=== PATIENT | male | born 1950 | race Caucasian/White ===

== ENCOUNTER 2018-09-15 12:31 | Emergency (ER) | payer MEDICARE, OTHER ==
--- OUTSIDE RECORDS SUMMARY | 2018-09-15 12:33 | XMS REPORT | Clinical Summary ---
:1950 Author Organization [facility] Address [address] [place] [address] Care Team Providers Name Role Phone Cynthia Andino Primary Care Provider Allergies Active Allergy Reactions Severity Noted Date Comments Codeine Nausea And Vomiting 01/31/2016 Penicillins Hives 01/31/2016 Hydrocodone-Acetaminophen Nausea And Vomiting 07/12/2016 Medications Medication Sig Dispensed Refills Start Date End Date Status ALPRAZolam (XANAX) 1 Take 0.5 mg by 0 Active MG tablet mouth 4 (four) times daily as needed for Anxiety Takes a total 2mg a day. amLODIPine (NORVASC) Take 5 mg by mouth 0 Active 5 MG tablet 2 (two) times daily . aspirin 81 MG Take 81 mg by mouth 0 Active chewable tablet daily. glimepiride (AMARYL) Take 4 mg by mouth 0 Active 4 MG tablet 2 (two) times daily before meals . ibuprofen-diphenhydra Take 2 tablets by 0 Active mine HCl (ADVIL PM mouth as needed . LIQUI-GELS) 200-25 mg Cap losartan-hydrochlorot Take 1 tablet by 0 Active hiazide (HYZAAR) mouth daily. 100-25 mg per tablet metFORMIN Take 500 mg by 0 Active (GLUCOPHAGE) 500 MG mouth 2 (two) times tablet daily with breakfast and dinner Takes 500 mg in am and 1000 mg at night. CYANOCOBALAMIN, Take 1 tablet by 0 Active VITAMIN B-12, mouth daily Super (VITAMIN B-12 ORAL) Vitamin B 12 . UNKNOWN 1 tablet daily 0 Active Takes another diabetic pill, new prescription, can't remember name . Active Problems Problem Noted Date Hiatal hernia s/p lap repair and magnetic spincter augmentation 07/15/162016 Dysphagia GERD (gastroesophageal reflux disease) Family History Medical History Relation Name Comments Diabetes Father Heart disease Father Hypertension Mother Relation Name Status Comments Father Mother Social History Tobacco Use Types Packs/Day Years Used Date Former Smoker Quit: 06/02/1996 Smokeless Tobacco: Never Used Alcohol Use Drinks/Week oz/Week Comments Yes 4 Standard drinks or equivalent 2.0 Sex Assigned at Date Recorded Not on file Job Start Date Occupation Industry Not on file Not on file Not on file Travel History Travel Start Travel End No recent travel history available. 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 For more information, please contact:[address] [phone] Code Status Date Activated Date Inactivated Comments Full Code 07/15/2016 6:35 PM 07/17/2016 1:25 PM This code status was determined by: Patient Full Code 07/15/2016 8:19 AM 07/15/2016 6:35 PM This code status was determined by: Patient
--- OUTSIDE RECORDS SUMMARY | 2018-09-15 12:33 | XMS REPORT ---
:1950 Author Organization [facility] Address [address] [place] [address] [address] [place] [address] Care Team Providers Name Role Phone CAROLINA BROOKS Unavailable Unavailable Problems This patient has no known problems. Allergies, Adverse Reactions, Alerts This patient has no known allergies or adverse reactions. Medications This patient has no known medications. Results Test Description Test Time Test Comments Text Results Atomic Results Result Comments POCT-GLUCOSE METER 2016-07-19 09:15:00 Test Item Value Reference Range Comments POC-GLUCOSE METER (BEAKER) (test 229 mg/dL 70-110 TESTED AT [address] jufk=7706) [facility] [id number] POCT-GLUCOSE [id number] 08:10:00 Test Item Value Reference Range Comments POC-GLUCOSE METER (BEAKER) 238 mg/dL 70-110 TESTED AT [address] (test bpjo=1393) [facility] [address] [id number] 04:55:00 Test Item Value Reference Range Comments MAGNESIUM (BEAKER) (test ksnr=512) 2.0 mg/dL 1.6-2.6 BASIC METABOLIC [id number] 04:55:00 Test Item Value Reference Range Comments SODIUM (BEAKER) (test 139 meq/L 136-145 izlh=796) POTASSIUM (BEAKER) (test 3.7 meq/L 3.5-5.1 vqoi=913) CHLORIDE (BEAKER) (test 103 meq/L 98-107 tiau=597) CO2 (BEAKER) (test 27 meq/L 22-29 sjvf=991) BLOOD UREA NITROGEN 7 mg/dL 7-21 (BEAKER) (test mplz=406) CREATININE (BEAKER) (test 0.67 mg/dL 0.57-1.25 auvg=645) GLUCOSE RANDOM (BEAKER) 217 mg/dL 70-105 (test tszx=669) CALCIUM (BEAKER) (test 8.4 mg/dL 8.4-10.2 hajs=294) EGFR (BEAKER) (test 119 mL/min/1.73 sq m ESTIMATED GFR IS NOT ulhy=6138) ACCURATE CREATININE CLEARANCE IN PREDICTING GLOMERULAR FILTRATION RATE. ESTIMATED GFR IS NOT APPLICABLE FOR DIALYSIS PATIENTS. [id number] 04:47:00 Test Item Value Reference Range Comments PARTIAL THROMBOPLASTIN TIME (BEAKER) (test 26.9 seconds 22.5-36.0 ybhr=579) PROTHROMBIN [id number] 04:46:00 Test Item Value Reference Range Comments PROTIME (BEAKER) (test zgsb=296) 12.9 seconds 11.7-14.7 INR (BEAKER) (test kelj=918) 1.0 <=5.9 RECOMMENDED COUMADIN/WARFARIN INR THERAPY RANGESSTANDARD DOSE: 2.0 - 3.0 Includes: PROPHYLAXIS forvenous thrombosis, systemic embolization; TREATMENT for venous thrombosis and/or pulmonary embolus.HIGH RISK: Target INR is 2.5-3.5 for patients with mechanical heart valves.CBC W/PLT COUNT & AUTO [id number] 04:36:00 Test Item Value Reference Range Comments WHITE BLOOD CELL COUNT (BEAKER) (test rnyz=080) 10.0 K/ L 4.0-10.0 RED BLOOD CELL COUNT (BEAKER) (test fewg=663) 4.53 M/ L 4.20-5.80 HEMOGLOBIN (BEAKER) (test ivjy=490) 14.2 GM/DL 13.0-16.8 HEMATOCRIT (BEAKER) (test nmvj=357) 43.6 % 40.0-50.0 MEAN CORPUSCULAR VOLUME (BEAKER) (test gpwp=193) 96.3 fL 82.0-98.0 MEAN CORPUSCULAR HEMOGLOBIN (BEAKER) (test 31.4 pg 27.0-33.0 byar=578) MEAN CORPUSCULAR HEMOGLOBIN CONC (BEAKER) (test 32.6 GM/DL 32.0-36.0 rtai=337) RED CELL DISTRIBUTION WIDTH (BEAKER) (test 11.6 % 10.3-14.2 jcse=003) PLATELET COUNT (BEAKER) (test ulrf=036) 168 K/CU MM 150-430 MEAN PLATELET VOLUME (BEAKER) (test tvhp=508) 7.9 fL 6.5-10.5 NUCLEATED RED BLOOD CELLS (BEAKER) (test 0 /100 WBC 0-0 smht=050) NEUTROPHILS RELATIVE PERCENT (BEAKER) (test 61 % qqpn=519) LYMPHOCYTES RELATIVE PERCENT (BEAKER) (test 28 % lybh=944) MONOCYTES RELATIVE PERCENT (BEAKER) (test 10 % exya=552) EOSINOPHILS RELATIVE PERCENT (BEAKER) (test 1 % qcou=851) BASOPHILS RELATIVE PERCENT (BEAKER) (test 1 % ggkc=304) NEUTROPHILS ABSOLUTE COUNT (BEAKER) (test 6.07 K/ L 1.80-8.00 tpzo=340) LYMPHOCYTES ABSOLUTE COUNT (BEAKER) (test 2.76 K/ L 1.48-4.50 akhb=673) MONOCYTES ABSOLUTE COUNT (BEAKER) (test 0.97 K/ L 0.00-1.30 hjcf=090) EOSINOPHILS ABSOLUTE COUNT (BEAKER) (test 0.14 K/ L 0.00-0.50 zpjb=753) BASOPHILS ABSOLUTE COUNT (BEAKER) (test 0.06 K/ L 0.00-0.20 mhuk=706) 0.00POCT-GLUCOSE [id number] 22:06:00 Test Item Value Reference Range Comments POC-GLUCOSE METER (BEAKER) 243 mg/dL 70-110 TESTED AT [address] (test fbjw=4997) [place] [address] POCT-GLUCOSE [id number] 17:17:00 Test Item Value Reference Range Comments POC-GLUCOSE METER (BEAKER) 218 mg/dL 70-110 TESTED AT [address] (test ygpb=1490) [place] [address]
[2018-09-15 13:57] LABS: Absolute Lymphocytes (CBC) 1.3 K/uL (0.7-4.9); Absolute Monocytes 0.7 K/uL (0.1-1.3); Absolute Neutrophil 9.9 K/uL (1.8-8.0); Basophils % 0.7 % (0-1.3); Eosinophils % 0.6 % (0-4.4); Hematocrit 53.4 % (39.6-49.0); Lymphocytes % 10.3 % (15.3-44.8); MPV 9.4 fL (7.6-11.3); Monocytes % 6.2 % (3.3-12.3); RBC Red Blood Cell Count 5.82 M/uL (4.33-5.43)
[2018-09-15] MEDS ORDERED: NA CHLORIDE 0.9% 1,000 ML ONE ×3 (13:57→15:03)
[2018-09-15] MEDS ORDERED: MORPHINE 4 MG/ML SYR ONE ×2 (13:57→14:55)
[2018-09-15] MEDS ORDERED: ONDANSETRON 4 MG/2 ML VIAL ONE ×3 (13:57→16:52)
[2018-09-15] MEDS ORDERED: PANTOPRAZOLE 40 MG INJ ONE (13:57)
[2018-09-15 13:59] LABS: Protime INR 0.96
[2018-09-15 14:13] LABS: ALT/SGPT 106 U/L (12-78); AST/SGOT 61 U/L (15-37); Albumin 4.3 g/dL (3.4-5.0); Alkaline Phosphatase 50 U/L (45-117); BUN Blood Urea Nitrogen 13 mg/dL (7-18); Bicarbonate 30 mmol/L (21-32); Bilirubin Direct 0.3 mg/dL (0-0.2); Bilirubin Total 0.9 mg/dL (0.2-1.0); Glucose Level 131 mg/dL (74-106); Lipase 19271 U/L (73-393); Potassium 4.3 mmol/L (3.5-5.1); Protein, Total 8.3 g/dL (6.4-8.2); Sodium Level 143 mmol/L (136-145)
[2018-09-15 14:49] LABS: Magnesium 2.5 mg/dL (1.8-2.4); NT PRO-BNP 46 pg/mL (<125); Troponin (Emerg Dept Use Only) < 0.02 ng/mL (0.0-0.045)
--- NOTE | 2018-09-15 15:03 | ER ---
Nurse's Notes [facility] Name: Donal Valentine Age: 68 yrs Sex: Male : 1950 Arrival Date: 09/15/2018 Time: 12:38 Bed 25 Private MD: Diagnosis: Abdominal tenderness;Acute pancreatitis;Type 2 diabetes mellitus;Volume depletion;Elevated white blood cell count Presentation: 09/15 12:55 Presenting complaint: Patient states: i woke up this AM being nauseated and threw up 3 hj x; reports abd pain; pain is 8/10; denies fever and chills; denies diarrhea or constipation;. Transition of care: patient was not received from another setting of care. Onset of symptoms was September 15, 2018. Risk Assessment: Do you want to hurt yourself or someone else? Patient reports no desire to harm self or others. Initial Sepsis Screen: Does the patient meet any 2 criteria? No. Patient's initial sepsis screen is negative. Does the patient have a suspected source of infection? No. Patient's initial sepsis screen is negative. Care prior to arrival: None. 12:55 Method Of Arrival: Ambulatory 12:55 Acuity: MINOR 3 hj Triage Assessment: 13:21 General: Appears in no apparent distress. uncomfortable, Behavior is calm, cooperative, hj appropriate for age. Pain: Complains of pain in abdomen. GI: Reports nausea, vomiting. Historical: - Allergies: 12:57 Codeine; hj 12:57 PENICILLINS; - Home Meds: 13:42 metformin 1,000 mg Oral tab 1 tab nightly for Type 2 Diabetes Mellitus [Active]; hj gabapentin 300 mg oral cap 1 cap nightly [Active]; omeprazole 40 mg Oral cpDR 1 cap once daily [Active]; losartan-hydrochlorothiazide 100-25 mg Oral tab 1 tab once daily for Hypertension [Active]; glimepiride 4 mg Oral tab 1 tab once daily [Active]; alprazolam 1 mg oral tab 1 tab twice a day [Active]; Jardiance 25 mg oral tab 1 tab once daily [Active]; aspirin 81 mg Oral chew 1 tab once daily [Active]; sucralfate 1 gram Oral tab 1 tab 2 times per day [Active]; - PMHx: 12:57 Diabetes - NIDDM; Hypertension; hj - PSHx: 12:57 linex surgery; hj - Immunization history:: Adult Immunizations up to date. - Social history:: Smoking status: Patient/guardian denies using tobacco, Patient/guardian denies using alcohol. - Ebola Screening: : Patient negative for fever greater than or equal to 101.5 degrees Fahrenheit, and additional compatible Ebola Virus Disease symptoms Patient denies exposure to infectious person Patient denies travel to an Ebola-affected area in the 21 days before illness onset. - Family history:: not pertinent. Screenin:21 Abuse screen: Denies threats or abuse. Denies injuries from another. Nutritional hj screening: No deficits noted. Tuberculosis screening: No symptoms or risk factors identified. Fall Risk None identified. Assessment: 12:59 GI: Bowel sounds present X 4 quads. hj 13:22 GI: Abd is soft. hj 13:22 General: Appears in no apparent distress. uncomfortable, Behavior is calm, cooperative, hj appropriate for age. Pain: Complains of pain in abdomen. Neuro: Level of Consciousness is awake, alert, obeys commands, Oriented to person, place, time, situation, Appropriate for age. Cardiovascular: Capillary refill < 3 seconds Patient's skin is warm and dry. Respiratory: Airway is patent Respiratory effort is even, unlabored, Respiratory pattern is regular, symmetrical. : No signs and/or symptoms were reported regarding the genitourinary system. EENT: No signs and/or symptoms were reported regarding the EENT system. Derm: No signs and/or symptoms reported regarding the dermatologic system. Musculoskeletal: No signs and/or symptoms reported regarding the musculoskeletal system. 14:00 Reassessment: Patient and/or family updated on plan of care and expected duration. Pain hj level reassessed. Patient is alert, oriented x 3, equal unlabored respirations, skin warm/dry/pink. pt finished drinking oral contrast;. 16:03 Reassessment: report called to TAMIKA Hilton of [facility]. mg2 16:27 Reassessment: Patient and/or family updated on plan of care and expected duration. Pain hj level reassessed. Patient is alert, oriented x 3, equal unlabored respirations, skin warm/dry/pink. wheeled to US;. 17:23 Reassessment: Patient and/or family updated on plan of care and expected duration. Pain hj level reassessed. Patient is alert, oriented x 3, equal unlabored respirations, skin warm/dry/pink. awaiting for ambulance transport- ;. Vital Signs: 12:57 BP 132 / 84; Pulse 71; Resp 18; Temp 99.1(O); Pulse Ox 98% on R/A; Weight 92.99 kg; hj Height 6 ft. 1 in. (185.42 cm); Pain 8/10; 13:30 BP 146 / 84; Pulse 72; Resp 18; Pulse Ox 100% on R/A; hj 14:24 BP 144 / 86; Pulse 71; Resp 18; Pulse Ox 99% on R/A; hj 15:49 BP 122 / 65; Pulse 73; Resp 18; Temp 98.7(O); Pulse Ox 98% on R/A; hj 16:27 BP 121 / 66; Pulse 72; Resp 18; Pulse Ox 100% on R/A; hj 17:23 BP 156 / 82; Pulse 84; Resp 18; Pulse Ox 98% on R/A; hj 12:57 Body Mass Index 27.05 (92.99 kg, 185.42 cm) hj ED Course: 12:38 Patient arrived in ED. as 12:56 Triage completed. hj 12:59 Arm band placed on left wrist. hj 13:13 Lenny Payne RN is Primary Nurse. hj 13:16 Tanvir Pacheco MD is Attending Physician. morales 13:22 Patient has correct armband on for positive identification. Placed in gown. Bed in low hj position. Call light in reach. Side rails up X 1. 13:30 Missed attempt(s): 20 gauge in left antecubital area. tm3 13:35 Inserted saline lock: 22 gauge in right antecubital area, using aseptic technique. tm3 14:01 Oral contrast reported to be complete. sj 14:17 XRAY Chest (1 view) In Process Unspecified. EDMS 14:18 X-ray completed. Portable x-ray completed in exam room. Patient tolerated procedure jb2 well. 14:19 EKG done, by maintenance technician 3rd shift. reviewed by Tanvir Pacheco MD. sm3 15:35 CT completed. Patient tolerated procedure well. Patient moved back from CT. vm2 15:36 CT Abd/Pelvis - W/Contrast In Process Unspecified. EDMS 16:23 US Abdomen Limited In Process Unspecified. EDMS 16:31 Ultrasound completed. hr 17:30 No provider procedures requiring assistance completed. Patient transferred, IV remains hj in place. intact. Administered Medications: 13:41 Drug: NS 0.9% 1000 ml Route: IV; Rate: 1 bolus; Site: right antecubital; hj 15:00 Follow up: IV Status: Completed infusion; IV Intake: 1000ml hj 13:41 Drug: ProTONIX 40 mg Route: IVP; Site: right antecubital; hj 13:59 Follow up: Response: No adverse reaction hj 13:41 Drug: morphine 4 mg Route: IVP; Site: right antecubital; hj 13:59 Follow up: Response: No adverse reaction hj 13:41 Drug: Zofran 4 mg Route: IVP; Site: right antecubital; hj 14:00 Follow up: Response: No adverse reaction hj 14:42 Drug: NS 0.9% 1000 ml Route: IV; Rate: 1 bolus; Site: right antecubital; hj 16:38 Follow up: IV Status: Completed infusion hj 14:42 Drug: morphine 4 mg Route: IVP; Site: right antecubital; hj 14:49 Follow up: Response: No adverse reaction; Pain is decreased hj 14:42 Drug: Zofran 4 mg Route: IVP; Site: right antecubital; hj 14:50 Follow up: Response: No adverse reaction hj 14:54 Drug: NS 0.9% 1000 ml Route: IV; Rate: 125 ml/hr; Site: right antecubital; hj 16:38 Follow up: IV Status: Infusion continued upon transfer hj 15:39 Drug: levofloxacin 500 mg Volume: 100 ml; Route: IVPB; Infused Over: 60 mins; Site: hj right antecubital; 15:44 Follow up: IV Status: Completed infusion hj 17:05 Follow up: IV Status: Completed infusion hj 16:38 Drug: Demerol 50 mg Route: IVP; Site: right antecubital; hj 16:45 Follow up: Response: No adverse reaction hj 16:38 Drug: Zofran 4 mg Route: IVP; Site: right antecubital; hj 16:45 Follow up: Response: No adverse reaction hj 17:25 Drug: Phenergan 12.5 mg Route: IVP; Site: right antecubital; hj 17:29 Follow up: Response: No adverse reaction; Pain is decreased hj 17:35 Follow up: Response: No adverse reaction; Nausea is decreased hj 17:31 Not Given (previous bag still running): NS 0.9% 1000 ml IV at 125 ml/hr continuous hj Intake: 15:00 IV: 1000ml; Total: 1000ml. hj Outcome: 15:02 ER care complete, transfer ordered by . morales 17:30 [facility]red by ground EMS [place] [facility] [facility] [place]. hj X-rays sent w/ patient. 17:30 Condition: stable 17:30 Instructed on the need for transfer, Demonstrated understanding of instructions. 17:35 Patient left the ED. Signatures: Dispatcher [employer] EDMS Donavan Berger tm3 Tanvir Pacheco MD MD cha Buechter, Remi jb2 Sera Hadley, Anamaria Arzola Henry, RN RN Yumi Nettles 2 Kg Trujillo RN RN [facility] Lynne Magallon sm3 Corrections: (The following items were deleted from the chart) 12:59 12:57 Pulse 71bpm; Resp 18bpm; Pulse Ox 98% RA; Temp 99.1F Oral; 92.99 kg; Height 6 ft. hj 1 in.; BMI: 27.0; Pain 8/10; hj
--- NOTE | 2018-09-15 15:03 | EDPHYS ---
Physician Documentation [facility] Name: Donal Valentine Age: 68 yrs Sex: Male : 1950 Arrival Date: 09/15/2018 Time: 12:38 Bed 25 Private MD: ED Physician Tanvir Pacheco HPI: 09/15 13:42 This 68 yrs old Male presents to ER via Ambulatory with complaints of morales Abdominal Pain. 13:42 The patient presents with abdominal pain. Onset: The symptoms/episode began/occurred morales this morning, today. The symptoms do not radiate. Associated signs and symptoms: none. The symptoms are described as crampy. Modifying factors: The symptoms are alleviated by nothing, the symptoms are aggravated by nothing. Severity of pain: At its worst the pain was moderate in the emergency department the pain is unchanged. The patient has not experienced similar symptoms in the past. Historical: - Allergies: 12:57 Codeine; hj 12:57 PENICILLINS; - Home Meds: 13:42 metformin 1,000 mg Oral tab 1 tab nightly for Type 2 Diabetes Mellitus [Active]; gabapentin 300 mg oral cap 1 cap nightly [Active]; omeprazole 40 mg Oral cpDR 1 cap once daily [Active]; losartan-hydrochlorothiazide 100-25 mg Oral tab 1 tab once daily for Hypertension [Active]; glimepiride 4 mg Oral tab 1 tab once daily [Active]; alprazolam 1 mg oral tab 1 tab twice a day [Active]; Jardiance 25 mg oral tab 1 tab once daily [Active]; aspirin 81 mg Oral chew 1 tab once daily [Active]; sucralfate 1 gram Oral tab 1 tab 2 times per day [Active]; - PMHx: 12:57 Diabetes - NIDDM; Hypertension; hj - PSHx: 12:57 linex surgery; hj - Immunization history:: Adult Immunizations up to date. - Social history:: Smoking status: Patient/guardian denies using tobacco, Patient/guardian denies using alcohol. - Ebola Screening: : Patient negative for fever greater than or equal to 101.5 degrees Fahrenheit, and additional compatible Ebola Virus Disease symptoms Patient denies exposure to infectious person Patient denies travel to an Ebola-affected area in the 21 days before illness onset. - Family history:: not pertinent. ROS: 13:42 Constitutional: Negative for fever, chills, and weight loss, Eyes: Negative for injury, morales pain, redness, and discharge, ENT: Negative for injury, pain, and discharge, Neck: Negative for injury, pain, and swelling, Cardiovascular: Negative for chest pain, palpitations, and edema, Respiratory: Negative for shortness of breath, cough, wheezing, and pleuritic chest pain, Back: Negative for injury and pain, : Negative for injury, bleeding, discharge, and swelling, MS/Extremity: Negative for injury and deformity, Skin: Negative for injury, rash, and discoloration, Neuro: Negative for headache, weakness, numbness, tingling, and seizure, Psych: Negative for depression, anxiety, suicide ideation, homicidal ideation, and hallucinations, Allergy/Immunology: Negative for hives, rash, and allergies, Endocrine: Negative for neck swelling, polydipsia, polyuria, polyphagia, and marked weight changes, Hematologic/Lymphatic: Negative for swollen nodes, abnormal bleeding, and unusual bruising. 13:42 Abdomen/GI: Positive for abdominal pain, nausea and vomiting, of the epigastric area, right upper quadrant and left upper quadrant. Exam: 13:42 Constitutional: This is a well developed, well nourished patient who is awake, alert, morales and in no acute distress. Head/Face: Normocephalic, atraumatic. Eyes: Pupils equal round and reactive to light, extra-ocular motions intact. Lids and lashes normal. Conjunctiva and sclera are non-icteric and not injected. Cornea within normal limits. Periorbital areas with no swelling, redness, or edema. ENT: Nares patent. No nasal discharge, no septal abnormalities noted. Tympanic membranes are normal and external auditory canals are clear. Oropharynx with no redness, swelling, or masses, exudates, or evidence of obstruction, uvula midline. Mucous membranes moist. Neck: Trachea midline, no thyromegaly or masses palpated, and no cervical lymphadenopathy. Supple, full range of motion without nuchal rigidity, or vertebral point tenderness. No Meningismus. Chest/axilla: Normal chest wall appearance and motion. Nontender with no deformity. No lesions are appreciated. Cardiovascular: Regular rate and rhythm with a normal S1 and S2. No gallops, murmurs, or rubs. Normal PMI, no JVD. No pulse deficits. Respiratory: Lungs have equal breath sounds bilaterally, clear to auscultation and percussion. No rales, rhonchi or wheezes noted. No increased work of breathing, no retractions or nasal flaring. Back: No spinal tenderness. No costovertebral tenderness. Full range of motion. Male : Normal genitalia with no discharge or lesions. Skin: Warm, dry with normal turgor. Normal color with no rashes, no lesions, and no evidence of cellulitis. MS/ Extremity: Pulses equal, no cyanosis. Neurovascular intact. Full, normal range of motion. Neuro: Awake and alert, GCS 15, oriented to person, place, time, and situation. Cranial nerves II-XII grossly intact. Motor strength 5/5 in all extremities. Sensory grossly intact. Cerebellar exam normal. Normal gait. Psych: Awake, alert, with orientation to person, place and time. Behavior, mood, and affect are within normal limits. 13:42 Abdomen/GI: Inspection: abdomen appears normal, Bowel sounds: active, Palpation: moderate abdominal tenderness, in the right upper quadrant and left upper quadrant, Liver: no appreciated palpable abnormalities, Hernia: not appreciated. Vital Signs: 12:57 BP 132 / 84; Pulse 71; Resp 18; Temp 99.1(O); Pulse Ox 98% on R/A; Weight 92.99 kg; hj Height 6 ft. 1 in. (185.42 cm); Pain 8/10; 13:30 BP 146 / 84; Pulse 72; Resp 18; Pulse Ox 100% on R/A; hj 14:24 BP 144 / 86; Pulse 71; Resp 18; Pulse Ox 99% on R/A; hj 15:49 BP 122 / 65; Pulse 73; Resp 18; Temp 98.7(O); Pulse Ox 98% on R/A; 16:27 BP 121 / 66; Pulse 72; Resp 18; Pulse Ox 100% on R/A; hj 17:23 BP 156 / 82; Pulse 84; Resp 18; Pulse Ox 98% on R/A; 12:57 Body Mass Index 27.05 (92.99 kg, 185.42 cm) MDM: 13:16 Patient medically screened. [facility] 13:44 Data reviewed: vital signs, nurses notes, lab test result(s), EKG, radiologic studies, [facility] CT scan, plain films. 09/15 13:29 Order name: Basic Metabolic Panel; Complete Time: 14:41 09/15 13:29 Order name: CBC with Diff; Complete Time: 14:41 09/15 13:29 Order name: Creatinine for Radiology; Complete Time: 14:41 09/15 13:29 Order name: Hepatic Function; Complete Time: 14:41 09/15 13:29 Order name: Lipase; Complete Time: 14:41 09/15 13:41 Order name: Magnesium; Complete Time: 14:59 [facility] 09/15 13:41 Order name: NT PRO-BNP; Complete Time: 14:59 [facility] 09/15 13:41 Order name: PT-INR; Complete Time: 14:41 [facility] 09/15 13:41 Order name: Troponin (emerg Dept Use Only); Complete Time: 14:59 [facility] 09/15 13:41 Order name: XRAY Chest (1 view); Complete Time: 15:23 [facility] 09/15 13:41 Order name: CT Abd/Pelvis - W/Contrast; Complete Time: 15:57 [facility] 09/15 15:24 Order name: US Abdomen Limited [facility] 09/15 13:29 Order name: IV Saline Lock; Complete Time: 13:42 09/15 13:29 Order name: Labs collected and sent; Complete Time: 13:53 09/15 13:41 Order name: EKG; Complete Time: 13:41 [facility] 09/15 13:41 Order name: Cardiac monitoring; Complete Time: 13:52 [facility] 09/15 13:41 Order name: EKG - Nurse/Tech; Complete Time: 13:59 [facility] 09/15 13:41 Order name: O2 Per Protocol; Complete Time: 13:42 [facility] 09/15 13:41 Order name: O2 Sat Monitoring; Complete Time: 13:42 [facility] Administered Medications: 13:41 Drug: NS 0.9% 1000 ml Route: IV; Rate: 1 bolus; Site: right antecubital; hj 15:00 Follow up: IV Status: Completed infusion; IV Intake: 1000ml 13:41 Drug: ProTONIX 40 mg Route: IVP; Site: right antecubital; hj 13:59 Follow up: Response: No adverse reaction 13:41 Drug: morphine 4 mg Route: IVP; Site: right antecubital; hj 13:59 Follow up: Response: No adverse reaction hj 13:41 Drug: Zofran 4 mg Route: IVP; Site: right antecubital; hj 14:00 Follow up: Response: No adverse reaction hj 14:42 Drug: NS 0.9% 1000 ml Route: IV; Rate: 1 bolus; Site: right antecubital; hj 16:38 Follow up: IV Status: Completed infusion hj 14:42 Drug: morphine 4 mg Route: IVP; Site: right antecubital; hj 14:49 Follow up: Response: No adverse reaction; Pain is decreased hj 14:42 Drug: Zofran 4 mg Route: IVP; Site: right antecubital; hj 14:50 Follow up: Response: No adverse reaction hj 14:54 Drug: NS 0.9% 1000 ml Route: IV; Rate: 125 ml/hr; Site: right antecubital; hj 16:38 Follow up: IV Status: Infusion continued upon transfer hj 15:39 Drug: levofloxacin 500 mg Volume: 100 ml; Route: IVPB; Infused Over: 60 mins; Site: hj right antecubital; 15:44 Follow up: IV Status: Completed infusion hj 17:05 Follow up: IV Status: Completed infusion hj 16:38 Drug: Demerol 50 mg Route: IVP; Site: right antecubital; hj 16:45 Follow up: Response: No adverse reaction hj 16:38 Drug: Zofran 4 mg Route: IVP; Site: right antecubital; hj 16:45 Follow up: Response: No adverse reaction hj 17:25 Drug: Phenergan 12.5 mg Route: IVP; Site: right antecubital; hj 17:29 Follow up: Response: No adverse reaction; Pain is decreased hj 17:35 Follow up: Response: No adverse reaction; Nausea is decreased hj 17:31 Not Given (previous bag still running): NS 0.9% 1000 ml IV at 125 ml/hr continuous hj Disposition: 09/15/18 15:02 Transfer ordered to [facility]. Diagnosis are Abdominal tenderness, Acute pancreatitis, Type 2 diabetes mellitus, Volume depletion, Elevated white blood cell count. - Reason for transfer: Higher level of care. - Accepting physician is to [facility]/ gi. - Condition is Fair. - Problem is new. - Symptoms have improved. Signatures: Dispatcher [employer] Tanvir Venegas MD MD cha Joaquin, Henry RN RN hj Corrections: (The following items were deleted from the chart) 15:03 15:02 09/15/2018 15:02 Transfer ordered to [facility]. Diagnosis is morales Abdominal tenderness; Acute pancreatitis; Type 2 diabetes mellitus. Reason for transfer: Higher level of care. Accepting physician is to [facility]/ . Condition is Fair. Problem is new. Symptoms have improved. morales 17:35 15:03 09/15/2018 15:02 Transfer ordered to [facility]. Diagnosis is hj Abdominal tenderness; Acute pancreatitis; Type 2 diabetes mellitus; Volume depletion; Elevated white blood cell count. Reason for transfer: Higher level of care. Accepting physician is to [facility]/ . Condition is Fair. Problem is new. Symptoms have improved. morales
--- NOTE | 2018-09-15 15:06 | RAD REPORT ---
EXAM DESCRIPTION: Chavez Single View09/15/2018 2:32 pm CLINICAL HISTORY: Abdominal pain COMPARISON: 2014 FINDINGS: Right paratracheal region is prominent but unchanged from 2014. It likely either represent s lymphadenopathy or vessels. Lungs appear clear of acute infiltrate. The heart is normal size
--- NOTE | 2018-09-15 15:46 | RAD REPORT ---
EXAM DESCRIPTION: CTAbdomen Pelvis W Contrast - 09/15/2018 3:34 pm CLINICAL HISTORY: Abdominal pain. ABD PAIN COMPARISON: No comparisons TECHNIQUE: Biphasic CT imaging of the abdomen and pelvis was performed with 100 ml non-ionic IV cont rast. All CT scans are performed using dose optimization technique as appropriate and may include automated exposure control or mA/KV adjustment according to patient size. FINDINGS: The lung bases are clear.Postsurgical changes are present at the esophagogastric junction. The liver contains several low-density lesions which are below a centimeter in size and difficult to fully characterize. No intrahepatic biliary dilatation seen. The spleen, adrenal glands are normal. K idneys demonstrate multiple cysts bilaterally. Tiny calcification is seen in the wall of a cyst on th e left. The pancreas has a hypodense and somewhat edematous appearance. This could indicate pancreati tis. No bowel obstruction, free air, free fluid or abscess. The appendix is normal. No evidence of signi ficant lymphadenopathy. No suspicious bony findings. IMPRESSION: Abnormal appearance to the pancreatic parenchyma noted, which could indicate acute pancr eatitis. Advise correlation with amylase and lipase levels.
[2018-09-15] MEDS ORDERED: Levofloxacin500mg IV 500 MG/100 ML BAG IV ONE (15:53)
--- NOTE | 2018-09-15 16:42 | RAD REPORT ---
EXAM DESCRIPTION: US - Abdomen Exam Limited - 09/15/2018 4:31 pm CLINICAL HISTORY: ABD PAIN COMPARISON: No comparisons FINDINGS: The gallbladder demonstrates no gallstones. No pericholecystic fluid or gallbladder wall t hickening. The common bile duct is normal measuring 4 mm. The liver demonstrates no findings of intrahepatic biliary dilatation. IMPRESSION: Unremarkable examination.
[2018-09-15] MEDS ORDERED: MEPERIDINE HCL 50 MG/ML AMP ONE (16:52)
--- NOTE | 2018-09-15 17:10 | EKG ---
Test Date: 2018-09-15 Test Time: 14:07:06 Junior Php Developer: LEATHA-Arnold MEASUREMENT RESULTS: Intervals: Rate: 62 PA: 188 QRSD: 136 QT: 432 QTc: 438 Barrett: P: 37 PA: 188 QRS: -38 T: 16 INTERPRETIVE STATEMENTS: Normal sinus rhythm Left axis deviation Left ventricular hypertrophy with QRS widening Abnormal ECG Compared to ECG 08/07/2015 14:39:10 Left-axis deviation now present Left anterior fascicular block no longer present Electronically Signed On 09-15-18 17:09:39 CDT by Baldev Weldon
[2018-09-15] MEDS ORDERED: PROMETHAZINE 25 MG/ML VIAL ONE (17:38)
[2018-09-15 17:51] VITALS: TEMP 98.7
[2018-09-15 17:54] VITALS: BP 156/82; O2SAT 98
== END 2018-09-15 17:35 | disposition short-term general hospital (02) ==
LOC: ER 12:31
DX: K85.90 Acute pancreatitis without necrosis or infection, unspecified (principal); D72.829 Elevated white blood cell count, unspecified; E86.9 Volume depletion, unspecified; E11.9 Type 2 diabetes mellitus without complications; I10 Essential (primary) hypertension; Z79.84 Long term (current) use of oral hypoglycemic drugs; Z79.82 Long term (current) use of aspirin
CPT/HCPCS: 96361; 93005; 85025; 80048; 36415; 83735; 85610; 80076; 84484; 83690; 83880; 74177; 71045; 76705; 96375; 96374; 99285; Q9967; J2550; C9113; J2175; J7030 ×3; J2405 ×3

== ENCOUNTER 2018-11-02 18:46 | Emergency (ER) | payer OTHER ==
--- OUTSIDE RECORDS SUMMARY | 2018-11-02 18:49 | XMS REPORT | Clinical Summary ---
:1950 Author Organization [facility] Address [address] [place] [address] Care Team Providers Name Role Phone Cynthia Andino Primary Care Provider Allergies Active Allergy Reactions Severity Noted Date Comments Codeine Nausea And Vomiting 01/31/2016 Penicillins Hives 01/31/2016 Hydrocodone-Acetaminophen Nausea And Vomiting 07/12/2016 Medications Medication Sig Dispensed Refills Start Date End Date Status ALPRAZolam (XANAX) Take 0.5 mg by 0 Active 1 MG tablet mouth 4 (four) times daily as needed for Anxiety Takes a total 2mg a day. amLODIPine Take 5 mg by 0 Active (NORVASC) 5 MG mouth 2 (two) tablet times daily . aspirin 81 MG Take 81 mg by 0 Active chewable tablet mouth daily. glimepiride Take 4 mg by 0 Active (AMARYL) 4 MG mouth 2 (two) tablet times daily before meals . ibuprofen-diphenhy Take 2 tablets 0 Active dramine HCl (ADVIL by mouth as PM LIQUI-GELS) needed . 200-25 mg Cap losartan-hydrochlo Take 1 tablet 0 Active rothiazide by mouth daily. (HYZAAR) 100-25 mg per tablet metFORMIN Take 500 mg by 0 Active (GLUCOPHAGE) 500 mouth 2 (two) MG tablet times daily with breakfast and dinner Takes 500 mg in am and 1000 mg at night. CYANOCOBALAMIN, Take 1 tablet 0 Active VITAMIN B-12, by mouth daily (VITAMIN B-12 Super Vitamin B ORAL) 12 . sucralfate Take 1 g by 0 Active (CARAFATE) 1 gram mouth 3 (three) tablet times daily with meals. omeprazole Take 20 mg by 0 Active (PRILOSEC) 20 MG mouth daily. capsule UNKNOWN 1 tablet daily 0 09/18/2018 Discontinued Takes another diabetic pill, new prescription, can't remember name . Active Problems Problem Noted Date Bilateral renal cysts 09/17/2018 Acute pancreatitis 09/15/2018 Hiatal hernia s/p lap repair and magnetic spincter augmentation 07/15/162016 Dysphagia GERD (gastroesophageal reflux disease) Diabetes mellitus Hypertension Encounters Date Type Specialty Care Team Description 09/15/2018 - Hospital Encounter General Internal Kike Delgado Idiopathic acute pancreatitis, unspecified complication status (Primary Dx); 09/18/2018 Medicine MD Loni Acute pancreatitis, unspecified complication status, unspecified pancreatitis type; Shelly Valiente Type 2 diabetes mellitus with complication, without long-term current use of insulin ([facility]OLA) MD Marcelo Olson Nejmudin Reshad, MD 09/15/2018 Travel after 11/01/2017 Family History Medical History Relation Name Comments [...] travel history available. Last Filed Vital Signs Vital Sign Reading Time Taken Blood Pressure 160/83 09/18/2018 8:00 AM CDT Pulse 62 09/18/2018 8:00 AM CDT Temperature 36 C (96.8 F) 09/18/2018 8:00 AM CDT Respiratory Rate 16 09/18/2018 8:00 AM CDT Oxygen Saturation 95% 09/18/2018 8:00 AM CDT Inhaled Oxygen Concentration - - Weight 91.6 kg (202 lb) 09/15/2018 7:00 PM CDT Height 185.4 cm (6' 1") 09/15/2018 7:00 PM CDT Body Mass Index 26.65 09/15/2018 7:00 PM CDT Plan of Treatment Not on file Implants Implanted Type Area Tie Layer Device Shelf Model / Identifier Expiration Serial / Date Lot Sys Linx Reflux Mgmt 15 [id number] - [id number] Bariatric N/A: [employer] 09/12/2019 [id number] / Implanted: Qty: 1 on 07/15/2016 by Rocky العلي MD [employer] [id number] / [id number] Procedures Procedure Name Priority Date/Time Associated Comments Diagnosis REPORT OF PROCEDURE - 09/22/2018 10:10 ENDOSCOPY SCAN AM CDT POCT-GLUCOSE METER Routine 09/18/2018 8:33 Results for this AM CDT procedure are in the results section. CBC W/PLT COUNT & AUTO Routine 09/18/2018 5:19 Results for this DIFFERENTIAL AM CDT procedure are in the results section. HEMOGLOBIN A1C Routine 09/18/2018 5:19 Results for this AM CDT procedure are in the results section. COMPREHENSIVE Routine 09/18/2018 5:19 Results for this METABOLIC PANEL AM CDT procedure are in the results section. CBC W/PLT COUNT & AUTO Routine 09/18/2018 5:19 Results for this DIFFERENTIAL AM CDT procedure are in the results section. POCT-GLUCOSE METER Routine 09/17/2018 9:15 Results for this PM CDT procedure are in the results section. POCT-GLUCOSE METER Routine 09/17/2018 6:00 Results for this PM CDT procedure are in the results section. POCT-GLUCOSE METER Routine 09/17/2018 12:02 Results for this PM CDT procedure are in the results section. POCT-GLUCOSE METER Routine 09/17/2018 8:05 Results for this AM CDT procedure are in the results section. POCT-GLUCOSE METER Routine 09/16/2018 9:08 Results for this PM CDT procedure are in the results section. POCT-GLUCOSE METER Routine 09/16/2018 6:18 Results for this PM CDT procedure are in the results section. POCT-GLUCOSE METER Routine 09/16/2018 12:11 Results for this PM CDT procedure are in the results section. POCT-GLUCOSE METER Routine 09/16/2018 8:24 Results for this AM CDT procedure are in the results section. US ABDOMEN LIMITED Routine 09/16/2018 7:13 Results for this AM CDT procedure are in the results section. CBC W/PLT COUNT & AUTO Routine 09/16/2018 5:19 Results for this DIFFERENTIAL AM CDT procedure are in the results section. LIPASE Routine 09/16/2018 5:19 Results for this AM CDT procedure are in the results section. CBC W/PLT COUNT & AUTO Routine 09/16/2018 5:19 Results for this DIFFERENTIAL AM CDT procedure are in the results section. COMPREHENSIVE Routine 09/16/2018 5:19 Results for this METABOLIC PANEL AM CDT procedure are in the results section. TRIGLYCERIDES Routine 09/16/2018 5:19 Results for this AM CDT procedure are in the results section. POCT-GLUCOSE METER Routine 09/15/2018 9:08 Results for this PM CDT procedure are in the results section. POCT-GLUCOSE METER Routine 09/15/2018 8:01 Results for this PM CDT procedure are in the results section. after 11/01/2017 Results EKG-SCANNED (09/22/2018 10:10 AM CDT) Narrative Performed At POC-Glucose meter (09/18/2018 8:33 AM CDT)Only the most recent of11 resultswithin the time period is included. POC-Glucose Meter 114 (H)Comment: TESTED AT 70 - 110 mg/dL [facility] [address] [facility] [id number] Specimen Blood Performing Organization Address City/State/Zipcode Phone Number [address] [phone] CENTER CBC with platelet count + automated diff (09/18/2018 5:19 AM CDT)Only the most recent of2 resultswithin the time period is included. WBC 7.0 3.5 - 10.5 K/L [facility] RBC 4.52 (L) 4.63 - 6.08 M/L [facility] Hemoglobin 14.2 13.7 - 17.5 GM/DL [facility] Hematocrit 42.3 40.1 - 51.0 % [facility] MCV 93.6 (H) 79.0 - 92.2 fL [facility] MCH 31.4 25.7 - 32.2 pg [facility] MCHC 33.6 32.3 - 36.5 GM/DL [facility] RDW 12.9 11.6 - 14.4 % [facility] Platelets 146 (L) 150 - 450 K/CU MM [facility] MPV 10.8 9.4 - 12.4 fL [facility] nRBC 0 0 - 0 /100 WBC [facility] % Neutros 44 % [facility] % Lymphs 39 % [facility] % Monos 11 % [facility] % Eos 5 % [facility] % Baso 1 % [facility] # Neutros 3.07 1.78 - 5.38 K/L [facility] # Lymphs 2.74 1.32 - 3.57 K/L [facility] # Monos 0.79 0.30 - 0.82 K/L [facility] # Eos 0.35 0.04 - 0.54 K/L [facility] # Baso 0.04 0.01 - 0.08 K/L [facility] Immature Granulocytes-Relative 0 0 - 1 % [facility] Specimen Blood Performing Organization Address City/State/Zipcode Phone Number [address] [address] [place] Hemoglobin A1c (09/18/2018 5:19 AM CDT) Hemoglobin A1C 7.4 (H) 4.3 - 6.1 % [facility] Specimen Blood Performing Organization Address City/State/Zipcode Phone Number [address] [address] [place] Comprehensive metabolic panel (09/18/2018 5:19 AM CDT)Only the most recent of2 resultswithin the time period is included. Protein, Total 5.9 (L) 6.0 - 8.3 gm/dL [facility] Albumin 3.3 (L) 3.5 - 5.0 g/dL [facility] Alkaline Phosphatase 33 (L) 40 - 150 U/L [facility] Total Bilirubin 1.2 0.2 - 1.2 mg/dL [facility] Sodium 142 136 - 145 meq/L [facility] Potassium 3.9 3.5 - 5.1 meq/L [facility] Chloride 106 98 - 107 meq/L [facility] CO2 28 22 - 29 meq/L [facility] BUN 6 (L) 7 - 21 mg/dL [facility] Creatinine 0.69 0.57 - 1.25 mg/dL [facility] Glucose 100 70 - 105 mg/dL [facility] Calcium 9.0 8.4 - 10.2 mg/dL [facility] AST 33 5 - 34 U/L [facility] ALT 46 6 - 55 U/L [facility] EGFR 114Comment: ESTIMATED mL/min/1.[address] [facility] GFR IS NOT ACCURATE [facility] CREATININE CLEARANCE IN PREDICTING GLOMERULAR FILTRATION RATE. ESTIMATED GFR IS NOT APPLICABLE FOR DIALYSIS PATIENTS. Specimen Blood Performing Organization Address City/State/Zipcode Phone Number [facility] [address] [place] [address] [phone] CENTER US abdomen limited (09/16/2018 7:13 AM CDT) Specimen Narrative Performed At FINAL REPORT [employer] HISTORY : Gallstones COMPARISON: None. COMMENT : Limited ultrasound examination of the abdomen was performed with attention to the right upper quadrant. The visualized pancreas appears unremarkable. The liver is enlarged measuring 20.1 cm in length. The hepatic parenchyma appears homogeneous without evidence for focal abnormality. The main portal vein is patent with a diameter of 1.37 m, within normal limits. The gallbladder is unremarkable. There is no evidence for shadowing stones, gallbladder wall thickening, or pericholecystic fluid. There is no intrahepatic biliary ductal dilatation. The common bile duct is mildly prominent measuring 0.7 cm in maximal caliber. The right kidney is normal in size measuring 12.9 cm in length with normal cortical thickness and echogenicity. There are two simple cysts identified within the right kidney measuring 3.6 x 4.0 x 3.9 cm and 1.9 x 1.8 x 1.9 cm. There is no evidence for solid renal mass, hydronephrosis, or shadowing calculi within the right kidney. The visualized portions of the IVC and aorta are within normal limits. There is no ascites or pleural fluid visualized. IMPRESSION : No evidence for cholelithiasis. Hepatomegaly. Right renal cysts. Signed: Bon Rivera MD Report Verified Date/Time:09/16/2018 13:08:32 Reading Location: [address] Ultrasound Reading Room Procedure Note Interface, External Ris In - 09/16/2018 1:10 PM CDT FINAL REPORT HISTORY : Gallstones COMPARISON: None. COMMENT : Limited ultrasound examination of the abdomen was performed with attention to the right upper quadrant. The visualized pancreas appears unremarkable. The liver is enlarged measuring 20.1 cm in length. The hepatic parenchyma appears homogeneous without evidence for focal abnormality. The main portal vein is patent with a diameter of 1.37 m, within normal limits. The gallbladder is unremarkable. There is no evidence for shadowing stones, gallbladder wall thickening, or pericholecystic fluid. There is no intrahepatic biliary ductal dilatation. The common bile duct is mildly prominent measuring 0.7 cm in maximal caliber. The right kidney is normal in size measuring 12.9 cm in length with normal cortical thickness and echogenicity. There are two simple cysts identified within the right kidney measuring 3.6 x 4.0 x 3.9 cm and 1.9 x 1.8 x 1.9 cm. There is no evidence for solid renal mass, hydronephrosis, or shadowing calculi within the right kidney. The visualized portions of the IVC and aorta are within normal limits. There is no ascites or pleural fluid visualized. IMPRESSION : No evidence for cholelithiasis. Hepatomegaly. Right renal cysts. Signed: Bon Rivera MD Report Verified Date/Time: 09/16/2018 13:08:32 Reading Location: [facility] [id number] Ultrasound Reading Room Performing Organization Address City/[facility]/Zipcode Phone Number GE RIS Triglycerides (09/16/2018 5:19 AM CDT) Triglycerides 48 mg/dL [facility] Specimen Blood Narrative Performed At [facility] Low Risk<150 Borderline Risk 150-199 [id number] Very High Risk >=500 Performing Organization Address [facility] Phone Number [address] [address] CENTER Lipase (09/16/2018 5:19 AM CDT) Lipase 483 (H) 8 - 78 U/L [facility] Specimen Blood Performing Organization Address [facility] Phone Number [address] [address] CENTER after 11/01/2017 Insurance Payer Benefit Plan / Group Subscriber ID Type Phone Address [employer] - MEDICARE UNITED MED[employer] HMO xxxxxxxxx [facility] ([place]) [place] [address] Advance Directives Patient has advance care planning documents, and code status on file. For more information, please contact:[address] [phone] Code Status Date Activated Date Inactivated Comments Full Code 09/15/2018 7:32 PM 09/18/2018 1:33 PM This code status was determined by: Patient Full Code 07/15/2016 6:35 PM 07/17/2016 1:25 PM This code status was determined by: Patient Full Code 07/15/2016 8:19 AM 07/15/2016 6:35 PM This code status was determined by: Patient
--- OUTSIDE RECORDS SUMMARY | 2018-11-02 18:49 | XMS REPORT ---
:1950 [facility] [address] [place] [address] Dr. Gordon [address] [place] [id number] Care Team Providers Name Role Phone NEO FELDER Unavailable Unavailable CAROLINA BROOKS Unavailable Unavailable Problems This patient has no known problems. Allergies, Adverse Reactions, Alerts This patient has no known allergies or adverse reactions. Medications This patient has no known medications. Results Test Description Test Time Test Comments Text Results Atomic Results Result Comments HEMOGLOBIN A1C 2018-09-18 09:24:00 Test Item Value Reference Range Comments HEMOGLOBIN A1C (BEAKER) (test lipj=473) 7.4 % 4.3-6.1 POCT-GLUCOSE [id number] 08:38:00 Test Item Value Reference Range Comments POC-GLUCOSE METER (BEAKER) 114 mg/dL 70-[address] [facility] [address] [facility] (test zmlh=4718) [facility] [address] COMPREHENSIVE METABOLIC [id number] 06:24:00 Test Item Value Reference Range Comments TOTAL PROTEIN (BEAKER) 5.9 gm/dL 6.0-8.3 (test ugjp=077) ALBUMIN (BEAKER) (test 3.3 g/dL 3.5-5.0 pyaj=7837) ALKALINE PHOSPHATASE 33 U/L 40-150 (BEAKER) (test clfl=053) BILIRUBIN TOTAL (BEAKER) 1.2 mg/dL 0.2-1.2 (test smwx=829) SODIUM (BEAKER) (test 142 meq/L 136-145 kgfp=382) POTASSIUM (BEAKER) (test 3.9 meq/L 3.5-5.1 rqph=674) CHLORIDE (BEAKER) (test 106 meq/L 98-107 fbro=022) CO2 (BEAKER) (test 28 meq/L 22-29 pxja=875) BLOOD UREA NITROGEN 6 mg/dL 7-21 (BEAKER) (test uelj=398) CREATININE (BEAKER) (test 0.69 mg/dL 0.57-1.25 svcm=778) GLUCOSE RANDOM (BEAKER) 100 mg/dL 70-105 (test ztjr=141) CALCIUM (BEAKER) (test 9.0 mg/dL 8.4-10.2 cqcd=921) AST (SGOT) (BEAKER) (test 33 U/L 5-34 mxqe=204) ALT (SGPT) (BEAKER) (test 46 U/L 6-55 qlqg=200) EGFR (BEAKER) (test 114 mL/min/1.73 sq ESTIMATED GFR IS NOT jlbb=9771) m ACCURATE CREATININE CLEARANCE IN PREDICTING GLOMERULAR FILTRATION RATE. ESTIMATED GFR IS NOT APPLICABLE FOR DIALYSIS PATIENTS. CBC W/PLT COUNT & AUTO [id number] 06:04:00 Test Item Value Reference Range Comments WHITE BLOOD CELL COUNT (BEAKER) (test rpnb=227) 7.0 K/ L 3.5-10.5 RED BLOOD CELL COUNT (BEAKER) (test vrfk=396) 4.52 M/ L 4.63-6.08 HEMOGLOBIN (BEAKER) (test drir=425) 14.2 GM/DL 13.7-17.5 HEMATOCRIT (BEAKER) (test izuv=248) 42.3 % 40.1-51.0 MEAN CORPUSCULAR VOLUME (BEAKER) (test crmk=442) 93.6 fL 79.0-92.2 MEAN CORPUSCULAR HEMOGLOBIN (BEAKER) (test 31.4 pg 25.7-32.2 cpxi=944) MEAN CORPUSCULAR HEMOGLOBIN CONC (BEAKER) (test 33.6 GM/DL 32.3-36.5 mzgd=285) RED CELL DISTRIBUTION WIDTH (BEAKER) (test 12.9 % 11.6-14.4 itav=035) PLATELET COUNT (BEAKER) (test vpgp=955) 146 K/CU MM 150-450 MEAN PLATELET VOLUME (BEAKER) (test uudd=768) 10.8 fL 9.4-12.4 NUCLEATED RED BLOOD CELLS (BEAKER) (test 0 /100 WBC 0-0 sgnv=375) NEUTROPHILS RELATIVE PERCENT (BEAKER) (test 44 % zuvk=952) LYMPHOCYTES RELATIVE PERCENT (BEAKER) (test 39 % nvdi=170) MONOCYTES RELATIVE PERCENT (BEAKER) (test 11 % jvrp=290) EOSINOPHILS RELATIVE PERCENT (BEAKER) (test 5 % kfms=829) BASOPHILS RELATIVE PERCENT (BEAKER) (test 1 % opfp=195) NEUTROPHILS ABSOLUTE COUNT (BEAKER) (test 3.07 K/ L 1.78-5.38 nzuc=781) LYMPHOCYTES ABSOLUTE COUNT (BEAKER) (test 2.74 K/ L 1.32-3.57 amrf=783) MONOCYTES ABSOLUTE COUNT (BEAKER) (test 0.79 K/ L 0.30-0.82 lrxe=829) EOSINOPHILS ABSOLUTE COUNT (BEAKER) (test 0.35 K/ L 0.04-0.54 cmyk=381) BASOPHILS ABSOLUTE COUNT (BEAKER) (test 0.04 K/ L 0.01-0.08 sakl=050) IMMATURE GRANULOCYTES-RELATIVE PERCENT (BEAKER) 0 % 0-1 (test tifc=2465) POCT-GLUCOSE [id number] 21:22:00 Test Item Value Reference Range Comments POC-GLUCOSE METER (BEAKER) 167 mg/dL 70-110 TESTED AT [address] (test cysm=0399) [facility] [address] POCT-GLUCOSE [id number] 18:22:00 Test Item Value Reference Range Comments POC-GLUCOSE METER (BEAKER) 85 mg/dL 70-110 TESTED AT [address] (test knvk=9586) [facility] [address] POCT-GLUCOSE [id number] 12:19:00 Test Item Value Reference Range Comments POC-GLUCOSE METER (BEAKER) 149 mg/dL 70-110 TESTED AT [address] (test feyk=5339) [facility] [address] POCT-GLUCOSE [id number] 08:18:00 Test Item Value Reference Range Comments POC-GLUCOSE METER (BEAKER) 103 mg/dL 70-110 TESTED AT [address] (test qjqh=8672) [facility] [address] POCT-GLUCOSE [id number] 21:12:00 Test Item Value Reference Range Comments POC-GLUCOSE METER (BEAKER) 114 mg/dL 70-110 TESTED AT [address] (test uyms=0981) [place] [id number] POCT-GLUCOSE [id number] 18:20:00 Test Item Value Reference Range Comments POC-GLUCOSE METER (BEAKER) 70 mg/dL 70-110 TESTED AT [place] [id number] [facility] (test kzfs=6643) [place] [address] [id number] 14:02:00 Test Item Value Reference Range Comments LIPASE (BEAKER) (test zocj=906) 483 U/L 8-78 U/S, ABDOMINAL, [id number] 13:08:00Abdomen limited area? Add comment if clarification is needed.->Gall BladderReason for exam:->eval for gall stonesFINAL REPORT HISTORY : Gallstones COMPARISON: None. COMMENT :Limited ultrasound examination of the abdomen was performed [...] thickening, or pericholecystic fluid. There is no intrahepaticbiliary ductal dilatation. The common bile duct is [...] evidence for solid renal mass, hydronephrosis, or shadowingcalculi within the right kidney. The visualized portions of the IVC and aorta are within normal limits. There is no ascites or pleural fluid visualized. IMPRESSION : No evidence for cholelithiasis. Hepatomegaly. Right renal cysts. Signed: Bon Rivera MDReport Verified Date/ Time: 09/16/2018 13:08:32 Reading Location: [facility] [id number] Ultrasound Reading Room POCT-GLUCOSE [id number] 12:13:00 Test Item Value Reference Range Comments POC-GLUCOSE METER (BEAKER) 130 mg/dL 70-[address] [facility] [address] [facility] (test dtyg=4448) [place] [id number] POCT-GLUCOSE [id number] 09:11:00 Test Item Value Reference Range Comments POC-GLUCOSE METER (BEAKER) 90 mg/dL 70-[address] [facility] [address] [place] (test jrnr=7777) [facility] [address] [id number] 06:24:00 Test Item Value Reference Range Comments TRIGLYCERIDES (BEAKER) (test nhrs=397) 48 mg/dL TRIGLYCERIDE REFERENCE RANGELow Risk <150Borderline Risk 150-199High Risk 200-499Very High Risk>=500COMPREHENSIVE METABOLIC [id number] 06:24:00 Test Item Value Reference Range Comments TOTAL PROTEIN (BEAKER) 5.7 gm/dL 6.0-8.3 (test fmxr=117) ALBUMIN (BEAKER) (test 3.3 g/dL 3.5-5.0 otfn=8725) ALKALINE PHOSPHATASE 39 U/L 40-150 (BEAKER) (test cxfi=320) BILIRUBIN TOTAL (BEAKER) 0.9 mg/dL 0.2-1.2 (test ukvu=117) SODIUM (BEAKER) (test 142 meq/L 136-145 nptq=025) POTASSIUM (BEAKER) (test 3.3 meq/L 3.5-5.1 uurg=483) CHLORIDE (BEAKER) (test 109 meq/L 98-107 xpsa=572) CO2 (BEAKER) (test 27 meq/L 22-29 byjj=198) BLOOD UREA NITROGEN 9 mg/dL 7-21 (BEAKER) (test jzcj=431) CREATININE (BEAKER) (test 0.66 mg/dL 0.57-1.25 rewm=009) GLUCOSE RANDOM (BEAKER) 79 mg/dL 70-105 (test ymri=149) CALCIUM (BEAKER) (test 8.1 mg/dL 8.4-10.2 zatr=265) AST (SGOT) (BEAKER) (test 33 U/L 5-34 rghq=155) ALT (SGPT) (BEAKER) (test 56 U/L 6-55 qrnx=515) EGFR (BEAKER) (test 120 mL/min/1.73 sq ESTIMATED GFR IS NOT iswh=1790) m ACCURATE CREATININE CLEARANCE IN PREDICTING GLOMERULAR FILTRATION RATE. ESTIMATED GFR IS NOT APPLICABLE FOR DIALYSIS PATIENTS. CBC W/PLT COUNT & AUTO [id number] 06:08:00 Test Item Value Reference Range Comments WHITE BLOOD CELL COUNT (BEAKER) (test vqri=193) 9.8 K/ L 3.5-10.5 RED BLOOD CELL COUNT (BEAKER) (test onpe=746) 4.58 M/ L 4.63-6.08 HEMOGLOBIN (BEAKER) (test pjct=392) 14.0 GM/DL 13.7-17.5 HEMATOCRIT (BEAKER) (test ajqa=519) 42.6 % 40.1-51.0 MEAN CORPUSCULAR VOLUME (BEAKER) (test dfjq=959) 93.0 fL 79.0-92.2 MEAN CORPUSCULAR HEMOGLOBIN (BEAKER) (test 30.6 pg 25.7-32.2 uoet=982) MEAN CORPUSCULAR HEMOGLOBIN CONC (BEAKER) (test 32.9 GM/DL 32.3-36.5 bfwi=065) RED CELL DISTRIBUTION WIDTH (BEAKER) (test 13.2 % 11.6-14.4 jsti=031) PLATELET COUNT (BEAKER) (test tofj=475) 151 K/CU MM 150-450 MEAN PLATELET VOLUME (BEAKER) (test togb=154) 11.0 fL 9.4-12.4 NUCLEATED RED BLOOD CELLS (BEAKER) (test 0 /100 WBC 0-0 syuz=664) NEUTROPHILS RELATIVE PERCENT (BEAKER) (test 61 % qixf=186) LYMPHOCYTES RELATIVE PERCENT (BEAKER) (test 27 % qtrt=298) MONOCYTES RELATIVE PERCENT (BEAKER) (test 10 % sccz=446) EOSINOPHILS RELATIVE PERCENT (BEAKER) (test 2 % ovxg=982) BASOPHILS RELATIVE PERCENT (BEAKER) (test 0 % fddn=097) NEUTROPHILS ABSOLUTE COUNT (BEAKER) (test 5.96 K/ L 1.78-5.38 apik=838) LYMPHOCYTES ABSOLUTE COUNT (BEAKER) (test 2.64 K/ L 1.32-3.57 hfwi=843) MONOCYTES ABSOLUTE COUNT (BEAKER) (test 0.99 K/ L 0.30-0.82 ourc=241) EOSINOPHILS ABSOLUTE COUNT (BEAKER) (test 0.20 K/ L 0.04-0.54 tkiw=843) BASOPHILS ABSOLUTE COUNT (BEAKER) (test 0.02 K/ L 0.01-0.08 rmen=245) IMMATURE GRANULOCYTES-RELATIVE PERCENT (BEAKER) 0 % 0-1 (test fzyl=0905) POCT-GLUCOSE [id number] 21:18:00 Test Item Value Reference Range Comments POC-GLUCOSE METER (BEAKER) 87 mg/dL 70-110 TESTED AT [address] (test unxc=4717) [facility] [address] POCT-GLUCOSE [id number] 20:02:00 Test Item Value Reference Range Comments POC-GLUCOSE METER (BEAKER) 98 mg/dL 70-110 TESTED AT [address] (test pgpn=8865) [facility] [address] POCT-GLUCOSE [id number] 09:15:00 Test Item Value Reference Range Comments POC-GLUCOSE METER (BEAKER) 229 mg/dL 70-110 TESTED AT [address] (test ltvw=7623) [facility] [address] POCT-GLUCOSE [id number] 08:10:00 Test Item Value Reference Range Comments POC-GLUCOSE METER (BEAKER) 238 mg/dL 70-110 TESTED AT [address] (test bcjk=8116) [facility] [address] [id number] 04:55:00 Test Item Value Reference Range Comments MAGNESIUM (BEAKER) (test cfmc=859) 2.0 mg/dL 1.6-2.6 BASIC METABOLIC [id number] 04:55:00 Test Item Value Reference Range Comments SODIUM (BEAKER) (test 139 meq/L 136-145 inom=182) POTASSIUM (BEAKER) (test 3.7 meq/L 3.5-5.1 kufr=247) CHLORIDE (BEAKER) (test 103 meq/L 98-107 yydc=938) CO2 (BEAKER) (test 27 meq/L 22-29 iadb=920) BLOOD UREA NITROGEN 7 mg/dL 7-21 (BEAKER) (test zyne=905) CREATININE (BEAKER) (test 0.67 mg/dL 0.57-1.25 mfss=837) GLUCOSE RANDOM (BEAKER) 217 mg/dL 70-105 (test ufrr=424) CALCIUM (BEAKER) (test 8.4 mg/dL 8.4-10.2 ksnx=866) EGFR (BEAKER) (test 119 mL/min/1.73 sq m ESTIMATED GFR IS NOT tnwa=8805) ACCURATE CREATININE CLEARANCE IN PREDICTING GLOMERULAR FILTRATION RATE. ESTIMATED GFR IS NOT APPLICABLE FOR DIALYSIS PATIENTS. [id number] 04:47:00 Test Item Value Reference Range Comments PARTIAL THROMBOPLASTIN TIME (BEAKER) (test 26.9 seconds 22.5-36.0 jiqb=766) PROTHROMBIN [id number] 04:46:00 Test Item Value Reference Range Comments PROTIME (BEAKER) (test nsyx=194) 12.9 seconds 11.7-14.7 INR (BEAKER) (test cveq=509) 1.0 <=5.9 RECOMMENDED COUMADIN/WARFARIN INR THERAPY RANGESSTANDARD DOSE: 2.0 - 3.0 Includes: PROPHYLAXIS forvenous thrombosis, systemic embolization; TREATMENT for venous thrombosis and/or pulmonary embolus.HIGH RISK: Target INR is 2.5-3.5 for patients with mechanical heart valves.CBC W/PLT COUNT & AUTO [id number] 04:36:00 Test Item Value Reference Range Comments WHITE BLOOD CELL COUNT (BEAKER) (test bmtg=082) 10.0 K/ L 4.0-10.0 RED BLOOD CELL COUNT (BEAKER) (test cult=548) 4.53 M/ L 4.20-5.80 HEMOGLOBIN (BEAKER) (test kwdr=289) 14.2 GM/DL 13.0-16.8 HEMATOCRIT (BEAKER) (test edrw=951) 43.6 % 40.0-50.0 MEAN CORPUSCULAR VOLUME (BEAKER) (test ergy=067) 96.3 fL 82.0-98.0 MEAN CORPUSCULAR HEMOGLOBIN (BEAKER) (test 31.4 pg 27.0-33.0 jzba=246) MEAN CORPUSCULAR HEMOGLOBIN CONC (BEAKER) (test 32.6 GM/DL 32.0-36.0 zsht=385) RED CELL DISTRIBUTION WIDTH (BEAKER) (test 11.6 % 10.3-14.2 uvxd=263) PLATELET COUNT (BEAKER) (test xsxd=666) 168 K/CU MM 150-430 MEAN PLATELET VOLUME (BEAKER) (test msgo=638) 7.9 fL 6.5-10.5 NUCLEATED RED BLOOD CELLS (BEAKER) (test 0 /100 WBC 0-0 oqyw=580) NEUTROPHILS RELATIVE PERCENT (BEAKER) (test 61 % jkgr=754) LYMPHOCYTES RELATIVE PERCENT (BEAKER) (test 28 % ycxw=500) MONOCYTES RELATIVE PERCENT (BEAKER) (test 10 % ltrp=393) EOSINOPHILS RELATIVE PERCENT (BEAKER) (test 1 % fhqb=277) BASOPHILS RELATIVE PERCENT (BEAKER) (test 1 % zmpk=292) NEUTROPHILS ABSOLUTE COUNT (BEAKER) (test 6.07 K/ L 1.80-8.00 eomi=003) LYMPHOCYTES ABSOLUTE COUNT (BEAKER) (test 2.76 K/ L 1.48-4.50 prom=805) MONOCYTES ABSOLUTE COUNT (BEAKER) (test 0.97 K/ L 0.00-1.30 waex=944) EOSINOPHILS ABSOLUTE COUNT (BEAKER) (test 0.14 K/ L 0.00-0.50 wjtz=107) BASOPHILS ABSOLUTE COUNT (BEAKER) (test 0.06 K/ L 0.00-0.20 onbz=775) 0.00POCT-GLUCOSE [id number] 22:06:00 Test Item Value Reference Range Comments POC-GLUCOSE METER (BEAKER) 243 mg/dL 70-110 TESTED AT [address] (test ijxz=8369) [place] [address] POCT-GLUCOSE [id number] 17:17:00 Test Item Value Reference Range Comments POC-GLUCOSE METER (BEAKER) 218 mg/dL 70-110 TESTED AT [address] (test nxsa=2286) [place] [address]
[2018-11-02] MEDS ORDERED: ONDANSETRON 4 MG/2 ML VIAL ONE (19:37)
[2018-11-02] MEDS ORDERED: MORPHINE 4 MG/ML SYR ONE (19:37)
[2018-11-02] MEDS ORDERED: NA CHLORIDE 0.9% 2,000 ML ONE (19:37)
[2018-11-02] MEDS ORDERED: FAMOTIDINE 20 MG/2 ML VIAL IV ONE (19:37)
--- NOTE | 2018-11-02 20:12 | RAD REPORT ---
EXAM DESCRIPTION: Chavez Single View11/02/2018 7:52 pm CLINICAL HISTORY: Chest pain COMPARISON: August 2018 FINDINGS: The lungs appear clear of acute infiltrate. The heart is normal size IMPRESSION: No acute abnormalities displayed
[2018-11-02 20:16] LABS: Absolute Lymphocytes (CBC) 1.7 K/uL (0.7-4.9); Absolute Monocytes 1.3 K/uL (0.1-1.3); Absolute Neutrophil 9.9 K/uL (1.8-8.0); Basophils % 0.6 % (0-1.3); Eosinophils % 0.3 % (0-4.4); Hematocrit 53.9 % (39.6-49.0); Lymphocytes % 12.6 % (15.3-44.8); MPV 9.3 fL (7.6-11.3); Monocytes % 10.3 % (3.3-12.3); RBC Red Blood Cell Count 5.83 M/uL (4.33-5.43)
[2018-11-02 20:18] LABS: Protime INR 1.12
[2018-11-02 20:36] LABS: Barbiturates NEGATIVE (NEGATIVE); Benzodiazepines POSITIVE (NEGATIVE); Cocaine NEGATIVE (NEGATIVE); METHAMPHETAM NEGATIVE (NEGATIVE); Methadone NEGATIVE (NEGATIVE); Opiates NEGATIVE (NEGATIVE); Phencyclidine NEGATIVE (NEGATIVE); THC Cannibis POSITIVE (NEGATIVE)
[2018-11-02 21:02] LABS: ALT/SGPT 84 U/L (12-78); AST/SGOT 31 U/L (15-37); Albumin 3.9 g/dL (3.4-5.0); Alkaline Phosphatase 58 U/L (45-117); BUN Blood Urea Nitrogen 14 mg/dL (7-18); Bicarbonate 26 mmol/L (21-32); Bilirubin Direct 0.2 mg/dL (0-0.2); Bilirubin Total 0.8 mg/dL (0.2-1.0); Glucose Level 155 mg/dL (74-106); Lipase 75 U/L (73-393); Magnesium 2.2 mg/dL (1.8-2.4); NT PRO-BNP 66 pg/mL (<125); Potassium 3.7 mmol/L (3.5-5.1); Protein, Total 8.3 g/dL (6.4-8.2); Sodium Level 139 mmol/L (136-145); Troponin (Emerg Dept Use Only) < 0.02 ng/mL (0.0-0.045)
--- NOTE | 2018-11-02 22:07 | ER ---
Nurse's Notes [facility] Name: Donal Valentine Age: 68 yrs Sex: Male : 1950 Arrival Date: 11/02/2018 Time: 18:48 Bed 28 Private MD: Diagnosis: Abdominal tenderness;Acute pharyngitis;Type 2 diabetes mellitus;Abuse of non-psychoactive substances Presentation: 11/02 18:49 Presenting complaint: Patient states: spencer been in bed for 3 days, i have swollen glands hj in my throat, my head is pounding, i have a nervous sensation on my chest; my abd hurts too; reports nausea; denies fever;. Transition of care: patient was not received from another setting of care. Onset of symptoms was November 02, 2018. Risk Assessment: Do you want to hurt yourself or someone else? Patient reports no desire to harm self or others. Initial Sepsis Screen: Does the patient meet any 2 criteria? No. Patient's initial sepsis screen is negative. Does the patient have a suspected source of infection? No. Patient's initial sepsis screen is negative. Care prior to arrival: None. 18:49 Method Of Arrival: Ambulatory hj 18:49 Acuity: MINOR 3 hj Historical: - Allergies: 18:50 Codeine; hj 18:50 PENICILLINS; hj - PMHx: 18:50 Diabetes - NIDDM; Hypertension; hj - PSHx: 18:50 linex surgery; hj - Immunization history:: Adult Immunizations up to date. - Social history:: Smoking status: unknown. - Family history:: not pertinent. - Ebola Screening: : Patient negative for fever greater than or equal to 101.5 degrees Fahrenheit, and additional compatible Ebola Virus Disease symptoms Patient denies exposure to infectious person Patient denies travel to an Ebola-affected area in the 21 days before illness onset. Screenin:00 Abuse screen: Denies threats or abuse. Denies injuries from another. Nutritional rr5 screening: No deficits noted. Tuberculosis screening: No symptoms or risk factors identified. Fall Risk IV access (20 points). Total Giron Fall Scale indicates No Risk (0-24 pts). Assessment: 19:05 General: Appears in no apparent distress. comfortable, Behavior is calm, cooperative, rr5 appropriate for age. 19:05 Pain: Complains of pain in chest and abdomen Pain does not radiate. Pain currently is 6 rr5 out of 10 on a pain scale. Quality of pain is described as aching, Pain began gradually, Is intermittent. Neuro: Level of Consciousness is awake, alert, obeys commands, Oriented to person, place, time, situation, Appropriate for age. Cardiovascular: Reports chest pain, Capillary refill < 3 seconds Patient's skin is warm and dry. Respiratory: Airway is patent Respiratory effort is even, unlabored, Respiratory pattern is regular, symmetrical. GI: Abdomen is round Reports lower abdominal pain, upper abdominal pain, nausea, vomiting. : No signs and/or symptoms were reported regarding the genitourinary system. EENT: No signs and/or symptoms were reported regarding the EENT system. Derm: Skin is intact, Skin temperature is warm. Musculoskeletal: No signs and/or symptoms reported regarding the musculoskeletal system. 20:00 Reassessment: Patient appears in no apparent distress at this time. No changes from rr5 previously documented assessment. 21:00 Reassessment: Patient appears in no apparent distress at this time. Patient is alert, rr5 oriented x 3, equal unlabored respirations, skin warm/dry/pink. awaiting for result. Patient states feeling better. Patient states symptoms have improved. 21:15 Reassessment: Patient appears in no apparent distress at this time. Patient is alert, rr5 oriented x 3, equal unlabored respirations, skin warm/dry/pink. no complaints made. went to restroom voided freely. 22:30 Reassessment: Patient appears in no apparent distress at this time. Patient is alert, rr5 oriented x 3, equal unlabored respirations, skin warm/dry/pink. discharge instruction given and explained without complaints made. Patient states feeling better. Patient states symptoms have improved. Vital Signs: 18:50 BP 137 / 91; Pulse 110; Resp 18; Temp 99.8(O); Pulse Ox 97% on R/A; Weight 86.18 kg; Height 6 ft. 1 in. (185.42 cm); Pain 5/10; 19:15 BP 134 / 90; Pulse 95; Resp 17; Temp 99.3; Pulse Ox 99% ; Pain 6/10; rr5 20:00 BP 132 / 79; Pulse 95; Resp 17; Pulse Ox 99% ; Pain 6/10; rr5 21:00 BP 131 / 77; Pulse 91; Resp 15; Temp 99.5; Pulse Ox 98% ; Pain 1/10; rr5 22:10 BP 132 / 75; Pulse 88; Resp 17; Temp 99.4; Pulse Ox 99% ; Pain 1/10; rr5 18:50 Body Mass Index 25.07 (86.18 kg, 185.42 cm) ED Course: 18:48 Patient arrived in ED. hj 18:50 Triage completed. hj 18:52 Arm band placed on right wrist. hj 18:53 Tanvir Pacheco MD is Attending Physician. [facility] 19:16 Juan Benites, RN is Primary Nurse. rr5 19:30 Patient has correct armband on for positive identification. Bed in low position. Call rr5 light in reach. Side rails up X2. manager monitoring on. Pulse ox on. NIBP on. 19:32 Radiology exam delayed due to lab results not completed at this time. (BUN/Creatinine) vm2 IV insertion attempt and/or patient not having appropriate IV at this time. 19:33 Inserted saline lock: 20 gauge in left antecubital area, using aseptic technique. Blood ag4 collected. 19:34 EKG done, by ED staff, reviewed by Tanvir Pacheco MD Strep swab sent to lab. ag4 19:49 Patient maintains SpO2 saturation greater than 95% on room air. rr5 20:27 Radiology exam delayed due to lab results not completed at this time. (BUN/Creatinine). vm2 22:06 Homer Lucas MD is Referral Physician. kb 22:35 No provider procedures requiring assistance completed. IV discontinued, intact, rr5 bleeding controlled, No redness/swelling at site. Pressure dressing applied. Administered Medications: 19:35 Drug: Pepcid 20 mg Route: IVP; Site: left antecubital; rr5 20:35 Follow up: Response: No adverse reaction rr5 19:35 Drug: NS 0.9% 1000 ml Route: IV; Rate: 1 bolus; Site: left antecubital; rr5 20:30 Follow up: Response: No adverse reaction; IV Status: Completed infusion; IV Intake: rr5 1000ml 21:00 Follow up: Response: No adverse reaction; IV Status: Completed infusion; IV Intake: rr5 1000ml 19:37 Drug: Zofran 4 mg Route: IVP; Site: left antecubital; rr5 20:30 Follow up: Response: No adverse reaction rr5 19:39 Drug: morphine 4 mg Route: IVP; Site: left antecubital; rr5 20:40 Follow up: Response: No adverse reaction rr5 21:05 Drug: NS 0.9% 1000 ml Route: IV; Rate: 1 bolus; Site: left antecubital; rr5 22:10 Follow up: Response: No adverse reaction; IV Status: Completed infusion; IV Intake: rr5 1000ml Intake: 20:30 IV: 1000ml; Total: 1000ml. rr5 21:00 IV: 1000ml; Total: 2000ml. rr5 22:10 IV: 1000ml; Total: 3000ml. rr5 Outcome: 22:06 Discharge ordered by . kb 22:35 Discharged to home ambulatory, with family. rr5 22:35 Condition: stable 22:35 Discharge instructions given to patient, family, Instructed on discharge instructions, follow up and referral plans. medication usage, Demonstrated understanding of instructions, follow-up care, medications, Prescriptions given X 3. 22:36 Patient left the ED. rr5 Signatures: Hui Kline, DIRT BIKE RACER-C DIRT BIKE RACER-Ckb Tanvir Pacheco MD MD cha Joaquin, Henry, RN RN Yumi Puentes [facility] Juan Benites, RN RN rr5 Je Whiteside ag4 Corrections: (The following items were deleted from the chart) 18:52 18:50 Pulse 110bpm; Resp 18bpm; Pulse Ox 97% RA; Temp 99.8F Oral; 86.18 kg; Height 6 hj ft. 1 in.; BMI: 25.0; Pain 5/10; hj
--- NOTE | 2018-11-02 22:08 | EDPHYS ---
Physician Documentation [facility] Name: Donal Valentine Age: 68 yrs Sex: Male : 1950 Arrival Date: 11/02/2018 Time: 18:48 Bed 28 Private MD: ED Physician Tanvir Pacheco HPI: 11/02 19:00 This 68 yrs old Male presents to ER via Ambulatory with complaints of Chest morales Pain, Sore Throat, Abdominal Pain. 19:00 The patient or guardian reports chest pain that is located primarily in the epigastric morales area, anterior chest wall. Onset: 2 day(s) ago. The pain does not radiate. Associated signs and symptoms: The patient has no apparent associated signs or symptoms. The chest pain is described as burning. Modifying factors: The symptoms are alleviated by nothing. the symptoms are aggravated by nothing. Severity of pain: At its worst the pain was mild moderate in the emergency department the pain. The patient has not experienced similar symptoms in the past. Historical: - Allergies: 18:50 Codeine; hj 18:50 PENICILLINS; hj - PMHx: 18:50 Diabetes - NIDDM; Hypertension; hj - PSHx: 18:50 linex surgery; hj - Immunization history:: Adult Immunizations up to date. - Social history:: Smoking status: unknown. - Family history:: not pertinent. - Ebola Screening: : Patient negative for fever greater than or equal to 101.5 degrees Fahrenheit, and additional compatible Ebola Virus Disease symptoms Patient denies exposure to infectious person Patient denies travel to an Ebola-affected area in the 21 days before illness onset. ROS: 19:00 Constitutional: Negative for fever, chills, and weight loss, Eyes: Negative for injury, morales pain, redness, and discharge, ENT: Negative for injury, pain, and discharge, Neck: Negative for injury, pain, and swelling, Cardiovascular: Negative for chest pain, palpitations, and edema, Respiratory: Negative for shortness of breath, cough, wheezing, and pleuritic chest pain, Back: Negative for injury and pain, : Negative for injury, bleeding, discharge, and swelling, MS/Extremity: Negative for injury and deformity, Skin: Negative for injury, rash, and discoloration, Neuro: Negative for headache, weakness, numbness, tingling, and seizure, Psych: Negative for depression, anxiety, suicide ideation, homicidal ideation, and hallucinations, Allergy/Immunology: Negative for hives, rash, and allergies, Endocrine: Negative for neck swelling, polydipsia, polyuria, polyphagia, and marked weight changes, Hematologic/Lymphatic: Negative for swollen nodes, abnormal bleeding, and unusual bruising. 19:00 Abdomen/GI: Positive for abdominal pain, of the epigastric area, right upper quadrant and left upper quadrant. Exam: 19:00 Constitutional: This is a well developed, well nourished patient who is awake, alert, morales and in no acute distress. Head/Face: Normocephalic, atraumatic. Eyes: Pupils equal round and reactive to light, extra-ocular motions intact. Lids and lashes normal. Conjunctiva and sclera are non-icteric and not injected. Cornea within normal limits. Periorbital areas with no swelling, redness, or edema. ENT: Nares patent. No nasal discharge, no septal abnormalities noted. Tympanic membranes are normal and external auditory canals are clear. Oropharynx with no redness, swelling, or masses, exudates, or evidence of obstruction, uvula midline. Mucous membranes moist. Neck: Trachea midline, no thyromegaly or masses palpated, and no cervical lymphadenopathy. Supple, full range of motion without nuchal rigidity, or vertebral point tenderness. No Meningismus. Chest/axilla: Normal chest wall appearance and motion. Nontender with no deformity. No lesions are appreciated. Respiratory: Lungs have equal breath sounds bilaterally, clear to auscultation and percussion. No rales, rhonchi or wheezes noted. No increased work of breathing, no retractions or nasal flaring. Back: No spinal tenderness. No costovertebral tenderness. Full range of motion. Male : Normal genitalia with no discharge or lesions. Skin: Warm, dry with normal turgor. Normal color with no rashes, no lesions, and no evidence of cellulitis. MS/ Extremity: Pulses equal, no cyanosis. Neurovascular intact. Full, normal range of motion. Neuro: Awake and alert, GCS 15, oriented to person, place, time, and situation. Cranial nerves II-XII grossly intact. Motor strength 5/5 in all extremities. Sensory grossly intact. Cerebellar exam normal. Normal gait. Psych: Awake, alert, with orientation to person, place and time. Behavior, mood, and affect are within normal limits. 19:00 Cardiovascular: Rate: tachycardic, Rhythm: regular, Pulses: Pulses are 4+ in bilateral radial, brachial, femoral, popliteal, posterior tibial and and dorsalis pedis arteries.. Heart sounds: normal, Edema: is not appreciated, JVD: is not appreciated. Vital Signs: 18:50 BP 137 / 91; Pulse 110; Resp 18; Temp 99.8(O); Pulse Ox 97% on R/A; Weight 86.18 kg; hj Height 6 ft. 1 in. (185.42 cm); Pain 5/10; 19:15 BP 134 / 90; Pulse 95; Resp 17; Temp 99.3; Pulse Ox 99% ; Pain 6/10; rr5 20:00 BP 132 / 79; Pulse 95; Resp 17; Pulse Ox 99% ; Pain 6/10; rr5 21:00 BP 131 / 77; Pulse 91; Resp 15; Temp 99.5; Pulse Ox 98% ; Pain 1/10; rr5 22:10 BP 132 / 75; Pulse 88; Resp 17; Temp 99.4; Pulse Ox 99% ; Pain 1/10; rr5 18:50 Body Mass Index 25.07 (86.18 kg, 185.42 cm) hj MDM: 18:53 Patient medically screened. [facility] 19:03 Data reviewed: vital signs, nurses notes, lab test result(s), EKG, radiologic studies, morales CT scan, plain films. 22:06 Data interpreted: Pulse oximetry: on room air is 98 %. Interpretation: normal. kb Counseling: I had a detailed discussion with the patient and/or guardian regarding: the historical points, exam findings, and any diagnostic results supporting the discharge/admit diagnosis, lab results, radiology results, the need for outpatient follow up, a family practitioner, to return to the emergency department if symptoms worsen or persist or if there are any questions or concerns that arise at home. 11/02 18:59 Order name: Basic Metabolic Panel [facility] 11/02 18:59 Order name: CBC with Diff 11/02 18:59 Order name: LFT's [facility] 11/02 18:59 Order name: Magnesium [facility] 11/02 18:59 Order name: NT PRO-BNP [facility] 11/02 18:59 Order name: PT-INR [facility] 11/02 18:59 Order name: Troponin (emerg Dept Use Only) [facility] 11/02 18:59 Order name: Lipase [facility] 11/02 18:59 Order name: Urine Culture [facility] 11/02 18:59 Order name: Strep [facility] 11/02 18:59 Order name: UDS [facility] 11/02 18:59 Order name: ETOH Level [facility] 11/02 19:28 Order name: Urine Dipstick--Ancillary (enter results) tn 11/02 20:23 Order name: Protime (+INR); Complete Time: 20:54 EDNM 11/02 18:59 Order name: XRAY Chest (1 view) [facility] 11/02 20:15 Order name: RAD; Complete Time: 20:15 EDNM 11/02 20:24 Order name: CBC with Automated Diff; Complete Time: 20:54 EDNM 11/02 20:24 Order name: Group A Streptococcus Rapid Sc; Complete Time: 20:54 EDMS 11/02 20:38 Order name: Urine Drug Screen; Complete Time: 20:54 EDNM 11/02 20:47 Order name: Alcohol Serum/Plasma; Complete Time: 20:54 EDNM 11/02 21:03 Order name: Basic Metabolic Panel; Complete Time: 21:41 EDMS 11/02 21:03 Order name: Liver (Hepatic) Function; Complete Time: 21:41 EDNM 11/02 21:03 Order name: Troponin (Emerg Dept Use Only); Complete Time: 21:41 EDMS 11/02 21:04 Order name: NT PRO-BNP; Complete Time: 21:41 EDMS 11/02 21:04 Order name: Magnesium; Complete Time: 21:41 EDNM 11/02 21:04 Order name: Lipase; Complete Time: 21:41 EDNM 11/02 18:59 Order name: EKG; Complete Time: 05:03 [facility] 11/02 18:59 Order name: Cardiac monitoring; Complete Time: 19:33 [facility] 11/02 18:59 Order name: EKG - Nurse/Tech; Complete Time: 19:17 [facility] 11/02 18:59 Order name: IV Saline Lock; Complete Time: 19:33 [facility] 11/02 18:59 Order name: Labs collected and sent; Complete Time: 19:48 [facility] 11/02 18:59 Order name: O2 Per Protocol; Complete Time: 19:48 [facility] 11/02 18:59 Order name: O2 Sat Monitoring; Complete Time: 19:48 [facility] 11/02 18:59 Order name: Urine Dipstick-Ancillary (obtain specimen); Complete Time: 19:47 [facility] Administered Medications: 19:35 Drug: Pepcid 20 mg Route: IVP; Site: left antecubital; rr5 20:35 Follow up: Response: No adverse reaction rr5 19:35 Drug: NS 0.9% 1000 ml Route: IV; Rate: 1 bolus; Site: left antecubital; rr5 20:30 Follow up: Response: No adverse reaction; IV Status: Completed infusion; IV Intake: rr5 1000ml 21:00 Follow up: Response: No adverse reaction; IV Status: Completed infusion; IV Intake: rr5 1000ml 19:37 Drug: Zofran 4 mg Route: IVP; Site: left antecubital; rr5 20:30 Follow up: Response: No adverse reaction rr5 19:39 Drug: morphine 4 mg Route: IVP; Site: left antecubital; rr5 20:40 Follow up: Response: No adverse reaction rr5 21:05 Drug: NS 0.9% 1000 ml Route: IV; Rate: 1 bolus; Site: left antecubital; rr5 22:10 Follow up: Response: No adverse reaction; IV Status: Completed infusion; IV Intake: rr5 1000ml Disposition: 11/03 07:31 Co-signature as Attending Physician, Tanvir PARK I agree with the assessment and [facility] plan of care. Disposition: 11/02/18 22:06 Discharged to Home. Impression: Abdominal tenderness, Acute pharyngitis, Type 2 diabetes mellitus, Abuse of non-psychoactive substances. - Condition is Stable. - Discharge Instructions: Abdominal Pain, Adult, Nausea and Vomiting, Adult, Pharyngitis, Abdominal Pain, Adult, [id number], Pharyngitis, Pelr-oe-Layk, Sore Throat, [id number]. - Prescriptions for Bentyl 20 mg Oral Tablet - take 1 tablet by ORAL route every 6 hours As needed; 20 tablet. Pepcid 20 mg Oral Tablet - take 1 tablet by ORAL route every 12 hours for 10 days; 20 tablet. Zofran 4 mg Oral Tablet - take 1 tablet by ORAL route every 12 hours As needed; 20 tablet. - Medication Reconciliation Form, Thank You Letter, Antibiotic Education, Prescription Opioid Use form. - Follow up: Private Physician; When: 2 - 3 days; Reason: Recheck today's complaints, Continuance of care, Re-evaluation by your physician. Follow up: Homer Lucas; When: 2 - 3 days; Reason: Recheck today's complaints, Continuance of care, Re-evaluation by your physician. - Problem is new. - Symptoms have improved. Signatures: Dispatcher [employer] EDNM Hui Kline, SUPERVISOR ASSEMBLY ROOM-C SUPERVISOR ASSEMBLY ROOM-Tanvir Pedro MD MD cha Joaquin, Henry RN RN hj Juan Benites RN RN rr5 Corrections: (The following items were deleted from the chart) 11/02 22:36 22:06 11/02/2018 22:06 Discharged to Home. Impression: Abdominal tenderness; Acute rr5 pharyngitis; Type 2 diabetes mellitus; Abuse of non-psychoactive substances. Condition is Stable. Discharge Instructions: Abdominal Pain, Adult, Nausea and Vomiting, Adult, Pharyngitis, Abdominal Pain, Adult, Jxax-[id number]-[id number], Pharyngitis, [id number], Sore Throat, [id number]. Prescriptions for Bentyl 20 mg Oral Tablet - take 1 tablet by ORAL route every 6 hours As needed; 20 tablet, Pepcid 20 mg Oral Tablet - take 1 tablet by ORAL route every 12 hours for 10 days; 20 tablet, Zofran 4 mg Oral Tablet - take 1 tablet by ORAL route every 12 hours As needed; 20 tablet. and Forms are Medication Reconciliation Form, Thank You Letter, Antibiotic Education, Prescription Opioid Use. Follow up: Private Physician; When: 2 - 3 days; Reason: Recheck today's complaints, Continuance of care, Re-evaluation by your physician. Follow up: Homer Lucas; When: 2 - 3 days; Reason: Recheck today's complaints, Continuance of care, Re-evaluation by your physician. Problem is new. Symptoms have improved. kb
[2018-11-02 23:05] VITALS: BP 131/77; TEMP 99.5; O2SAT 98
[2018-11-03 05:35] LABS: Urine Blood NEGATIVE (NEG); Urine Glucose 2+ (NEG); Urine Protein NEGATIVE (NEG); Urine Specific Gravity 1.015 (1.005-1.030)
--- NOTE | 2018-11-03 11:38 | EKG ---
Test Date: 2018-11-02 Test Time: 19:06:01 Rv Repairer: RR MEASUREMENT RESULTS: Intervals: Rate: 98 CA: 166 QRSD: 112 QT: 358 QTc: 457 [place]: P: 47 CA: 166 QRS: -53 T: 45 INTERPRETIVE STATEMENTS: Normal sinus rhythm Possible Left atrial enlargement Incomplete right bundle branch block Left anterior fascicular block Left ventricular hypertrophy Abnormal ECG Compared to ECG 09/15/2018 14:07:06 Incomplete right bundle-branch block now present Left anterior fascicular block now present Left-axis deviation no longer present Electronically Signed On 11-03-18 11:35:59 CDT by Dariel Schafer
--- NOTE | 2018-11-04 10:20 | RAD REPORT ---
EXAM DESCRIPTION: CT - Abdomen Pelvis W Contrast - 11/02/2018 10:09 pm CLINICAL HISTORY: 68 years Male pancreatitis COMPARISON: None TECHNIQUE: Images were obtained in axial, sagittal, and coronal planes. Intravenous contrast was adm inistered. Arterial and venous phase imaging was performed. This exam was performed according to our departmental dose-optimization program which includes use of Automated Exposure Control, adjustment of the mA and/or kV according to patient size and/or use of i terative reconstruction technique. FINDINGS: Multiple low-attenuation foci involving the body and tail of the pancreas. No evidence for well-defined pseudocysts. Pancreatic margins are distinct. No abnormal calcifications noted. The lar gest is seen involving the distal body of pancreas measuring 1.2 cm. Surgical clips epigastric region . Decreased attenuation involving the liver consistent with fatty change. Lobular configuration splee n. Spleen is prominent in size measuring 12.9 cm in greatest dimension. No abnormality involving the gallbladder, or adrenal glands bilaterally. Bilateral renal cysts. No obstructing renal calcifications bilaterally. No hydronephrosis bilaterally . Distended bladder. Mildly enlarged prostate gland. Appendix within normal limits. No bowel obstruction, perforation, or inflammation. Calcification abdominal aorta with no dilatation seen. No adenopathy or abnormal collections seen. No abnormality lower lungs bilaterally. Superior endplate depression T8 and T11 vertebral bodies consistent with mild compression fractures o f indeterminate age. Grade 1 spondylolisthesis L4-5. IMPRESSION: Multiple low-attenuation foci body and tail of pancreas possibly cystic in nature. If no prior studies are made available for comparison, correlation with magnetic resonance study of the pa ncreas or utilizing intravenous contrast would be suggested for further characterization. No pseudocy st or abnormal calcifications seen. Neoplasm not excluded. Electronically signed by: Lucila Marie MD 11/02/2018 9:56 PM CDT Due to temporary technical issues with the PACS/Fluency reporting system, reports are being signed by the in house radiologist as a courtesy to ensure prompt reporting. The interpreting radiologist is f sydneely responsible for the content of the report.
== END 2018-11-02 22:36 | disposition home or self-care (01) ==
LOC: ER 18:46
DX: J02.9 Acute pharyngitis, unspecified (principal); F55.8 Abuse of other non-psychoactive substances; E11.9 Type 2 diabetes mellitus without complications; I10 Essential (primary) hypertension; Z88.0 Allergy status to penicillin; Z88.5 Allergy status to narcotic agent
CPT/HCPCS: 93005; 87070; 85025; 80048; 36415; 80320; 83735; 85610; 80076; 87081; 80307 ×8; 81003; 84484; 83690; 83880; 74177; 71045; Q9967; J7030; J2405; 96361; 96374; 96375; 99285

== ENCOUNTER 2019-06-05 01:33 | Emergency (ER) | payer OTHER, SELFPAY ==
--- OUTSIDE RECORDS SUMMARY | 2019-06-05 01:35 | XMS REPORT ---
:1950 [facility] Organization [facility] Address [address] [place] [id number] Care Team Providers Name Role Phone NEO [...] Reference Range Comments HEMOGLOBIN A1C (BEAKER) (test qbmc=524) 7.4 % 4.3-6.1 POCT-GLUCOSE [id number] 08:38:00 Test Item Value Reference Range Comments POC-GLUCOSE METER (BEAKER) 114 mg/dL 70-110 TESTED AT [address] (test twug=4354) [facility] [address] COMPREHENSIVE METABOLIC [id number] 06:24:00 Test Item Value Reference Range Comments TOTAL PROTEIN (BEAKER) 5.9 gm/dL 6.0-8.3 (test kbwk=078) ALBUMIN (BEAKER) (test 3.3 g/dL 3.5-5.0 hbuj=9289) ALKALINE PHOSPHATASE 33 U/L 40-150 (BEAKER) (test hupe=836) BILIRUBIN TOTAL (BEAKER) 1.2 mg/dL 0.2-1.2 (test cdqw=687) SODIUM (BEAKER) (test 142 meq/L 136-145 xirs=679) POTASSIUM (BEAKER) (test 3.9 meq/L 3.5-5.1 wlji=240) CHLORIDE (BEAKER) (test 106 meq/L 98-107 grsj=402) CO2 (BEAKER) (test 28 meq/L 22-29 ynfi=208) BLOOD UREA NITROGEN 6 mg/dL 7-21 (BEAKER) (test pdlz=707) CREATININE (BEAKER) (test 0.69 mg/dL 0.57-1.25 ddoa=062) GLUCOSE RANDOM (BEAKER) 100 mg/dL 70-105 (test bicd=894) CALCIUM (BEAKER) (test 9.0 mg/dL 8.4-10.2 ouiq=635) AST (SGOT) (BEAKER) (test 33 U/L 5-34 szup=199) ALT (SGPT) (BEAKER) (test 46 U/L 6-55 tmkm=802) EGFR (BEAKER) (test 114 mL/min/1.73 sq ESTIMATED GFR IS NOT epze=4242) m ACCURATE CREATININE CLEARANCE IN PREDICTING GLOMERULAR FILTRATION RATE. ESTIMATED GFR IS NOT APPLICABLE FOR DIALYSIS PATIENTS. CBC W/PLT COUNT & AUTO [id number] 06:04:00 Test Item Value Reference Range Comments WHITE BLOOD CELL COUNT (BEAKER) (test jgyl=456) 7.0 K/ L 3.5-10.5 RED BLOOD CELL COUNT (BEAKER) (test wacb=309) 4.52 M/ L 4.63-6.08 HEMOGLOBIN (BEAKER) (test ixpm=459) 14.2 GM/DL 13.7-17.5 HEMATOCRIT (BEAKER) (test wdgc=509) 42.3 % 40.1-51.0 MEAN CORPUSCULAR VOLUME (BEAKER) (test lybi=908) 93.6 fL 79.0-92.2 MEAN CORPUSCULAR HEMOGLOBIN (BEAKER) (test 31.4 pg 25.7-32.2 tojp=529) MEAN CORPUSCULAR HEMOGLOBIN CONC (BEAKER) (test 33.6 GM/DL 32.3-36.5 glsi=927) RED CELL DISTRIBUTION WIDTH (BEAKER) (test 12.9 % 11.6-14.4 pgte=363) PLATELET COUNT (BEAKER) (test agod=968) 146 K/CU MM 150-450 MEAN PLATELET VOLUME (BEAKER) (test kwno=607) 10.8 fL 9.4-12.4 NUCLEATED RED BLOOD CELLS (BEAKER) (test 0 /100 WBC 0-0 uhgk=774) NEUTROPHILS RELATIVE PERCENT (BEAKER) (test 44 % ljhx=381) LYMPHOCYTES RELATIVE PERCENT (BEAKER) (test 39 % mqzg=477) MONOCYTES RELATIVE PERCENT (BEAKER) (test 11 % whtf=854) EOSINOPHILS RELATIVE PERCENT (BEAKER) (test 5 % djxa=352) BASOPHILS RELATIVE PERCENT (BEAKER) (test 1 % pfdz=952) NEUTROPHILS ABSOLUTE COUNT (BEAKER) (test 3.07 K/ L 1.78-5.38 tlce=615) LYMPHOCYTES ABSOLUTE COUNT (BEAKER) (test 2.74 K/ L 1.32-3.57 mpob=082) MONOCYTES ABSOLUTE COUNT (BEAKER) (test 0.79 K/ L 0.30-0.82 ejiu=112) EOSINOPHILS ABSOLUTE COUNT (BEAKER) (test 0.35 K/ L 0.04-0.54 hwgv=837) BASOPHILS ABSOLUTE COUNT (BEAKER) (test 0.04 K/ L 0.01-0.08 qquo=278) IMMATURE GRANULOCYTES-RELATIVE PERCENT (BEAKER) 0 % 0-1 (test szid=1860) POCT-GLUCOSE [id number] 21:22:00 Test Item Value Reference Range Comments POC-GLUCOSE METER (BEAKER) 167 mg/dL 70-110 TESTED AT [address] (test xprb=8190) [facility] [address] POCT-GLUCOSE [id number] 18:22:00 Test Item Value Reference Range Comments POC-GLUCOSE METER (BEAKER) 85 mg/dL 70-110 TESTED AT [address] (test rswb=2052) [facility] [address] POCT-GLUCOSE [id number] 12:19:00 Test Item Value Reference Range Comments POC-GLUCOSE METER (BEAKER) 149 mg/dL 70-110 TESTED AT [address] (test refv=7231) [facility] [address] POCT-GLUCOSE [id number] 08:18:00 Test Item Value Reference Range Comments POC-GLUCOSE METER (BEAKER) 103 mg/dL 70-110 TESTED AT [address] (test qxbe=9278) [facility] [address] POCT-GLUCOSE [id number] 21:12:00 Test Item Value Reference Range Comments POC-GLUCOSE METER (BEAKER) 114 mg/dL 70-110 TESTED AT [address] (test echb=8394) [place] [id number] POCT-GLUCOSE [id number] 18:20:00 Test Item Value Reference Range Comments POC-GLUCOSE METER (BEAKER) 70 mg/dL 70-110 TESTED AT [address] (test sqly=9020) [facility] [address] [id number] 14:02:00 Test Item Value Reference Range Comments LIPASE (BEAKER) (test dewu=129) 483 U/L 8-78 U/S, ABDOMINAL, [id number] 13:08:00Abdomen limited area? Add comment if clarification [...] cholelithiasis. Hepatomegaly. Right renal cysts. Signed: [place] MDReport Verified Date/ Time: 09/16/2018 13:08:32 Reading Location: [facility] [id number] Ultrasound Reading Room POCT-GLUCOSE [id number] 12:13:00 Test Item Value Reference Range Comments POC-GLUCOSE METER (BEAKER) 130 mg/dL 70-110 TESTED AT [address] (test oxyy=2623) [facility] [address] POCT-GLUCOSE [id number] 09:11:00 Test Item Value Reference Range Comments POC-GLUCOSE METER (BEAKER) 90 mg/dL 70-110 TESTED AT [facility] [address] (test ytyx=2926) [facility] [address] [id number] 06:24:00 Test Item Value Reference Range Comments TRIGLYCERIDES (BEAKER) (test pejq=781) 48 mg/dL TRIGLYCERIDE REFERENCE RANGELow Risk <150Borderline Risk 150-199High Risk 200-499Very High Risk>=500COMPREHENSIVE METABOLIC [id number] 06:24:00 Test Item Value Reference Range Comments TOTAL PROTEIN (BEAKER) 5.7 gm/dL 6.0-8.3 (test dqev=278) ALBUMIN (BEAKER) (test 3.3 g/dL 3.5-5.0 wiav=9009) ALKALINE PHOSPHATASE 39 U/L 40-150 (BEAKER) (test slil=728) BILIRUBIN TOTAL (BEAKER) 0.9 mg/dL 0.2-1.2 (test prrr=528) SODIUM (BEAKER) (test 142 meq/L 136-145 vvwy=939) POTASSIUM (BEAKER) (test 3.3 meq/L 3.5-5.1 ojdp=527) CHLORIDE (BEAKER) (test 109 meq/L 98-107 vszp=869) CO2 (BEAKER) (test 27 meq/L 22-29 vkij=248) BLOOD UREA NITROGEN 9 mg/dL 7-21 (BEAKER) (test opio=074) CREATININE (BEAKER) (test 0.66 mg/dL 0.57-1.25 hmzi=999) GLUCOSE RANDOM (BEAKER) 79 mg/dL 70-105 (test afwv=579) CALCIUM (BEAKER) (test 8.1 mg/dL 8.4-10.2 ggww=694) AST (SGOT) (BEAKER) (test 33 U/L 5-34 oqsx=742) ALT (SGPT) (BEAKER) (test 56 U/L 6-55 dmtz=059) EGFR (BEAKER) (test 120 mL/min/1.73 sq ESTIMATED GFR IS NOT hnos=3244) m ACCURATE CREATININE CLEARANCE IN PREDICTING GLOMERULAR FILTRATION RATE. ESTIMATED GFR IS NOT APPLICABLE FOR DIALYSIS PATIENTS. CBC W/PLT COUNT & AUTO [id number] 06:08:00 Test Item Value Reference Range Comments WHITE BLOOD CELL COUNT (BEAKER) (test ebxy=756) 9.8 K/ L 3.5-10.5 RED BLOOD CELL COUNT (BEAKER) (test ovbv=263) 4.58 M/ L 4.63-6.08 HEMOGLOBIN (BEAKER) (test xpwr=641) 14.0 GM/DL 13.7-17.5 HEMATOCRIT (BEAKER) (test ftye=141) 42.6 % 40.1-51.0 MEAN CORPUSCULAR VOLUME (BEAKER) (test kccs=267) 93.0 fL 79.0-92.2 MEAN CORPUSCULAR HEMOGLOBIN (BEAKER) (test 30.6 pg 25.7-32.2 ptjd=381) MEAN CORPUSCULAR HEMOGLOBIN CONC (BEAKER) (test 32.9 GM/DL 32.3-36.5 wuwf=203) RED CELL DISTRIBUTION WIDTH (BEAKER) (test 13.2 % 11.6-14.4 kvhf=280) PLATELET COUNT (BEAKER) (test tfjx=180) 151 K/CU MM 150-450 MEAN PLATELET VOLUME (BEAKER) (test tvjh=402) 11.0 fL 9.4-12.4 NUCLEATED RED BLOOD CELLS (BEAKER) (test 0 /100 WBC 0-0 mqnl=985) NEUTROPHILS RELATIVE PERCENT (BEAKER) (test 61 % leei=554) LYMPHOCYTES RELATIVE PERCENT (BEAKER) (test 27 % qohu=462) MONOCYTES RELATIVE PERCENT (BEAKER) (test 10 % utde=976) EOSINOPHILS RELATIVE PERCENT (BEAKER) (test 2 % fcrb=827) BASOPHILS RELATIVE PERCENT (BEAKER) (test 0 % cdpo=152) NEUTROPHILS ABSOLUTE COUNT (BEAKER) (test 5.96 K/ L 1.78-5.38 ioxj=308) LYMPHOCYTES ABSOLUTE COUNT (BEAKER) (test 2.64 K/ L 1.32-3.57 dyuk=397) MONOCYTES ABSOLUTE COUNT (BEAKER) (test 0.99 K/ L 0.30-0.82 ewmz=556) EOSINOPHILS ABSOLUTE COUNT (BEAKER) (test 0.20 K/ L 0.04-0.54 vmnp=303) BASOPHILS ABSOLUTE COUNT (BEAKER) (test 0.02 K/ L 0.01-0.08 awuf=485) IMMATURE GRANULOCYTES-RELATIVE PERCENT (BEAKER) 0 % 0-1 (test astw=4370) POCT-GLUCOSE [id number] 21:18:00 Test Item Value Reference Range Comments POC-GLUCOSE METER (BEAKER) 87 mg/dL 70-110 TESTED AT [address] (test zahd=8725) [facility] [address] POCT-GLUCOSE [id number] 20:02:00 Test Item Value Reference Range Comments POC-GLUCOSE METER (BEAKER) 98 mg/dL 70-110 TESTED AT [address] (test vfdf=7523) [facility] [address] POCT-GLUCOSE [id number] 09:15:00 Test Item Value Reference Range Comments POC-GLUCOSE METER (BEAKER) 229 mg/dL 70-110 TESTED AT [address] (test vbgp=1929) [facility] [address] POCT-GLUCOSE [id number] 08:10:00 Test Item Value Reference Range Comments POC-GLUCOSE METER (BEAKER) 238 mg/dL 70-110 TESTED AT [address] (test cnnb=3605) [facility] [address] [id number] 04:55:00 Test Item Value Reference Range Comments MAGNESIUM (BEAKER) (test npew=438) 2.0 mg/dL 1.6-2.6 BASIC METABOLIC [id number] 04:55:00 Test Item Value Reference Range Comments SODIUM (BEAKER) (test 139 meq/L 136-145 wpqw=436) POTASSIUM (BEAKER) (test 3.7 meq/L 3.5-5.1 qmbs=095) CHLORIDE (BEAKER) (test 103 meq/L 98-107 fnut=871) CO2 (BEAKER) (test 27 meq/L 22-29 vjvk=025) BLOOD UREA NITROGEN 7 mg/dL 7-21 (BEAKER) (test lppz=857) CREATININE (BEAKER) (test 0.67 mg/dL 0.57-1.25 uzqs=508) GLUCOSE RANDOM (BEAKER) 217 mg/dL 70-105 (test xuvc=706) CALCIUM (BEAKER) (test 8.4 mg/dL 8.4-10.2 xily=847) EGFR (BEAKER) (test 119 mL/min/1.73 sq m ESTIMATED GFR IS NOT xrxp=8418) ACCURATE CREATININE CLEARANCE IN PREDICTING GLOMERULAR FILTRATION RATE. ESTIMATED GFR IS NOT APPLICABLE FOR DIALYSIS PATIENTS. [id number] 04:47:00 Test Item Value Reference Range Comments PARTIAL THROMBOPLASTIN TIME (BEAKER) (test 26.9 seconds 22.5-36.0 fjzq=294) PROTHROMBIN [id number] 04:46:00 Test Item Value Reference Range Comments PROTIME (BEAKER) (test gwfl=706) 12.9 seconds 11.7-14.7 INR (BEAKER) (test pouq=480) 1.0 <=5.9 RECOMMENDED COUMADIN/WARFARIN INR THERAPY RANGESSTANDARD DOSE: 2.0 - 3.0 Includes: PROPHYLAXIS forvenous thrombosis, systemic embolization; TREATMENT for venous thrombosis and/or pulmonary embolus.HIGH RISK: Target INR is 2.5-3.5 for patients with mechanical heart valves.CBC W/PLT COUNT & AUTO [id number] 04:36:00 Test Item Value Reference Range Comments WHITE BLOOD CELL COUNT (BEAKER) (test wlak=089) 10.0 K/ L 4.0-10.0 RED BLOOD CELL COUNT (BEAKER) (test thkj=069) 4.53 M/ L 4.20-5.80 HEMOGLOBIN (BEAKER) (test qvtc=864) 14.2 GM/DL 13.0-16.8 HEMATOCRIT (BEAKER) (test qigh=283) 43.6 % 40.0-50.0 MEAN CORPUSCULAR VOLUME (BEAKER) (test pchk=142) 96.3 fL 82.0-98.0 MEAN CORPUSCULAR HEMOGLOBIN (BEAKER) (test 31.4 pg 27.0-33.0 zmmd=254) MEAN CORPUSCULAR HEMOGLOBIN CONC (BEAKER) (test 32.6 GM/DL 32.0-36.0 wsun=258) RED CELL DISTRIBUTION WIDTH (BEAKER) (test 11.6 % 10.3-14.2 gewi=838) PLATELET COUNT (BEAKER) (test kcez=238) 168 K/CU MM 150-430 MEAN PLATELET VOLUME (BEAKER) (test rwsf=855) 7.9 fL 6.5-10.5 NUCLEATED RED BLOOD CELLS (BEAKER) (test 0 /100 WBC 0-0 wfqk=702) NEUTROPHILS RELATIVE PERCENT (BEAKER) (test 61 % lofz=510) LYMPHOCYTES RELATIVE PERCENT (BEAKER) (test 28 % bqvh=964) MONOCYTES RELATIVE PERCENT (BEAKER) (test 10 % lmva=713) EOSINOPHILS RELATIVE PERCENT (BEAKER) (test 1 % dkeu=421) BASOPHILS RELATIVE PERCENT (BEAKER) (test 1 % umgh=989) NEUTROPHILS ABSOLUTE COUNT (BEAKER) (test 6.07 K/ L 1.80-8.00 gwjd=616) LYMPHOCYTES ABSOLUTE COUNT (BEAKER) (test 2.76 K/ L 1.48-4.50 xvlj=420) MONOCYTES ABSOLUTE COUNT (BEAKER) (test 0.97 K/ L 0.00-1.30 wuie=693) EOSINOPHILS ABSOLUTE COUNT (BEAKER) (test 0.14 K/ L 0.00-0.50 vwci=889) BASOPHILS ABSOLUTE COUNT (BEAKER) (test 0.06 K/ L 0.00-0.20 qofb=980) 0.00POCT-GLUCOSE [id number] 22:06:00 Test Item Value Reference Range Comments POC-GLUCOSE METER (BEAKER) 243 mg/dL 70-110 TESTED AT [address] (test vzrc=3094) [place] [address] POCT-GLUCOSE [id number] 17:17:00 Test Item Value Reference Range Comments POC-GLUCOSE METER (BEAKER) 218 mg/dL 70-110 TESTED AT [address] (test pycp=5156) [place] [address]
[2019-06-05] MEDS ORDERED: MORPHINE 4 MG/ML SYR ONE (03:49)
[2019-06-05] MEDS ORDERED: ONDANSETRON 4 MG/2 ML VIAL ONE (03:49)
[2019-06-05 03:52] LABS: Absolute Lymphocytes (CBC) 2.7 K/uL (0.7-4.9); Basophils % 0.6 % (0-1.3); Hematocrit 46.9 % (39.6-49.0); Lymphocytes % 31.1 % (15.3-44.8); MPV 9.4 fL (7.6-11.3); RBC Red Blood Cell Count 5.41 M/uL (4.33-5.43)
[2019-06-05 04:01] LABS: Albumin 3.6 g/dL (3.4-5.0); Bilirubin Total 0.4 mg/dL (0.2-1.0); Potassium 3.7 mmol/L (3.5-5.1); Protein, Total 7.4 g/dL (6.4-8.2)
--- NOTE | 2019-06-05 05:03 | ER ---
Nurse's Notes [facility] Name: Donal Valentine Age: 68 yrs Sex: Male : 1950 Arrival Date: 06/05/2019 Time: 01:37 Bed 8 Private MD: Cynthia Andino H Diagnosis: Other abdominal pain Presentation: 06/05 01:44 Presenting complaint: Patient states: "I got acute pancreatitis and its hurting really aj1 bad" Patient reports that he has had pancreatitis before and this feels the same. Patient reports upper abdominal pain that goes all the way across his abdomen. Denies N/V/D. Denies fever. Transition of care: patient was not received from another setting of care. Onset of symptoms was June 05, 2019. Risk Assessment: Do you want to hurt yourself or someone else? Patient reports no desire to harm self or others. Initial Sepsis Screen: Does the patient meet any 2 criteria? No. Patient's initial sepsis screen is negative. Does the patient have a suspected source of infection? Yes: Acute abdominal pain. Care prior to arrival: None. 01:44 Method Of Arrival: Wheelchair aj1 01:44 Acuity: MINOR 3 aj1 Triage Assessment: 01:47 General: Appears in no apparent distress. uncomfortable, Behavior is calm, cooperative, aj1 appropriate for age. Pain: Complains of pain in right upper quadrant and left upper quadrant. Neuro: Level of Consciousness is awake, alert, obeys commands, Oriented to person, place, time, situation. Cardiovascular: Patient's skin is warm and dry. Respiratory: Airway is patent Respiratory effort is even, unlabored, Respiratory pattern is regular, symmetrical. GI: Reports upper abdominal pain, Patient currently denies diarrhea, nausea, vomiting. Historical: - Allergies: 01:47 Codeine; aj1 01:47 PENICILLINS; aj1 - Home Meds: 01:47 alprazolam 1 mg Oral tab 1 tab twice a day for Anxiety [Active]; aspirin 81 mg Oral aj1 chew 1 tab once daily [Active]; gabapentin 300 mg Oral cap 1 cap nightly [Active]; glimepiride 4 mg Oral tab 1 tab once daily [Active]; Jardiance 25 mg Oral tab 1 tab once daily [Active]; losartan-hydrochlorothiazide 100-25 mg Oral tab 1 tab once daily for Hypertension [Active]; metformin 1,000 mg Oral tab 1 tab nightly for Type 2 Diabetes Mellitus [Active]; omeprazole 40 mg Oral cpDR 1 cap once daily [Active]; sucralfate 1 gram Oral tab 1 tab 2 times per day [Active]; - PMHx: 01:47 Diabetes - NIDDM; Hypertension; aj1 - Immunization history:: Flu vaccine is up to date. - Social history:: Smoking status: unknown. - Ebola Screening: : Patient denies travel to an Ebola-affected area in the 21 days before illness onset. Screenin:15 Abuse screen: Denies threats or abuse. Nutritional screening: No deficits noted. vc Tuberculosis screening: No symptoms or risk factors identified. Fall Risk IV access (20 points). Mental Status- Oriented to own ability (0 pts). Total Giron Fall Scale indicates No Risk (0-24 pts). Assessment: 02:30 GI: Bowel sounds present X 4 quads. Abd is soft and non tender. vc 02:30 General: Appears in no apparent distress. comfortable, Behavior is anxious. Pain: vc Denies pain. Neuro: Level of Consciousness is awake, alert, obeys commands, Oriented to person, place, time. Cardiovascular: Capillary refill < 3 seconds Patient's skin is warm and dry. Respiratory: Airway is patent Respiratory effort is even, unlabored. : Urine is cloudy. EENT: No signs and/or symptoms were reported regarding the EENT system. Derm: Skin is intact, is healthy with good turgor. Musculoskeletal: Range of motion: intact in all extremities. 03:00 Reassessment: Patient asks for Demerol, he states that when he was given morphine last vc time it only lasted for about 20 minutes and the Demerol lasted until he was transferred to [place]. 03:00 Reassessment: Patient dumped his urine out of the urinal, will try to get another vc sample. 04:00 Reassessment: Patient states that the abdominal pain was so bad when he came in that he vc could barely walk, He states he is no longer feeling pain. 05:01 Reassessment: Patient stated the blood pressure cuff was getting too tight on his arm vc so he pulled it off. Vital Signs: 01:47 BP 196 / 96; Pulse 82; Resp 18; Temp 97.3; Pulse Ox 97% on R/A; Weight 91.17 kg (R); aj1 Height 6 ft. 1 in. (185.42 cm) (R); Pain 8/10; 03:00 BP 176 / 94; Pulse 80; Resp 20; Pulse Ox 98% on R/A; Pain 0/10; vc 04:00 BP 150 / 92; Pulse 80; Resp 18; Pulse Ox 97% on R/A; oe 01:47 Body Mass Index 26.52 (91.17 kg, 185.42 cm) aj1 ED Course: 01:37 Patient arrived in ED. es 01:37 Cynthia Andion DO is Private Physician. es 01:46 Triage completed. aj1 01:47 Arm band placed on Patient placed in waiting room, Patient notified of wait time. aj1 02:04 Danyel Johnson MD is Attending Physician. ps1 02:30 Patient has correct armband on for positive identification. Call light in reach. Side vc rails up X 1. 03:09 Leatha Florence RN is Primary Nurse. vc 03:35 Inserted saline lock: 18 gauge in right forearm, using aseptic technique. aj1 04:53 Homer Lucas MD is Referral Physician. ps1 04:53 Cynthia Andino DO is Referral Physician. ps1 05:20 No provider procedures requiring assistance completed. IV discontinued, intact, vc bleeding controlled, No redness/swelling at site. Pressure dressing applied. Administered Medications: 03:55 Drug: morphine 4 mg Route: IVP; Site: right wrist; vc 05:03 Follow up: Response: No adverse reaction; RASS: Agitated (+2) vc 03:55 Drug: Zofran 4 mg Route: PO; vc 05:02 Follow up: Response: No adverse reaction vc Outcome: 04:54 Discharge ordered by . ps1 05:20 Discharged to home ambulatory. vc 05:20 Condition: good 05:20 Discharge instructions given to patient, Instructed on discharge instructions, follow up and referral plans. the need for admit, Demonstrated understanding of instructions, follow-up care, medications, Prescriptions given X 3. 05:21 Patient left the ED. lp1 Signatures: Marcia Asif RN RN aj1 Beatriz Lee Laura, RN RN lp1 Shoaib Nicholas Phillip, MD MD ps1 Leatha Florence RN RN vc Corrections: (The following items were deleted from the chart) 04:56 03:30 Reassessment: Patient states that the abdominal pain was so bad when he came in that he could barely walk, He states he is no longer feeling pain. vc
--- NOTE | 2019-06-05 05:05 | EDPHYS ---
Physician Documentation [facility] Name: Donal Valentine Age: 68 yrs Sex: Male : 1950 Arrival Date: 06/05/2019 Time: 01:37 Bed 8 Private MD: Cynthia Andino H ED Physician Danyel Johnson HPI: 06/05 04:45 This 68 yrs old Male presents to ER via Wheelchair with complaints of ps1 Abdominal Pain. 04:45 Patient believes that he has acute pancreatitis. He has abdominal pain radiating from ps1 left to right not specifically in the upper or lower region. He states that he has some nausea. No vomiting. Had pancreatitis previously. Patient of Dr. Lucas. On Creon. . Historical: - Allergies: 01:47 Codeine; aj1 01:47 PENICILLINS; aj1 - Home Meds: 01:47 alprazolam 1 mg Oral tab 1 tab twice a day for Anxiety [Active]; aspirin 81 mg Oral aj1 chew 1 tab once daily [Active]; gabapentin 300 mg Oral cap 1 cap nightly [Active]; glimepiride 4 mg Oral tab 1 tab once daily [Active]; Jardiance 25 mg Oral tab 1 tab once daily [Active]; losartan-hydrochlorothiazide 100-25 mg Oral tab 1 tab once daily for Hypertension [Active]; metformin 1,000 mg Oral tab 1 tab nightly for Type 2 Diabetes Mellitus [Active]; omeprazole 40 mg Oral cpDR 1 cap once daily [Active]; sucralfate 1 gram Oral tab 1 tab 2 times per day [Active]; - PMHx: 01:47 Diabetes - NIDDM; Hypertension; aj1 - Immunization history:: Flu vaccine is up to date. - Social history:: Smoking status: unknown. - Ebola Screening: : Patient denies travel to an Ebola-affected area in the 21 days before illness onset. ROS: 04:45 Constitutional: Negative for fever, chills, and weight loss, Eyes: Negative for injury, ps1 pain, redness, and discharge, Cardiovascular: Negative for chest pain, palpitations, and edema, Respiratory: Negative for shortness of breath, cough, wheezing, and pleuritic chest pain, MS/Extremity: Negative for injury and deformity, Skin: Negative for injury, rash, and discoloration, Neuro: Negative for headache, weakness, numbness, tingling, and seizure. 04:45 Abdomen/GI: Positive for abdominal pain, nausea. Exam: 04:45 Constitutional: This is a well developed, well nourished patient who is awake, alert, ps1 and in no acute distress. Head/Face: Normocephalic, atraumatic. Eyes: Pupils equal round and reactive to light, extra-ocular motions intact. Lids and lashes normal. Conjunctiva and sclera are non-icteric and not injected. Chest/axilla: Normal chest wall appearance and motion. Nontender with no deformity. No lesions are appreciated. Cardiovascular: Regular rate and rhythm. No gallops, murmurs, or rubs. Normal PMI, no JVD. No pulse deficits. Respiratory: Lungs have equal breath sounds bilaterally, clear to auscultation and percussion. No rales, rhonchi or wheezes noted. No increased work of breathing, no retractions or nasal flaring. MS/ Extremity: Pulses equal, no cyanosis. Neurovascular intact. Full, normal range of motion. Neuro: Awake and alert, GCS 15, oriented to person, place, time, and situation. Cranial nerves II-XII grossly intact. Sensory grossly intact. Psych: Awake, alert, with orientation to person, place and time. Behavior, mood, and affect are within normal limits. 04:45 Abdomen/GI: Inspection: abdomen appears normal, Bowel sounds: normal, Palpation: mild abdominal tenderness, in the right upper quadrant and left upper quadrant. Vital Signs: 01:47 BP 196 / 96; Pulse 82; Resp 18; Temp 97.3; Pulse Ox 97% on R/A; Weight 91.17 kg (R); aj1 Height 6 ft. 1 in. (185.42 cm) (R); Pain 8/10; 03:00 BP 176 / 94; Pulse 80; Resp 20; Pulse Ox 98% on R/A; Pain 0/10; vc 04:00 BP 150 / 92; Pulse 80; Resp 18; Pulse Ox 97% on R/A; oe 01:47 Body Mass Index 26.52 (91.17 kg, 185.42 cm) aj1 MDM: 02:33 Patient medically screened. ps1 04:51 Data reviewed: vital signs, nurses notes, lab test result(s), and as a result, I will ps1 discharge patient. Counseling: I had a detailed discussion with the patient and/or guardian regarding: the historical points, exam findings, and any diagnostic results supporting the discharge/admit diagnosis, the need for outpatient follow up, to return to the emergency department if symptoms worsen or persist or if there are any questions or concerns that arise at home. ED course: No leukocytosis. lipase neg. no fever. Vitals WNL. Stable for discharge. Pt to follow up with Dr. Lucas for further evaluation. . 06/05 02:57 Order name: CBC with Diff; Complete Time: 04:23 ps1 06/05 02:57 Order name: CMP; Complete Time: 04:23 ps1 06/05 02:57 Order name: Lipase; Complete Time: :23 ps1 06/05 05:13 Order name: Urine Dipstick--Ancillary (enter results) cm6 Administered Medications: 03:55 Drug: morphine 4 mg Route: IVP; Site: right wrist; vc 05:03 Follow up: Response: No adverse reaction; RASS: Agitated (+2) vc 03:55 Drug: Zofran 4 mg Route: PO; vc 05:02 Follow up: Response: No adverse reaction vc Disposition: 06/05/19 04:54 Discharged to Home. Impression: Other abdominal pain. - Condition is Stable. - Discharge Instructions: Abdominal Pain, Adult. - Prescriptions for Bentyl 10 mg Oral Capsule - take 1 capsule by ORAL route every 6 hours As needed; 40 capsule. Carafate 1 gram Oral Tablet - take 1 tablet by ORAL route 4 times per day take on an empty stomach, beginning on waking and last dose at bedtime; 100 tablet. Zofran 4 mg Oral Tablet - take 1 tablet by ORAL route every 12 hours As needed; 20 tablet. - Medication Reconciliation Form, Thank You Letter, Antibiotic Education, Prescription Opioid Use form. - Follow up: Homer Lucas MD; When: 48 Hours; Reason: Further diagnostic work-up, Recheck today's complaints, Continuance of care, Re-evaluation by your physician. Follow up: Cynthia Andino DO; When: As needed; Reason: Further diagnostic work-up. Follow up: Emergency Department; When: As needed; Reason: Fever > 102 F, Worsening of condition. - Problem is new. - Symptoms are unchanged. Signatures: Dispatcher [employer] ED Marcia Asif RN RN aj1 Donya Mcintosh RN RN lp1 Danyel Johnson MD MD ps1 Leatha Florence RN RN vc Corrections: (The following items were deleted from the chart) 05:21 04:54 06/05/2019 04:54 Discharged to Home. Impression: Other abdominal pain. Condition lp1 is Stable. Forms are Medication Reconciliation Form, Thank You Letter, Antibiotic Education, Prescription Opioid Use. Follow up: Homer Lucas; When: 48 Hours; Reason: Further diagnostic work-up, Recheck today's complaints, Continuance of care, Re-evaluation by your physician. Follow up: Cynthia Andino; When: As needed; Reason: Further diagnostic work-up. Follow up: Emergency Department; When: As needed; Reason: Fever > 102 F, Worsening of condition. Problem is new. Symptoms are unchanged. ps1
[2019-06-05 05:35] VITALS: TEMP 97.3
[2019-06-05 05:37] VITALS: BP 150/92; O2SAT 97
[2019-06-05 06:07] LABS: Urine Blood NEGATIVE (NEG); Urine Glucose 2+ (NEG); Urine Protein NEGATIVE (NEG)
== END 2019-06-05 05:21 | disposition home or self-care (01) ==
LOC: ER 01:33
DX: R10.9 Unspecified abdominal pain (principal); I10 Essential (primary) hypertension; E11.9 Type 2 diabetes mellitus without complications; Z88.6 Allergy status to analgesic agent; Z88.0 Allergy status to penicillin
CPT/HCPCS: 85025; 36415; 81003; 83690; 80053; 96374; 99283; J2405

== ENCOUNTER 2020-05-24 11:41 | Emergency (ER) | payer MEDICARE, OTHER ==
--- OUTSIDE RECORDS SUMMARY | 2020-05-24 11:43 | XMS REPORT | Clinical Summary ---
:1950 Author Organization [facility] Address [address] [place] [address] Care Team Providers Name Role Phone Salazar Andino Primary Care Provider Allergies Active Allergy Reactions Severity Noted Date Comments Codeine Nausea And Vomiting 01/31/2016 Penicillins Hives 01/31/2016 Hydrocodone-Acetaminophen Nausea And Vomiting 07/12/19 17 Medications Medication Sig Dispensed Refills Start Date [...] tablet metFORMIN Take 500 mg by 0 Activ e (GLUCOPHAGE) 500 MG mouth 2 (two) times tablet daily with breakfast and dinner Takes 500 mg in am and 1000 mg at night. CYANOCOBALAMIN, Take 1 tablet by 0 Active VITAMIN B-12, mouth daily Super (VITAMIN B-12 ORAL) Vitamin B 12 . sucralfate (CARAFATE) Take 1 g by mouth 3 0 Active 1 gram tablet (three) times daily with meals. omeprazole (PRILOSEC) Take 20 mg by mouth 0 Active 20 MG capsule daily. Active Problems Problem Noted Date Bilateral renal cysts 09/17/2018 Acute pancreatitis 09/15/2018 Hiatal hernia s/p lap repair and magnetic spincter aug mentation 07/15/16 07/15/2016 Dysphagia GERD (gastroesophageal reflux disease) Diabetes mellitus Hypertension Family History Medical History Relation Name Comments Diabetes Father Heart disease Father Hypertension Mother Relation Name Status Comments Father Mother Social History Tobacco Use Types Packs/Day Years Used Date Former Smoker Quit: 06/02/18 97 Smokeless Tobacco: Never Used Alcohol Use Drinks/Week oz/Week Comments Yes 4 Standard drinks or equivalent 3.3 Sex Assigned at Date Recorded Not on file Last Filed Vital Signs Not on file Plan of Treatment Health Maintenance Due Date Last Done Comments COLON CANCER SCREENING COLONOSCOPY 1950 DIABETIC EYE EXAM 1960 DIABETIC FOOT EXAM 1960 URINE MICROALBUMIN 1960 PNEUMOCOCCAL 65+ YRS (1 of 1 - [id number]) 08/20/2015 MEDICARE ANNUAL WELLNESS (YEAR 2 or FIRST YEAR if no 06/03/2016 IPPE) HEMOGLOBIN A1C 03/20/2019 09/18/2018 INFLUENZA VACCINE (#1) 2020 Implants Implanted 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 Device Shelf Model / Identifier Expiration Serial / Date Lot Sys Linx Reflux Mgmt 15 [id number] - [id number] Bariatric N/A: J[employer] 09/12/2019 LX15 / Implanted: Qty: 1 on 07/15/2016 by Rocky العلي MD at [facility] [employer] [id number] Results Not on fileafter 05/24/2019 Insurance Payer Benefit Plan / Subscriber ID Effective Dates Phone Addre ss Type Group [facility] MEDICARE [id number] 2018-Present MEDICARE MGD CARE HMO Advance Directives For more information, please contact: [phone] Type Date 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
--- OUTSIDE RECORDS SUMMARY | 2020-05-24 11:44 | XMS REPORT | Continuity of Care Document ---
:1950 Author Organization [facility] t Address [address] [place] [address] Care Team Providers Name Role Phone Saalzar Andino Primary Care Physician Shayy PARK M Attending Clinician Radiology Attending Clinician Unavailable Pob, Lab Main Attending Clinician Unavailable Loni FELDER Attending Clinician Unavailable FAITH BROOKS Attending Clinician Unavailable Loni FELDER Admitting Clinician Unavailable FAITH BROOKS Admitting Clinician Unavailable Problems Condition Condition Condition Status Onset Resolution Last Treating Co mments Source Name Details Category Date Date Treatment Clinician Date Bilateral Bilateral Disease Active [facility] renal renal 4-18 [facility] - cysts cysts 00:00: [address] Acute Acute Disease Active [facility] pancreatit pancreatit 4-16 Mery kes - is is 00:00: [address] Hiatal Hiatal Disease Active 2016-[address] [facility] [address] hernia s/p hernia s/p 2-13 kes - lap repair lap repair 00:00: Ks dical and and [address] [place] [address] magnetic magnetic spincter spincter augmentati augmentati on 07/15/16 on 07/15/16 Dysphagia Dysphagia Disease Active [facility] GERD GERD Disease Active [facility] (gastroeso (gastroeso [facility] phageal phageal [facility] reflux reflux Center disease) disease) Diabetes Diabetes Disease Active [facility] Hypertensi Hypertensi Disease Active [facility] Allergies, Adverse Reactions, Alerts Allergy Allergy Status Severity Reaction(s) Onset Inactive Treating Comm ents Source Name Type Date Date Clinician Hydrocod Drug Active Nausea And [facility] one-Acet Allergy Vomiting 2-10 [facility] amin[facility] Medical n 00 Center Codeine Drug Active Nausea And [facility] Allergy Vomiting 01-30 [facility]: Medical 00 Center Penicill Drug Active Hives [facility] ins Allergy 01-30 [facility] - 00:00: Medical 00 [place] Family History Family Member Diagnosis Comments Start Date Stop Date Source Natural father Diabetes [facility] Natural father Heart disease [facility] Natural mother Hypertension [facility] Social History Social Habit Start Date Stop Date Quantity Comments Source Sex Assigned At [facility] Tobacco use and 2016-07-16 2016-07-16 Never used [facility] - exposure 00:00:00 00:00:00 [facility] Alcohol intake 2016-07-16 2016-07-16 Current drinker [facility] S t [facility] 00:00:00 00:00:00 of alcohol [facility] Center (finding) History of 1996-06-02 Current smoker [facility] - [facility] Sm[facility] Status Start Date Stop Date Source Former smoker 2016-07-16 00:00:00 2016-07-16 00:00:00 [facility] Medications Ordered Filled Start Stop Current Ordering Indication Dosage Frequency Signature Comments Components Source Medication Medication Date Date Medication? Clinician (SIG) Name Name ALPRAZolam Yes .5mg Take 0.[address] [facility] [address] (XANAX) 1 4-19 mg by [facility] - MG tablet 11:33: mouth 4 Medic al 24 (four) Center times daily as needed for Anxiety Takes a total 2mg a day. amLODIPine Yes 5mg Q.5D Take [address] (NORVASC) 5 4-19 by mouth 2 Mery kes - MG tablet 11:33: (two) Medical 24 times Center daily . aspirin 81 Yes 81mg QD Take [address] MG chewable 4-19 by mouth Luke s - tablet 11:33: daily. Medical 24 Center glimepiride Yes 4mg Take [address] (AMARYL) 4 4-19 by mouth 2 Monty es - MG tablet 11:33: (two) Medical 24 times Center daily before meals . ibuprofen-d 2018- Yes 2{tbl} Take [address] iphenhydram 4-19 tablets by Mery kes - ine HCl 11:33: mouth as Medica l (ADVIL PM 24 needed . Center LIQUI-GELS) 200-25 mg Cap losartan-hy 2019- Yes 1{tbl} QD Take [address] drochloroth 4-19 tablet by Monty es - iazide 11:33: mouth Medical (HYZAAR) 24 daily. Center 100-25 mg per tablet metFORMIN Yes 500mg Take [address] (GLUCOPHAGE 4-19 mg by [facility]ukes - ) 500 MG 11:33: mouth 2 Medica l tablet 24 (two) Center times daily with breakfast and dinner Takes 500 mg in am and 1000 mg at night. CYANOCOBALA 2018- Yes 1{tbl} QD Take [address] MIN, 4-19 tablet by Andrew - VITAMIN 11:33: mouth Medical B-12, 24 daily Center (VITAMIN Super B-12 ORAL) Vitamin B 12 . sucralfate 2018- Yes 1g Take [address] (CARAFATE) 4-19 by mouth 3 Monty es - 1 gram 11:33: (three) Medical tablet 24 times Center daily with meals. omeprazole Yes 20mg QD Take [address] (PRILOSEC) 4-19 by mouth [facility] - 20 MG 11:33: daily. Medical capsule 24 Center Procedures This patient has no known procedures. Plan of Care Planned Activity Planned Date Details Comments Source Future Scheduled 2020-02-01 INFLUENZA VACCINE (#1) [facility] - Test 00:00:00 [code = INFLUENZA Medical Ce nter VACCINE (#1)] Future Scheduled 2019-03-[address] Mery kes - Test 00:00:00 [facility] Medical Center (procedure) [code = 39089136] Future Scheduled 2016-06-[address] [facility] ukes - Test 00:00:00 WELLNESS (YEAR 2 or Medical Center FIRST YEAR if no IPPE) [code = MEDICARE ANNUAL WELLNESS (YEAR 2 or FIRST YEAR if no IPPE)] Future Scheduled 2015-08-20 PNEUMOCOCCAL 65+ YRS [facility] - Test 00:00:00 (1 of 1 - Medical Center [id number]) [code = PNEUMOCOCCAL 65+ YRS (1 of 1 - [id number] PCV13)] Future Scheduled 1960 DIABETIC EYE EXAM [facility] - Test 00:00:00 [code = DIABETIC EYE Medical Center EXAM] Future Scheduled [address] Monty es - Test 00:00:00 examination Medical Center (regime/therapy) [code = 419964302] Future Scheduled 1960 Urine screening for [facility] - Test 00:00:00 protein (procedure) Medical Center [code = 344847768] Future Scheduled [address] Monty es - Test 00:00:00 malignant neoplasm of Medica l Center colon (procedure) [code = 271889594] Encounters Start End Encounter Admission Attending Care Care Encounter Source Date/Time Date/Time Type Type Clinicians Facility Department ID 2020-03-15 2020-03-15 [facility] [id number] 10:38:27 23:59:00 Encounter M Le[place] [id number] [place] [id number] [place] [id number] 2020-03-15 2020-03-15 [facility] [id number] 10:07:12 10:37:00 Encounter Leander [id number] [place] [id number] [place] [id number] 2019-12-22 2019-12-22 [facility] [id number] 09:24:00 23:59:00 Encounter M Leander [id number] [place] [id number] [place] [id number] 2019-12-22 2019-12-22 [employer] Kadi Garza [facility] [id number] 10:00:14 10:15:14 Visit Lab Main [place] [id number] [place] [id number] [place] [phone] nal 353 Building Results Test Description Test Time Test Comments Results Result Comments Source HEMOGLOBIN A1C 2018-09-18 09:24:00 Test Item Value Reference Range Interpretation Comme nts HEMOGLOBIN A1C (BEAKER) (test code = 368) 7.4 % 4.3-6.1 H POCT-GLUCOSE [id number] 08:38:00 Test Item Value Reference Range Interpretation Comments POC-GLUCOSE METER 114 mg/dL 70-110 H TESTED AT [facility] 67[address] ([facility]) (test code = [address] [place] 1538) [address] COMPREHENSIVE METABOLIC [id number] 06:24:00 Test Item Value Reference Range Interpretation Comments TOTAL PROTEIN 5.9 gm/dL 6.0-8.3 L (BEAKER) (test code = 770) ALBUMIN (BEAKER) 3.3 g/dL 3.5-5.0 L (test code = 1145) ALKALINE PHOSPHATASE 33 U/L 40-150 L (BEAKER) (test code = 346) BILIRUBIN TOTAL 1.2 mg/dL 0.2-1.2 (BEAKER) (test code = 377) SODIUM (BEAKER) (test 142 meq/L 136-145 code = 381) POTASSIUM (BEAKER) 3.9 meq/L 3.5-5.1 (test code = 379) CHLORIDE (BEAKER) 106 meq/L 98-107 (test code = 382) CO2 (BEAKER) (test 28 meq/L 22-29 code = 355) BLOOD UREA NITROGEN 6 mg/dL 7-21 L (BEAKER) (test code = 354) CREATININE (BEAKER) 0.69 mg/dL 0.57-1.25 (test code = 358) GLUCOSE RANDOM 100 mg/dL 70-105 (BEAKER) (test code = 652) CALCIUM (BEAKER) 9.0 mg/dL 8.4-10.2 (test code = 697) AST (SGOT) (BEAKER) 33 U/L 5-34 (test code = 353) ALT (SGPT) (BEAKER) 46 U/L 6-55 (test code = 347) EGFR (BEAKER) (test 114 ESTIMATE D GFR IS code = 1092) mL/min/1.73 sq NOT ACCURA TE m CREATININE CLEARANCE IN PREDICTING GLOMERULAR FILTRATION RATE . ESTIMATED GFR I S NOT APPLICABLE FOR DIALYSIS PATIEN TS. CBC W/PLT COUNT & AUTO [id number] 06:04:00 Test Item Value Reference Range Interpretation Comments WHITE BLOOD CELL COUNT (BEAKER) 7.0 K/ L 3.5-10.5 (test code = 775) RED BLOOD CELL COUNT (BEAKER) 4.52 M/ L 4.63-6.08 L (test code = 761) HEMOGLOBIN (BEAKER) (test code = 14.2 GM/DL 13.7-17.5 410) HEMATOCRIT (BEAKER) (test code = 42.3 % 40.1-51.0 411) MEAN CORPUSCULAR VOLUME (BEAKER) 93.6 fL 79.0-92.2 H (test code = 753) MEAN CORPUSCULAR HEMOGLOBIN 31.4 pg 25.7-32.2 (BEAKER) (test code = 751) MEAN CORPUSCULAR HEMOGLOBIN CONC 33.6 GM/DL 32.3-36.5 (BEAKER) (test code = 752) RED CELL DISTRIBUTION WIDTH 12.9 % 11.6-14.4 (BEAKER) (test code = 412) PLATELET COUNT (BEAKER) (test 146 K/CU MM 150-450 L code = 756) MEAN PLATELET VOLUME (BEAKER) 10.8 fL 9.4-12.4 (test code = 754) NUCLEATED RED BLOOD CELLS 0 /100 WBC 0-0 (BEAKER) (test code = 413) NEUTROPHILS RELATIVE PERCENT 44 % (BEAKER) (test code = 429) LYMPHOCYTES RELATIVE PERCENT 39 % (BEAKER) (test code = 430) MONOCYTES RELATIVE PERCENT 11 % (BEAKER) (test code = 431) EOSINOPHILS RELATIVE PERCENT 5 % (BEAKER) (test code = 432) BASOPHILS RELATIVE PERCENT 1 % (BEAKER) (test code = 437) NEUTROPHILS ABSOLUTE COUNT 3.07 K/ L 1.78-5.38 (BEAKER) (test code = 670) LYMPHOCYTES ABSOLUTE COUNT 2.74 K/ L 1.32-3.57 (BEAKER) (test code = 414) MONOCYTES ABSOLUTE COUNT (BEAKER) 0.79 K/ L 0.30-0.82 (test code = 415) EOSINOPHILS ABSOLUTE COUNT 0.35 K/ L 0.04-0.54 (BEAKER) (test code = 416) BASOPHILS ABSOLUTE COUNT (BEAKER) 0.04 K/ L 0.01-0.08 (test code = 417) IMMATURE GRANULOCYTES-RELATIVE 0 % 0-1 PERCENT ([facility]) (test code = 2801) POCT-GLUCOSE [id number] 21:22:00 Test Item Value Reference Range Interpretation Comments POC-GLUCOSE METER 167 mg/dL 70-110 H TESTED AT [place] [address] ([facility]) (test code = [employer] [place] 1538) [address] POCT-GLUCOSE [id number] 18:22:00 Test Item Value Reference Range Interpretation Comments POC-GLUCOSE METER 85 mg/dL 70-110 TESTED AT [place] [address] ([facility]) (test code = [employer] [facility] [address]) POCT-GLUCOSE [id number] 12:19:00 Test Item Value Reference Range Interpretation Comments POC-GLUCOSE METER 149 mg/dL 70-110 H TESTED AT [place] [address] ([facility]) (test code = [employer] [facility] 1538) [address] POCT-GLUCOSE [id number] 08:18:00 Test Item Value Reference Range Interpretation Comments POC-GLUCOSE METER 103 mg/dL 70-110 TESTED AT [place] [address] ([facility]) (test code = [address] [place] 15[place]) [address] POCT-GLUCOSE [id number] 21:12:00 Test Item Value Reference Range Interpretation Comments POC-GLUCOSE METER 114 mg/dL 70-110 H TESTED AT [place] [address] ([facility]) (test code = [address] [place] 15[place]) [address] POCT-GLUCOSE [id number] 18:20:00 Test Item Value Reference Range Interpretation Comments POC-GLUCOSE METER 70 mg/dL 70-110 TESTED AT [place] [address] ([facility]) (test code = [employer] [facility] [address] 15[address]) [id number] 14:02:00 Test Item Value Reference Range Interpretation Comments LIPASE ([facility]) (test code = 749) 483 U/L 8-78 H U/S, ABDOMINAL, [id number] 13:08:00Abdomen limited area? Add comment if clarification [...] renal cysts. Signed: Bon Rivera MDReport Verified Date/Time: 09/16/2018 13:08:32 Reading Location: [address] Ultrasound Reading Room POCT-GLUCOSE [id number] 12:13:00 Test Item Value Reference Range Interpretation Comments POC-GLUCOSE METER 130 mg/dL 70-110 H TESTED AT [place] [address] ([facility]) (test code = [place]38) [address] POCT-GLUCOSE [id number] 09:11:00 Test Item Value Reference Range Interpretation Comments POC-GLUCOSE METER 90 mg/dL 70-110 TESTED AT [place] [address] ([facility]) (test code = [employer] [facility] [address] 1538) [id number] 06:24:00 Test Item Value Reference Range Interpretation Comments TRIGLYCERIDES ([facility]) (test code = 48 mg/dL 540) TRIGLYCERIDE REFERENCE RANGELow Risk <150Borderline Risk 150-199High Risk 200-499Very High Risk>=500COMPREHENSIVE METABOLIC [id number] 06:24:00 Test Item Value Reference Range Interpretation Comments TOTAL PROTEIN 5.7 gm/dL 6.0-8.3 L (BEAKER) (test code = 770) ALBUMIN (BEAKER) 3.3 g/dL 3.5-5.0 L (test code = 1145) ALKALINE PHOSPHATASE 39 U/L 40-150 L (BEAKER) (test code = 346) BILIRUBIN TOTAL 0.9 mg/dL 0.2-1.2 (BEAKER) (test code = 377) SODIUM (BEAKER) (test 142 meq/L 136-145 code = 381) POTASSIUM (BEAKER) 3.3 meq/L 3.5-5.1 L (test code = 379) CHLORIDE (BEAKER) 109 meq/L 98-107 H (test code = 382) CO2 (BEAKER) (test 27 meq/L 22-29 code = 355) BLOOD UREA NITROGEN 9 mg/dL 7-21 (BEAKER) (test code = 354) CREATININE (BEAKER) 0.66 mg/dL 0.57-1.25 (test code = 358) GLUCOSE RANDOM 79 mg/dL 70-105 (BEAKER) (test code = 652) CALCIUM (BEAKER) 8.1 mg/dL 8.4-10.2 L (test code = 697) AST (SGOT) (BEAKER) 33 U/L 5-34 (test code = 353) ALT (SGPT) (BEAKER) 56 U/L 6-55 H (test code = 347) EGFR (BEAKER) (test 120 ESTIMATE D GFR IS code = 1092) mL/min/1.73 sq NOT ACCURA TE m CREATININE CLEARANCE IN PREDICTING GLOMERULAR FILTRATION RATE . ESTIMATED GFR I S NOT APPLICABLE FOR DIALYSIS PATIEN TS. CBC W/PLT COUNT & AUTO [id number] 06:08:00 Test Item Value Reference Range Interpretation Comments WHITE BLOOD CELL COUNT (BEAKER) 9.8 K/ L 3.5-10.5 (test code = 775) RED BLOOD CELL COUNT (BEAKER) 4.58 M/ L 4.63-6.08 L (test code = 761) HEMOGLOBIN (BEAKER) (test code = 14.0 GM/DL 13.7-17.5 410) HEMATOCRIT (BEAKER) (test code = 42.6 % 40.1-51.0 411) MEAN CORPUSCULAR VOLUME (BEAKER) 93.0 fL 79.0-92.2 H (test code = 753) MEAN CORPUSCULAR HEMOGLOBIN 30.6 pg 25.7-32.2 (BEAKER) (test code = 751) MEAN CORPUSCULAR HEMOGLOBIN CONC 32.9 GM/DL 32.3-36.5 (BEAKER) (test code = 752) RED CELL DISTRIBUTION WIDTH 13.2 % 11.6-14.4 (BEAKER) (test code = 412) PLATELET COUNT (BEAKER) (test 151 K/CU MM 150-450 code = 756) MEAN PLATELET VOLUME (BEAKER) 11.0 fL 9.4-12.4 (test code = 754) NUCLEATED RED BLOOD CELLS 0 /100 WBC 0-0 (BEAKER) (test code = 413) NEUTROPHILS RELATIVE PERCENT 61 % (BEAKER) (test code = 429) LYMPHOCYTES RELATIVE PERCENT 27 % (BEAKER) (test code = 430) MONOCYTES RELATIVE PERCENT 10 % (BEAKER) (test code = 431) EOSINOPHILS RELATIVE PERCENT 2 % (BEAKER) (test code = 432) BASOPHILS RELATIVE PERCENT 0 % (BEAKER) (test code = 437) NEUTROPHILS ABSOLUTE COUNT 5.96 K/ L 1.78-5.38 H (BEAKER) (test code = 670) LYMPHOCYTES ABSOLUTE COUNT 2.64 K/ L 1.32-3.57 (BEAKER) (test code = 414) MONOCYTES ABSOLUTE COUNT (BEAKER) 0.99 K/ L 0.30-0.82 H (test code = 415) EOSINOPHILS ABSOLUTE COUNT 0.20 K/ L 0.04-0.54 (BEAKER) (test code = 416) BASOPHILS ABSOLUTE COUNT (BEAKER) 0.02 K/ L 0.01-0.08 (test code = 417) IMMATURE GRANULOCYTES-RELATIVE 0 % 0-1 PERCENT (BEAKER) (test code = 2801) POCT-GLUCOSE [id number] 21:18:00 Test Item Value Reference Range Interpretation Comments POC-GLUCOSE METER 87 mg/dL 70-110 TESTED AT [facility] 67[address] (BEAKER) (test code = [place] [address] 1538) POCT-GLUCOSE [id number] 20:02:00 Test Item Value Reference Range Interpretation Comments POC-GLUCOSE METER 98 mg/dL 70-110 TESTED AT [facility] 6720 (BEAKER) (test code = [facility] [place] [facility] [address] 1538) POCT-GLUCOSE [id number] 09:15:00 Test Item Value Reference Range Interpretation Comments POC-GLUCOSE METER 229 mg/dL 70-110 H TESTED AT [facility] 6720 (BEAKER) (test code = [facility] 1538) [address] POCT-GLUCOSE [id number] 08:10:00 Test Item Value Reference Range Interpretation Comments POC-GLUCOSE METER 238 mg/dL 70-110 H TESTED AT [facility] 6720 (BEAKER) (test code = [facility] 1538) [address] [id number] 04:55:00 Test Item Value Reference Range Interpretation Comments MAGNESIUM (BEAKER) (test code = 2.0 mg/dL 1.6-2.6 627) BASIC METABOLIC [id number] 04:55:00 Test Item Value Reference Range Interpretation Comments SODIUM (BEAKER) 139 meq/L 136-145 (test code = 381) POTASSIUM (BEAKER) 3.7 meq/L 3.5-5.1 (test code = 379) CHLORIDE (BEAKER) 103 meq/L 98-107 (test code = 382) CO2 (BEAKER) (test 27 meq/L 22-29 code = 355) BLOOD UREA NITROGEN 7 mg/dL 7-21 (BEAKER) (test code = 354) CREATININE (BEAKER) 0.67 mg/dL 0.57-1.25 (test code = 358) GLUCOSE RANDOM 217 mg/dL 70-105 H (BEAKER) (test code = 652) CALCIUM (BEAKER) 8.4 mg/dL 8.4-10.2 (test code = 697) EGFR (BEAKER) (test 119 mL/min/1.73 ESTIM ATED GFR IS code = 1092) sq m NOT ACCURATE CREATININE CLEARANCE IN PREDICTING GLOMERULAR FILTRATION RATE . ESTIMATED GFR I S NOT APPLICABLE FOR DIALYSIS PATIEN TS. [id number] 04:47:00 Test Item Value Reference Range Interpretation Comments PARTIAL THROMBOPLASTIN TIME 26.9 seconds 22.5-36.0 (BEAKER) (test code = 760) PROTHROMBIN [id number] 04:46:00 Test Item Value Reference Range Interpretation Comments PROTIME (BEAKER) (test code = 12.9 seconds 11.7-14.7 759) INR (BEAKER) (test code = 370) 1.0 <=5.9 RECOMMENDED COUMADIN/WARFARIN INR THERAPY RANGESSTANDARD DOSE: 2.0 - 3.0 Includes: PROPHYLAXIS forvenous thrombosis, systemic embolization; TREATMENT for venous thrombosis and/or pulmonary embolus.HIGH RISK: Target INR is 2.5-3.5 for patients with mechanical heart valves.CBC W/PLT COUNT & AUTO DIFFERENTIAL 2016-07-17 04:36:00 Test Item Value Reference Range Interpretation Comments WHITE BLOOD CELL COUNT (BEAKER) 10.0 K/ L 4.0-10.0 (test code = 775) RED BLOOD CELL COUNT (BEAKER) 4.53 M/ L 4.20-5.80 (test code = 761) HEMOGLOBIN (BEAKER) (test code = 14.2 GM/DL 13.0-16.8 410) HEMATOCRIT (BEAKER) (test code = 43.6 % 40.0-50.0 411) MEAN CORPUSCULAR VOLUME (BEAKER) 96.3 fL 82.0-98.0 (test code = 753) MEAN CORPUSCULAR HEMOGLOBIN 31.4 pg 27.0-33.0 (BEAKER) (test code = 751) MEAN CORPUSCULAR HEMOGLOBIN CONC 32.6 GM/DL 32.0-36.0 (BEAKER) (test code = 752) RED CELL DISTRIBUTION WIDTH 11.6 % 10.3-14.2 (BEAKER) (test code = 412) PLATELET COUNT (BEAKER) (test 168 K/CU MM 150-430 code = 756) MEAN PLATELET VOLUME (BEAKER) 7.9 fL 6.5-10.5 (test code = 754) NUCLEATED RED BLOOD CELLS 0 /100 WBC 0-0 (BEAKER) (test code = 413) NEUTROPHILS RELATIVE PERCENT 61 % (BEAKER) (test code = 429) LYMPHOCYTES RELATIVE PERCENT 28 % (BEAKER) (test code = 430) MONOCYTES RELATIVE PERCENT 10 % (BEAKER) (test code = 431) EOSINOPHILS RELATIVE PERCENT 1 % (BEAKER) (test code = 432) BASOPHILS RELATIVE PERCENT 1 % (BEAKER) (test code = 437) NEUTROPHILS ABSOLUTE COUNT 6.07 K/ L 1.80-8.00 (AKER) (test code = 670) LYMPHOCYTES ABSOLUTE COUNT 2.76 K/ L 1.48-4.50 (BEAKER) (test code = 414) MONOCYTES ABSOLUTE COUNT (BEAKER) 0.97 K/ L 0.00-1.30 (test code = 415) EOSINOPHILS ABSOLUTE COUNT 0.14 K/ L 0.00-0.50 (BEAKER) (test code = 416) BASOPHILS ABSOLUTE COUNT (BEAKER) 0.06 K/ L 0.00-0.20 (test code = 417) 0.00POCT-GLUCOSE [id number] 22:06:00 Test Item Value Reference Range Interpretation Comments POC-GLUCOSE METER 243 mg/dL 70-110 H TESTED AT [place] [address] ([facility]) (test code = [place] 1538) [id number] POCT-GLUCOSE [id number] 17:17:00 Test Item Value Reference Range Interpretation Comments POC-GLUCOSE METER 218 mg/dL 70-110 H TESTED AT [place] [address] ([facility]) (test code = [place] 1538) [address]
--- OUTSIDE RECORDS SUMMARY | 2020-05-24 11:44 | XMS REPORT | Summary of Care ---
:1950 Author Organization [facility] Address [address] [place] [id number] Care Team Providers Name Role Phone Andino Primary Care Provider Reason for Referral MRI/CAT Scan (Routine) Status Reason Specialty Diagnoses / Referred By Referred To Procedures Contact Contact New Request Diagnostic Diagnoses Chronic pancreatitis, unspecified pancreatitis type Homer Lucas, Radiology Procedures CT ABDOMEN PELVIS W WO CONTRAST [address] [place] [address] [facility] [address] Reason for Visit MRI/CAT Scan (Routine) Status Reason Specialty Diagnoses / Referred By Referred To Procedures Contact Contact New Request Diagnostic Diagnoses Chronic pancreatitis, unspecified pancreatitis type Homer Lucas, Radiology Procedures CT ABDOMEN PELVIS W WO CONTRAST [address] [place] [address] [facility] [address] Encounter Details Date Type Department Care Team Description 03/15/2020 Hospital Encounter [facility] Susanne Stewart MD Arrived [facility] [address] [place] [address] [place] [address]1 112 [phone] Allergies Active Allergy Reactions Severity Noted Date Comments Codeine Nausea and/or Vomiting 01/31/2016 Hydrocodone-Acetaminophen Nausea and/or Vomiting 07/12 Penicillins Hives 01/31/2016 documented as of this encounter (statuses as of 03/16/2020) Medications Medication Sig Dispensed Refills Start Date End Date Status glimepiride 4 mg tablet Take 4 mg by 0 Active mouth. losartan-hydrochlorothia Take 1 tablet by 0 Active zide 100-25 mg per mouth. tablet ALPRAZolam 1 mg tablet Take 2 mg by 0 Active mouth. amLODIPine 5 mg tablet Take 5 mg by 0 Active mouth 2 (two) times daily. metFORMIN 500 mg tablet Take 1,000 mg by 0 Active mouth. aspirin 81 mg chewable Take 81 mg by 0 Active tablet mouth. vitamin B-12 1,000 mcg Take by mouth. 0 Active tablet JARDIANCE 10 mg Tab Take 10 mg by 0 03/28/2017 Active mouth daily. amitriptyline 50 mg Take 50 mg by 0 03/24/2017 Active tablet mouth at bedtime. gabapentin 100 mg Take 100 mg by 0 02/12/2017 Active capsule mouth 3 (three) times daily. documented as of this encounter (statuses as of 03/16/2020) Active Problems Not on filedocumented as of this encounter (statuses as of 03/16/2020) Social History Tobacco Use Types Packs/Day Years Used Date Former Smoker Quit: 04/10/19 98 Smokeless Tobacco: Never Used Sex Assigned at Date Recorded Not on file COVID-19 Exposure Response Date Recorded In the last month, have you been in contact with No / Unsure 03/10/2020 9:23 AM CDT someone who was confirmed or suspected to have Coronavirus / COVID-19? documented as of this encounter Last Filed Vital Signs Not on filedocumented in this encounter Plan of Treatment Name Type Priority Associated Diagnoses Date/Ti me CT ABDOMEN PELVIS W IMAGING Routine Chronic pancreatitis, 03/15/2020 10:38 AM WO CONTRAST unspecified pancreatitis CDT type Name Type Priority Associated Diagnoses Order S chedule CT ABDOMEN PELVIS W IMAGING Routine Chronic pancreatitis, ONCE for 1 Occurrences WO CONTRAST unspecified pancreatitis sta rting 03/15/2020 type until 0 Health Maintenance Due Date Last Done Comments HEPATITIS C (HCV) SCREEN 1950 Depression Screening 1962 DTaP,Tdap,and Td Vaccines (1 - Tdap) 1969 COLON CANCER SCREENING ANNUAL FIT/FOBT 2000 COLON CANCER SCREENING FIT DNA EVERY 3 YEARS 2000 COLON CANCER SCREENING SIGMOIDOSCOPY EVERY 5 YEARS 2000 COLONOSCOPY 2000 Colorectal Cancer Screening 2000 Zoster Recombinant Vaccine (SHINGRIX) (1 of 2) 2000 Medicare Wellness Visit 08/20/2015 PNEUMOCOCCAL VACCINES 65+ (1 of 1 - PPSV23) 08/20/2015 INFLUENZA VACCINE (#1) 2020 documented as of this encounter Results Not on filedocumented in this encounter Visit Diagnoses Diagnosis Chronic pancreatitis, unspecified pancre atitis type documented in this encounter Insurance Payer Benefit Plan / Subscriber ID Effective Phone Address T e Group Dates [facility] [id number] 2019-Prese Medic are Adv HEALTHCARE - HEALTHCARE nt PPO MANAGED MEDICARE GOLD MEDICARE documented as of this encounter
--- OUTSIDE RECORDS SUMMARY | 2020-05-24 11:44 | XMS REPORT | Summary of Care ---
:1950 Author Organization [facility] Address [address] [place] [address] Care Team Providers Name Role Phone Andino Primary Care Provider Reason for Referral MRI/CAT Scan (Routine) Status Reason Specialty Diagnoses / Referred By Referred To Procedures Contact Contact Closed Diagnostic Diagnoses Abnormal findings on diagnostic imaging of abdomen Other chronic pancreatitis Christy Escoto Radiology Procedures CT ABDOMEN W WO CONTRAST [address] [place] [address] Reason for Visit MRI/CAT Scan (Routine) Status Reason Specialty Diagnoses / Referred By Referred To Procedures Contact Contact Closed Diagnostic Diagnoses Abnormal findings on diagnostic imaging of abdomen Other chronic pancreatitis Christy Escoto Radiology Procedures CT ABDOMEN W WO CONTRAST [address] [place] [address] Encounter Details Date Type Department Care Team Description 03/15/2020 Hospital Encounter [facility] Arrived [facility] [address] [facility] [place] [address] [place] [address] [phone] Allergies Active Allergy Reactions Severity Noted Date [...] filedocumented in this encounter Plan of Treatment Health Maintenance Due Date [...] (#1) 2020 documented as of this encounter Procedures Procedure Name Priority Date/Time Associated Diagnosis Comme nts CT ABDOMEN W WO Routine 03/15/2020 11:14 Abnormal findings on Results for this CONTRAST AM CDT diagnostic imaging of proced ure are in abdomen the results Other chronic section. pancreatitis HB CREATININE BLOOD Routine 03/15/2020 10:36 Resu lts for this AM CDT procedure are i n the results section. documented in this encounter Results CT ABDOMEN W WO CONTRAST (03/15/2020 11:14 AM CDT) Specimen Narrative Performed At CT Abdomen and Pelvis with oral and intr avenous contrast. PACS/VR/DOSE CLINICAL HISTORY: Abnormal CT findings with kidney les ions, Bosniak type I and type II. DOSE: Up-to-date CT equipment and radiation dose reduc tion techniques were employed. CTDIvol: 7.74+7.67+7.71 MGy. DLP: 262+26 0 (261 mGy-cm. TECHNIQUE : Contiguous axial imaging fro m the level of the lung bases through the iliac crests were performed initially without contrast and subsequently after the uncomplicated administration of Omnipaque contrast material. An additional delayed venous p hase imaging study was also obtained. Coronal and sagittal reconstru ctions were obtained. Auto mA and/or iterative reconstruction were use d to reduce radiation dose. FINDINGS: Lower lungs: Clear. Artifacts are seen f rom metallic clips near the EG junction. Liver, Gallbladder and Spleen: Filling defects are see n in the early venous phase in the middle hepatic veins which is not confirmed clearly in the delayed venous imaging phase. Unfortunat mian delayed venous imaging phase showed very little contrast medium in th e hepatic venous system. Liver is enlarged, 21 cm in length and showed subcenti meter cystic lesions in right and left lobes. No calcified gallstones. Sple en is approximately 13 x 4.8 cm. Peritoneum: No free air or free fluid. No lymphadenopathy. Pancreas and Adrenals: Tail of the pancreas showed an ill-defined 19 x 8 mm lesion. Another irregular shaped 15 x 10 mm lesion also seen along the dorsal surface of proximal tail of the pancreas. There is possibly a third 14 x 8 mm lesion in the uncinate process region. Unremarkable adrenal glands. Kidneys and Ureters: 3 mm calcification again noted in the upper pole of the left kidney which is slightly increa sed in size but still remains nonobstructing stone. Faint 3 mm calcifi cation noted in the lower pole cortex of the left kidney which, in retr ospect, was very faint in the previous study. Multiple lower density lesions again not ed scattered throughout both kidneys consistent with Bosniak type I r enal cysts. Bosniak type II irregular shaped 15 mm cystic lesion in the interpolar cortex of the left kidney is also unchanged. Vessels: Atherosclerosis with tortuous aorta and iliac arteries without an aortic aneurysm. Retroperitoneum: No abnormal fluid or ly mphadenopathy. Bowel: Constipation. Bones: Hemangioma noted in L1 vertebral body. Minimal old fracture deformity in the upper plate of T11, exaggerated lordo sis and hypertrophy lower lumbar facet arthritis is noted, w ith grade 1 spondylolisthesis at L4-L5, minimal retrolisthesis at L3-L4 a nd L5-S1. Soft tissues: Less than 2 cm size fat-co ntaining umbilical hernia with focal 3 mm radiopaque density in it whic h could be calcification, unchanged. CONCLUSION: 1. Multiple bilateral kidney lesions, consistent with Bosniak type I cysts, stable. Bosniak type II lesion in the le ft kidney is also stable. 2. Nonobstructing stone in the upper maite e of the left kidney and a new nonobstructing faint calcification lower pole of the left kidney. 3. Filling defects are seen in the middle hepatic vein s in the early venous phase of this study. This is not confirm ed consistently in the delayed venous phase, therefore, likely flow rel ated artifacts. Similar flow related artifacts are also seen in the e obi portal venous phase in the main portal vein. 4. Ill-defined low-density lesions in uncinate process , daily portions of the pancreas. The lesions could be IPMN, and, in retrospect, are barely appreciated in December 2019 study and have remained stable. There are also present in July 2019 CT study from o [facility] facility and are stable. Procedure Note [facility], Radiant Results Inft User - 2019 11:[address] Abdomen and Pelvis with oral and intravenous contrast. CLINICAL HISTORY: Abnormal CT findings w ith kidney lesions, Bosniak type I and type II. DOSE: Up-to-date CT equipment and radiat ion dose reduction techniques were employed. CTDIvol: 7.74+7.67+7.71 MGy. DLP: 262+26 0 (261 mGy-cm. TECHNIQUE : Contiguous axial imaging fro m the level of the lung bases through the iliac crests were performed initially without contrast and subsequently after the uncomplicated adm inistration of Omnipaque contrast material. An additional delayed venous p hase imaging study was also obtained. Coronal and sagittal reconstru ctions were obtained. Auto mA and/or iterative reconstruction were use d to reduce radiation dose. FINDINGS: Lower lungs: Clear. Artifacts are seen f rom metallic clips near the EG junction. Liver, Gallbladder and Spleen: Filling d efects are seen in the early venous phase in the middle hepatic veins which is not confirmed clearly in the delayed venous imaging phase. Unfortunat mian delayed venous imaging phase showed very little contrast medium in th e hepatic venous system. Liver is enlarged, 21 cm in length and s howed subcentimeter cystic lesions in right and left lobes. No calcified ga llstones. Spleen is approximately 13 x 4.8 cm. Peritoneum: No free air or free fluid. No lymphadenopathy. Pancreas and Adrenals: Tail of the pancr eas showed an ill-defined 19 x 8 mm lesion. Another irregular shaped 15 x 10 mm lesion also seen along the dorsal surface of proximal tail of the p ancreas. There is possibly a third 14 x 8 mm lesion in the uncinate process region. Unremarkable adrenal glands. Kidneys and Ureters: 3 mm calcification again noted in the upper pole of the left kidney which is slightly increa sed in size but still remains nonobstructing stone. Faint 3 mm calcifi cation noted in the lower pole cortex of the left kidney which, in retr ospect, was very faint in the previous study. Multiple lower density lesions again not ed scattered throughout both kidneys consistent with Bosniak type I r enal cysts. Bosniak type II irregular shaped 15 mm cystic lesion in the interpolar cortex of the left kidney is also unchanged. Vessels: Atherosclerosis with tortuous a ajay and iliac arteries without an aortic aneurysm. Retroperitoneum: No abnormal fluid or ly mphadenopathy. Bowel: Constipation. Bones: Hemangioma noted in L1 vertebral body. Minimal old fracture deformity in the upper plate of T11, exa ggerated lordosis and hypertrophy lower lumbar facet arthritis is noted, w ith grade 1 spondylolisthesis at L4-L5, minimal retrolisthesis at L3-L4 a nd L5-S1. Soft tissues: Less than 2 cm size fat-co ntaining umbilical hernia with focal 3 mm radiopaque density in it whic h could be calcification, unchanged. CONCLUSION: 1. Multiple bilateral kidney lesions, co nsistent with Bosniak type I cysts, stable. Bosniak type II lesion in the le ft kidney is also stable. 2. Nonobstructing stone in the upper maite e of the left kidney and a new nonobstructing faint calcification lower pole of the left kidney. 3. Filling defects are seen in the middl e hepatic veins in the early venous phase of this study. This is not confirm ed consistently in the delayed venous phase, therefore, likely flow rel ated artifacts. Similar flow related artifacts are also seen in the e obi portal venous phase in the main portal vein. 4. Ill-defined low-density lesions in un cinate process, daily portions of the pancreas. The lesions could be IPMN, and, in retrospect, are barely appreciated in December 2019 study and have remained stable. There are also present in July 2019 CT study from o [facility] facility and are stable. Performing Organization Address City/State/Zipcode Phone Number PACS/VR/DOSE POCT CREATININE (03/15/2020 10:36 AM CDT) [facility] Sig nature POCT Creatinine 0.9 0.6 - 1.3 mg/dL [facility] Specimen Blood - VENOUS Performing Organization Address City/State/Zipcode Phone Number [facility] CLIA: [id number] [place] [address] documented in this encounter Visit Diagnoses Diagnosis Abnormal findings on diagnostic imaging of abdomen Nonspecific (abnormal) findings on radio logical and other examination of abdominal area, including retroperitoneum Other chronic pancreatitis documented in this encounter Administered Medications Medication Order MAR Action Action Date Dose Rate Site iohexol (OMNIPAQUE 350 BULK-150 Given 03/15/2020 10:58 AM CDT 15 0 mL mL) injection 150 mL 150 mL, Intravenous, ONCE, 1 dose, 03/15/20 at 1130, Routine documented in this encounter Insurance Payer Benefit Plan / Subscriber ID Effective Phone Address T e Group Dates [facility] [id number] 2019-Prese Medic are [employer] ([employer] nt O MANAGED MEDICARE GOLD MEDICARE documented as of this encounter
--- NOTE | 2020-05-24 15:30 | RAD REPORT ---
EXAM DESCRIPTION: Chavez Rodriguez (2 Views)05/24/2020 3:09 pm CLINICAL HISTORY: Hypertension/dizziness COMPARISON: 2019 FINDINGS: The lungs appear clear of acute infiltrate. The heart is normal size IMPRESSION: No acute abnormalities displayed
[2020-05-24 15:40] LABS: Urine Bacteria <20 /HPF (NONE SEEN); Urine RBC <5 /HPF (NONE SEEN)
[2020-05-24 15:41] LABS: Urine Blood NEGATIVE (NEG); Urine Glucose 2+ (NEG); Urine Protein NEGATIVE (NEG); Urine Specific Gravity 1.025 (1.005-1.030)
--- NOTE | 2020-05-24 15:49 | EDPHYS ---
Physician Documentation [facility] Name: Donal Valentine Age: 69 yrs Sex: Male : 1950 Arrival Date: 05/24/2020 Time: 11:45 Bed 7 Private MD: Cynthia Andino H ED Physician Siva Vazquez HPI: 05/24 14:47 This 69 yrs old Male presents to ER via Ambulatory with complaints of snw Dizziness, Headache. 14:47 The patient presents with generalized weakness. Onset: The symptoms/episode snw began/occurred gradually, 5 day(s) ago, and became persistent. Context: occurred at home. Associated signs and symptoms: Pertinent positives: headache, malaise, fatigue, poor po, bodyaches. Severity of symptoms: At their worst the symptoms were moderate. The patient has not experienced similar symptoms in the past. The patient has been recently seen by a physician: [facility]. [facility]. Historical: - Allergies: 11:48 Codeine; sv 11:48 PENICILLINS; sv - PMHx: 11:48 Diabetes - NIDDM; Hypertension; sv - Immunization history:: Adult Immunizations unknown. - Social history:: Smoking status: unknown. ROS: 14:47 Eyes: Negative for injury, pain, redness, and discharge, ENT: Negative for injury, snw pain, and discharge, Neck: Negative for injury, pain, and swelling, Cardiovascular: Negative for chest pain, palpitations, and edema, Respiratory: Negative for shortness of breath, cough, wheezing, and pleuritic chest pain, Abdomen/GI: Negative for abdominal pain, nausea, vomiting, diarrhea, and constipation, Back: Negative for injury and pain, : Negative for injury, bleeding, discharge, and swelling, MS/Extremity: Negative for injury and deformity, Skin: Negative for injury, rash, and discoloration. 14:47 Constitutional: Positive for body aches, fatigue, malaise, poor PO intake. 14:47 Neuro: Positive for headache. Exam: 14:47 Constitutional: This is a well developed, well nourished patient who is awake, alert, snw and in no acute distress. Head/Face: Normocephalic, atraumatic. Eyes: Pupils equal round and reactive to light, extra-ocular motions intact. Lids and lashes normal. Conjunctiva and sclera are non-icteric and not injected. Cornea within normal limits. Periorbital areas with no swelling, redness, or edema. ENT: Nares patent. No nasal discharge, no septal abnormalities noted. Tympanic membranes are normal and external auditory canals are clear. Oropharynx with no redness, swelling, or masses, exudates, or evidence of obstruction, uvula midline. Mucous membranes moist. Neck: Trachea midline, no thyromegaly or masses palpated, and no cervical lymphadenopathy. Supple, full range of motion without nuchal rigidity, or vertebral point tenderness. No Meningismus. Chest/axilla: Normal chest wall appearance and motion. Nontender with no deformity. No lesions are appreciated. Cardiovascular: Regular rate and rhythm with a normal S1 and S2. No gallops, murmurs, or rubs. Normal PMI, no JVD. No pulse deficits. Respiratory: Lungs have equal breath sounds bilaterally, clear to auscultation and percussion. No rales, rhonchi or wheezes noted. No increased work of breathing, no retractions or nasal flaring. Abdomen/GI: Soft, non-tender, with normal bowel sounds. No distension or tympany. No guarding or rebound. No evidence of tenderness throughout. Back: No spinal tenderness. No costovertebral tenderness. Full range of motion. Skin: Warm, dry with normal turgor. Normal color with no rashes, no lesions, and no evidence of cellulitis. MS/ Extremity: Pulses equal, no cyanosis. Neurovascular intact. Full, normal range of motion. Neuro: Awake and alert, GCS 15, oriented to person, place, time, and situation. Cranial nerves II-XII grossly intact. Motor strength 5/5 in all extremities. Sensory grossly intact. Cerebellar exam normal. Normal gait. Psych: Awake, alert, with orientation to person, place and time. Behavior, mood, and affect are within normal limits. 16:10 ECG was reviewed by the Attending Physician. J point elevation snw Vital Signs: 11:48 BP 148 / 92; Pulse 89; Resp 16; Temp 98.7; Pulse Ox 99% ; Weight 86.18 kg; Height 6 ft. sv 1 in. (185.42 cm); 15:47 BP 132 / 86; Pulse 78; Resp 18; Pulse Ox 99% on R/A; ph 11:48 Body Mass Index 25.07 (86.18 kg, 185.42 cm) sv MDM: 14:26 Patient medically screened. snw 15:49 Data reviewed: vital signs, nurses notes. Data interpreted: Pulse oximetry: on room air snw is 99 %. Interpretation: normal. Counseling: I had a detailed discussion with the patient and/or guardian regarding: the historical points, exam findings, and any diagnostic results supporting the discharge/admit diagnosis, the presence of at least one elevated blood pressure reading (>120/80) during this emergency department visit, lab results, radiology results, the need for outpatient follow up, for definitive care. 05/24 12:51 Order name: Flu; Complete Time: 13:50 snw 05/24 12:51 Order name: COVID-19 snw 05/24 13:49 Order name: Urine Microscopic Only; Complete Time: 15:47 snw 05/24 13:50 Order name: Strep; Complete Time: 15:47 snw 05/24 14:17 Order name: Glucose, Ancillary Testing; Complete Time: 14:19 EDMS 05/24 14:17 Order name: Glucose, Ancillary Testing EDMS 05/24 12:51 Order name: FSBS; Complete Time: 14:08 snw 05/24 13:49 Order name: Urine Dipstick-Ancillary (obtain specimen); Complete Time: 15:45 snw 05/24 14:35 Order name: Chest Pa And Lat (2 Views) XRAY; Complete Time: 15:47 snw 05/24 15:11 Order name: Urine Dipstick--Ancillary (enter results); Complete Time: 15:47 bd 05/24 15:33 Order name: Throat Culture EDIN 05/24 15:49 Order name: EKG; Complete Time: 15:49 snw 05/24 15:49 Order name: EKG - Nurse/Tech; Complete Time: 16:19 snw Administered Medications: No medications were administered Disposition: 05/25 08:01 Co-signature as Attending Physician, Siva Vazquez MD I agree with the assessment and kdr plan of care. Disposition: 05/24/20 15:48 Discharged to Home. Impression: Malaise and fatigue, Viral infection, unspecified. - Condition is Stable. - Discharge Instructions: Viral Respiratory Infection, Fatigue, Rehydration, Adult. - Prescriptions for Diclofenac Sodium 75 mg Oral Tablet Sustained Release - take 1 tablet by ORAL route 2 times per day; 30 tablet. orphenadrine citrate 100 mg Oral Tablet Sustained Release - take 1 tablet by ORAL route 2 times per day As needed; 20 tablet. - Medication Reconciliation Form, Thank You Letter, Antibiotic Education, Prescription Opioid Use form. - Follow up: Sina, DO Cynthia; When: 2 - 3 days; Reason: Recheck today's complaints, Continuance of care, Re-evaluation by your physician. Follow up: Emergency Department; When: As needed; Reason: Worsening of condition. Signatures: Dispatcher [employer] EDBillie Logan RN RN Siva Boateng MD MD kdr Waters, Shelly, FNP-C OLEGARIO-Avelina Adames RN RN ph Corrections: (The following items were deleted from the chart) 05/24 16:39 15:48 05/24/2020 15:48 Discharged to Home. Impression: Malaise and fatigue; Viral ph infection, unspecified. Condition is Stable. Forms are Medication Reconciliation Form, Thank You Letter, Antibiotic Education, Prescription Opioid Use. Follow up: Cynthia Andino; When: 2 - 3 days; Reason: Recheck today's complaints, Continuance of care, Re-evaluation by your physician. Follow up: Emergency Department; When: As needed; Reason: Worsening of condition. snw
--- NOTE | 2020-05-24 15:49 | ER ---
Nurse's Notes [facility] Name: Donal Valentine Age: 69 yrs Sex: Male : 1950 Arrival Date: 05/24/2020 Time: 11:45 Bed 7 Private MD: Cynthia Andino H Diagnosis: Malaise and fatigue;Viral infection, unspecified Presentation: 05/24 11:46 Chief complaint: Patient states: headache, dizziness, shaking, fatigue x 5 days. sv Coronavirus screen: Client denies travel out of the [place] in the last 14 days. The client reports previous COVID testing was negative. Date of collection: May 22, 2020. Ebola Screen: No symptoms or risks identified at this time. Risk Assessment: Do you want to hurt yourself or someone else? Patient reports no desire to harm self or others. Onset of symptoms was May 19, 2020. 11:46 Method Of Arrival: Ambulatory sv 11:46 Acuity: MINOR 3 sv 11:48 Initial Sepsis Screen: Does the patient meet any 2 criteria? No. Patient's initial sv sepsis screen is negative. Does the patient have a suspected source of infection? No. Patient's initial sepsis screen is negative. Triage Assessment: 11:46 General: Appears in no apparent distress. uncomfortable, Behavior is calm, cooperative, sv appropriate for age. Neuro: Level of Consciousness is awake, alert, obeys commands, Oriented to person, place, time, situation, Reports dizziness, headache. Respiratory: Respiratory effort is even, unlabored. Historical: - Allergies: 11:48 Codeine; sv 11:48 PENICILLINS; sv - PMHx: 11:48 Diabetes - NIDDM; Hypertension; sv - Immunization history:: Adult Immunizations unknown. - Social history:: Smoking status: unknown. Screenin:27 Abuse screen: Denies threats or abuse. Denies injuries from another. Nutritional ph screening: No deficits noted. Tuberculosis screening: No symptoms or risk factors identified. Fall Risk None identified. Assessment: 14:29 General: Appears in no apparent distress. comfortable, well groomed, Behavior is calm, ph cooperative, appropriate for age, Reports fatigue for >3 days, Denies fever. Pain: Complains of pain in head. Neuro: Level of Consciousness is awake, alert, obeys commands, Oriented to person, place, time, situation, Reports dizziness, headache. Cardiovascular: Capillary refill < 3 seconds in bilateral fingers Patient's skin is warm and dry. Respiratory: Airway is patent Respiratory effort is even, unlabored, Respiratory pattern is regular, symmetrical, Denies shortness of breath. Derm: Skin is intact, is healthy with good turgor, Skin is pink, warm \T\ dry. Musculoskeletal: Circulation, motion, and sensation intact. Range of motion: intact in all extremities. 15:47 Reassessment: Patient appears in no apparent distress at this time. Patient and/or ph family updated on plan of care and expected duration. Pain level reassessed. Patient is alert, oriented x 3, equal unlabored respirations, skin warm/dry/pink. 16:38 Reassessment: Patient appears in no apparent distress at this time. Patient and/or ph family updated on plan of care and expected duration. Pain level reassessed. Patient is alert, oriented x 3, equal unlabored respirations, skin warm/dry/pink. Vital Signs: 11:48 BP 148 / 92; Pulse 89; Resp 16; Temp 98.7; Pulse Ox 99% ; Weight 86.18 kg; Height 6 ft. sv 1 in. (185.42 cm); 15:47 BP 132 / 86; Pulse 78; Resp 18; Pulse Ox 99% on R/A; ph 11:48 Body Mass Index 25.07 (86.18 kg, 185.42 cm) sv ED Course: 11:45 Patient arrived in ED. rg4 11:45 Cynthia Andino DO is Private Physician. rg4 11:46 Arm band placed on. sv 11:47 Triage completed. sv 13:15 Flu Sent. jp3 13:15 Flu and/or RSV swab sent to lab. jp3 13:49 Lissette Obrien FNP-C is [facility]. snw 13:49 Siva Vazquez MD is Attending Physician. snw 13:59 Avelina Gregory, TAMIKA is Primary Nurse. ph 14:22 Patient has correct armband on for positive identification. Bed in low position. Call ph light in reach. Side rails up X 1. Pulse ox on. NIBP on. Door closed. Noise minimized. Warm blanket given. 15:07 Chest Pa And Lat (2 Views) XRAY In Process Unspecified. EDMS 15:48 AndinoSanazJuanArmando is Referral Physician. snw 16:37 No provider procedures requiring assistance completed. Patient did not have IV access ph during this emergency room visit. Administered Medications: No medications were administered Outcome: 15:48 Discharge ordered by MD. snw 16:38 Discharged to home ambulatory, with significant other. ph 16:38 Condition: good 16:38 Discharge instructions given to patient, Instructed on discharge instructions, follow up and referral plans. medication usage. 16:38 Demonstrated understanding of instructions, follow-up care, medications, Prescriptions given X 2. 16:39 Patient left the ED. ph Signatures: Dispatcher [employer] EDMS Billie Oates RN RN Lissette Mullen, PHYSICAL THERAPY AID-C PHYSICAL THERAPY AID-Avelina Adames RN RN Jaqui Bravo rg4 Kennedy Akins jp3 Corrections: (The following items were deleted from the chart) 11:50 11:48 Pulse 89bpm; Resp 16bpm; Pulse Ox 99%; Temp 98.7F; 86.18 kg; Height 6 ft. 1 in.; sv BMI: 25.0; sv
[2020-05-24 19:09] VITALS: TEMP 98.7; O2SAT 99
[2020-05-24 19:10] VITALS: BP 132/86
== END 2020-05-24 16:39 | disposition home or self-care (01) ==
LOC: ER 11:41
DX: B34.9 Viral infection, unspecified (principal); R53.81 Other malaise; R53.83 Other fatigue; I10 Essential (primary) hypertension; Z88.0 Allergy status to penicillin; Z88.5 Allergy status to narcotic agent
CPT/HCPCS: 71046; 81003; 81015; 82947; 87070; 87081; 87804; 93005; 99284

== ENCOUNTER 2021-03-05 22:20 | Observation (INO) | payer OTHER ==
[2021-03-06 01:06] LABS: Absolute Lymphocytes (CBC) 2.7 K/uL (0.7-4.9); Basophils % 0.8 % (0-1.3); Hematocrit 44.5 % (39.6-49.0); Lymphocytes % 32.4 % (15.3-44.8); MPV 8.7 fL (7.6-11.3); RBC Red Blood Cell Count 5.76 M/uL (4.33-5.43)
[2021-03-06 01:07] LABS: Protime INR 1.03
[2021-03-06 01:43] LABS: ALT/SGPT 101 U/L (12-78); AST/SGOT 48 U/L (15-37); Alkaline Phosphatase 39 U/L (45-117); BUN Blood Urea Nitrogen 16 mg/dL (7-18); Bicarbonate 28 mmol/L (21-32); Bilirubin Direct 0.2 mg/dL (0-0.2); Bilirubin Total 0.7 mg/dL (0.2-1.0); Glucose Level 109 mg/dL (74-106); Magnesium 2.3 mg/dL (1.8-2.4); NT PRO-BNP 29 pg/mL (<125); Potassium 3.5 mmol/L (3.5-5.1); Protein, Total 7.7 g/dL (6.4-8.2); Sodium Level 141 mmol/L (136-145); Troponin (Emerg Dept Use Only) 0.06 ng/mL (0.0-0.045)
[2021-03-06] MEDS ORDERED: NA CHLORIDE 0.9% 500 ML ONE (01:46)
[2021-03-06] MEDS ORDERED: ACETAMINOPHEN 325 MG TABLET ONE (02:13)
[2021-03-06] MEDS ORDERED: IBUPROFEN 200 MG TAB PO ONE (02:19)
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
[2021-03-06] MEDS ORDERED: IBUPROFEN 400 MG TAB ONE (02:20)
--- NOTE | 2021-03-06 02:20 | EDPHYS ---
Physician Documentation [facility] Name: Donal Valentine Age: 70 yrs Sex: Male : 1950 Arrival Date: 03/05/2021 Time: 22:21 Bed 20 Private MD: ED Physician Tanvir Pacheco HPI: 03/06 00:21 This 70 yrs old Male presents to ER via EMS with complaints of Anxiety, morales Shakes. 00:21 The patient presents to the emergency department with anxiety, NEIGHBORS. Onset: The morales symptoms/episode began/occurred just prior to arrival. Past psychiatric history:. GOT UPSET. Associated signs and symptoms: The patient has no apparent associated signs or symptoms. Onset: The symptoms/episode began/occurred. Severity of symptoms: At their worst the symptoms were mild moderate in the emergency department the symptoms have improved moderately. The patient has experienced similar episodes in the past, several times. Historical: - Allergies: 03/05 22:56 Codeine; wg 22:56 PENICILLINS; wg - PMHx: 22:56 Diabetes - NIDDM; Hypertension; wg - Immunization history:: Adult Immunizations up to date. - Social history:: Smoking status: Patient/guardian denies using tobacco, Patient/guardian denies using alcohol, street drugs, IV drugs. - Family history:: not pertinent. ROS: 03/06 00:21 Constitutional: Negative for fever, chills, and weight loss, Eyes: Negative for injury, morales pain, redness, and discharge, ENT: Negative for injury, pain, and discharge, Neck: Negative for injury, pain, and swelling, Cardiovascular: Negative for chest pain, palpitations, and edema, Respiratory: Negative for shortness of breath, cough, wheezing, and pleuritic chest pain, Abdomen/GI: Negative for abdominal pain, nausea, vomiting, diarrhea, and constipation, Back: Negative for injury and pain, : Negative for injury, bleeding, discharge, and swelling, MS/Extremity: Negative for injury and deformity, Skin: Negative for injury, rash, and discoloration, Neuro: Negative for headache, weakness, numbness, tingling, and seizure, Allergy/Immunology: Negative for hives, rash, and allergies, Endocrine: Negative for neck swelling, polydipsia, polyuria, polyphagia, and marked weight changes, Hematologic/Lymphatic: Negative for swollen nodes, abnormal bleeding, and unusual bruising. Psych: Positive for anxiety. Exam: 00:21 Constitutional: This is a well developed, well nourished patient who is awake, alert, morales and in no acute distress. Head/Face: Normocephalic, atraumatic. Eyes: Pupils equal round and reactive to light, extra-ocular motions intact. Lids and lashes normal. Conjunctiva and sclera are non-icteric and not injected. Cornea within normal limits. Periorbital areas with no swelling, redness, or edema. ENT: Nares patent. No nasal discharge, no septal abnormalities noted. Tympanic membranes are normal and external auditory canals are clear. Oropharynx with no redness, swelling, or masses, exudates, or evidence of obstruction, uvula midline. Mucous membranes moist. Neck: Trachea midline, no thyromegaly or masses palpated, and no cervical lymphadenopathy. Supple, full range of motion without nuchal rigidity, or vertebral point tenderness. No Meningismus. Chest/axilla: Normal chest wall appearance and motion. Nontender with no deformity. No lesions are appreciated. Cardiovascular: Regular rate and rhythm with a normal S1 and S2. No gallops, murmurs, or rubs. Normal PMI, no JVD. No pulse deficits. Respiratory: Lungs have equal breath sounds bilaterally, clear to auscultation and percussion. No rales, rhonchi or wheezes noted. No increased work of breathing, no retractions or nasal flaring. Abdomen/GI: Soft, non-tender, with normal bowel sounds. No distension or tympany. No guarding or rebound. No evidence of tenderness throughout. Back: No spinal tenderness. No costovertebral tenderness. Full range of motion. Male : Normal genitalia with no discharge or lesions. Skin: Warm, dry with normal turgor. Normal color with no rashes, no lesions, and no evidence of cellulitis. MS/ Extremity: Pulses equal, no cyanosis. Neurovascular intact. Full, normal range of motion. Neuro: Awake and alert, GCS 15, oriented to person, place, time, and situation. Cranial nerves II-XII grossly intact. Motor strength 5/5 in all extremities. Sensory grossly intact. Cerebellar exam normal. Normal gait. Psych: Awake, alert, with orientation to person, place and time. Behavior, mood, and affect are within normal limits. 00:27 ECG was reviewed by the Attending Physician. [facility] Vital Signs: 03/05 22:50 BP 158 / 80; Pulse 78; Resp 18; Temp 98.6; Pulse Ox 100% on R/A; Weight 90.72 kg; wg Height 6 ft. 1 in. (185.42 cm); Pain 0/10; 03/06 01:05 BP 131 / 75; Pulse 63; Resp 15; Temp 98.6(O); Pulse Ox 96% on R/A; Pain 0/10; bc5 05:28 BP 154 / 93; Pulse 60; Resp 15; Temp 98.1(O); Pulse Ox 95% on R/A; Pain 0/10; bc5 03/05 22:50 Body Mass Index 26.39 (90.72 kg, 185.42 cm) wg MDM: 03/05 23:41 Patient medically screened. [facility] 03/06 00:23 Differential diagnosis: acute psychotic break, depression, psychosis secondary to morales non-compliance. Differential Diagnosis altered mental status. Data reviewed: vital signs, nurses notes, lab test result(s), EKG, radiologic studies. Data interpreted: billing adjudicator: rate is 78 beats/min, rhythm is regular. Test interpretation: by ED physician or midlevel provider: ECG, plain radiologic studies. Counseling: I had a detailed discussion with the patient and/or guardian regarding: the historical points, exam findings, and any diagnostic results supporting the discharge/admit diagnosis, lab results, radiology results, the need for outpatient follow up, a family practitioner, a psychiatrist. 03/05 23:42 Order name: Basic Metabolic Panel; Complete Time: 02:14 [facility] 03/05 23:42 Order name: CBC with Diff; Complete Time: 01:13 [facility] 03/05 23:42 Order name: LFT's; Complete Time: 02:14 [facility] 03/05 23:42 Order name: Magnesium; Complete Time: 02:14 [facility] 03/05 23:42 Order name: NT PRO-BNP; Complete Time: 02:14 [facility] 03/05 23:42 Order name: PT-INR; Complete Time: 01:13 [facility] 03/05 23:42 Order name: Troponin (emerg Dept Use Only); Complete Time: 02:14 [facility] 03/05 23:42 Order name: Acetaminophen; Complete Time: 02:14 [facility] 03/05 23:42 Order name: ETOH Level; Complete Time: 01:46 [facility] 03/05 23:42 Order name: Ptt, Activated; Complete Time: 01:13 [facility] 03/05 23:42 Order name: Salicylate [facility] 03/05 23:42 Order name: Urine Drug Screen [facility] 03/06 02:26 Order name: COVID-19 : Document "Date of Symptom Onset" if Symptomatic. tt3 03/06 02:27 Order name: [facility] 03/05 23:42 Order name: XRAY Chest (1 view) [facility] 03/05 23:42 Order name: EKG; Complete Time: 23:43 [facility] 03/05 23:42 Order name: Cardiac monitoring; Complete Time: 00:41 [facility] 03/05 23:42 Order name: EKG - Nurse/Tech; Complete Time: 00:41 [facility] 03/05 23:42 Order name: IV Saline Lock; Complete Time: 01:05 [facility] 03/06 02:45 Order name: CONS Physician Consult [facility] 03/06 04:49 Order name: SARS-COV-2 RT PCR [facility] 03/05 23:42 Order name: Labs collected and sent; Complete Time: 01:05 [facility] 03/05 23:42 Order name: O2 Per Protocol; Complete Time: 00:41 [facility] 03/05 23:42 Order name: O2 Sat Monitoring; Complete Time: 00:41 [facility] 03/05 23:42 Order name: Urine Dipstick-Ancillary (obtain specimen) [facility] EC:27 Rate is 58 beats/min. Rhythm is regular. QRS [place] is Normal. UT interval is normal. QRS morales interval is normal. QT interval is normal. No Q waves. T waves are Normal. No ST changes noted. Clinical impression: Sinus bradycardia and No evidence of ischemia. Interpreted by me. Reviewed by me. Administered Medications: 01:52 Not Given (Other Intervention Used): Tylenol 650 mg PO once em 01:56 Drug: NS 0.9% 500 ml Route: IV; Rate: bolus; Site: right forearm; bc5 01:56 Drug: Motrin (ibuprofen) 600 mg Route: PO; bc5 03:14 Follow up: Response: Pain is decreased bc5 03:14 Not Given (Other Intervention Used): Ativan (LORazepam) 0.5 mg IVP once bc5 03:14 Not Given (Other Intervention Used): Ativan (LORazepam) 0.5 mg IVP once bc5 04:24 Drug: Lovenox (enoxaparin) 1 mg/kg Route: Sub-Q; Site: right lower abdomen; bc5 04:24 Drug: ProTONIX (pantoprazole) 40 mg Route: IVP; Site: right forearm; bc5 04:25 Drug: Aspirin Chewable Tablet 324 mg Route: PO; bc5 04:25 Drug: Lopressor (metoprolol TARTRATE)) 25 mg Route: PO; bc5 04:25 Drug: Lovenox (enoxaparin) 1 mg/kg Route: Sub-Q; Site: right lower abdomen; bc5 Disposition Summary: 03/06/21 02:19 Hospitalization Ordered Hospitalization Status: Observation morales Location: Telemetry/MedSurg (observation) morales Condition: Fair morales Problem: new morales Symptoms: have improved morales Bed/Room Type: Standard morales Provider: Juan Trujillo(03/06/21 02:45) [facility] Room Assignment: 223(03/06/21 05:07) tl1 Diagnosis - Chest pain, unspecified morales - Type 2 diabetes mellitus with hyperglycemia morales - Anxiety disorder, unspecified morales - Essential (primary) hypertension morales Discharge Instructions: - Discharge Summary Sheet morales - Type 2 Diabetes Mellitus, Diagnosis, Adult morales - Generalized Anxiety Disorder, Adult morales - Type 2 Diabetes Mellitus, Self Care, Adult morales Forms: - Medication Reconciliation Form morales - SBAR form [facility] Prescriptions: - Hydroxyzine HCl 25 mg Oral Tablet - take 1 tablet by ORAL route every 6 hours As needed; 30 tablet; Refills: 0, morales Product Selection Permitted - Protonix 40 mg Oral Tablet - take 1 tablet by ORAL route once daily; 30 tablet; Refills: 0, Product morales Selection Permitted Signatures: Dispatcher [employer] Tanvir Venegas MD MD cha Munoz, Edgar, RN RN em Lasagna, Tonya RN RN tl1 Fox Leblanc RN wg Corado, Bella, RN RN bc5 Corrections: (The following items were deleted from the chart) 02:45 02:19 Laisha Kent cha [facility] 03:16 10 23:42 Suicide Screening ([place]) ordered. [place] [id number] 03/06 05:07 02:19 morales tl1
[2021-03-06] MEDS ORDERED: ASPIRIN 81 MG CHEWABLE TABLET ONE (03:45)
[2021-03-06] MEDS ORDERED: PANTOPRAZOLE 40 MG INJ ONE ×2 (03:46→04:09)
[2021-03-06] MEDS ORDERED: ENOXAPARIN 100 MG/ML SYR SQ ONE (03:46)
[2021-03-06] MEDS ORDERED: METOPROLOL TAR 25 MG TAB ONE (03:46)
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
[2021-03-06] MEDS ORDERED: ONDANSETRON 4 MG/2 ML VIAL IV PRN (04:59)
[2021-03-06] MEDS ORDERED: NITROGLYCERIN 0.4 MG/TAB SL PRN (04:59)
[2021-03-06] MEDS ORDERED: ACETAMINOPHEN 500 MG TAB PO PRN (04:59)
[2021-03-06] MEDS ORDERED: ALPRAZOLAM 1 MG TABLET PO PRN (05:56)
[2021-03-06] MEDS ORDERED: METOPROLOL TAR 25 MG TAB PO SCH (06:00)
[2021-03-06 06:09] LABS: Potassium 3.5 mmol/L (3.5-5.1)
[2021-03-06 06:10] LABS: Albumin 3.9 g/dL (3.4-5.0); Magnesium 2.2 mg/dL (1.8-2.4); Phosphorus 3.7 mg/dL (2.5-4.9); Protein, Total 7.4 g/dL (6.4-8.2); Troponin I 0.06 ng/mL (0.0-0.045)
[2021-03-06 06:15] LABS: Thyroid Stimulating Hormone 5.75 uIU/mL (0.360-3.740)
[2021-03-06 06:39] VITALS: BMI 26.3
--- NOTE | 2021-03-06 07:17 | RAD REPORT ---
EXAM DESCRIPTION: RAD - Chest Single View - 03/06/2021 12:10 am CLINICAL HISTORY: COUGH COMPARISON: Chest Pa And Lat (2 Views) dated 05/24/2020; Chest Single View dated 11/02/2018; Chest Sin gle View dated 09/15/2018; Chest Pa And Lat (2 Views) dated 11/14/2015 FINDINGS: Lines: None. Lungs: No evidence of edema or pneumonia. Pleural: No significant pleural effusions or pneumothorax. Cardiac: The heart size is within normal limits. Bones: No acute fractures. Other: IMPRESSION: No acute cardiopulmonary disease.
[2021-03-06] MEDS ORDERED: INFLUENZA VACCINE (for 6+ mo) 0.5 ML DOSE IMVAC ONE (08:00)
[2021-03-06] MEDS: LIPASE/PROTEASE/AMYLASE CAP PO SCH ×2 (08:36→12:00)
[2021-03-06] MEDS ORDERED: POTASSIUM CL SA 10 MEQ TAB PO ONE (09:00)
[2021-03-06] MEDS ORDERED: ASPIRIN EC 81 MG TAB PO SCH (09:00)
[2021-03-06] MEDS ORDERED: ENOXAPARIN 40 MG/0.4 ML SQ SCH (09:00)
[2021-03-06 11:48] VITALS: O2SAT 96
[2021-03-06] MEDS ORDERED: LIPASE/PROTEASE/AMYLASE CAP PO SCH (12:00)
[2021-03-06 12:49] VITALS: BP 126/63; TEMP 98.7
--- NOTE | 2021-03-06 18:07 | EKG ---
Test Date: 2021-03-06 Test Time: 00:20:22 Professor Of Practice: KATE MEASUREMENT RESULTS: Intervals: Rate: 59 [place]: 188 QRSD: 146 QT: 424 QTc: 419 [place]: P: 59 [place]: 188 QRS: -51 T: 69 INTERPRETIVE STATEMENTS: Sinus bradycardia Left axis deviation Left ventricular hypertrophy with QRS widening and repolarization abnormality Abnormal ECG Compared to ECG 05/24/2020 16:10:49 Sinus rhythm no longer present Myocardial infarct finding no longer present Electronically Signed On 03-06-21 18:05:42 CDT by Dariel Schafer
--- NOTE | 2021-03-06 18:08 | EKG ---
Test Date: 2021-03-06 Test Time: 00:17:08 Taxonomy Teacher: KATE MEASUREMENT RESULTS: Intervals: Rate: 60 NE: 186 QRSD: 140 QT: 416 QTc: 416 [place]: P: 57 NE: 186 QRS: -51 T: 74 INTERPRETIVE STATEMENTS: Normal sinus rhythm Left axis deviation Left ventricular hypertrophy with QRS widening and repolarization abnormality Cannot rule out Septal infarct, age undetermined Abnormal ECG Compared to ECG 05/24/2020 16:10:49 No significant changes Electronically Signed On 03-06-21 18:05:44 CDT by Dariel Schafer
[2021-03-06] MEDS ORDERED: ATORVASTATIN 40 MG TAB PO SCH (21:00)
--- NOTE | 2021-03-07 13:58 | CON ---
Date of Consultation: 03/06/2021 Reason For Consultation: Atypical chest pain. History Of Present Illness: Mr. Valentine is a 70-year-old with history of diabetes and hypertension. He has allergies to codeine and penicillin. He came in with anxiety and shaking tremor as well as wi th sharp, stabbing chest pain over the left lateral wall without any nausea, vomiting, diaphoresis, P ND, orthopnea, pedal edema, palpitations, or syncope. Denied any fever or chills. Workup has been n egative for an [place] at this point. Past Medical History: As stated above. Allergies: STATED ABOVE. Review of Systems: Negative. Social History: Negative. Family History: Noncontributory. Physical Examination: Vital Signs: Stable, afebrile, sinus rhythm. HEENT: Negative. Neck: Supple without any bruit, lymphadenopathy, JVD, or thyromegaly. Chest: Clear to auscultation and percussion. Cardiac: Revealed a regular rhythm and rate. No murmurs, gallops, or rubs. Abdomen: Benign. Extremities: Revealed no clubbing, cyanosis, or edema. Diagnostic Data: Showed a troponin of 0.06 x2. His EKG shows left ventricular hypertrophy. Chest x -ray is normal. Impression And Plan: 1.Atypical chest pain with tremors and anxiety. 2.Hypertension. 3.Diabetes. 4.Left ventricular hypertrophy on EKG. 5.Elevated troponin, probably secondary to hypertension and demand ischemia. The patient is feeling well right now. I would continue his present regimen with Xanax and maybe a low-dose beta-maricruz a nd aspirin, and I will make arrangements for him to have an outpatient echocardiogram and stress test with [facility]. PAT/DARA Voice ID: [id number] Report ID: [id number]
--- NOTE | 2021-03-07 16:47 | EKG ---
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
--- NOTE | 2021-03-12 05:13 | P.DS ---
Discharge Date: 03/06/21 Primary Care Provider: Sina Disposition: ROUTINE DISCHARGE Discharge Condition: GOOD Reason for Admission: chest pain Brief History of Present Illness: Mr. Valentine is a 70 yo M with HTN, T2DM, chronic pancreatitis who presents with 2/10 right sided chest pain beginning when he got into an argument with the police. Reports clammy feeling, tremors and lightheadedness. He also describes that it was difficult to walk. Denies vision changes. Troponin 0.06. Hospital Course: Patient is clinically doing well. Patient was ruled out for acute coronary syndrome. Troponins and EKG were unremarkable. Patient will need outpatient follow-up with Cardiology for further workup. Vital Signs/Physical Exam: Temp Pulse Resp BP Pulse Ox 98.7 F 55 17 126/63 95 03/06/21 12:00 03/06/21 12:00 03/06/21 12:00 03/06/21 12:00 03/06/21 12:00 General: Alert, In no apparent distress, Oriented x3 Laboratory Data at Discharge: WBC 8.50 K/uL (4.3-10.9) 03/06/21 00:41 Hgb 14.4 g/dL (13.6-17.9) 03/06/21 00:41 Hct 44.5 % (39.6-49.0) 03/06/21 00:41 Plt Count 189 K/uL (152-406) 03/06/21 00:41 PT 11.8 SECONDS (9.5-12.5) 03/06/21 00:41 INR 1.03 03/06/21 00:41 APTT 28.8 SECONDS (24.3-36.9) 03/06/21 00:41 Sodium 141 mmol/L (136-145) 03/06/21 05:10 Potassium 3.5 mmol/L (3.5-5.1) 03/06/21 05:10 BUN 18 mg/dL (7-18) 03/06/21 05:10 Creatinine 1.07 mg/dL (0.55-1.3) 03/06/21 05:10 Glucose 119 mg/dL (74-106) H 03/06/21 05:10 Phosphorus 3.7 mg/dL (2.5-4.9) 03/06/21 05:10 Magnesium 2.2 mg/dL (1.8-2.4) 03/06/21 05:10 Total Bilirubin 1.0 mg/dL (0.2-1.0) 03/06/21 05:10 AST 52 U/L (15-37) H 03/06/21 05:10 ALT 104 U/L (12-78) H 03/06/21 05:10 Alkaline Phosphatase 37 U/L (45-117) L 03/06/21 05:10 Troponin I 0.06 ng/mL (0.0-0.045) H 03/06/21 10:06 Triglycerides 67 mg/dL (<150) 03/06/21 05:10 Cholesterol 88 mg/dL (<200) 03/06/21 05:10 HDL Cholesterol 32 mg/dL (40-60) L 03/06/21 05:10 Cholesterol/HDL Ratio 2.75 03/06/21 05:10 Home Medications: ALPRAZolam [Xanax*] 1 mg PO DAILY 03/06/21 Alprazolam [Xanax] 1.5 mg PO BEDTIME 03/06/21 Aspirin [Aspirin EC] 81 mg PO DAILY 03/06/21 Empagliflozin [Jardiance] 25 mg PO DAILY 03/06/21 Finasteride [Proscar*] 5 mg PO BEDTIME 03/06/21 Gabapentin 600 mg PO BID 03/06/21 Glimepiride 1 tab PO BID 03/06/21 Lipase/Protease/Amylase [Beto Luna 36,000 Units Capsule] 2 cap PO TID 03/06/21 Losartan/Hydrochlorothiazide [Losartan-Hctz 100-25 mg Tab] 1 cap PO DAILY 03/06/21 Omeprazole [Prilosec] 1 cap PO DAILY 03/06/21 Testosterone Cypionate [Testone Cik] 1 ml SQ SEECOM 03/06/21 Physician Discharge Instructions: OK TO DC IV AND DC HOME FOLLOW-UP WITH PRIMARY CARE PROVIDER IN 1-2 WEEKS FOLLOW-UP WITH CARDIOLOGY IN 1-2 WEEKS RETURN TO THE ER IF symptoms worsen CALL or TEXT DR. ARIAS AT [phone] IF ANY QUESTIONS REGARDING HOSPITAL STAY. PLEASE CALL THE FLOOR AT [phone] IF ANY MEDICATION OR NURSING QUESTIONS. Diet: AHA Activity: Fall precautions Followup: Dariel Schafer MD [ACTIVE - CAN ADMIT] - NONE,NONE [Primary Care Provider] - Time spent managing pt's care (in minutes): 35
== END 2021-03-06 13:03 | disposition home or self-care (01) ==
LOC: ER 22:20 → ERHOLD 03-06 02:44 → 2ND 03-06 05:26
PROVIDERS: ADMIT Hospitalist; ATTEND Hospitalist
DX: R07.89 Other chest pain (principal); I10 Essential (primary) hypertension; R25.1 Tremor, unspecified; F41.9 Anxiety disorder, unspecified; E11.65 Type 2 diabetes mellitus with hyperglycemia; I51.7 Cardiomegaly; R77.8 Other specified abnormalities of plasma proteins; K86.1 Other chronic pancreatitis; Z79.82 Long term (current) use of aspirin; Z88.0 Allergy status to penicillin; Z88.6 Allergy status to analgesic agent; Z20.822 Contact with and (suspected) exposure to COVID-19; Z82.49 Family history of ischemic heart disease and other diseases of the circulatory system; Z80.9 Family history of malignant neoplasm, unspecified
CPT/HCPCS: 93005 ×3; 85025; 80048; 36415; 80320; 83735 ×2; 80329 ×2; 84100; 85610; 80061; 80076; 85730; 84443; 84484 ×3; 84439; 80053; 83880; 71045; 90471; 94760; 96372; 96374; 99284; U0003; Q2035; C9113 ×2; J1650; J7040; G0378 ×2

== ENCOUNTER 2021-05-14 22:24 | Emergency (ER) | payer OTHER, SELFPAY ==
[2011-07-27 11:34] VITALS: BP 142/97
--- OUTSIDE RECORDS SUMMARY | 2021-05-14 22:28 | XMS REPORT | Continuity of Care Document ---
:1950 Author Organization [facility] t Address [facility] [place] [address] Care Team Providers Name Role Phone Sanjay LUNDBERG, T Attending Clinician Unavailable Adrien VALDEZ Attending Clinician Unavailable Adrien Coleman MD Attending Clinician Radiology Attending Clinician Unavailable RADIOLOGY Attending Clinician Unavailable Pob, Lab Main Attending Clinician Unavailable Pete PARK Attending Clinician Adrien COLEMAN Attending Clinician Unavailable Loni FELDER Attending Clinician Unavailable FAITH BROOKS Attending Clinician Unavailable Loni FELDER Admitting Clinician Unavailable FAITH BROOKS Admitting Clinician Unavailable Payers Payer Name Policy Type Policy Number Effective Date Expiration Date S ource Problems This patient has no known problems. Allergies, Adverse Reactions, Alerts Allergy Allergy Status Severity Reaction(s) Onset Inactive Treating Comm ents Source Name Type Date Date Clinician Hydrocod Propensi Active Nausea Univer s one-Acet ty to and/or 2-10 ity of aminophe adverse Vomiting 00:00: [place] n reaction 00 Medical s Branch HYDROCOD DRUG Active N/V Univers ONE-ACET 2-10 ity of AMINOPHE 00:00: [place] N 00 Medical Branch Codeine Propensi Active Nausea Univers ty to and/or 8 ity of adverse Vomiting 00:00: [place] reaction 00 Medical s Branch Penicill Propensi Active Hives Univer s ins ty to 8 ity of adverse 00:00: [place] reaction Medical s Branch CODEINE DRUG Active N/V Univers INGREDI 8-31 ity of 00:00: [place] [facility] PENICILL Drug Active Hives 2016- Univers INS Class 8-31 ity of 00:00: [place] [facility] CODEINE Allergy Active [facility] PENICILL Allergy Active [facility] HYDROCOD Allergy Active [facility] St ONE-ACET [facility] - AMINOPHE [facility] Social History Social Habit Start Date Stop Date Quantity Comments Source Exposure to Not sure [facility] SARS-CoV-2 (event) [facility] Tobacco use and 2017-04-10 2017-04-10 Never used [facility] exposure 00:00:00 [facility]:00 [facility] History of tobacco 1998-04-10 Smoker [facility] use 00:00:00 [facility] Sex Ass[birth year] At [birth year] [facility] 00:00:00 [facility]:00:00 [facility] Smoking Status Start Date Stop Date Source Former smoker 2017-04-10 00:00:00 2017-04-10 00:00:00 [facility] Medications Ordered Filled Start Stop Current Ordering Indication Dosage Frequency Signature Comments Components Source Medication Medication Date Date Medication? Clinician (SIG) Name Name iohexol 2019-06 2020- No 150mL 150 mL, Unive rs (OMNIPAQUE 0-14 10-14 Intravenou it y of 350 16:30: 15:58 s, ONCE, 1 [place] BULK-150 00 :00 dose, Wed Medica l mL) 03/15/20 Branch injection at 1130, 150 mL Routine iohexol 2019-0 2020- No 150mL 150 mL, Unive rs (OMNIPAQUE 7-21 12-22 Intravenou it y of 350 15:45: 15:35 s, ONCE, 1 [place] BULK-150 00 :00 dose, Wed Medica l mL) 12/22/19 at Branch injection 1045, 150 mL Routine glimepiride 2016-06 Yes 4mg Take 4 mg U nivers 4 mg tablet 06-10 by mouth. ity of 19:51: [place] 00 [facility] Branch losartan-hy 2016-06 Yes 1{tbl} Take 1 Un jennifer drochloroth 06-10 tablet by ity of iazide 19:51: mouth. [place] 100-25 mg 00 Medical per tablet Branch ALPRAZolam 2016-06 Yes 2mg Take 2 mg Un jennifer 1 mg tablet 1-09 by mouth. ity of 19:51: [address] amLODIPine 2016-06 Yes 5mg Take 5 mg Un jennifer 5 mg tablet 1-09 by mouth 2 it y of 19:51: (two) [place] 00 times Medical daily. Branch metFORMIN 2016-06 Yes 1000mg Take 1,000 Univers 500 mg 1-09 mg by ity of tablet 19:51: mouth. [address] aspirin 81 2016-06 Yes 81mg Take 81 mg U nivers mg chewable 1-09 by mouth. ity of tablet 19:51: [address] vitamin 2016-06 Yes Take by [facility] s B-12 1,000 1-09 mouth. ity of mcg tablet 19:51: [address] glimepiride 2016-06 Yes 4mg Take 4 mg U nivers 4 mg tablet 1-09 by mouth. ity of 19:51: [address] losartan-hy 2016-06 Yes 1{tbl} Take 1 Un jennifer drochloroth 1-09 tablet by ity of iazide 19:51: mouth. [place] 100-25 mg 00 Medical per tablet Branch ALPRAZolam 2016-06 Yes 2mg Take 2 mg Un jennifer 1 mg tablet 1-09 by mouth. ity of 19:51: [address] amLODIPine 2016-06 Yes 5mg Take 5 mg Un jennifer 5 mg tablet 1-09 by mouth 2 it y of 19:51: (two) [place] 00 times Medical daily. Branch metFORMIN 2016-06 Yes 1000mg Take 1,000 Univers 500 mg 1-09 mg by ity of tablet 19:51: mouth. [address] aspirin 81 2016-06 Yes 81mg Take 81 mg U nivers mg chewable 1-09 by mouth. ity of tablet 19:51: [address] vitamin 2016-06 Yes Take by [facility] s B-12 1,000 1-09 mouth. ity of mcg tablet 19:51: [address] glimepiride 2016-06 Yes 4mg Take 4 mg U nivers 4 mg tablet 1-09 by mouth. ity of 19:51: [address] losartan-hy 2016-06 Yes 1{tbl} Take 1 Un jennifer drochloroth 1-09 tablet by ity of iazide 19:51: mouth. [place] 100-25 mg 00 Medical per tablet Branch ALPRAZolam 2016-06 Yes 2mg Take 2 mg Un jennifer 1 mg tablet 1-09 by mouth. ity of 19:51: [address] amLODIPine 2016-06 Yes 5mg Take 5 mg Un jennifer 5 mg tablet 1-09 by mouth 2 it y of 19:51: (two) [place] 00 times Medical daily. Branch metFORMIN 2016-06 Yes 1000mg Take 1,000 Univers 500 mg 1-09 mg by ity of tablet 19:51: mouth. [address] aspirin 81 2016-06 Yes 81mg Take 81 mg U nivers mg chewable 1-09 by mouth. ity of tablet 19:51: [address] vitamin 2016-06 Yes Take by [facility] B-12 1,000 1-09 mouth. ity of mcg tablet 19:51: [address] glimepiride 2016-06 Yes 4mg Take 4 mg U nivers 4 mg tablet 1-09 by mouth. ity of 19:51: [address] losartan-hy 2016-06 Yes 1{tbl} Take 1 Un jennifer drochloroth 1-09 tablet by ity of iazide 19:51: mouth. [place] 100-25 mg 00 Medical per tablet Branch ALPRAZolam 2016-06 Yes 2mg Take 2 mg Un jennifer 1 mg tablet 1-09 by mouth. ity of 19:51: [address] amLODIPine 2016-06 Yes 5mg Take 5 mg Un jennifer 5 mg tablet 1-09 by mouth 2 it y of 19:51: (two) [place] 00 times Medical daily. Branch metFORMIN 2016-06 Yes 1000mg Take 1,000 Univers 500 mg 1-09 mg by ity of tablet 19:51: mouth. [address] aspirin 81 2016-06 Yes 81mg Take 81 mg U nivers mg chewable 1-09 by mouth. ity of tablet 19:51: [address] vitamin 2016-06 Yes Take by [facility] s B-12 1,000 1-09 mouth. ity of mcg tablet 19:51: [address] glimepiride 2016-06 Yes 4mg Take 4 mg U nivers 4 mg tablet 1-09 by mouth. ity of 19:51: [address] losartan-hy 2016-06 Yes 1{tbl} Take 1 Un jennifer drochloroth -09 tablet by ity of iazide 19:51: mouth. [place] 100-25 00 Medical per tablet Branch ALPRAZolam 2016-06 Yes 2mg Take 2 mg Un jennifer 1 mg tablet 09 by mouth. ity of 19:51: [place] Medical Branch amLODIPine 2016-06 Yes 5mg Take 5 mg Un jennifer 5 mg tablet 09 by mouth 2 it y of 19:51: (two) [place] [address] times Medical daily. Branch metFORMIN 2016-06 Yes 1000mg Take 1,000 Univers 500 mg 1-09 mg by ity of tablet 19:51: mouth. [place] [address] Medical Branch aspirin 81 2016-06 Yes 81mg Take 81 mg U nivers mg chewable 09 by mouth. ity of tablet 19:51: [place] Medical Branch vitamin 2016-06 Yes Take by Univer s B-12 1,000 1-09 mouth. ity of mcg tablet 19:51: Medical Branch JARDIANCE 2016-06 Yes 10mg Take 10 mg Un jennifer 10 mg Tab 0-27 by mouth ity of 00:00: daily. [place] [facility] JARDIANCE 2016-06 Yes 10mg Take 10 mg Un jennifer 10 mg Tab 0-27 by mouth ity of 00:00: daily. [place] [facility] JARDIANCE 2016-06 Yes 10mg Take 10 mg Un jennifer 10 mg Tab 0-27 by mouth ity of 00:00: daily. Medical Branch JARDIANCE 2016-06 Yes 10mg Take 10 mg Un jennifer 10 mg Tab 0-27 by mouth ity of 00:00: daily. [place] [facility] JARDIANCE 2016-06 Yes 10mg Take 10 mg Un jennifer 10 mg Tab 0-27 by mouth ity of 00:00: daily. [place] [address] Medical Branch amitriptyli 2016-06 Yes 50mg Take 50 mg Univers ne 50 mg 0-23 by mouth ity of tablet 00:00: at [place] [address] bedtime. Medical Branch amitriptyli 2016-06 Yes 50mg Take 50 mg Univers ne 50 mg 0-23 by mouth ity of tablet 00:00: at [place] [address] bedtime. Medical Branch amitriptyli 2016-06 Yes 50mg Take 50 mg Univers ne 50 mg 0-23 by mouth ity of tablet 00:00: at [place] [address] bedtime. Medical Branch amitriptyli 2017- Yes 50mg Take 50 mg Univers ne 50 mg 0-23 by mouth ity of tablet 00:00: at [place] [address] bedtime. Medical Branch amitriptyli 2017-1 Yes 50mg Take 50 mg Univers ne 50 mg 0-23 by mouth ity of tablet 00:00: at [place] [address] bedtime. Medical Branch gabapentin 2017-0 Yes 100mg Take 100 Un jennifer 100 mg 9-13 mg by ity of capsule 00:00: mouth 3 [place] 00 (three) Medical times Branch daily. gabapentin 2017-0 Yes 100mg Take 100 Un jennifer 100 mg 9-13 mg by ity of capsule 00:00: mouth 3 [place] 00 (three) Medical times Branch daily. gabapentin 2017-0 Yes 100mg Take 100 Un jennifer 100 mg 9-13 mg by ity of capsule 00:00: mouth 3 [place] (three) Medical times Branch daily. gabapentin 2017-0 Yes 100mg Take 100 Un jennifer 100 mg 9-13 mg by ity of capsule 00:00: mouth 3 [place] (three) Medical times Branch daily. gabapentin 2017-0 Yes 100mg Take 100 Un jennifer 100 mg 9-13 mg by ity of capsule 00:00: mouth 3 [place] (three) Medical times Branch daily. Immunizations Ordered Filled Immunization Date Status Comments [facility] Immunization Name Name SARS-COV-2 COVID-19 2020-08-05 Completed Unive rsity of MODERNA VACCINE 00:00:00 [facility] SARS-COV-2 COVID-19 2020-07-08 Completed Unive rsity of MODERNA VACCINE 00:00:00 [facility] Procedures Procedure Date / Time Performing Clinician Source Performed CT ABDOMEN W CONTRAST 2020-03-15 16:14:31 Requisition, Paper [facility] HB CREATININE BLOOD 2020-03-15 15:36:00 Radiology [facility] CT ABDOMEN PELVIS W 2019-12-22 15:45:00 [facility] Branch [facility] PATIENT FINANCIAL 2019-12-22 14:24:08 Doctor Un[facility], [facility] POLIC[facility] [place] [facility] NO SHOW OR MISSED 2019-12-22 14:23:48 Doctor Unassigned, [facility] APPOINTMENT POLICY [place] [facility] h ACKNOWLEDGEMENT CONSENT/REFUSAL FOR 2019-12-22 14:23:20 Doctor Unassigned, Mayae [facility] DIAGNOSIS AND TREATMENT [place] [facility] ASSIGNMENT OF BENEFITS 2019-12-22 14:23:00 Doctor Unassigned, [facility] [place] [facility] Encounters Start End Encounter Admission Attending Care Care Encounter Source Date/Time Date/Time Type Type Clinicians Facility Department ID 2020-08-17 2020-08-17 Outpatient [facility] [id number] Univers 14:00:00 14:00:00 [id number] ity [facility] 2020-08-16 2020-08-16 Nurse STEPHANIE Grace [id number] Univers 00:00:00 00:00:00 Triage Pam WEI [id number] it [facility] [id number] [facility] [id number] [facility] 019 Branch 2020-08-05 2020-08-05 Outpatient [facility] [id number] Univers 15:10:00 15:10:00 ity [facility] 2020-07-08 2020-07-08 Outpatient R JOSÉ MIGUEL, [facility] [id number] Univers 15:00:00 15:00:00 CELESTINO ity [facility] 2020-03-15 2020-03-15 [facility] [id number] 10:38:27 23:59:00 Encounter M [place] [id number] [place] 4.2.7.2.686 [place] [id number] [facility] 2020-03-15 2020-03-15 [facility] [id number] Univers 10:38:27 23:59:00 Encounter M [place] [id number] ity [facility] 4.2.7.2.686 [facility] [id number] [facility] 802 Branch 2020-03-15 2020-03-15 [facility] Radiology [facility] [id number] 10:07:12 10:37:00 Encounter [place] [id number] [place] 4.2.7.2.686 [place] [id number] [facility] 2020-03-15 2020-03-15 [facility] Radiology [facility] [id number] Univers 10:07:12 10:37:00 Encounter [place] [id number] ity of [place] 4.2.7.2.686 [facility] [id number] [address] 2020-03-15 2020-03-15 Outpatient R RADIOLOGY [facility] [id number] Univers 10:30:00 10:30:00 [id number] ity of [facility] 2020-03-15 2020-03-15 Outpatient R RADIOLOGY [facility] [id number] Univers 00:00:00 00:00:00 ity of [facility] 2019-12-22 2019-12-22 [facility] [id number] 09:24:00 23:59:00 Encounter M [place] [id number] [place] 4.2.7.2.686 [place] [id number] [facility] 2019-12-22 2019-12-22 [facility] [id number] [facility] 09:24:00 23:59:00 Encounter M [place] [id number] ity of [place] 4.2.7.2.686 [facility] [id number] [address] 2019-12-22 2019-12-22 Data Collection Associate Kadi Garza [facility] [id number] 10:00:14 10:15:14 Visit Lab Main [place] [id number] [place] 4.2.7.2.686 Professio [id number] [address] 2019-12-22 2019-12-22 Data Collection Associate Kadi Garza Lab Main [facility] [id number] [facility] 10:00:14 10:15:14 Visit Ricco Freemann [place] [id number] ity of [place] 4.2.7.2.686 [facility] Professio [id number] Pa dical [address] 2019-12-22 2019-12-22 Outpatient [facility] [id number] Univers 10:00:00 10:00:00 [id number] ity of [facility] 2019-12-22 2019-12-22 Outpatient [facility] [id number] [facility] 00:00:00 00:00:00 [facility] Results Test Test Test Results Result Source Description Time Comments Comments CT ABDOMEN W WO 2020-03- CT Abdomen and Pelvis University of CONTRAST 14 with oral and intravenous [facility] 16:40:35 contrast. CLINICAL Branch HISTORY: Abnormal CT findings with kidney lesions, Bosniak type Iand type II. DOSE: Up-to-date CT equipment and radiation dose reduction techniques wereemployed. CTDIvol: 7.74+7.67+7.71 MGy. DLP: 262+260 (261 mGy-cm. TECHNIQUE : Contiguous axial imaging from the level of the lung basesthrough the iliac crests were performed initially without contrast andsubsequently after the uncomplicated administration of Omnipaque contrastmaterial. An additional delayed venous phase imaging study was alsoobtained. Coronal and sagittal reconstructions were obtained. Auto mAand/or iterative reconstruction were used to reduce radiation dose. FINDINGS: ? Lower lungs: Clear. Artifacts are seen from metallic clips near the EGjunction. Liver, Gallbladder and Spleen: Filling defects are seen in the early venousphase in the middle hepatic veins which is not confirmed clearly in thedelayed venous imaging phase. Unfortunately delayed venous imaging phaseshowed very little contrast medium in the hepatic venous system. Liver is enlarged, 21 cm in length and showed subcentimeter cystic lesionsin right and left lobes. No calcified gallstones. Spleen is cnweknsyhofnh77 x 4.8 cm. Peritoneum: ?No free air or free fluid. No lymphadenopathy. Pancreas and Adrenals: Tail of the pancreas showed an ill-defined 19 x 8 mmlesion. Another irregular shaped 15 x 10 mm lesion also seen along thedorsal surface of proximal tail of the pancreas. There is possibly a third14 x 8 mm lesion in the uncinate process region. Unremarkable adrenalglands. Kidneys and Ureters: 3 mm calcification again noted in the upper pole ofthe left kidney which is slightly increased in size but still remainsnonobstructing stone. Faint 3 mm calcification noted in the lower polecortex of the left kidney which, in retrospect, was very faint in theprevious study. Multiple lower density lesions again noted scattered throughout bothkidneys consistent with Bosniak type I renal cysts. Bosniak type IIirregular shaped 15 mm cystic lesion in the interpolar cortex of the leftkidney is also unchanged. Vessels: Atherosclerosis with tortuous aorta and iliac arteries without anaortic aneurysm. Retroperitoneum: No abnormal fluid or lymphadenopathy. Bowel: Constipation. Bones: Hemangioma noted in L1 vertebral body. Minimal old fracturedeformity in the upper plate of T11, exaggerated lordosis and hypertrophylower lumbar facet arthritis is noted, with grade 1 spondylolisthesis atL4-L5, minimal retrolisthesis at L3-L4 and L5-S1. Soft tissues: Less than 2 cm size fat-containing umbilical hernia withfocal 3 mm radiopaque density in it which could be calcification,unchanged. CONCLUSION:1. Multiple bilateral kidney lesions, consistent with Bosniak type I cysts,stable. Bosniak type II lesion in the left kidney is also stable.2. Nonobstructing stone in the upper pole of the left kidney and a newnonobstructing faint calcification lower pole of the left kidney.3. Filling defects are seen in the middle hepatic veins in the early venousphase of this study. This is not confirmed consistently in the delayedvenous phase, therefore, likely flow related artifacts. Similar flowrelated artifacts are also seen in the early portal venous phase in themain portal vein.4. Ill-defined low-density lesions in uncinate process, daily portions ofthe pancreas. The lesions could be IPMN, and, in retrospect, are barelyappreciated in December 2019 study and have remained stable. There are alsopresent in July 2019 CT study from outside facility and are stable. [facility], Radiant Results Inft User - 03/15/2020 11:41 AM CDTCT Abdomen and Pelvis with oral and intravenous contrast.CLINICAL HISTORY: Abnormal CT findings with kidney lesions, Bosniak type Iand type II.DOSE: Up-to-date CT equipment and radiation dose reduction techniques wereemployed. CTDIvol: 7.74+7.67+7.71 MGy. DLP: 262+260 (261 mGy-cm.TECHNIQUE : Contiguous axial imaging from the level of the lung basesthrough the iliac crests were performed initially without contrast andsubsequently after the uncomplicated administration of Omnipaque contrastmaterial. An additional delayed venous phase imaging study was alsoobtained. Coronal and sagittal reconstructions were obtained. Auto mAand/or iterative reconstruction were used to reduce radiation dose.FINDINGS: Lower lungs: Clear. Artifacts are seen from metallic clips near the EGjunction.Liver, Gallbladder and Spleen: Filling defects are seen in the early venousphase in the middle hepatic veins which is not confirmed clearly in thedelayed venous imaging phase. Unfortunately delayed venous imaging phaseshowed very little contrast medium in the hepatic venous system.Liver is enlarged, 21 cm in length and showed subcentimeter cystic lesionsin right and left lobes. No calcified gallstones. Spleen is bucfokthanmye30 x 4.8 cm.Peritoneum: No free air or free fluid. No lymphadenopathy.Pancreas and Adrenals: Tail of the pancreas showed an ill-defined 19 x 8 mmlesion. Another irregular shaped 15 x 10 mm lesion also seen along thedorsal surface of proximal tail of the pancreas. There is possibly a third14 x 8 mm lesion in the uncinate process region. Unremarkable adrenalglands.Kidneys and Ureters: 3 mm calcification again noted in the upper pole ofthe left kidney which is slightly increased in size but still remainsnonobstructing stone. Faint 3 mm calcification noted in the lower polecortex of the left kidney which, in retrospect, was very faint in theprevious study.Multiple lower density lesions again noted scattered throughout bothkidneys consistent with Bosniak type I renal cysts. Bosniak type IIirregular shaped 15 mm cystic lesion in the interpolar cortex of the leftkidney is also unchanged. Vessels: Atherosclerosis with tortuous aorta and iliac arteries without anaortic aneurysm.Retroperitoneum: No abnormal fluid or lymphadenopathy.Bowel: Constipation.Bones: Hemangioma noted in L1 vertebral body. Minimal old fracturedeformity in the upper plate of T11, exaggerated lordosis and hypertrophylower lumbar facet arthritis is noted, with grade 1 spondylolisthesis atL4-L5, minimal retrolisthesis at L3-L4 and L5-S1.Soft tissues: Less than 2 cm size fat-containing umbilical hernia withfocal 3 mm radiopaque density in it which could be calcification,unchanged.C ONCLUSION:1. Multiple bilateral kidney lesions, consistent with Bosniak type I cysts,stable. Bosniak type II lesion in the left kidney is also stable.2. Nonobstructing stone in the upper pole of the left kidney and a newnonobstructing faint calcification lower pole of the left kidney.3. Filling defects are seen in the middle hepatic veins in the early venousphase of this study. This is not confirmed consistently in the delayedvenous phase, therefore, likely flow related artifacts. Similar flowrelated artifacts are also seen in the early portal venous phase in themain portal vein.4. Ill-defined low-density lesions in uncinate process, daily portions ofthe pancreas. The lesions could be IPMN, and, in retrospect, are barelyappreciated in December 2019 study and have remained stable. There are alsopresent in July 2019 CT study from outside facility and are stable. POCT CREATININE 2020-03-15 15:48:00 Test Item Value Reference Range Interpretation Comme [facility] POCT Creatinine (test code = [id number]) 0.9 mg/dL 0.6-1.3 Lab Interpretation (test code = 95479-2) [facility] [id number] 16:18:15CT Abdomen and Pelvis without and with intravenous contrast. CLINICAL HISTORY: No clinical history provided. DOSE: Up-to-date CT equipment and radiation dose reduction techniques wereemployed. CTDIvol: ?6.01+5.98+5.98 mGy. DLP: 309+614 mGy-cm. TECHNIQUE : Contiguous axial imaging from the level of the lung basesthrough the pubic symphysis were performed initially without contrast andsubsequently after the uncomplicated administration of Omnipaque contrastmaterial. Third delayed venous CT set was also obtained. Coronal andsagittal reconstructions were obtained. Auto mA and/or iterativereconstruction were used to reduce radiation dose. FINDINGS: ? Lower lungs: Clear. No pleural effusion or pericardial effusion. Metallichardware around the EG junction is causing numerous artifacts. Liver, Gallbladder and Spleen: Liver measures approximately 19.5 cm inlength and showed subcentimeter cystic lesions in both right and left lobes(at least 4 in the right lobe and 2 in the left lobe). Spleen measures approximately 12.5 x 4 cm. No calcified gallstonesdetected. Biliary ducts and the pancreatic duct appear of normal size. Peritoneum: ?No free air or free fluid. No lymphadenopathy. Pancreas and Adrenals: ?Unremarkable pancreas and adrenal glands. Kidneys and Ureters: 2 mm calcification in the upper pole of the leftkidney could be a small nonobstructing kidney stone. No hydroureter orhydronephrosis. Several low- density lesions are detected in both kidneys,ranging from 9 mm 2 45 mm in the right kidney and from 10 mm 2 64 mm in theleft kidney. None of the lesions show any worrisome features, consistentwith Bosniak type I renal cyst. There is one 15 mm cystic lesion in the interpolar lateral cortex of theleft kidney which shows features consistent with Bosniak type II renalcysts. Vessels: Moderate atherosclerosis in the aorta and iliac arteries aretortuous vessels. Retroperitoneum: No abnormal fluid orlymphadenopathy. Bowel: Constipation. Normal small bowel gas pattern. No sign of acuteappendicitis or diverticulitis. Bladder and Reproductive Organs: Enlarged prostate with faint central zonecalcifications. No gross pathology in the unopacified urinary bladder. Bones: Mild lower lumbar levoscoliosis with exaggerated lordosis, minimalretrolisthesis at L3-L4, L5-S1 and minimal spondylolisthesis at L4-L5 withhypertrophic facet arthritis at L4-L5. Old fracture left orbital plate ofT11 which has lost approximately 15% of its height with a prominentSchmorl's node in the central portion of the upper endplate.Mild right hip joint arthritis. No AVN signs in the femoral heads. Soft tissues: Unremarkable. CONCLUSION:1. Multiple bilateral renal cysts consistent with Bosniak type I lesions.One lesion in the l ateral interpolar left kidney is a Bosniak type II renalcyst. This cyst may be monitored by follow up CT scan in 6 months.2. Hepatomegaly with subcentimeter cystic lesions in both right and leftlobes.3. 2 mm calcification in the upper pole of the left kidney could be a smallnonobstructing stone. [facility], Radiant Results Inft User - 12/22/2019 11:19 AM CDTCT Abdomen and Pelvis without and with intravenous contrast.CLINICAL HISTORY: No clinical history provided.DOSE: Up-to-date CT equipment and radiation dose reduction techniques wereemployed. CTDIvol: 6.01+5.98+5.98 mGy. DLP: 309+614 mGy-cm.TECHNIQUE : Contiguous axial imaging from the level of the lung basesthrough the pubic symphysis were perform ed initially without contrast andsubsequently after the uncomplicated administration of Omnipaque contrastmaterial. Third delayed venous CT set was also obtained. Coronal andsagittal reconstructions were obtained. Auto mA and/or iterativereconstruction were used to reduce radiation dose.FINDINGS: Lower lungs: Clear. No pleural effusion or pericardial effusion. Metallichardware around the EG junctionis causing numerous artifacts.Liver, Gallbladder and Spleen: Liver measures approximately 19.5 cm inlength and showed subcentimeter cystic lesions in both right and left lobes(at least 4 in the right lobe and 2 in the left lobe).Spleen measures approximately 12.5 x 4 cm. No calcified gallstonesdetected. Biliary ducts and the pancreatic duct appear of normal size.Peritoneum: No free air or free fluid. No lymphadenopathy.Pancreas and Adrenals: Unremarkable pancreas and adrenal glands.Kidneys and Ureters: 2 mm calcification in the upper pole of the leftkidney could be a small nonobstructing kidney stone. No hydroureter orhydronephrosis. Several low- density lesions are detected in both kidneys,ranging from 9 mm 2 45 mm in the right kidney and from 10 mm 2 64 mm in theleft kidney. None of the lesions show any worrisome features, consistentwith Bosniak type I renal cyst.There is one 15 mm cystic lesion in the interpolar lateral cortex of theleft kidney which shows features consistent with Bosniak type II renalcysts. Vessels: Moderate atherosclerosis in the aorta and iliac arteries aretortuous vesse ls.Retroperitoneum: No abnormal fluid or lymphadenopathy.Bowel: Constipation. Normal small bowel gaspattern. No sign of acuteappendicitis or diverticulitis.Bladder and Reproductive Organs: Enlarged prostate with faint central zonecalcifications. No gross pathology in the unopacified urinary bladder.Bones: Mild lower lumbar levoscoliosis with exaggerated lordosis, minimalretrolisthesis at L3-L4, L5-S1 and minimal spondylolisthesis at L4-L5 withhypertrophic facet arthritis at L4-L5. Old fracture leftorbital plate ofT11 which has lost approximately 15% of its height with a prominentSchmorl's node in the central portion of the upper endplate.Mild right hip joint arthritis. No AVN signs in the femoral heads.Soft tissues: Unremarkable.CONCLUSION:1. Multiple bilateral renal cysts consistent with Bosniak type I lesions.One lesion in the lateral interpolar left kidney is a Bosniak type II renalcyst. This cyst may be monitored by follow up CT scan in 6 months.2. Hepatomegaly with subcentimeter cystic lesions in both right and leftlobes.3. 2 mm calcification in the upper pole of the left kidney could be a smallnonobstructing stone.[facility] [id number] 09:24:00 Test Item Value Reference Range Interpretation Comments HEMOGLOBIN A1C (AKER) (test code = 7.4 % 4.3-6.1 H 368) POCT-GLUCOSE [id number] 08:38:00 Test Item Value Reference Range Interpretation Comments POC-GLUCOSE METER 114 mg/dL 70-[address] [facility] ([facility]) (test code = [place] [facility] 1538) [id number] COMPREHENSIVE METABOLIC [id number] 06:24:00 Test Item Value Reference Range Interpretation [...] PATIEN TS. CBC W/PLT COUNT & AUTO [id number] 06:04:00 Test Item Value Reference Range Interpretation [...] 417) IMMATURE GRANULOCYTES-RELATIVE 0 % 0-1 PERCENT ([facility]) (test code = 2801) POCT-GLUCOSE [id number] 21:22:00 Test Item Value Reference Range Interpretation Comments POC-GLUCOSE METER 167 mg/dL 70-110 H TESTED AT [place] [address] ([facility]) (test code = [facility] [place] [facility] 1538) [id number] POCT-GLUCOSE [id number] 18:22:00 Test Item Value Reference Range Interpretation Comments POC-GLUCOSE METER 85 mg/dL 70-110 TESTED AT [place] [address] ([facility]) (test code = [facility] [address] 1538) POCT-GLUCOSE [id number] 12:19:00 Test Item Value Reference Range Interpretation Comments POC-GLUCOSE METER 149 mg/dL 70-110 H TESTED AT [place] [address] ([facility]) (test code = [facility] [place] [facility] 1538) [id number] POCT-GLUCOSE [id number] 08:18:00 Test Item Value Reference Range Interpretation Comments POC-GLUCOSE METER 103 mg/dL 70-110 TESTED AT [place] [address] ([facility]) (test code = [facility] [employer] [facility] 1538) [id number] POCT-GLUCOSE [id number] 21:12:00 Test Item Value Reference Range Interpretation Comments POC-GLUCOSE METER 114 mg/dL 70-110 H TESTED AT [place] [address] ([facility]) (test code = [facility] 1538) [id number] POCT-GLUCOSE [id number] 18:20:00 Test Item Value Reference Range Interpretation Comments POC-GLUCOSE METER 70 mg/dL 70-110 TESTED AT [place] [address] ([facility]) (test code = [place] [facility] [address] 1538) [id number] 14:02:00 Test Item Value Reference Range Interpretation Comments LIPASE (YONNY) (test code = 749) 483 U/L 8-78 H U/S, ABDOMINAL, [id number] 13:08:00Abdomen limited area? Add comment if clarification [...] MDReport Verified Date/Time: 09/16/2018 13:08:32 Reading Location: [address] Ultrasound Reading Room POCT-GLUCOSE [id number] 12:13:00 Test Item Value Reference Range Interpretation Comments POC-GLUCOSE METER 130 mg/dL 70-[address] [facility] ([place]NY) (test code = [place] [facility] 1538) [id number] POCT-GLUCOSE [id number] 09:11:00 Test Item Value Reference Range Interpretation Comments POC-GLUCOSE METER 90 mg/dL 70-[address] [facility] (BEAKER) (test code = [place] [address] 8418) [id number] 06:24:00 Test Item Value Reference Range Interpretation Comments TRIGLYCERIDES (BEAKER) (test code = 48 mg/dL 540) TRIGLYCERIDE REFERENCE RANGELow Risk <150Borderline Risk 150-199High Risk 200-499Very High Risk>=500COMPREHENSIVE METABOLIC [id number] 06:24:00 Test Item Value Reference Range Interpretation [...] PATIEN TS. CBC W/PLT COUNT & AUTO [id number] 06:08:00 Test Item Value Reference Range Interpretation [...] PERCENT (BEAKER) (test code = 2801) POCT-GLUCOSE [id number] 21:18:00 Test Item Value Reference Range Interpretation Comments POC-GLUCOSE METER 87 mg/dL 70-110 TESTED AT [place] [address] (BEAKER) (test code = [place] [facility] [address] 1538) POCT-GLUCOSE [id number] 20:02:00 Test Item Value Reference Range Interpretation Comments POC-GLUCOSE METER 98 mg/dL 70-110 [facility] AT [place] [address] [facility] (test code = [facility] [address] 1538) POCT-GLUCOSE [id number] 09:15:00 Test Item Value Reference Range Interpretation Comments POC-GLUCOSE METER 229 mg/dL 70-110 H TESTED AT [place] [address] ([facility] (test code = [facility] 1538) [id number] POCT-GLUCOSE [id number] 08:10:00 Test Item Value Reference Range Interpretation Comments POC-GLUCOSE METER 238 mg/dL 70-110 H TESTED AT [place] [address] ([facility] (test code = [facility] 1538) [id number] 04:55:00 Test Item Value Reference Range Interpretation Comments MAGNESIUM (BEAKER) (test code = 2.0 mg/dL 1.6-2.6 627) BASIC METABOLIC [id number] 04:55:00 Test Item Value Reference Range Interpretation [...] I S NOT APPLICABLE FOR DIALYSIS PATIEN [id number] 04:47:00 Test Item Value Reference Range Interpretation Comments PARTIAL THROMBOPLASTIN TIME 26.9 seconds 22.5-36.0 (BEAKER) (test code = 760) PROTHROMBIN [id number] 04:46:00 Test Item Value Reference Range Interpretation [...] NEUTROPHILS ABSOLUTE COUNT 6.07 K/ L 1.80-8.00 (BEAKER) (test code = 670) LYMPHOCYTES ABSOLUTE COUNT 2.76 K/ L 1.48-4.50 (BEAKER) (test code = 414) MONOCYTES ABSOLUTE COUNT (BEAKER) 0.97 K/ L 0.00-1.30 (test code = 415) EOSINOPHILS ABSOLUTE COUNT 0.14 K/ L 0.00-0.50 (BEAKER) (test code = 416) BASOPHILS ABSOLUTE COUNT (BEAKER) 0.06 K/ L 0.00-0.20 (test code = 417) 0.00POCT-GLUCOSE [id number] 22:06:00 Test Item Value Reference Range Interpretation Comments POC-GLUCOSE METER 243 mg/dL 70-110 H TESTED AT [place] [address] ([facility]) (test code = [facility] 1538) [id number] POCT-GLUCOSE [id number] 17:17:00 Test Item Value Reference Range Interpretation Comments POC-GLUCOSE METER 218 mg/dL 70-110 H TESTED AT [place] [address] ([facility]) (test code = [facility] 1538) [id number]
--- NOTE | 2021-05-14 23:19 | ER ---
Nurse's Notes [facility] Name: Donal Valentine Age: 70 yrs Sex: Male : 1950 Arrival Date: 05/14/2021 Time: 22:27 Bed Waiting Private MD: Cynthia Andino H Diagnosis: ED Course: 05/14 22:27 Patient arrived in ED. es 22:28 Cynthia Andino DO is Private Physician. es 23:18 Patient's name was called from [facility] [employer] [employer]. No response. Unable to locate patient. Will bb disposition as left without being seen by a provider. Administered Medications: No medications were administered Outcome: 23:18 Patient left the ED. bb Signatures: Beatriz Lee Brenda, RN RN bb
== END 2021-05-14 23:18 | disposition left against medical advice (07) ==
LOC: ER 22:24
DX: Z53.21 Procedure and treatment not carried out due to patient leaving prior to being seen by health care provider (principal)

== ENCOUNTER 2022-02-12 08:15 | Day surgery (SDC) | payer OTHER ==
[2022-02-08 14:17] LABS: Absolute Lymphocytes (CBC) 2.3 K/uL (0.7-4.9); Hematocrit 49.9 % (39.6-49.0); Lymphocytes % 27.3 % (15.3-44.8); MCV 79.4 fL (80-100); MPV 8.4 fL (7.6-11.3); RBC Red Blood Cell Count 6.29 M/uL (4.33-5.43)
[2022-02-08 14:18] LABS: Protime INR 0.95
[2022-02-08 14:39] LABS: SARS-CoV-2 Antigen Rapid Res Negative (Negative)
[2022-02-08 14:45] LABS: Potassium 3.8 mmol/L (3.5-5.1)
--- NOTE | 2022-02-08 14:50 | RAD REPORT ---
EXAM DESCRIPTION: Chavez Robbins And sAif (2 Views)02/08/2022 2:06 pm CLINICAL HISTORY: Preop for urolift surgery COMPARISON: 2013 and 2018 FINDINGS: Mild prominence of the mediastinum and right hilum is without significant change The lungs appear clear of acute infiltrate. The heart is normal size Gastric band in place IMPRESSION: No acute abnormalities displayed
--- NOTE | 2022-02-11 15:11 | EKG ---
Test Date: 2022-02-08 Test Time: 13:49:26 [employer]: KRISTIN MEASUREMENT RESULTS: Intervals: Rate: 64 RI: 196 QRSD: 144 QT: 402 QTc: 414 Spencer: P: 47 RI: 196 QRS: -61 T: 76 INTERPRETIVE STATEMENTS: Normal sinus rhythm Left axis deviation Left ventricular hypertrophy with QRS widening and repolarization abnormality Abnormal ECG Compared to ECG 03/06/2021 00:22:00 Sinus bradycardia no longer present Electronically Signed On 02-11-22 15:09:08 CDT by Coleman Araiza
[2022-02-12] MEDS ORDERED: CEFAZOLIN 2 GM IN 0.9% NACL 2 GM/100 ML BAG ONE (08:51)
[2022-02-12] MEDS ORDERED: NA CHLORIDE 0.9% 1,000 ML ONE (08:51)
[2022-02-12] MEDS ORDERED: propofoL 200 MG/20 ML VIAL IV ONE (10:34)
[2022-02-12] MEDS ORDERED: FENTANYL CITR 100 MCG/2 ML ONE (10:34)
[2022-02-12] MEDS ORDERED: MIDAZOLAM HCL 2 MG/2 ML INJ ONE (10:35)
[2022-02-12] MEDS ORDERED: LIDOCAINE 1% MPF 5 ML VIAL ONE (10:35)
[2022-02-12] MEDS ORDERED: ONDANSETRON 4 MG/2 ML VIAL ONE (11:53)
[2022-02-12] MEDS ORDERED: PHENAZOPYRIDINE 100MG TAB PO ONE (12:56)
[2022-02-12] MEDS ORDERED: TRAMADOL 37.5mg/APAP 325mg PER TAB PO ONE (12:56)
[2022-02-12] MEDS: FENTANYL CITR 100 MCG/2 ML ONE ×2 (13:04→13:12)
[2022-02-12 13:47] VITALS: BP 132/89; TEMP 97.8; O2SAT 98
--- NOTE | 2022-02-13 11:07 | OP ---
Surgeon: MAGAN THOMPSON Preoperative Diagnoses: Benign prostatic hypertrophy with lower urinary tract obstruction and sympto ms. Postoperative Diagnoses: Benign prostatic hypertrophy with lower urinary tract obstruction and sympt oms. Procedure: Prostatic urethral lift/UroLift with 9 implants attempted and 7 placed successfully. Indication For Procedure: Mr. Valentine presented to Urology Clinic with persistent obstructive lower u rinary symptoms due to BPH. He underwent cystoscopic evaluation revealing a stigmata of anatomic obs truction with lateral lobar hypertrophy without significant elevated median lobe or intravesical proj ection of the median lobe. He was counseled on options for management and selected the prostatic ure thral lift as a minimally invasive surgical therapeutic option for his BPH. Procedure In Detail: The patient was consented in the preoperative holding area before being transfe rred to the operative suite where general anesthesia was induced. He was given Ancef 2 g IV antimicr obial prophylaxis and pneumo boots were provided for DVT prophylaxis. He was placed in the lithotomy position, padded and secured to the table appropriately, and his genitalia was prepped using [place] ns. He was draped in standard fashion, and the case was begun using the 20-Malay cystoscopy bridge to traverse the urethra and into the bladder with ease. The prostatic urethra was surveyed all the w ay in, and as had been previously noted, there was significant lateral lobar hypertrophy obscuring th e prostatic urethral lumen, but there was not significant elevation of the median bar with intravesic al projection. As a result, the initial targeting was performed within his left diego prostate approx imately 1.5-2 cm distal to the bladder neck. The obturator for the cystoscope was exchanged for a Ur oLift implant delivery device, and the distal tip of the delivery device was angled laterally approxi mately 10-20 degrees to compress lateral lobe. The trigger was pulled thereby deploying a needle con taining the implant through the prostate. The tip of the device was further advanced to compress fur ther and the needle was completely delivered through the capsule of the prostate. The needle was the n retracted, allowing one end of the implant to be delivered to the capsular surface of the prostate. The implant was then tensioned to assure capsular seating and removal of slack monofilament. The d evice was then angled back toward the midline and slowly advanced proximally about 2-3 mm until cysto scopic verification of the monofilament was centered in the delivery [place]. The urethral end piece was then affixed to the monofilament, thereby tailoring the size of the implant, and excess filament was then severed. The delivery device was then readvanced into the bladder and was then replaced with a new delivery device. A similar targeting was performed within his right lateral lobe anteriorly valentin roximately 2 cm distal to the bladder neck on the right side. Using a similar procedure as described above, an additional implant was delivered out to the right anterolateral lobe at the bladder neck. We then turned our attention to the verumontanum where an additional implant was placed within the l eft lateral lobe anteriorly at the level of the verumontanum. A fourth implant was placed at the lev el of the verumontanum on the right side. We then returned the UroLift delivery device into his blad maisha and removed it from within the sheath, exchanging it with a visual obturator. The prostatic uret hral channel was then surveyed, and while the apical region of the prostatic urethra had a nice anter ior channel created, at the bladder neck, the lateral compression generated from the prior 2 implants placed there seem to cause anterior collapse that obscured the bladder neck opening. As a result, I employed an additional implant more anteriorly on the left side of the prostate at about 1.5 cm from the bladder neck. This did elevate the bladder neck significantly and so an additional implant was required on the right side, to prevent angulation of the bladder neck opening. Upon attempted delive ry of the 6th implant at the bladder neck region, after 3 pulls of the trigger, it was evident that t he implant had not successfully been delivered, suspected due to a bone strike. As a result, the imp lant was removed and cycled through and in fact the needle and implant had not been delivered. As a result, we replaced the delivery device with a new delivery device and again targeted the right very anterior surface of the prostate to elevate the bladder neck on the right side, and this time success fully delivered an implant into that location. At this point, 7 implants were used and 6 were succes sfully placed. I then exchanged the implant delivery device for the visual obturator again, and surv eyed the prostatic urethral channel. Now that the bladder neck was widely opened, within the mid ure thral portion near the bladder neck, there was still lateral lobar hypertrophy bulging in on both alley es from between the area where the other implants had been placed. As a result, I attempted to place an additional implant unsuccessfully delivered in the region of the bladder neck and so that implant was discarded. On the right side, the bulging tissue was successfully targeted and lateralized and the implant was delivered into his prostate successfully on the right side for a total of 7 implants placed with two, that were not successfully delivered for a total of 9 implants used. In the end, th e implant delivery device was removed, and an obturator was again placed in for visualization. With his bladder completely decompressed, I was able to visualize a nice continuous anterior channel from the bladder neck through the verumontanum. As a result, with an excellent appearance lacking obstruc tion, the cystoscope bridge was removed leaving the bladder full, and I replaced the bridge with an 1 8-Malay urethral Hardin catheter and 2 cc of sterile water in the balloon. The returning drainage of urine was light pink to clear. The patient was taken out of the lithotomy position, awakened from g eneral anesthesia, transferred to a stretcher, and then transferred to the recovery room in good cond ition. Complications: None. Discharge Disposition: He will be discharged with 3 days of antimicrobial as well as tramadol for pa in management given his allergy to codeine. We will have him keep the catheter for 3 days, given the additional anterior implants that were placed before removing the catheter on Friday morning. LANCE/DARA Voice ID: [id number] Report ID: [id number]
== END 2022-02-12 14:50 | disposition home or self-care (01) ==
LOC: PRE 08:15 → OR 14:50
PROVIDERS: ATTEND Urology
PROC: 3C1ZX8Z Irrigation of Indwelling Device using Irrigating Substance, External Approach (ICD-10-PCS; 2022-02-12)
PROC: 0T7D8DZ Dilation of Urethra with Intraluminal Device, Via Natural or Artificial Opening Endoscopic (ICD-10-PCS; principal; 2022-02-12 10:45)
DX: N40.1 Benign prostatic hyperplasia with lower urinary tract symptoms (principal); Z20.822 Contact with and (suspected) exposure to COVID-19
CPT/HCPCS: 52441; 52442 ×6; 93005; 87088; 85025; 87086; 80048; 36415; 85610; 82947 ×2; 71046; 87811; 51700; J2704; J2001; J2250; J3010 ×2; J0690; J7030; J2405

== ENCOUNTER 2022-02-14 05:41 | Emergency (ER) | payer OTHER ==
--- OUTSIDE RECORDS SUMMARY | 2022-02-14 05:45 | XMS REPORT | Continuity of Care Document ---
:1950 Author Organization [facility] Address [address] [place] [address] Care Team Providers Name Role Phone SALMA LOPES Primary Care Physician Unavailable CAMELIA LAWS Attending Clinician Unavailable Bianca [facility] TEACHERCamelia Attending Clinician Doctor Unassigned, [place] Attending Clinician Unavailable Pam Grace RN Attending Clinician Unavailable CELESTINO VALDEZ Attending Clinician Unavailable Promise Coleman MD Attending Clinician Radiology Attending Clinician Unavailable RADIOLOGY Attending Clinician Unavailable Pob, [facility] Main Attending Clinician Unavailable Yoni Freeman MD Attending Clinician PROMISE COLEMAN Attending Clinician Unavailable NEO FELDER Attending Clinician Unavailable CAROLINA BROOKS Attending Clinician Unavailable NEO FELDER Admitting Clinician Unavailable CAROLINA BROOKS Admitting Clinician Unavailable Payers Payer Name Policy Type Policy Number Effective Date Expiration Date S harrison [facility] [id number] 2019 MEDICARE GOLD 00:00:00 Problems Condition Condition Condition Status Onset Resolution Last Treating Co mments Source Name Details Category Date Date Treatment Clinician Date Bilateral Bilateral Disease Active [facility] renal 4-18 [facility] cysts cysts 00:00: Medical 00 [place] Acute Acute Disease Active [facility] pancreatit pancreatit 4-16 Mery kes is is 00:00: Medical [address] [place] [address] Hiatal Hiatal Disease Active [facility] hernia s/p hernia s/p 2-13 Mery kes lap repair lap repair 00:00: Fl dical and and Center magnetic magnetic spincter spincter augmentati augmentati on 07/15/16 on 07/15/16 No known No known Disease Unive rs active active ity of problems problems [facility] Dysphagia Dysphagia Disease Active [facility] GERD GERD Disease Active [facility] (gastroeso (gastroeso [facility] phageal phageal [facility] reflux reflux Center disease) disease) Diabetes Diabetes Disease Active mellitus mellitus [facility] Hypertensi Hypertensi Disease Active [facility] on on [facility] Allergies, Adverse Reactions, Alerts Allergy Allergy Status Severity Reaction(s) Onset Inactive Treating Comm ents Source Name Type Date Date Clinician Hydrocod Drug Active Nausea And [facility] one-Acet Allergy Vomiting 2-10 [facility] aminophe 00:[facility]: Medical [address] Hydrocod Propensi Active Nausea Univer s one-Acet ty to and/or 2-10 ity of aminophe adverse Vomiting 00:00: [place] n reaction 00 [facility] HYDROCOD DRUG Active N/V 0 Univers ONE-ACET 2-10 ity of AMINOPHE 00:00: [place] N 00 Medical Branch Codeine Propensi Active Nausea Univers ty to and/or 8-31 ity of adverse Vomiting 00:00: [place] reaction 00 Medical s Branch Penicill Propensi Active Hives Univer s ins ty to 8-31 ity of adverse 00:00: [place] reaction 00 [facility] CODEINE DRUG Active N/V Univers INGREDI 8-31 ity of 00:00: [place] 00 Medical [place] PENICILL Drug Active Hives Univers INS Class 8-31 ity of 00:00: [place] 00 [facility] Codeine Drug Active Nausea And [facility] Allergy Vomiting 8-31 [facility] 00:00: Medical [address] [place] [address] Penicill Drug Active Hives [facility] ins Allergy 8- [facility] 00:00: Medical [address] [place] [address] CODEINE Allergy Active [facility] PENICILL Allergy Active [facility] HYDROCOD Allergy Active [facility] ONE-[facility] Family History Family Member Diagnosis Comments Start Date Stop Date Source Natural father Diabetes [facility] Natural father Heart disease [facility] Natural mother Hypertension [facility] Social History Social Habit Start Date Stop Date Quantity Comments Source Exposure to Not sure [facility] SARS-CoV-2 (event) [facility] Alcohol intake 2016-07-16 2016-07-16 .48 /d [facility] 00:00:00 00:00:00 [facility] Tobacco use and 2016-01-31 2016-01-31 Never used [facility] exposure 00:00:00 00:00:00 [facility] History of tobacco 1998-04-10 Smoker [facility] use 00:00:00 [facility] Sex Ass[birth year] At [birth year] [facility] 00:00:00 00:00:00 [facility] Smoking Status Start Date Stop Date Source Former smoker 2017-04-10 00:00:00 2017-04-10 00:00:00 [facility] Medical [place] Medications Ordered Filled Start Stop Current Ordering Indication Dosage Frequency Signature Comments Components Source Medication Medication Date Date Medication? Clinician (SIG) Name Name doxycycline 2020-06 No 100mg 100 mg, U nivers hyclate -14 05-15 Oral, ity of (Vibramycin 07:00: 06[place]06 [place] capsule [place] :00 dose, On Medica l 100 mg e Branch 05/15/21 at 0100, PAUL
Re ason for Anti-Infec tive: Empiric Therapy for Suspected Infection< br>Empiric Therapy Site: Skin / Soft tissue
Duration of therapy: 72 hours doxycycline 2020-06 Yes [id number] 100mg Take 1 Univers hyclate 100 2-13 [id number] capsule by ity of mg capsule 00:00: [place] (two[place] Medical times Branch daily. iohexol 2019-06- No 150mL 150 mL, Unive rs (OMNIPAQUE 0-14 10-14 Intravenou it y of 350 16:30: 15:58 s, ONCE, 1 [place] BULK-150 00 :00 dose, Wed Medica l mL) 03/15/20 Branch injection at 1130, 150 mL Routine iohexol 2019- 2020- No 150mL 150 mL, Unive rs (OMNIPAQUE 12-21 Intravenou it y of 350 15:45: 15:35 s, ONCE, 1 [place] BULK-150 00 :00 dose, Wed Medica l mL) 12/22/19 at Branch injection 1045, 150 mL Routine ALPRAZolam 2018- Yes .5mg Take 0.[address] (XANAX) 1 4-19 mg by [facility] MG tablet 11:33: mouth 4 Medic al 24 (four) Center times daily as needed for Anxiety Takes a total 2mg a day. amLODIPine 2018-0 Yes 5mg Q.5D Take [address] (NORVASC) 5 4-19 by mouth 2 Mery kes MG tablet 11:33: (two) Medical 24 times Center daily . aspirin 81 2018-0 Yes 81mg QD Take [address] MG chewable 4-19 by mouth Luke s tablet 11:33: daily. Medical 24 Center glimepiride 2018-0 Yes 4mg Take [address] (AMARYL) 4 4-19 by mouth 2 Monty es MG tablet 11:33: (two) Medical 24 times Center daily before meals . ibuprofen-d 0 Yes 2{tbl} Take [address] iphenhydram 4-19 tablets by Mery nataliias ine HCl 11:33: mouth as Medica l (ADVIL PM 24 needed . Center LIQUI-GELS) 200-25 mg Cap losartan-hy 2018-0 Yes 1{tbl} QD Take [address] drochloroth 4-19 tablet by Monyt es iazide 11:33: mouth Medical (HYZAAR) 24 daily. Center 100-25 mg per tablet metFORMIN 2018-0 Yes 500mg Take [address] [facility] (GLUCOPHAGE 4-19 mg by [facility] ) 500 MG 11:33: mouth 2 Medica l tablet 24 (two) Center times daily with breakfast and dinner Takes 500 mg in am and 1000 mg at night. CYANOCOBALA 2018-0 Yes 1{tbl} QD Take [address] MIN, 4-19 tablet by Andrew VITAMIN 11:33: mouth Medical B-12, 24 daily Center (VITAMIN Super B-12 ORAL) Vitamin B 12 . sucralfate Yes 1g Take [address] [facility] [facility] (CARAFATE) 4-19 by mouth 3 Monty es 1 gram 11:33: (three) Medical tablet 24 times [place] daily with meals. omeprazole Yes 20mg QD Take [address] (PRILOSEC) 4-19 by mouth [facility] 20 MG 11:33: daily. Medical capsule 24 [place] glimepiride 2016-06 Yes 4mg Take 4 mg U nivers 4 mg tablet 1-09 by mouth. ity of 19:51: [address] losartan-hy 2016-06 Yes 1{tbl} Take 1 Un jennifer drochloroth 1-09 tablet by ity of iazide 19:51: mouth. [place] 100-25 mg 00 Medical per tablet Branch ALPRAZolam 2016-06 Yes 2mg Take 2 mg Un jennifer 1 mg tablet 1-09 by mouth. ity of 19:51: [address] Branch amLODIPine 2016-06 Yes 5mg Take 5 mg Un jennifer 5 mg tablet 1-09 by mouth 2 it y of 19:51: (two) [place] 00 times Medical daily. Branch metFORMIN 2016-06 Yes 1000mg Take 1,000 Univers 500 mg 1-09 mg by ity of tablet 19:51: mouth. [address] aspirin 81 2016-06 Yes 81mg Take 81 mg U nivers mg chewable 1-09 by mouth. ity of tablet 19:51: [address] vitamin 2016-06 Yes Take by Univers B-12 1,000 1-09 mouth. ity of mcg tablet 19:51: [address] glimepiride 2016-06 Yes 4mg Take 4 mg U nivers 4 mg tablet 1-09 by mouth. ity of 19:51: [address] losartan-hy 2016-06 Yes 1{tbl} Take 1 Un jennifer drochloroth 1-09 tablet by ity of iazide 19:51: mouth. [place] 100-25 mg 00 Medical per tablet Branch ALPRAZolam 2016-06 Yes 2mg Take 2 mg Un jennifer 1 mg tablet 1-09 by mouth. ity of 19:51: [address] Branch amLODIPine 2016-06 Yes 5mg Take 5 mg Un jennifer 5 mg tablet 1-09 by mouth 2 it y of 19:51: (two) [place] 00 times Medical daily. Branch metFORMIN 2016-06 Yes 1000mg Take 1,000 Univers 500 mg 1-09 mg by ity of tablet 19:51: mouth. [address] Branch aspirin 81 2016-06 Yes 81mg Take 81 mg U nivers mg chewable 1-09 by mouth. ity of tablet 19:51: [address] Branch vitamin 2016-06 Yes Take by Univers B-12 1,000 1-09 mouth. ity of mcg tablet 19:51: [address] Branch glimepiride 2016-06 Yes 4mg Take 4 mg U nivers 4 mg tablet 1-09 by mouth. ity of 19:51: [address] Branch losartan-hy 2016-06 Yes 1{tbl} Take 1 Un jennifer drochloroth 1-09 tablet by ity of iazide 19:51: mouth. [place] 100-25 mg 00 Medical per tablet Branch ALPRAZolam 2016-06 Yes 2mg Take 2 mg Un jennifer 1 mg tablet 1-09 by mouth. ity of 19:51: [address] Branch amLODIPine 2016-06 Yes 5mg Take 5 mg Un jennifer 5 mg tablet 1-09 by mouth 2 it y of 19:51: (two) [place] 00 times Medical daily. Branch metFORMIN 2016-06 Yes 1000mg Take 1,000 Univers 500 mg 1-09 mg by ity of tablet 19:51: mouth. [address] aspirin 81 2016-06 Yes 81mg Take 81 mg U nivers mg chewable 1-09 by mouth. ity of tablet 19:51: [address] vitamin 2016-06 Yes Take by Univers B-12 1,000 1-09 mouth. ity of mcg tablet 19:51: [address] Branch glimepiride 2016-06 Yes 4mg Take 4 mg U nivers 4 mg tablet 1-09 by mouth. ity of 19:51: [address] Branch losartan-hy 2016-06 Yes 1{tbl} Take 1 Un jennifer drochloroth 1-09 tablet by ity of iazide 19:51: mouth. [place] 100-25 mg 00 Medical per tablet Branch ALPRAZolam 2016-06 Yes 2mg Take 2 mg Un jennifer 1 mg tablet 1-09 by mouth. ity of 19:51: [address] Branch amLODIPine 2016-06 Yes 5mg Take 5 mg Un jennifer 5 mg tablet 1-09 by mouth 2 it y of 19:51: (two) [place] 00 times Medical daily. Branch metFORMIN 2016-06 Yes 1000mg Take 1,000 Univers 500 mg 1-09 mg by ity of tablet 19:51: mouth. [address] Branch aspirin 81 2016-06 Yes 81mg Take 81 mg U nivers mg chewable 1-09 by mouth. ity of tablet 19:51: [address] vitamin 2016-06 Yes Take by Univers B-12 1,000 1-09 mouth. ity of mcg tablet 19:51: [address] Branch glimepiride 2016-06 Yes 4mg Take 4 mg U nivers 4 mg tablet 1-09 by mouth. ity of 19:51: [address] Branch losartan-hy 2016-06 Yes 1{tbl} Take 1 Un jennifer drochloroth 1-09 tablet by ity of iazide 19:51: mouth. [place] 100-25 mg 00 Medical per tablet Branch ALPRAZolam 2016-06 Yes 2mg Take 2 mg Un jennifer 1 mg tablet 1-09 by mouth. ity of 19:51: [address] Branch amLODIPine 2016-06 Yes 5mg Take 5 mg Un jennifer 5 mg tablet 1-09 by mouth 2 it y of 19:51: (two) [place] 00 times Medical daily. Branch metFORMIN 2016-06 Yes 1000mg Take 1,000 Univers 500 mg 1-09 mg by ity of tablet 19:51: mouth. [address] aspirin 81 2016-06 Yes 81mg Take 81 mg U nivers mg chewable 1-09 by mouth. ity of tablet 19:51: [address] vitamin 2016-06 Yes Take by Univers B-12 1,000 1-09 mouth. ity of mcg tablet 19:51: [address] Branch glimepiride 2016-06 Yes 4mg Take 4 mg U nivers 4 mg tablet 1-09 by mouth. ity of 13:51: [address] losartan-hy 2016-06 Yes 1{tbl} Take 1 Un jennifer drochloroth 1-09 tablet by ity of iazide 13:51: mouth. [place] 100-25 mg 00 Medical per tablet Branch ALPRAZolam 2016-06 Yes 2mg Take 2 mg Un jennifer 1 mg tablet 1-09 by mouth. ity of 13:51: [place] [address] Medical Branch amLODIPine 2016-06 Yes 5mg Take 5 mg Un jennifer 5 mg tablet 1-09 by mouth 2 it y of 13:51: (two) [place] 00 times Medical daily. Branch metFORMIN 2016-06 Yes 1000mg Take 1,000 Univers 500 mg 1-09 mg by ity of tablet 13:51: mouth. [place] [address] Medical Branch aspirin 81 2016-06 Yes 81mg Take 81 mg U nivers mg chewable 1-09 by mouth. ity of tablet 13:51: [address] Branch vitamin 2016-06 Yes Take by Univers B-12 1,000 1-09 mouth. ity of mcg tablet 13:51: [address] Branch glimepiride 2016-06 Yes 4mg Take 4 mg U nivers 4 mg tablet 1-09 by mouth. ity of 13:51: [address] losartan-hy 2016-06 Yes 1{tbl} Take 1 Un jennifer drochloroth 1-09 tablet by ity of iazide 13:51: mouth. [place] [address] [facility] Medical per tablet Branch ALPRAZolam 2016-06 Yes 2mg Take 2 mg Un jennifer 1 mg tablet 1-09 by mouth. ity of 13:51: [address] Branch amLODIPine 2016-06 Yes 5mg Take 5 mg Un jennifer 5 mg tablet 1-09 by mouth 2 it y of 13:51: (two) [place] 00 times Medical daily. Branch metFORMIN 2016-06 Yes 1000mg Take 1,000 Univers 500 mg 1-09 mg by ity of tablet 13:51: mouth. [address] aspirin 81 2016-06 Yes 81mg Take 81 mg U nivers mg chewable 1-09 by mouth. ity of tablet 13:51: [address] vitamin 2016-06 Yes Take by Univers B-12 1,000 1-09 mouth. ity of mcg tablet 13:51: [address] JARDIANCE 2016-06 Yes 10mg Take 10 mg Un jennifer 10 mg Tab 0-27 by mouth ity of 00:00: daily. [address] JARDIANCE 2016-06 Yes 10mg Take 10 mg Un jennifer 10 mg Tab 0-27 by mouth ity of 00:00: daily. [address] JARDIANCE 2016-06 Yes 10mg Take 10 mg [...] mouth ity of 00:00: daily. Medical Branch amitriptyli 2016-06 Yes 50mg Take 50 mg Univers ne 50 mg 0-23 by mouth ity of tablet 00:00: at [place] [address] bedtime. Medical Branch amitriptyli 2016-06 Yes 50mg Take 50 mg Univers ne 50 mg 0-23 by mouth ity of tablet 00:00: at [place] bedtime. Medical Branch amitriptyli 2016-06 Yes 50mg Take 50 mg Univers ne 50 mg 0-23 by mouth ity of tablet 00:00: at [place] bedtime. Medical Branch amitriptyli 2016-06 Yes 50mg Take 50 mg Univers ne 50 mg 0-23 by mouth ity of tablet 00:00: at [place] bedtime. Medical Branch amitriptyli 2016-06 Yes 50mg Take 50 mg Univers ne 50 mg 0-23 by mouth ity of tablet 00:00: at [place] bedtime. Medical Branch amitriptyli 2016-06 Yes 50mg Take 50 mg Univers ne 50 mg 0-23 by mouth ity of tablet 00:00: at [place] [address] bedtime. Medical Branch amitriptyli 2016-06 Yes 50mg Take 50 mg Univers ne 50 mg 0-23 by mouth ity of tablet 00:00: at [place] [address] bedtime. Medical Branch gabapentin Yes 100mg Take 100 Un jennifer 100 mg 9-13 mg by ity of capsule 00:00: mouth 3 (three) Medical times Branch daily. gabapentin 2017 Yes 100mg Take 100 Un jennifer 100 mg 9-13 mg by ity of capsule 00:00: mouth 3 (three) Medical times Branch daily. gabapentin 2017-0 Yes 100mg Take 100 Un jennifer 100 mg 9-13 mg by ity of capsule 00:00: mouth 3 (three) Medical times Branch daily. gabapentin 2017-0 Yes 100mg Take 100 Un jennifer 100 mg 9-13 mg by ity of capsule 00:00: mouth 3 00 (three) Medical times Branch daily. gabapentin 2017-0 Yes 100mg Take 100 Un jennifer 100 mg 9-13 mg by ity of capsule 00:00: mouth 3 00 (three) Medical times Branch daily. gabapentin 2017-0 Yes 100mg Take 100 Un jennifer 100 mg 9-13 mg by ity of capsule 00:00: mouth 3 (three) Medical times Branch daily. gabapentin 2017-0 Yes 100mg Take 100 Un jennifer 100 mg 9-13 mg by ity of capsule 00:00: mouth 3 (three) Medical times Branch daily. Immunizations Ordered Filled Immunization Date Status Comments [facility] e Immunization Name Name Td 2021-05-15 Completed University of 00:00:00 [facility] SARS-COV-2 COVID-19 2020-08-05 Completed Unive rsity of MODERNA VACCINE 00:00:00 [facility] SARS-COV-2 COVID-19 2020-08-05 Completed Unive rsity of MODERNA VACCINE 00:00:00 [facility] SARS-COV-2 COVID-19 2020-08-05 Completed Unive rsity of MODERNA VACCINE 00:00:00 [facility] SARS-COV-2 COVID-19 2020-07-08 Completed Unive rsity of MODERNA VACCINE 00:00:00 [facility] SARS-COV-2 COVID-19 2020-07-08 Completed Unive rsity of MODERNA VACCINE 00:00:00 [facility] SARS-COV-2 COVID-19 2020-07-08 Completed Unive rsity of MODERNA VACCINE 00:00:00 [facility] Vital Signs Vital Name Observation Time Observation Value Comments Source Body height 2021-05-15 05:32:00 185.4 cm [facility] Body weight 2021-05-15 05:32:00 85.73 kg [facility] BMI 2021-05-15 05:32:00 24.94 kg/m2 [facility] Systolic blood 2021-05-15 05:31:00 151 mm[Hg] Univer sity of pressure [facility] Diastolic blood 2021-05-15 05:31:00 88 mm[Hg] Unive rsity of pressure [facility] Heart rate 2021-05-15 05:31:00 91 /min [facility] Body temperature 2021-05-15 05:31:00 36.89 [facility] Respiratory rate 2021-05-15 05:31:00 20 /min [facility] Oxygen saturation in 2021-05-15 05:31:00 96 /min [facility] blood by [facility] Pulse oximetry Branch Procedures Procedure Date / Time Performing Clinician Source Performed NOTICE OF PRIVACY 2021-05-15 05:07:36 Doctor Unacarleneigned, [facility] PRACTICES [place] Medical Branch CONSENT/REFUSAL FOR 2021-05-15 05:07:15 Doctor Chantal, [facility] DIAGNOSIS AND TREATMENT [place] Medical Branch CT ABDOMEN W CONTRAST 2020-03-15 16:14:31 Requisition, Paper [facility] HB CREATININE BLOOD 2020-03-15 15:36:00 Radiology [facility] CT ABDOMEN PELVIS W 2019-12-22 15:45:00 [facility] Branch [facility] PATIENT FINANCIAL 2019-12-22 14:24:08 Doctor [facility]antal, [facility] POLICY [place] [facility] NO SHOW OR MISSED 2019-12-22 14:23:48 Doctor Kpigned, [facility] APPOINTMENT POLICY [place] Medical Branc h ACKNOWLEDGEMENT CONSENT/REFUSAL FOR 2019-12-22 14:23:20 Doctor Chantal [facility] DIAGNOSIS AND TREATMENT [place] Medical Branch ASSIGNMENT OF BENEFITS 2019-12-22 14:23:00 Doctor [facility]al[facility] [place] [facility] Encounters Start End Encounter Admission Attending Care Care Encounter Source Date/Time Date/Time Type Type Clinicians Facility Department ID 2021-05-15 2021-05-15 Outpatient Corby LAWS [facility] [id number] Univers 02:40:00 02:40:00 CAMELIA [id number] ity of [facility] 2021-05-14 2021-05-15 Emergency X [facility] ERT [id number] Univers 23:33:00 00:50:00 CAMELIA ity of [facility] 2021-05-14 2021-05-[address] [facility] [id number] Univers 23:33:00 00:50:00 Camelia G CANDICE [id number] ity of [id number] [id number] [facility] 084 Branch 2021-05-14 2021-05-14 Orders Doctor STEPHANIE [id number] Univers 00:00:00 00:00:00 Only Unassigned, ERIBERTO [id number] ity of [place] [facility] [id number] Jerry as [id number] [facility] 009 Branch 2020-08-17 2020-08-17 Outpatient R [facility] [id number] Univers 14:00:00 14:00:00 [id number] ity of [facility] 2020-08-16 2020-08-16 Nurse STEPHANIE Grace [id number] Univers 00:00:00 00:00:00 Triage Pam WEI [id number] it y of [facility] [id number] Jerry as [id number] [facility] 019 Branch 2020-08-05 2020-08-05 Outpatient [facility] [id number] Univers 15:10:00 15:10:00 ity of [facility] 2020-07-08 2020-07-08 [facility]patient [facility] [id number] Univers 15:00:00 15:00:00 CELESTINO ity of [facility] 2020-03-15 2020-03-15 [facility] Promise Coleman [facility] [id number] 10:38:27 23:59:00 Encounter Adrien Schuler [id number] [place] [id number] [place] [id number] 2020-03-15 2020-03-15 [facility] [id number] Univers 10:38:27 23:59:00 Encounter M [place] [id number] ity of [place] 4.2.7.2.686 [facility] [id number] [facility] 802 Branch 2020-03-15 2020-03-15 [facility] Radiology [facility] [id number] 10:07:12 10:37:00 Encounter [place] [id number] [place] [id number] [place] [id number] 2020-03-15 2020-03-15 [facility] Radiology [facility] [id number] [facility] 10:07:12 10:37:00 Encounter [place] [id number] ity of [place] 4.2.7.2.686 [facility] [id number] [address] 2020-03-15 2020-03-15 Outpatient R RADIOLOGY [facility] [id number] Univers 10:30:00 10:30:00 [id number] ity of [facility] 2020-03-15 2020-03-15 Outpatient R RADIOLOGY [facility] [id number] Univers 00:00:00 00:00:00 ity of [facility] 2019-12-22 2019-12-22 [facility] [id number] 09:24:00 23:59:00 Encounter M [place] [id number] [place] [id number] [place] [id number] 2019-12-22 2019-12-22 [facility] [id number] Univers 09:24:00 23:59:00 Encounter M [place] [id number] ity of [place] [id number] [facility] [id number] [address] 2019-12-22 2019-12-22 Vacation Planner Kadi Garza [facility] [id number] 10:00:14 10:15:14 Visit Lab Main Candice [id number] [place] [id number] Professio [id number] [address] 2019-12-22 2019-12-22 Vacation Planner Kadi Garza Lab Main [facility] [id number] [facility] 10:00:14 10:15:14 Visit Yoni Freeman [id number] [facility] 4.2.7.2.686 Kyle s Professio [id number] Fl dical [address] 2019-12-22 2019-12-22 Outpatient Corby COLEMAN [facility] [id number] Univers 10:00:00 10:00:00 [id number] ity [facility] 2019-12-22 2019-12-22 Outpatient Corby COLEMAN [facility] [id number] Univers 00:00:00 [facility] Results Test Test Test Results Result Source Description Time Comments Comments CT ABDOMEN W 2020-03- CT Abdomen and Pelvis University [facility] 14 with oral and intravenous [facility] 16:40:35 contrast. CLINICAL Branch HISTORY: Abnormal CT [...] left lobes. No calcified gallstones. Spleen is [id number] x 4.8 cm. Peritoneum: ?No free air [...] study from outside facility and are stable. [facility], Radiant Results Inft User - 03/15/2020 [...] left lobes. No calcified gallstones. Spleen is [id number] x 4.8 cm.Peritoneum: No free air or [...] Test Item Value Reference Range Interpretation Comme [facility] POCT Creatinine (test code = 7509600919) 0.9 mg/dL 0.6-1.3 Lab Interpretation (test code = 47954-9) [facility] WO [id number] 16:18:15CT Abdomen and Pelvis without and with intravenous contrast. CLINICAL HISTORY: No clinical history provided. DOSE: Up-to-date CT equipment and radiation dose reduction techniques wereemployed. CTDIvol:?6.01+5.98+5.98 mGy. DLP: 309+614 mGy-cm. TECHNIQUE : Contiguous axial imaging from the level of the lung basesthrough the pubic symphysis were performed initially without contrast andsubsequently after the uncomplicated administration of Omnipaque contrastmaterial. Third delayed venous CT set was also obtained. Coronal andsagittal reconstructions were obtained. Auto mA and/or iterativereconstructionwere used to reduce radiation dose. FINDINGS: ? [...] gallstonesdetected. Biliary ducts and the pancreatic duct appearof normal size. Peritoneum: ?No free air or free fluid. No lymphadenopathy. Pancreas and Adrenals: ?Unremarkable pancreas and adrenal glands. Kidneys and Ureters: 2 mm calcification in the upper pole of the leftkidney could be a small nonobstructing kidney stone. No hydroureter orhydronephrosis. Several low- density lesions are detected in both kidneys,ranging from 9 mm 2 45 mm in the right kidney andfrom 10 mm 2 64 mm in theleft kidney. None of the lesions show any worrisome features, consistentwith Bosniak type I renal cyst. There is one 15 mm cystic lesion in the interpolar lateral cortex of theleft kidney which shows features consistent with Bosniak type II renalcysts. Vessels: Moderate atherosclerosis in the aorta and iliac arteries aretortuous vessels. Retroperitoneum: No abnormal fluid or lymphadenopathy. Bowel: Constipation. Normal small bowel gas pattern. No sign of acuteappendicitis ordiverticulitis. Bladder and Reproductive Organs: Enlarged prostate with [...] This cyst may be monitored by follow upCT scan in 6 months.2. Hepatomegaly with subcentimeter cystic lesions in both right and leftlobes.3.2 mm calcification in the upper pole of the left kidney could be a smallnonobstructing stone. Corby Anthony adiant Results Inft User - 12/22/2019 11:19 AM CDTCT Abdomen and Pelvis without and with intravenouscontrast.CLINICAL HISTORY: No clinical history provided.DOSE: Up-to-date CT equipment and radiation dose reduction techniques wereemployed. CTDIvol: 6.01+5.98+5.98 mGy. DLP: 309+614 mGy-cm.TECHNIQUE : C ontiguous axial imaging from the level of the [...] around the EG junction is causing numerous artifacts.Liver, Gallbladder and Spleen: Liver measures approximately 19.5 cm inlengthand showed subcentimeter cystic lesions in both right [...] could be a small nonobstructing kidney stone. Nohydroureter orhydronephrosis. Several low-density lesions are detected in both kidneys,ranging from [...] in the aorta and iliac arteries aretortuous vessels.Retro peritoneum: No abnormal fluid or lymphadenopathy.Bowel: Constipation. Normal small bowel gas pattern. No sign of acuteappendicitis or diverticulitis.Bladder and Reproductive Organs: Enlarged prostate with faint central zonecalcifications. No gross pathology in the unopacified urinary bladder.Bones: Mild lower lumbar levoscoliosis with exaggerated lordosis, minimalretrolisthesis at L3-L4, L5-S1 and minimal spondylolisthesis at L4-L5 withhypertrophic facet arthritis at L4-L5. Old fracture left orbitalplate ofT11 which has lost approximately 15% of [...] the left kidney could be a smallnonobstructing stone.[facility] [id number] 09:24:00 Test Item Value Reference Range Interpretation Comments HEMOGLOBIN A1C ([facility]) (test code = 7.4 % 4.3-6.1 H 368) POCT-GLUCOSE [id number] 08:38:00 Test Item Value Reference Range Interpretation Comments POC-GLUCOSE METER 114 mg/dL 70-110 H TESTED AT [facility] 6720 ([facility]) (test code = [place] [address]) [address] COMPREHENSIVE METABOLIC [id number] 06:24:00 Test Item Value Reference Range Interpretation Comments TOTAL PROTEIN 5.9 gm/dL 6.0-8.3 L ([facility]) (test code = 770) ALBUMIN ([facility]) 3.3 g/dL 3.5-5.0 L (test code = 1145) ALKALINE PHOSPHATASE 33 U/L 40-150 L ([facility]) (test code = 346) BILIRUBIN TOTAL 1.2 mg/dL 0.2-1.2 ([facility]) (test code = 377) SODIUM ([facility]) (test 142 meq/L 136-145 code = 381) [...] PATIEN TS. CBC W/PLT COUNT & AUTO [id number] 06:04:00 Test Item Value Reference Range Interpretation [...] PERCENT (BEAKER) (test code = 2801) POCT-GLUCOSE [id number] 21:22:00 Test Item Value Reference Range Interpretation Comments POC-GLUCOSE METER 167 mg/dL 70-110 H TESTED AT [place] [address] ([facility]) (test code = [facility] 1538) [address] POCT-GLUCOSE [id number] 18:22:00 Test Item Value Reference Range Interpretation Comments POC-GLUCOSE METER 85 mg/dL 70-110 TESTED AT [place] [address] ([facility]) (test code = [facility] [address] 1538) POCT-GLUCOSE [id number] 12:19:00 Test Item Value Reference Range Interpretation Comments POC-GLUCOSE METER 149 mg/dL 70-110 H TESTED AT [place] [address] ([facility]) (test code = [facility] 1538) [id number] POCT-GLUCOSE [id number] 08:18:00 Test Item Value Reference Range Interpretation Comments POC-GLUCOSE METER 103 mg/dL 70-110 TESTED AT [place] [address] ([facility] (test code = [facility] 1538) [address] POCT-GLUCOSE [id number] 21:12:00 Test Item Value Reference Range Interpretation Comments POC-GLUCOSE METER 114 mg/dL 70-110 H TESTED AT [facility] 6720 (YONNY) (test code = [facility] 1538) [address] POCT-GLUCOSE [id number] 18:20:00 Test Item Value Reference Range Interpretation Comments POC-GLUCOSE METER 70 mg/dL 70-110 TESTED AT [place] [id number] ([facility]) (test code = [facility] [address] 1538) [id number] 14:02:00 Test Item Value Reference Range Interpretation Comments LIPASE (YONNY) (test code = 749) 483 U/L 8-78 H U/S, ABDOMINAL, [id number] 13:08:00Abdomen limited area? Add comment if clarification is needed.->Gall BladderReason for exam:->eval for gall stonesFINAL REPORT HISTORY : Gallstones COMPARISON: None. COMMENT :Limited ultrasoundexamination of the abdomen was performed with attention to the right upper quadrant. The visualized pancreas appears unremarkable. The liver is enlarged measuring 20.1 cm in length. The hepatic parenchyma appears homogeneous without evidence for focal abnormality. The main portal vein is patent with adiameter of 1.37 m, within normal limits. The gallbladder is unremarkable. There is no evidence for shadowing stones, gallbladder wall thickening, or pericholecystic fluid. There is no intrahepatic biliary ductal dilatation. The common bile duct is mildly prominent measuring 0.7 cm in maximal caliber.The right kidney is normal in size measuring [...] MDReport Verified Date/Time: 09/16/2018 13:08:32 Reading Location: [facility] [id number] Ultrasound Reading Room POCT-GLUCOSE METER 2018-09-16 12:13:00 Test Item Value Reference Range Interpretation Comments POC-GLUCOSE METER 130 mg/dL 70-110 H TESTED AT [facility] 6720 (BEAKER) (test code = [facility] 1538) [id number] POCT-GLUCOSE [id number] 09:11:00 Test Item Value Reference Range Interpretation Comments POC-GLUCOSE METER 90 mg/dL 70-110 TESTED AT [facility] 6720 (BEAKER) (test code = [facility] [address] 1538) [id number] 06:24:00 Test Item Value Reference Range Interpretation Comments TRIGLYCERIDES (BEAKER) (test code = 48 mg/dL 540) TRIGLYCERIDE REFERENCE RANGELow Risk <150Borderline Risk 150-199High Risk 200-499Very High Risk >=500COMPREHENSIVE METABOLIC [id number] 06:24:00 Test Item Value Reference Range Interpretation [...] PATIEN TS. CBC W/PLT COUNT & AUTO [id number] 06:08:00 Test Item Value Reference Range Interpretation [...] PERCENT (BEAKER) (test code = 2801) POCT-GLUCOSE [id number] 21:18:00 Test Item Value Reference Range Interpretation Comments POC-GLUCOSE METER 87 mg/dL 70-110 TESTED AT [place] [address] ([facility]) (test code = [facility] [address] 1538) POCT-GLUCOSE [id number] 20:02:00 Test Item Value Reference Range Interpretation Comments POC-GLUCOSE METER 98 mg/dL 70-110 TESTED AT [place] [address] ([facility]) (test code = [facility] [address] 1538) POCT-GLUCOSE [id number] 09:15:00 Test Item Value Reference Range Interpretation Comments POC-GLUCOSE METER 229 mg/dL 70-110 H TESTED AT [place] [address] ([facility]) (test code = [facility] 1538) [address] POCT-GLUCOSE [id number] 08:10:00 Test Item Value Reference Range Interpretation Comments POC-GLUCOSE METER 238 mg/dL 70-110 H TESTED AT [place] [address] (BEAKER) (test code = [facility] 1538) [address] [id number] 04:55:00 Test Item Value Reference Range Interpretation Comments MAGNESIUM (BEAKER) (test code = 2.0 mg/dL 1.6-2.6 627) BASIC METABOLIC [id number] 04:55:00 Test Item Value Reference Range Interpretation [...] GFR I S NOT APPLICABLE FOR DIALYSIS PATISHORTY HEADLEY [id number] 04:47:00 Test Item Value Reference Range Interpretation Comments PARTIAL THROMBOPLASTIN TIME 26.9 seconds 22.5-36.0 (BEAKER) (test code = 760) PROTHROMBIN [id number] 04:46:00 Test Item Value Reference Range Interpretation Comments PROTIME (BEAKER) (test code = 12.9 seconds 11.7-14.7 759) INR (BEAKER) (test code = 370) 1.0 <=5.9 RECOMMENDED COUMADIN/WARFARIN INR THERAPY RANGESSTANDARD DOSE: 2.0 - 3.0 Includes: PROPHYLAXIS for venous thrombosis, systemic embolization; TREATMENT for venous thrombosis and/or pulmonary embolus.HIGH RISK: Target INR is 2.5-3.5 for patients with mechanical heart valves.CBC W/PLT COUNT & AUTO [id number] 04:36:00 Test Item Value Reference Range Interpretation [...] L 0.00-0.20 (test code = 417) 0.00POCT-GLUCOSE [id number] 22:06:00 Test Item Value Reference Range Interpretation Comments POC-GLUCOSE METER 243 mg/dL 70-110 H TESTED AT [facility] 6720 ([facility]) (test code = [facility] 1538) [id number] POCT-GLUCOSE [id number] 17:17:00 Test Item Value Reference Range Interpretation Comments POC-GLUCOSE METER 218 mg/dL 70-110 H TESTED AT [facility] 6720 ([facility]) (test code = [facility] 1538) [id number]
[2022-02-14 06:24] LABS: Urine Blood 3+ (Negative); Urine Glucose 2+ (Negative); Urine Protein 2+ (Negative)
[2022-02-14] MEDS ORDERED: MORPHINE 4 MG/ML SYR ONE (06:42)
--- NOTE | 2022-02-14 08:20 | RAD REPORT ---
EXAM DESCRIPTION: CT - Pelvis W/Wo - 02/14/2022 8:06 am CLINICAL HISTORY: Right lower quadrant pain. Pelvic pain COMPARISON: 2020 TECHNIQUE: Computed axial tomography of the pelvis was obtained. Coronal and sagittal reconstruction performed 50 cc Isovue-300 administered intravenously. Delayed images were also obtained. All CT scans are performed using dose optimization technique as appropriate and may include automated exposure control or mA/KV adjustment according to patient size. FINDINGS: Postsurgical changes of an urolift procedure A Hardin catheter is present within the bladder. No significant filling defect noted. Bladder wall thickness relatively normal. The prostate gland is moderately enlarged. Seminal vesicles appear unremarkable. No evidence of diverticulitis. Normal appendix. Small right and moderate left inguinal hernias contain fat No ascites IMPRESSION: No acute abnormality displayed
[2022-02-14 08:45] LABS: Absolute Lymphocytes (CBC) 2.2 K/uL (0.7-4.9); Hematocrit 43.7 % (39.6-49.0); Lymphocytes % 20.6 % (15.3-44.8); MCV 78.7 fL (80-100); RBC Red Blood Cell Count 5.55 M/uL (4.33-5.43)
[2022-02-14] MEDS ORDERED: DERMABOND SKIN ADHESIVE TOP ONE (08:50)
[2022-02-14] MEDS ORDERED: ONDANSETRON 4 MG/2 ML VIAL ONE (08:50)
[2022-02-14] MEDS ORDERED: MORPHINE 2 MG/ML SYR ONE (08:50)
[2022-02-14 09:05] LABS: Potassium 3.5 mmol/L (3.5-5.1)
[2022-02-14 09:06] LABS: Albumin 3.5 g/dL (3.4-5.0); Bilirubin Total 0.7 mg/dL (0.2-1.0); Protein, Total 7.1 g/dL (6.4-8.2)
--- NOTE | 2022-02-14 09:17 | EDPHYS ---
Physician Documentation [facility] Name: Donal Valentine Age: 71 yrs Sex: Male : 1950 Arrival Date: 02/14/2022 Time: 05:43 Bed 6 Private MD: DEB Physician Tanvir Pacheco HPI: 02/14 06:39 This 71 yrs old Male presents to ER via Ambulatory with complaints of Problem With kdr Urinary Catheter. 06:39 Patient states that he had a UroLift on Friday by Dr. Garcia. At that time he had a kdr Khan catheter inserted. Last night he began having a lot of pain in his penis where the catheter was. He states he has been unable to urinate or pass urine.. Onset: The symptoms/episode began/occurred acutely, suddenly, last night. Severity of symptoms: At their worst the symptoms were mild Pain is currently a / 10. The patient has not experienced similar symptoms in the past. The patient has been recently seen by a physician: Dr. Garcia. Historical: - Allergies: 06:09 Codeine; bb 06:09 PENICILLINS; bb 06:09 Vicodin; bb - Home Meds: 06:09 Creon 36,000-114,000- 180,000 unit oral cpDR 2 caps after meals and before bedtime bb [Active]; Famotidine Oral [Active]; losartan-hydrochlorothiazide 100-25 mg Oral tab 1 tab once daily for Hypertension [Active]; glimepiride 4 mg Oral tab 1 tab twice a day [Active]; alprazolam 1 mg Oral tab 1 tab twice a day for Anxiety [Active]; Jardiance 25 mg Oral tab 1 tab once daily [Active]; aspirin 81 mg Oral chew 1 tab once daily [Active]; testosteron [Active]; - PMHx: 06:09 Diabetes - NIDDM; Hypertension; Zabala's disease; Pancreatitis; bb - Immunization history:: Moderna x 4. - Social history:: Smoking status: Patient denies any tobacco usage or history of. ROS: 06:39 Constitutional: Negative for fever, chills, and weight loss, Eyes: Negative for injury, kdr pain, redness, and discharge, ENT: Negative for injury, pain, and discharge, Neck: Negative for injury, pain, and swelling, Cardiovascular: Negative for chest pain, palpitations, and edema, Respiratory: Negative for shortness of breath, cough, wheezing, and pleuritic chest pain, Abdomen/GI: Negative for abdominal pain, nausea, vomiting, diarrhea, and constipation, Back: Negative for injury and pain, : Negative for injury, bleeding, discharge, and swelling, MS/Extremity: Negative for injury and deformity, Skin: Negative for injury, rash, and discoloration, Neuro: Negative for headache, weakness, numbness, tingling, and seizure activity. Psych: Negative for depression, anxiety, suicide ideation, homicidal ideation, and hallucinations, Allergy/Immunology: Negative for hives, rash, and allergies, Endocrine: Negative for neck swelling, polydipsia, polyuria, polyphagia, and marked weight changes, Hematologic/Lymphatic: Negative for swollen nodes, abnormal bleeding, and unusual bruising. 06:39 : Positive for injury or acute deformity, urinary symptoms. Exam: 06:39 Constitutional: This is a well developed, well nourished patient who is awake, alert, kdr and in no acute distress. Head/Face: Normocephalic, atraumatic. Eyes: Pupils equal round and reactive to light, extra-ocular motions intact. Lids and lashes normal. Conjunctiva and sclera are non-icteric and not injected. Cornea within normal limits. Periorbital areas with no swelling, redness, or edema. Neck: Trachea midline, no thyromegaly or masses palpated, and no cervical lymphadenopathy. Supple, full range of motion without nuchal rigidity, or vertebral point tenderness. No Meningismus. Chest/axilla: Normal chest wall appearance and motion. Nontender with no deformity. No lesions are appreciated. Cardiovascular: Regular rate and rhythm with a normal S1 and S2. No gallops, murmurs, or rubs. Normal PMI, no JVD. No pulse deficits. Respiratory: Lungs have equal breath sounds bilaterally, clear to auscultation and percussion. No rales, rhonchi or wheezes noted. No increased work of breathing, no retractions or nasal flaring. Abdomen/GI: Soft, non-tender, with normal bowel sounds. No distension or tympany. No guarding or rebound. No evidence of tenderness throughout. Back: No spinal tenderness. No costovertebral tenderness. Full range of motion. Skin: Warm, dry with normal turgor. Normal color with no rashes, no lesions, and no evidence of cellulitis. Vital Signs: 06:07 BP 154 / 86; Pulse 100; Resp 18; Temp 98.4; Pulse Ox 94% ; ha1 06:07 BP 154 / 86; Pulse 68; Resp 22 S; Temp 98.4(O); Pulse Ox 95% on R/A; Weight 89.81 kg bb (R); Height 6 ft. 1 in. (185.42 cm) (R); Pain 8/10; 06:44 BP 134 / 86; kl 08:51 BP 147 / 86; Pulse 89; Resp 18; Pulse Ox 95% on R/A; ph 06:07 Body Mass Index 26.12 (89.81 kg, 185.42 cm) MDM: 06:39 Data reviewed: vital signs, nurses notes, lab test result(s), radiologic studies. kdr Counseling: I had a detailed discussion with the patient and/or guardian regarding: the historical points, exam findings, and any diagnostic results supporting the discharge/admit diagnosis, lab results, radiology results, the need for outpatient follow up. 07:35 Patient medically screened. [facility] 02/14 06:24 Order name: Urine Dipstick-Ancillary; Complete Time: 07:17 EDMT 02/14 08:12 Order name: CBC with Diff; Complete Time: 08:58 [facility] 02/14 08:09 Order name: Pelvis W/Wo; Complete Time: 08:58 EDMT 02/14 08:12 Order name: Comprehensive Metabolic Panel; Complete Time: 09:07 [facility] 02/14 05:53 Order name: Urine Dipstick-Ancillary (obtain specimen); Complete Time: 06:25 [facility] 02/14 06:30 Order name: Bladder Scanner; Complete Time: 07:16 kdr 02/14 06:30 Order name: Misc. Order: Iirrigate khan; Complete Time: 07:16 kdr Administered Medications: 06:40 Drug: morphine 4 mg Route: IVP; Infused Over: 4 mins; Site: right forearm; kl 07:00 Follow up: Response: No adverse reaction; RASS: Alert and Calm (0) ph 07:32 CANCELLED (Other Intervention Used): Demerol (meperidine) 25 mg IM once ko1 08:51 Drug: NS 0.9% 1000 ml Route: IV; Rate: 125 ml/hr; Site: right forearm; ph 09:53 Follow up: Response: No adverse reaction; IV Status: Completed infusion ph 08:51 Drug: morphine 2 mg Route: IVP; Infused Over: 4 mins; Site: right forearm; ph 09:53 Follow up: Response: No adverse reaction ph 09:52 Drug: Rocephin (cefTRIAXone) 1 grams Route: IV; Rate: per protocol; Site: right forearm;ph 10:16 Follow up: Response: No adverse reaction; IV Status: Completed infusion ph 09:52 Drug: Pyridium (phenazopyridine) 200 mg Route: PO; ph 09:54 Follow up: Response: No adverse reaction ph 09:53 Drug: Valium (diazepam) 5 mg Route: PO; ph 09:54 Follow up: Response: No adverse reaction ph Disposition Summary: 02/14/22 09:16 Discharge Ordered Location: Home [place] Problem: new [place] Symptoms: have improved [place] Condition: Stable [place] Diagnosis - UTI/ Urinary tract infection, site not specified [place] - Other mechanical complication of urinary (indwelling) catheter [place] Followup: [place] - With: Private Physician - When: Tomorrow - Reason: Recheck today's complaints, Continuance of care, Re-evaluation by your physician Followup: [place] - With: Poncho Garcia MD - When: Tomorrow - Reason: Recheck today's complaints, Continuance of care, Re-evaluation by your physician Discharge Instructions: - Discharge Summary Sheet [place] - Dysuria [place] - Urinary Tract Infection, Adult [place] - Urinary Tract Infection, Adult, [id number]-[id number] [place] - Indwelling Urinary Catheter Care, Adult, [id number] [facility] Forms: - Medication Reconciliation Form [facility] - Thank You Letter [place] - Antibiotic Education [place] - Prescription Opioid Use [facility] Prescriptions: - Pyridium 200 mg Oral Tablet - take 1 tablet by ORAL route every 8 hours for 3 days; 9 tablet; Refills: 0, [facility] Product Selection Permitted - Valium 2 mg Oral Tablet - take 1 tablet by ORAL route every 8 hours As needed; 20 tablet; Refills: 0, [facility] Product Selection Permitted - Bactrim DS 800-160 mg Oral Tablet - take 1 tablet by ORAL route every 12 hours for 7 days; 14 tablet; Refills: 0, [facility] Product Selection Permitted Signatures: Dispatcher [employer] EDMS Silvano, Francesca, RN Tanvir Funes MD MD cha Rittger, Kevin, MD MD kdr Maribel Flowers RN RN bb Hall, Patricia, RN RN ph Oliver, Kathy RN ko1 Corrections: (The following items were deleted from the chart) 07:32 07:26 Demerol (meperidine) 25 mg IM once ordered. kdr ko1 08:09 07:30 Pelvis W/Cont+CT.RAD.BRZ ordered. EDMS EDMS
--- NOTE | 2022-02-14 09:17 | ER ---
Nurse's Notes [facility] Name: Donal Valentine Age: 71 yrs Sex: Male : 1950 Arrival Date: 02/14/2022 Time: 05:43 Bed 6 Private MD: Diagnosis: UTI/ Urinary tract infection, site not specified;Other mechanical complication of urinary (indwelling) catheter Presentation: 02/14 06:07 Chief complaint: Patient states: he had a urolift with Dr Garcia on Friday and had a bb khan catheter inserted but last night he started having a lot of pain and is unable to urinate due to the pain. Coronavirus screen: At this time, the client does not indicate any symptoms associated with coronavirus-19. Ebola Screen: No symptoms or risks identified at this time. Initial Sepsis Screen: Does the patient meet any 2 criteria? No. Patient's initial sepsis screen is negative. Does the patient have a suspected source of infection? No. Patient's initial sepsis screen is negative. Risk Assessment: Do you want to hurt yourself or someone else? Patient reports no desire to harm self or others. Onset of symptoms was February 13, 2022. 06:07 Method Of Arrival: Ambulatory bb 06:07 Acuity: MINOR 3 bb Historical: - Allergies: 06:09 Codeine; bb 06:09 PENICILLINS; bb 06:09 Vicodin; bb - Home Meds: 06:09 Creon 36,000-114,000- 180,000 unit oral cpDR 2 caps after meals and before bedtime bb [Active]; Famotidine Oral [Active]; losartan-hydrochlorothiazide 100-25 mg Oral tab 1 tab once daily for Hypertension [Active]; glimepiride 4 mg Oral tab 1 tab twice a day [Active]; alprazolam 1 mg Oral tab 1 tab twice a day for Anxiety [Active]; Jardiance 25 mg Oral tab 1 tab once daily [Active]; aspirin 81 mg Oral chew 1 tab once daily [Active]; testosteron [Active]; - PMHx: 06:09 Diabetes - NIDDM; Hypertension; Zabala's disease; Pancreatitis; bb - Immunization history:: Moderna x 4. - Social history:: Smoking status: Patient denies any tobacco usage or history of. Screenin:13 Abuse screen: Denies threats or abuse. Denies injuries from another. Nutritional ha1 screening: No deficits noted. Tuberculosis screening: No symptoms or risk factors identified. Fall Risk None identified. Assessment: 06:09 General: Appears uncomfortable, Behavior is cooperative. Pain: Complains of pain in ha1 urethra. Pain:. Neuro: Level of Consciousness is awake, alert, Oriented to person, place, time, situation. Cardiovascular: Patient's skin is warm and dry. Respiratory: Airway is patent Trachea midline Respiratory effort is even, unlabored. : Khan in place to gravity drainage Urine is blood tinged. 07:30 Reassessment: Patient appears in no apparent distress at this time. Patient and/or ph family updated on plan of care and expected duration. Pain level reassessed. Patient is alert, oriented x 3, equal unlabored respirations, skin warm/dry/pink. 08:30 Reassessment: Patient appears in no apparent distress at this time. Patient and/or ph family updated on plan of care and expected duration. Pain level reassessed. Patient is alert, oriented x 3, equal unlabored respirations, skin warm/dry/pink. 09:55 Reassessment: Patient appears in no apparent distress at this time. Patient and/or ph family updated on plan of care and expected duration. Pain level reassessed. Patient is alert, oriented x 3, equal unlabored respirations, skin warm/dry/pink. d/c pending completion of IV antibiotics. 10:16 Reassessment: Patient appears in no apparent distress at this time. Patient and/or ph family updated on plan of care and expected duration. Pain level reassessed. Patient is alert, oriented x 3, equal unlabored respirations, skin warm/dry/pink. Pt d/c home, prior to d/c Khan bag emptied of approx 700 mL red tinged urine, urine also noted in tubing. Pt instructed to follow up w/ urologist tomorrow. Vital Signs: 06:07 BP 154 / 86; Pulse 100; Resp 18; Temp 98.4; Pulse Ox 94% ; ha1 06:07 BP 154 / 86; Pulse 68; Resp 22 S; Temp 98.4(O); Pulse Ox 95% on R/A; Weight 89.81 kg bb (R); Height 6 ft. 1 in. (185.42 cm) (R); Pain 8/10; 06:44 BP 134 / 86; kl 08:51 BP 147 / 86; Pulse 89; Resp 18; Pulse Ox 95% on R/A; ph 06:07 Body Mass Index 26.12 (89.81 kg, 185.42 cm) bb ED Course: 05:43 Patient arrived in ED. ja2 05:53 Siva Vazquez MD is Attending Physician. kdr 06:05 Patti Medina RN is Primary Nurse. ha1 06:09 Triage completed. bb 06:14 Arm band placed on right wrist. ha1 06:44 Inserted saline lock: 20 gauge in right forearm, using aseptic technique. kl 07:02 Report given to TAMIKA Alvarado. ha1 07:27 Attending Physician role handed off by Siva Vazquez MD morales 07:27 Tanvir Pacheco MD is Attending Physician. morales 08:09 Pelvis W/Wo In Process Unspecified. EDMS 08:52 Patient has correct armband on for positive identification. Placed in gown. Bed in low ph position. Call light in reach. Side rails up X 1. Pulse ox on. NIBP on. 09:12 Poncho Garcia MD is Referral Physician. morales 09:52 No provider procedures requiring assistance completed. ph 10:18 IV discontinued, intact, bleeding controlled, No redness/swelling at site. Pressure ph dressing applied. Administered Medications: 06:40 Drug: morphine 4 mg Route: IVP; Infused Over: 4 mins; Site: right forearm; kl 07:00 Follow up: Response: No adverse reaction; RASS: Alert and Calm (0) ph 07:32 CANCELLED (Other Intervention Used): Demerol (meperidine) 25 mg IM once ko1 08:51 Drug: NS 0.9% 1000 ml Route: IV; Rate: 125 ml/hr; Site: right forearm; ph 09:53 Follow up: Response: No adverse reaction; IV Status: Completed infusion ph 08:51 Drug: morphine 2 mg Route: IVP; Infused Over: 4 mins; Site: right forearm; ph 09:53 Follow up: Response: No adverse reaction ph 09:52 Drug: Rocephin (cefTRIAXone) 1 grams Route: IV; Rate: per protocol; Site: right forearm;ph 10:16 Follow up: Response: No adverse reaction; IV Status: Completed infusion ph 09:52 Drug: Pyridium (phenazopyridine) 200 mg Route: PO; ph 09:54 Follow up: Response: No adverse reaction ph 09:53 Drug: Valium (diazepam) 5 mg Route: PO; ph 09:54 Follow up: Response: No adverse reaction ph Medication: 08:52 VIS not applicable for this client. ph Output: 10:16 Urine: 700ml (Khan); Total: 700ml. ph Outcome: 09:16 Discharge ordered by . morales 10:18 Discharged to home ambulatory. ph 10:18 Condition: good 10:18 Discharge instructions given to patient, Instructed on discharge instructions, follow up and referral plans. medication usage, Demonstrated understanding of instructions, follow-up care, medications. 10:24 Patient left the ED. ph Signatures: Dispatcher [employer] EDMS Francesca Schaefer, RN Tanvir Funes MD MD cha Rittger, Kevin, MD MD kdr Ballard, Brenda, RN RN bb Hall, Patricia, RN RN ph Alexander, Jessica ja2 Ayala, Heidy, RN RN haAmelia Pena RN ko1 Corrections: (The following items were deleted from the chart) 09:56 09:55 Reassessment: Patient appears in no apparent distress at this time. Patient ph and/or family updated on plan of care and expected duration. Pain level reassessed. Patient is alert, oriented x 3, equal unlabored respirations, skin warm/dry/pink. ph
[2022-02-14] MEDS ORDERED: PHENAZOPYRIDINE 100MG TAB PO ONE (09:51)
[2022-02-14] MEDS ORDERED: DIAZEPAM 5 MG TABLET ONE (09:51)
[2022-02-14] MEDS ORDERED: CEFTRIAXONE 1000 MG/VIAL ONE (09:52)
[2022-02-14] MEDS ORDERED: NA CHLORIDE 0.9% 50 ML ONE (09:52)
[2022-02-15 13:17] VITALS: BP 154/86; TEMP 98.4; O2SAT 94
== END 2022-02-14 10:24 | disposition home or self-care (01) ==
LOC: ER 05:41
DX: T83.098A Other mechanical complication of other urinary catheter, initial encounter (principal); N39.0 Urinary tract infection, site not specified; Z98.890 Other specified postprocedural states
CPT/HCPCS: 96365; 96361; 85025; 36415; 81003; 80053; 72194; 96375; 99284; Q9967; J2270; J2405

== ENCOUNTER 2023-10-19 17:20 | Inpatient (IN) | payer OTHER ==
[2023-10-19] MEDS ORDERED: NA CHLORIDE 0.9% 1,000 ML ONE (17:57)
[2023-10-19] MEDS ORDERED: METOCLOPRAMIDE 10 MG/2mL INJ ONE (17:57)
[2023-10-19] MEDS ORDERED: FAMOTIDINE 20 MG/2 ML VIAL IV ONE (17:57)
[2023-10-19 18:18] LABS: Absolute Eosinophils 0.3 K/uL (0-0.5); Absolute Lymphocytes (CBC) 0.4 K/uL (0.7-4.9); Absolute Monocytes 0.8 K/uL (0.1-1.3); Absolute Neutrophil 6.2 K/uL (1.8-8.0); Basophils % 0.3 % (0-1.3); Eosinophils % 4.4 % (0-4.4); Hematocrit 50.6 % (39.6-49.0); Hemoglobin 16.3 g/dL (13.6-17.9); Lymphocytes % 4.7 % (15.3-44.8); MCH 27.5 pg (27.0-35.0); MCHC 32.3 g/dL (32.0-36.0); MCV 85.2 fL (80-100); MPV 8.9 fL (7.6-11.3); Neutrophils % 80.6 % (41.7-73.7); Platelets 166 thou/uL (152-406); RBC Red Blood Cell Count 5.94 M/uL (4.33-5.43); Red Cell Distribution Width 17.4 % (12.1-15.2)
[2023-10-19 18:28] LABS: PT Prothrombin Time 12.2 SECONDS (9.5-12.5); PTT, Activated Partial Thromb 29.7 SECONDS (24.3-36.9); Protime INR 1.11
[2023-10-19 18:32] LABS: SARS-CoV-2 Antigen CONTROL BLUE LINE VIS/BG OK; SARS-CoV-2 Antigen Rapid Res Negative (Negative)
[2023-10-19 18:42] LABS: Monoscreen NEG (NEG)
[2023-10-19 18:43] LABS: Albumin 3.5 g/dL (3.4-5.0); Albumin/Globulin Ratio 0.9 (1.1-1.8); Bilirubin Total 3.5 mg/dL (0.2-1.0); Globulin 4.1 g/dL (2.3-3.5); Protein, Total 7.6 g/dL (6.4-8.2); Troponin High Sensitivity 51.6 pg/mL (<58.9)
--- NOTE | 2023-10-19 18:49 | RAD REPORT ---
EXAM DESCRIPTION: RADChest Single View10/19/2023 6:11 pm CLINICAL HISTORY: CHEST PAIN COMPARISON: Chest Pa And Lat (2 Views) dated 02/08/2022; Chest Single View dated 03/06/2021; Chest Pa A nd Lat (2 Views) dated 05/24/2020; Chest Single View dated 11/02/2018 TECHNIQUE: Portable AP view of the chest. FINDINGS: The lungs are clear. No pneumothorax or effusion. The cardiomediastinal contours are unre markable. IMPRESSION: No acute cardiopulmonary process.
[2023-10-19] MEDS ORDERED: ONDANSETRON 4 MG/2 ML VIAL ONE ×2 (18:51→22:41)
[2023-10-19] MEDS ORDERED: MORPHINE 4 MG/ML SYR ONE (18:51)
[2023-10-19 19:39] LABS: Sqamous Epithelial None Seen /HPF (None Seen); Urine Bacteria <20 /HPF (<20); Urine Bilirubin 1+ (Negative); Urine Blood Negative (Negative); Urine Clarity Clear (Clear); Urine Color Yellow (Yellow); Urine Culture Reflex Order NOT NEEDED; Urine Glucose 4+ (Over) (Negative); Urine Ketones 2+ (Negative); Urine Microscopic Reflex YN ORDER UMIC; Urine Mucus Slight /HPF (None Seen); Urine Nitrite NEGATIVE (Negative); Urine Protein TRACE (Negative); Urine RBC <5 /HPF (None Seen); Urine Urobilinogen 2+ (Normal); Urine WBC <5 /HPF (<5)
--- NOTE | 2023-10-19 20:20 | RAD REPORT ---
EXAM DESCRIPTION: CT - Abdomen Pelvis W Contrast - 10/19/2023 7:17 pm CLINICAL HISTORY: ABD PAIN COMPARISON: Abdomen Pelvis W Contrast dated 12/01/2018; Abdomen Pelvis W Contrast dated 11/02/2018; Abdomen Pelvis W Contrast dated 09/15/2018; Thorax Wo Con dated 09/20/2021; Abdomen W/Wo Contrast sri ed 12/26/2020 TECHNIQUE: Thin cut axial CT imaging of the abdomen and pelvis was performed following intravenous a dministration of iodinated contrast. Multiplanar reformats were generated and reviewed. All CT scans are performed using dose optimization technique as appropriate and may include automated exposure control or mA/KV adjustment according to patient size. FINDINGS: No suspicious findings in the lung bases. The liver and pancreas show multiple small hypoattenuating well-circumscribed lesions, suggestive of cysts. In the pancreas, the largest is at the tail measuring 1.3 cm. These are not well characterized , although the pancreatic lesions are probably stable since the 2021 CT. Spleen and adrenal glands sh ow no suspicious findings. Gallbladder is not well visualized, may be contracted. Symmetric renal function is seen with no hydronephrosis or suspicious renal mass. Multiple renal lesvia ical cysts, largest at the left superior pole measuring 7.3 cm. Gastric band in place. No dilated bowel loops or bowel wall thickening. No free air, free fluid or in flammatory stranding. No hernia, mass or bulky lymphadenopathy. The urinary bladder is without signif icant finding. No suspicious bony findings. IMPRESSION: No acute intra-abdominal process. Small pancreatic cystic lesions, largest measuring 1.3 cm. These are not well characterized, although are probably stable since the 2021 CT. Additional characterization by pancreatic protocol MRI is rec ommended to ensure stability. Incidentally noted hepatic and renal cysts as well, likely stable.
--- NOTE | 2023-10-19 22:28 | RAD REPORT ---
EXAM DESCRIPTION: US - Abdomen Exam Limited - 10/19/2023 9:38 pm CLINICAL HISTORY: ABDOMINAL DISTENTION COMPARISON: Abdomen Pelvis W Contrast dated 10/19/2023 TECHNIQUE: Sonographic grayscale and color flow images of the right upper abdominal quadrant were o btained. FINDINGS: The gallbladder was not well visualized, possibly contracted. No pericholecystic fluid or abnormal collections in the gallbladder bed. The common bile duct is normal measuring 4 mm. The liver demonstrates no findings of intrahepatic biliary dilatation. IMPRESSION: Limited exam due to nonvisualization of the gallbladder. No other abnormalities identifi ed sonographically.
[2023-10-19] MEDS ORDERED: POTASSIUM 25 MEQ EFFERV TAB ONE (23:30)
--- NOTE | 2023-10-20 00:16 | EDPHYS ---
Physician Documentation [facility] Name: Donal Valentine Age: 73 yrs Sex: Male : 1950 Arrival Date: 10/19/2023 Time: 17:20 Bed 15 Private MD: ED Physician Leandro Thacker HPI: 10/18 18:48 This 73 yrs old Male presents to ER via EMS with complaints of Nausea/Vomiting. cp 18:48 The patient presents to the emergency department with nausea, with "dry heaves", cp vomiting, that is continuous, abdominal pain. Onset: The symptoms/episode began/occurred this morning. Associated signs and symptoms: Pertinent positives: weakness, Pertinent negatives: constipation, diarrhea, fever, GI bleeding. The patient reports fever, not measured (subjective). 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 - Infectious Disease History:: Denies. - Social history:: Smoking status: Patient denies any tobacco usage or history of. ROS: 18:55 Cardiovascular: Positive for chest pain, Negative for edema, palpitations, cp 18:55 Eyes: Negative for injury, pain, redness, and discharge, cp 18:55 Constitutional: Negative for body aches, chills, fever, poor PO intake, 18:55 ENT: Negative for drainage from ear(s), ear pain, sore throat, difficulty swallowing, difficulty handling secretions, 18:55 Respiratory: Negative for cough, wheezing, 18:55 Abdomen/GI: Positive for abdominal pain, nausea and vomiting, anorexia, Negative for diarrhea, constipation, hematemesis, black/tarry stool, rectal bleeding, 18:55 Neuro: Positive for weakness, Negative for altered mental status, numbness, syncope, 18:55 All other systems are negative, Exam: 17:47 ECG was reviewed by the Attending Physician. cp 19:00 Constitutional: The patient appears in no acute distress, alert, awake, cp non-diaphoretic, non-toxic, well developed, well nourished, anxious, tearful 19:00 Head/Face: Normocephalic, atraumatic. cp 19:00 Eyes: Periorbital structures: appear normal, Conjunctiva: normal, no exudate, no injection, Sclera: no appreciated abnormality, Lids and lashes: appear normal, bilaterally, 19:00 ENT: External ear(s): are unremarkable, Nose: is normal, Mouth: Lips: moist, Oral mucosa: pink and intact, moist, Posterior pharynx: Airway: no evidence of obstruction, patent, 19:00 Neck: ROM/movement: is normal, is supple, without pain, no range of motions limitations, no meningismus, no nuchal rigidity, 19:00 Chest/axilla: Inspection: normal, 19:00 Cardiovascular: Rate: normal, Rhythm: regular, Edema: is not appreciated, JVD: is not appreciated, 19:00 Respiratory: the patient does not display signs of respiratory distress, Respirations: labored breathing, is not present, shallow respirations, are not present, Breath sounds: are clear throughout, no decreased breath sounds, no stridor, no wheezing, 19:00 Abdomen/GI: Inspection: abdomen appears normal, Bowel sounds: active, all quadrants, Palpation: soft, in all quadrants, moderate abdominal tenderness, in the right upper quadrant and right lower quadrant, rebound tenderness, is not appreciated, involuntary guarding, is not appreciated, 19:00 Back: CVA tenderness, is absent, 19:00 Neuro: Orientation: to person, place \\T\\ time. Mentation: is normal, Motor: moves all fours, strength is normal, Sensation: is normal, Vital Signs: 17:28 BP 147 / 85; Pulse 93; Resp 18 S; Temp 99(O); Pulse Ox 88% on R/A; Weight 74.39 kg (R); kc6 Height 6 ft. 0 in. (R); 17:30 Pulse Ox 95% on 2 lpm NC; kc6 18:22 BP 140 / 83; Pulse 94; Resp 18 S; Pulse Ox 98% on 2 lpm NC; kc6 19:11 BP 143 / 81; Pulse 92; Resp 16 S; Pulse Ox 97% on 2 lpm NC; lg3 22:51 BP 117 / 58; Pulse 91; Resp 19 S; Pulse Ox 95% on 2 lpm NC; lg3 23:34 Pulse Ox 89% on 2 lpm NC; lg3 23:36 Pulse Ox 92% on 3 lpm NC; lg3 17:28 Body Mass Index 22.24 (74.39 kg, 182.88 cm) kc6 MDM: 17:29 Patient medically screened. 19:00 Differential diagnosis: Nonspecific abd pain, gastritis, cholecystitis, pancreatitis, cp appendicitis, diverticulitis, viral gastroenteritis, gastroenteritis, viral Infection. 10/19 00:20 Data reviewed: vital signs, nurses notes, lab test result(s), EKG, radiologic studies, cp CT scan, plain films, ultrasound, and as a result, I will admit patient. 00:20 I considered the following discharge prescriptions or medication management in the emergency department Medications were administered in the Emergency Department. See MAR. Independent interpretation of the following test(s) in the Emergency Department EKG: See my EKG interpretation above. Care significantly affected by the following chronic conditions: Diabetes, Hypertension. Counseling: I had a detailed discussion with the patient and/or guardian regarding the historical points, exam findings, and any diagnostic results supporting the discharge/admit diagnosis, lab results, radiology results. Response to treatment: the patient's symptoms have mildly improved after treatment, and as a result, I will admit patient. 10/18 17:28 Order name: Blood Culture Adult (2) 10/18 17:28 Order name: CBC with Diff; Complete Time: 18:37 10/18 18:38 Interpretation: Normal except: RBC 5.94; HCT 50.6; RDW 17.4; OVI% 80.6; LYM% 4.7; LYMA cp 0.4. 10/18 17:28 Order name: CMP; Complete Time: 18:54 10/18 18:54 Interpretation: Normal except: K 3.0; GLUC 136; GFR 78; AST 285; ALT 414; ALK 309; cp BILIT 3.5; CA 8.3; GLOB 4.1; A/G 0.9. 10/18 17:28 Order name: Lactate w/ 2H reflex if indic.; Complete Time: 18:54 10/18 19:25 Interpretation: Reviewed. 10/18 17:28 Order name: Protime (+inr); Complete Time: 18:37 10/18 17:28 Order name: Ptt, Activated; Complete Time: 18:37 10/18 17:28 Order name: Urinalysis w/ reflexes; Complete Time: 20:34 cp 10/18 20:35 Interpretation: Normal except: UGLUC 4+ (Over); UBILI 1+; UKET 2+; UPROT TRACE; UUROB cp 2+. 10/18 17:28 Order name: SARS RAPID; Complete Time: 18:37 cp 10/18 17:28 Order name: Influenza Screen (a \\T\\ B); Complete Time: 18:37 cp 10/18 17:28 Order name: Strep 10/18 17:28 Order name: [place] Screen Profile; Complete Time: 18:54 cp 10/18 17:28 Order name: Troponin HS; Complete Time: 18:54 cp 10/18 18:31 Order name: Throat Culture EDCA 10/18 19:26 Order name: Lipase; Complete Time: 20:34 cp 10/18 19:26 Order name: LAB Add On cp 10/19 00:22 Order name: Urinalysis w/ reflexes EDMS 10/19 00:22 Order name: CBC with Automated Diff EDMS 10/19 00:22 Order name: CBC with Automated Diff EDMS 10/19 00:22 Order name: Comprehensive Metabolic Panel EDMS 10/19 00:22 Order name: Comprehensive Metabolic Panel EDMS 10/18 17:28 Order name: Chest Single View XRAY; Complete Time: 18:54 cp 10/18 18:55 Order name: CT Abd/Pelvis - IV Contrast Only; Complete Time: 20:34 cp 10/18 20:36 Interpretation: Report reviewed. 10/18 20:38 Order name: US Abdomen Limited: gallbladder; Complete Time: 22:41 cp 10/18 17:28 Order name: Accucheck; Complete Time: 17:55 cp 10/18 17:28 Order name: Cardiac monitoring; Complete Time: 17:55 cp 10/18 17:28 Order name: EKG - Nurse/Tech; Complete Time: 17:55 cp 10/18 17:28 Order name: IV Saline Lock - Large Bore; Complete Time: 17:55 cp 10/18 17:28 Order name: Labs collected and sent; Complete Time: 17:55 cp 10/18 17:28 Order name: O2 Per Protocol; Complete Time: 17:30 cp 10/18 17:28 Order name: O2 Sat Monitoring; Complete Time: 17:31 cp 10/18 17:28 Order name: Vital Signs; Complete Time: 17:31 cp 10/18 20:38 Order name: NPO; Complete Time: 20:46 cp EC/19 17:47 Rate is 89 beats/min. Rhythm is regular. WI interval is normal. QRS interval is cp prolonged at 126 msec. QT interval is normal. T waves are Inverted in leads I, aVL, aVR. Interpreted by me. Reviewed by me. Administered Medications: 18:04 Drug: NS 0.9% IV 1000 ml IV at 999 ml/hr Per protocol; 1000 mL bolus Route: IV; Rate: kc6 999 ml/hr; Site: right forearm; 18:59 Follow up: Response: No adverse reaction; IV Status: Completed infusion; IV Intake: kc6 1000ml 18:04 Drug: Famotidine IVP 20 mg IVP once; dilute with 10 mL 0.9% NaCl; give over 2 minutes [facility] Route: IVP; Site: right forearm; 18:59 Follow up: Response: No adverse reaction [facility] 18:04 Drug: metoCLOPramide IVP 10 mg IVP once; over 1 to 2 minutes Route: IVP; Site: right [facility] forearm; 19:00 Follow up: Response: No adverse reaction; Nausea unchanged; Vomiting unchanged [facility] 18:59 Drug: Ondansetron IVP 4 mg IVP once; over 2 minutes Route: IVP; Site: right forearm; [facility] 10/19 02:08 Follow up: Response: No adverse reaction [facility] 10/18 18:59 Drug: morphine IVP or IV 4 mg IVP once over 4 mins Route: IVP; Infused Over: 4 mins; [facility] Site: right forearm; 10/19 02:08 Follow up: Response: No adverse reaction [facility] 10/18 22:49 Drug: Ondansetron IVP 4 mg IVP once; over 2 minutes Route: IVP; Site: right wrist; [facility] 10/19 02:08 Follow up: Response: No adverse reaction 3 00:05 Not Given (Patient Refused): potassiumeffervescent tablet 50 meq PO once; dissolve in 4 lg3 ounces of water or juice 00:05 Not Given (Patient Refused): potassiumeffervescent tablet 25 meq PO once; dissolve in 4 lg3 ounces of water or juice 00:42 Drug: Potassium Chloride IV 20 mEq IV at calculated rate once; administer over 1-2 lg3 hours Route: IV; Rate: calculated rate; Site: right wrist; 01:13 Follow up: IV Status: Infusion continued upon admission lg3 00:42 Drug: NS 0.9% IV 1000 ml IV at 75 ml/hr continuous Route: IV; Rate: 75 ml/hr; Site: lg3 right wrist; 01:13 Follow up: IV Status: Infusion continued upon admission lg3 00:57 Drug: DuoNeb Nebulize (2.5 mg - 0.5 mg) 3 ml Nebulizer once Route: Nebulizer; lg3 02:07 Follow up: Response: No adverse reaction lg3 00:58 Not Given (Other Intervention Used): [id number] mg IM once lg3 00:58 Drug: Ketorolac IVP 15 mg IVP once Route: IVP; Site: right wrist; lg3 01:14 Follow up: Response: No adverse reaction lg3 Disposition Summary: 10/20/23 00:15 Hospitalization Ordered Notes: Hospitalization Status: Inpatient Admission cp Provider: Neal Gambino [facility] cp Condition: Stable cp Problem: new cp Symptoms: have improved cp Bed/Room Type: Standard cp Room Assignment: 208(10/20/23 01:02) vk Diagnosis - Nausea with vomiting, unspecified - intractable cp - Hypokalemia cp Forms: - Medication Reconciliation Form cp - SBAR form cp - Leadership Thank You Letter cp Addendum: 10/23/2023 09:06 Co-signature as Attending Physician, Leandro Thacker MD I reviewed the patient's care r t provided by the Advanced Practice Provider and agree with the diagnosis and treatment plan. Signatures: Dispatcher [employer] EDMS Tanvir Kennedy PA PA cp Able, Lacie, RN RN lg3 Fadia Walls RN RN kc6 Leandro Thacker MD MD rt Tamika Mcgowan Corrections: (The following items were deleted from the chart) 10/18 17:28 17:28 BLOOD CULTURE*+BA.LAB.BRZ ordered. EDMS EDMS 17:28 17:28 CBC+H.LAB.BRZ ordered. EDMS EDMS 17:28 17:28 COMPREHENSIVE METABOLIC PANEL+C.LAB.BRZ ordered. EDMS EDMS 17:28 17:28 LACTATE+C.LAB.BRZ ordered. EDMS EDMS 17:28 17:28 PROTIME (+INR)+COAG.LAB.BRZ ordered. EDMS EDMS 17: 17:28 PTT, ACTIVATED+COAG.LAB.BRZ ordered. EDMS EDMS 17:28 17:28 Urinalysis+U.LAB.BRZ ordered. EDMS EDMS 17:28 17:28 SARS-COV-2 Antigen Rapid+I.LAB.BRZ ordered. EDMS EDMS 17:28 17:28 Influenza Screen (A \\T\\ B)+BA.LAB.BRZ ordered. EDMS EDMS 17:28 17:28 Group A Streptococcus Rapid Sc+BA.LAB.BRZ ordered. EDMS EDMS 17:28 17:28 MONO SCREEN PROFILE+I.LAB.BRZ ordered. EDMS EDMS 17:28 17:28 Troponin High Sensitivity+C.LAB.BRZ ordered. EDMS EDMS 17:28 17:28 Chest Single View+RAD.RAD.BRZ ordered. EDMS EDMS 18:55 18:55 Abdomen Pelvis W Con+CT.RAD.BRZ ordered. EDMS EDMS 10/19 01:02 00:15 cp vk
--- NOTE | 2023-10-20 00:16 | ER ---
Nurse's Notes [facility] Name: Donal Valentine Age: 73 yrs Sex: Male : 1950 Arrival Date: 10/19/2023 Time: 17:20 Bed 15 Private MD: Diagnosis: Nausea with vomiting, unspecified-intractable;Hypokalemia Presentation: 10/18 17:28 Chief complaint: Patient states: n/v and generalized weakness that started this AM. kc6 Coronavirus screen: At this time, the client does not indicate any symptoms associated with coronavirus-19. Ebola Screen: No symptoms or risks identified at this time. Initial Sepsis Screen: Does the patient meet any 2 criteria? No. Patient's initial sepsis screen is negative. Does the patient have a suspected source of infection? No. Patient's initial sepsis screen is negative. Risk Assessment: Do you want to hurt yourself or someone else? Patient reports no desire to harm self or others. Onset of symptoms was October 19, 2023. 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 - Infectious Disease History:: Denies. - Social history:: Smoking status: Patient denies any tobacco usage or history of. Screenin:30 [facility] ED Fall Risk Assessment (Adult) History of falling in the last 3 months, kc6 including since admission No falls in past 3 months (0 pts) Confusion or Disorientation No (0 pts) Intoxicated or Sedated No (0 pts) Impaired Gait No (0 pts) Mobility Assist Device Used No (0 pt) Altered Elimination No (0 pt) Score/Fall Risk Level 0 - 2 = Low Risk. Abuse screen: Denies threats or abuse. Denies injuries from another. Nutritional screening: No deficits noted. Tuberculosis screening: No symptoms or risk factors identified. Assessment: 17:28 General: Appears in no apparent distress. uncomfortable, well groomed, well developed, kc6 Behavior is calm, cooperative, appropriate for age, Reports feeling ill for 12-24 hours. Pain: Complains of pain in back and abdomen and neck Pain currently is 8 out of 10 on a pain scale. Neuro: Level of Consciousness is awake, alert, obeys commands, Oriented to person, place, time, situation, Appropriate for age. Cardiovascular: Capillary refill < 3 seconds. Respiratory: Reports shortness of breath Airway is patent Trachea midline Respiratory effort is even, unlabored, Respiratory pattern is regular, symmetrical. GI: Abdomen is flat, non-distended, Bowel sounds present X 4 quads. Reports nausea, vomiting, Patient currently denies diarrhea. : No signs and/or symptoms were reported regarding the genitourinary system. EENT: No signs and/or symptoms were reported regarding the EENT system. Derm: No signs and/or symptoms reported regarding the dermatologic system. Skin is intact, is healthy with good turgor, Skin is pink, warm \T\ dry. Musculoskeletal: No signs and/or symptoms reported regarding the musculoskeletal system. Circulation, motion, and sensation intact. Capillary refill < 3 seconds, Range of motion: intact in all extremities. 17:28 Reassessment: pt appears to be 88% on RA. pt placed on 2L via NC and SPO2 is 95%. kc6 18:28 Reassessment: Patient appears in no apparent distress at this time. No changes from kc6 previously documented assessment. Patient and/or family updated on plan of care and expected duration. Pain level reassessed. Patient is alert, oriented x 3, equal unlabored respirations, skin warm/dry/pink. 18:59 Reassessment: Tahira Walters (sister) [phone]. kc6 19:11 General: Appears in no apparent distress. comfortable, Behavior is calm, cooperative. lg3 Pain: Complains of pain in back, abdomen and neck Pain does not radiate. Pain currently is 5 out of 10 on a pain scale. Neuro: No deficits noted. Langley Agitation-Sedation Scale (RASS): 0 - Alert and Calm Level of Consciousness is awake, alert, obeys commands, Oriented to person, place, time, situation. Cardiovascular: No deficits noted. Denies chest pain, shortness of breath, Capillary refill < 3 seconds Clubbing of nail beds is absent JVD is absent Patient's skin is warm and dry. Respiratory: No deficits noted. Airway is patent Respiratory effort is even, unlabored, Respiratory pattern is regular, symmetrical. GI: Abdomen is flat, non-distended, Bowel sounds present X 4 quads. Abd is soft and non tender X 4 quads. Reports lower abdominal pain, upper abdominal pain, nausea, vomiting. : No deficits noted. No signs and/or symptoms were reported regarding the genitourinary system. EENT: No deficits noted. No signs and/or symptoms were reported regarding the EENT system. Derm: No deficits noted. No signs and/or symptoms reported regarding the dermatologic system. Skin is intact, is healthy with good turgor, Skin is dry, Skin is normal, Skin temperature is warm. Musculoskeletal: No deficits noted. Circulation, motion, and sensation intact. Range of motion: intact in all extremities, Reports pain in back and neck. 21:11 Reassessment: Patient appears in no apparent distress at this time. No changes from lg3 previously documented assessment. Patient and/or family updated on plan of care and expected duration. Pain level reassessed. Patient is alert, oriented x 3, equal unlabored respirations, skin warm/dry/pink. 22:35 GI: Reports nausea. lg3 Vital Signs: 17:28 BP 147 / 85; Pulse 93; Resp 18 S; Temp 99(O); Pulse Ox 88% on R/A; Weight 74.39 kg (R); kc6 Height 6 ft. 0 in. (R); 17:30 Pulse Ox 95% on 2 lpm NC; kc6 18:22 BP 140 / 83; Pulse 94; Resp 18 S; Pulse Ox 98% on 2 lpm NC; kc6 19:11 BP 143 / 81; Pulse 92; Resp 16 S; Pulse Ox 97% on 2 lpm NC; lg3 22:51 BP 117 / 58; Pulse 91; Resp 19 S; Pulse Ox 95% on 2 lpm NC; lg3 23:34 Pulse Ox 89% on 2 lpm NC; lg3 23:36 Pulse Ox 92% on 3 lpm NC; lg3 17:28 Body Mass Index 22.24 (74.39 kg, 182.88 cm) kc ED Course: 17:26 Patient arrived in ED. eb 17:26 Tanvir Kennedy PA is PHCP. cp 17:26 Leandro Thacker MD is Attending Physician. cp 17:28 Fadia Walls RN is Primary Nurse. kc6 17:29 Triage completed. kc6 17:29 Arm band placed on. kc6 17:30 Patient has correct armband on for positive identification. Bed in low position. Call kc6 light in reach. Side rails up X2. Client placed on continuous cardiac and pulse oximetry monitoring. NIBP monitoring applied. Pillow given. 17:55 Inserted saline lock: 20 gauge in right forearm, using aseptic technique. Blood kc6 collected. 18:12 Chest Single View XRAY In Process Unspecified. EDMS 19:00 Report given to TAMIKA Lugo. kc6 19:11 Report received from TAMIKA aleman. lg3 19:19 CT Abd/Pelvis - IV Contrast Only In Process Unspecified. EDMS 21:11 LAB Add On Sent. lg3 21:40 US Abdomen Limited: gallbladder In Process Unspecified. EDMS 23:36 Oxygen administration via nasal cannula \T\ 3L/min. lg3 10/19 00:14 Neal Gambino MD is Hospitalizing Provider. cp 02:08 No provider procedures requiring assistance completed. Patient admitted, IV remains in lg3 place. Administered Medications: 10/18 18:04 Drug: NS 0.9% IV 1000 ml IV at 999 ml/hr Per protocol; 1000 mL bolus Route: IV; Rate: kc6 999 ml/hr; Site: right forearm; 18:59 Follow up: Response: No adverse reaction; IV Status: Completed infusion; IV Intake: kc6 1000ml 18:04 Drug: Famotidine IVP 20 mg IVP once; dilute with 10 mL 0.9% NaCl; give over 2 minutes kc6 Route: IVP; Site: right forearm; 18:59 Follow up: Response: No adverse reaction kc6 18:04 Drug: metoCLOPramide IVP 10 mg IVP once; over 1 to 2 minutes Route: IVP; Site: right kc6 forearm; 19:00 Follow up: Response: No adverse reaction; Nausea unchanged; Vomiting unchanged kc6 18:59 Drug: Ondansetron IVP 4 mg IVP once; over 2 minutes Route: IVP; Site: right forearm; kc6 10/19 02:08 Follow up: Response: No adverse reaction [facility] 10/18 18:59 Drug: morphine IVP or IV 4 mg IVP once over 4 mins Route: IVP; Infused Over: 4 mins; kc6 Site: right forearm; 10/19 02:08 Follow up: Response: No adverse reaction lg3 10/18 22:49 Drug: Ondansetron IVP 4 mg IVP once; over 2 minutes Route: IVP; Site: right wrist; lg3 10/19 02:08 Follow up: Response: No adverse reaction lg3 00:05 Not Given (Patient Refused): potassiumeffervescent tablet 50 meq PO once; dissolve in 4 lg3 ounces of water or juice 00:05 Not Given (Patient Refused): potassiumeffervescent tablet 25 meq PO once; dissolve in 4 lg3 ounces of water or juice 00:42 Drug: Potassium Chloride IV 20 mEq IV at calculated rate once; administer over 1-2 lg3 hours Route: IV; Rate: calculated rate; Site: right wrist; 01:13 Follow up: IV Status: Infusion continued upon admission lg3 00:42 Drug: NS 0.9% IV 1000 ml IV at 75 ml/hr continuous Route: IV; Rate: 75 ml/hr; Site: lg3 right wrist; 01:13 Follow up: IV Status: Infusion continued upon admission lg3 00:57 Drug: DuoNeb Nebulize (2.5 mg - 0.5 mg) 3 ml Nebulizer once Route: Nebulizer; lg3 02:07 Follow up: Response: No adverse reaction lg3 00:58 Not Given (Other Intervention Used): [id number] mg IM once lg3 00:58 Drug: Ketorolac IVP 15 mg IVP once Route: IVP; Site: right wrist; lg3 01:14 Follow up: Response: No adverse reaction lg3 Medication: 02:09 VIS not applicable for this client. lg3 Intake: 10/18 18:59 IV: 1000ml; Total: 1000ml. kc6 Outcome: 10/19 00:15 Decision to Hospitalize by Provider. cp 02:08 Admitted to Med/surg accompanied by tech, via wheelchair, room 208, lg3 02:08 Condition: stable 02:08 Instructed on the need for admit, Demonstrated understanding of instructions, 02:09 Patient left the ED. lg3 Signatures: [facility] Tanvir Kennedy PA PA cp Botello, Elizabeth eb Able, Lacie, RN RN lg3 Fadia Walls RN RN kc6 Corrections: (The following items were deleted from the chart) 10/18 23:36 22:51 BP 117 / 58; Pulse 91bpm; Resp 19bpm; Spontaneous; Pulse Ox 96% 2 lpm Nasal lg3 Cannula; lg3 23:37 23:36 Pulse Ox 89% 2 lpm Nasal Cannula; lg3 lg3 10/19 00:04 10/18 23:35 Potassium PO Effervescent Tablet 25 mEq PO lg3 lg3 10/19 00:05 10/18 23:35 Potassium PO Effervescent Tablet 50 mEq PO lg3 lg3
--- NOTE | 2023-10-20 00:17 | P.HP ---
Certification for Inpatient Patient admitted to: Observation With expected LOS: <2 Midnights Practitioner: I am a practitioner with admitting privileges, knowledge of patient current condition, hospital course, and medical plan of care. Services: Services provided to patient in accordance with Admission requirements found in Title 42 Section 412.3 of the Code of Federal Regulations Patient History Date of Service: 10/20/23 Reason for admission: Nausea and vomtiting History of Present Illness: 73-year-old male with past medical history of diabetes, hypertension, hyperlipidemia, history of Zabala's disease and history of pancreatitis was brought to ER with intractable nausea and vomiting associated with generalized weakness and was brought to ER. Patient also states that he had lost 70 pounds in the last 1 year. No history of cancers. Patient of Dr. Martin. Patient denies any chest pain or shortness of breath. Complains of generalized weakness. Diffuse abdominal discomfort. Associated with nausea and vomiting. Denies any dysuria, no hematemesis or melena. 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 Patient was assessed in the ER and was admitted for intractable nausea vomiting and elevated LFTs. Allergies codeine [Codeine] Allergy (Intermediate, Verified 10/20/23 02:20) Hives/Rash Penicillins Allergy (Intermediate, Verified 10/20/23 02:20) Hives/Rash acetaminophen [From Vicodin] Allergy (Verified 10/20/23 02:20) Hives hydrocodone [From Vicodin] Allergy (Verified 10/20/23 02:20) Hives Home medications list reviewed: Yes Home Medications: ALPRAZolam [Xanax*] 1.5 mg PO BEDTIME 10/20/23 - Past Medical/Surgical History Diabetic: Yes Past Medical History: Reviewed- Non-Contributory -: HTN -: DM -: Sinus problems -: 2 herniated disk -: chronic pancreatitis -: anxiety Past Surgical History: Reviewed- Non-Contributory -: foot surgery -: tumor removal from back -: colon polyp removal - Family History Father -: Heart disease, Cancer Mother -: Cancer - Social History Smoking Status: Never smoker Alcohol use: No CD- Drugs: No Caffeine use: Yes Review of Systems 10-point ROS is otherwise unremarkable Physical Examination - Vital Signs Temperature: 98.8 F Blood Pressure: 146/82 Pulse: 76 Respirations: 18 Pulse Ox (%): 94 - Physical Exam General: Alert, In no apparent distress, Oriented x3, Cooperative HEENT: Atraumatic, Normocephalic Neck: Supple, 2+ carotid pulse no bruit Respiratory: Clear to auscultation bilaterally, Normal air movement Cardiovascular: Regular rate/rhythm, Normal S1 S2 Capillary refill: <2 Seconds Gastrointestinal: Soft and benign, Non-distended, W/out hepatosplenomegaly, Tenderness Musculoskeletal: No clubbing, No swelling Integumentary: No rashes Neurological: Normal speech, Normal strength at 5/5 x4 extr, Cranial nerves 3-12 intact, Normal reflexes 2+, Normal affect Lymphatics: No axilla or inguinal lymphadenopathy - Studies Laboratory Data (last 24 hrs) 10/19/23 10/19/23 10/19/23 17:40 17:40 17:40 WBC Hgb Hct Plt Count PT 12.2 INR 1.11 APTT 29.7 Sodium 137 Potassium 3.0 L BUN 15 Creatinine 1.02 Glucose 136 H Total Bilirubin 3.5 H AST 285 H ALT 414 H Alkaline Phosphatase 309 H Lipase 22 10/19/23 17:40 WBC 7.70 Hgb 16.3 Hct 50.6 H Plt Count 166 PT INR APTT Sodium Potassium BUN Creatinine Glucose Total Bilirubin AST ALT Alkaline Phosphatase Lipase Microbiology Data (last 24 hrs): 10/19/23 17:40 Nasopharnyx Influenza Type A Antigen Screen - Final 10/19/23 17:40 Nasopharnyx Influenza Type B Antigen Screen - Final 10/19/23 17:40 Throat Group A Streptococcus Rapid Screen - Final Assessment and Plan - Problems (Diagnosis) (1) Intractable vomiting with nausea Current Visit: Yes Status: Acute Plan: Intractable nausea and vomiting Monitor closely Was started on Zofran IV hydration Elevated LFTs CT and abdominal ultrasound findings noted Monitor LFTs closely Will consult GI Hypertension Antihypertensives titrated Continue home medications and titrate as needed Hyperlipidemia Continue statin Diabetes Insulin sliding scale Get an A1c Accu-Chek ACHS GI/DVT prophylaxis Advanced directive full code Discharge Plan: Home Plan to discharge in: 48 Hours - Advance Directives Does patient have a Living Will: Yes Does patient have a Durable POA for Healthcare: Yes - Code Status/Comfort Care Code Status: Full Code Time Spent Managing Pts Care (In Minutes): 48
[2023-10-20] MEDS ORDERED: KCL 20 MEQ/100 mL IVPB 100 ML IV ONE (00:22)
[2023-10-20] MEDS ORDERED: NA CHLORIDE 0.9% 1,000 ML ONE (00:22)
[2023-10-20] MEDS ORDERED: KETOROLAC 30 MG/ML INJ ONE (00:50)
[2023-10-20] MEDS ORDERED: IPRATROPIUM BROM 0.5MG/2.5ML ONE (00:50)
[2023-10-20] MEDS ORDERED: ALBUTEROL 2.5 MG/3 ML NEB SOL ONE (00:50)
[2023-10-20 02:27] VITALS: BMI 20.7
[2023-10-20] MEDS: NA CHLORIDE 0.9% 1,000 ML IV SCH (02:34)
[2023-10-20] MEDS ORDERED: GLUCAGON 1 MG/VIAL IM PRN (03:01)
[2023-10-20] MEDS ORDERED: D50W 25 GM/50 ML SYRINGE IV PRN (03:01)
[2023-10-20] MEDS ORDERED: D10W 125 ML IV PRN (03:06)
[2023-10-20] MEDS: FENTANYL CITR 100 MCG/2 ML IV PRN (03:38)
[2023-10-20] MEDS: ALPRAZOLAM 0.5 MG TABLET PO PRN (06:16)
[2023-10-20 06:40] LABS: Sqamous Epithelial None Seen /HPF (None Seen); Urine Bacteria None Seen /HPF (<20); Urine Bilirubin 2+ (Negative); Urine Blood Negative (Negative); Urine Clarity Clear (Clear); Urine Color Dark-Yellow (Yellow); Urine Culture Reflex Order NOT NEEDED; Urine Glucose 4+ (Over) (Negative); Urine Ketones 2+ (Negative); Urine Microscopic Reflex YN ORDER UMIC; Urine Mucus Slight /HPF (None Seen); Urine Nitrite NEGATIVE (Negative); Urine Protein 1+ (Negative); Urine RBC <5 /HPF (None Seen); Urine Urobilinogen 3+ (Normal); Urine WBC <5 /HPF (<5)
[2023-10-20 06:42] LABS: Specific Gravity > 1.030 (1.005-1.030)
[2023-10-20] MEDS: INSULIN REGULAR (HUMAN) 100 UNIT/ML SQ SCH (07:30)
[2023-10-20] MEDS: PANTOPRAZOLE 40MG TABLET PO SCH (07:43)
[2023-10-20] MEDS: ONDANSETRON 4 MG/2 ML VIAL IV PRN (07:43)
[2023-10-20] MEDS: ENOXAPARIN 40 MG/0.4 ML SQ SCH (07:44)
[2023-10-20 07:56] LABS: Anion Gap 11.3 mEq/L (5.0-15.0); Magnesium 2.3 mg/dL (1.6-2.4); Phosphorus 3.3 mg/dL (2.5-4.9); Potassium 3.3 mEq/L (3.5-5.1)
[2023-10-20] MEDS: EMPAGLIFLOZIN 25 MG PO SCH (09:00)
[2023-10-20] MEDS: BIOTIN 10000 MCG PO SCH (09:00)
[2023-10-20] MEDS: TAMSULOSIN 0.4 MG SR CAP PO SCH (09:51)
[2023-10-20] MEDS: ZINC SULFATE 220 MG CAP PO SCH (09:51)
[2023-10-20] MEDS: KCL 20 MEQ/100 mL IVPB 20 MEQ/100 ML BAG IV SCH (09:51)
--- NOTE | 2023-10-20 11:00 | P.PN ---
Date of Service: 10/20/23 Patient seen and examined. He is complaining of nausea and hunger. He reports he vomited after taking soda yet he is requesting to start eating solid diet. Intractable nausea and vomiting Zabala's esophagus History of gastric lap band. Recent weight loss Moderate protein calorie malnutrition Plan: Continue IV hydration IV Protonix Supportive measures with antiemetic Clear liquid diet and advance as tolerated Monitor and optimize electrolytes.
[2023-10-20] MEDS: LIPASE/PROTEASE/AMYLASE CAP PO SCH (12:00)
--- NOTE | 2023-10-20 12:21 | EKG ---
Test Date: 2023-10-19 Test Time: 17:39:06 Freelance Recruiter: PARK MEASUREMENT RESULTS: Intervals: Rate: 89 CT: 160 QRSD: 126 QT: 380 QTc: 462 [place]: P: 62 CT: 160 QRS: -54 T: 97 INTERPRETIVE STATEMENTS: Normal sinus rhythm Left axis deviation Left ventricular hypertrophy with QRS widening and repolarization abnormality Abnormal ECG Compared to ECG 02/08/2022 13:49:26 No significant changes Electronically Signed On 10-20-23 12:20:03 CDT by Neymar Guardado
[2023-10-20] MEDS: AMYLASE PO SCH (13:59)
[2023-10-20] MEDS: [UNRECOGNIZED DRUG - OTHER] PO SCH (13:59)
[2023-10-20] MEDS: PROTEASE PO SCH (13:59)
[2023-10-20] MEDS ORDERED: SODIUM CHLORIDE 0.9% 10ML INJ IV PRN (18:12)
[2023-10-20] MEDS: ALPRAZOLAM 1 MG TABLET PO SCH (21:21)
[2023-10-20] MEDS: PANTOPRAZOLE 40 MG INJ IVP SCH (21:22)
--- NOTE | 2023-10-21 07:07 | P.PN ---
Date of Service: 10/21/23 Subjective: minimal abdominal discomfort - improved compared to yesterday Last saw Dr. Crook ~1 year ago. Last routine blood work done ~2-3 months ago states he was seen at [facility] ED/urgent care ~1 month ago, unable to explain why he went to ED nausea/vomiting resolved yesterday tolerated breakfast this morning afebrile ROS: 10 point ROS as noted above, otherwise negative Physical Exam: GEN: Alert, oriented, NAD HEENT: Normal conjunctiva, sclera anicteric CV: Regular rate and rhythm, no edema Pulm: Nonlabored respirations on room air, clear bilaterally ABD: Soft, mildly tender in RUQ, nondistended Neuro: Normal speech, normal affect vitals reviewed Problem List: Intractable nausea and vomiting Elevated LFTs hyperbilirubinemia Zabala's esophagus hx of gastric lap band Recent ~70lb weight loss in last year Moderate protein calorie malnutrition Hypertension NIDDM2 Depression Intractable nausea and vomiting Zabala's esophagus hx of LINX device placement Recent ~70lb weight loss in last year Moderate protein calorie malnutrition Reports nausea/vomiting with diffuse abdominal discomfort, generalized weakness. Reports ~70lb weight loss in last year Denies any history of cancer. Follows Dr. Crook as outpatient last seen ~1 year ago. Last routine blood work done ~2-3 months ago had esophageal sphincter augmentation with LINX device and hiatal herniorrhaphy on 07/15/2016 CT abdomen (10/19): small pancreatic cystic lesions, largest 1.3cm. Not well characterized although probably stable since 2021 CT. Incidental hepatic and renal cysts, likely stable unable to get MRI to further eval given LINX device; discussed with radiology Dr. Crook, GI consulted, however he is out of town no other GI available continue IV fluids continue IV Protonix BID PRN analgesics / antiemetics Elevated LFTs hyperbilirubinemia abdominal u/s (10/19): limited exam due to non-visualization of gallbladder. CBD: 4mm T. bili worse 3.5 -> 5.3; AST/ALT improving slightly(10/20) check Dbili no obvious obstructive signs seen on initial imaging very mild TTP in RUQ uncertain if obstructive denies h/o cirrhosis, no obvious imaging findings, however does report h/o heavy ETOH use/Tobacco use, quit ~5-10 yrs ago continue NPO status for now Trend LFTs Dr. Núñez, General surgery consulted Hypertension continue home losartan/hctz NIDDM2 Accu-checks, SSI Depression continue xanax VTE: Lovenox Code: Full Dispo: unable to get MRCP here due to LINX device, no GI available for ERCP transfer initiated to [facility] per patient preference - denied transfer initiated to [facility] - accepted pending bed
[2023-10-21 07:34] LABS: Absolute Eosinophils 0.6 K/uL (0-0.5); Absolute Lymphocytes (CBC) 0.6 K/uL (0.7-4.9); Absolute Neutrophil 5.3 K/uL (1.8-8.0); Basophils % 0.3 % (0-1.3); Eosinophils % 8.4 % (0-4.4); Hematocrit 46.2 % (39.6-49.0); Hemoglobin 14.8 g/dL (13.6-17.9); Lymphocytes % 8.4 % (15.3-44.8); MCH 27.3 pg (27.0-35.0); MCHC 31.9 g/dL (32.0-36.0); MCV 85.6 fL (80-100); MPV 9.1 fL (7.6-11.3); Monocytes % 13.1 % (3.3-12.3); Neutrophils % 69.8 % (41.7-73.7); Nucleated Red Blood Cells % 0.2 % (0-0); Platelets 163 thou/uL (152-406); Red Cell Distribution Width 17.6 % (12.1-15.2)
[2023-10-21 07:57] LABS: Albumin 2.5 g/dL (3.4-5.0); Albumin/Globulin Ratio 0.8 (1.1-1.8); Anion Gap 8.5 mEq/L (5.0-15.0); Bilirubin Total 5.3 mg/dL (0.2-1.0); Globulin 3.3 g/dL (2.3-3.5); Magnesium 2.2 mg/dL (1.6-2.4); Potassium 3.5 mEq/L (3.5-5.1); Protein, Total 5.8 g/dL (6.4-8.2)
[2023-10-21] MEDS ORDERED: ZINC SULFATE 220 MG CAP PO SCH (09:00)
[2023-10-21] MEDS: LOSARTAN/HCTZ 50-12.5 PO SCH (09:18)
[2023-10-21] MEDS: KCL 20 MEQ/100 mL IVPB 20 MEQ/100 ML BAG IV SCH (14:39)
[2023-10-21] MEDS: LORazepam 2 MG/ML VIAL IV ONE (16:10)
--- NOTE | 2023-10-21 17:03 | CON ---
Date of Consultation: 10/21/2023 Diagnosis: Hyperbilirubinemia. History Of Present Illness: This is the case of a 73-year-old patient who came to us and admitted to the hospital with the diagnosis of nausea, vomiting, and abdominal pain. During the workup, patient today found to have a bilirubin of 5 and a surgical consult was obtained for evaluation. He denies any jaundice. He stated that several weeks ago, they did the liver enzyme check and it was normal. He had some surgeries in the past including a band in the esophagus for GE reflux and also some urolo gical surgery. Allergies: CODEINE, PENICILLIN, VICODIN. Medical Problems: Include gallbladder disease, diabetes, [id number] diabetes, hypertensio n, pancreatitis. Past Surgical History: Urological surgery and also a band around the esophagus for GE reflux. Social History: He does not smoke. He does not drink alcohol. Review of Systems: Nausea, vomiting, and felt a lot better right now. Abdominal pain has also almost subsided. No cons tipation or diarrhea. No hematochezia. No melena. The patient advised importance of his colonoscop y. Physical Examination: General: The patient is awake and alert. HEENT: Pupils are equal and reactive. Anicteric. Neck: Supple. Chest: Clear. Heart: S1, S2. Abdomen: Soft and depressible. No guarding or rebound. No peritoneal signs. No Alexandre signs. Mil d epigastric discomfort, but no Alexandre signs. Rectal: Deferred. Extremities: Good capillary refill. Laboratory Data: Blood work shows a WBC count of 7.5 with platelets of 163. Glucose 150, total bili of 5.3, direct bili of 4.3, AST 166, ALT 322, alkaline phosphate 269, lipase normal 25. Calcium is 7.4, bicarb is 28. CAT scan of the abdomen and pelvis interpreted by Dr. Lee done 10/19/2023 shows no acute intraabdominal process. Small pancreatic cystic lesion. MRI recommended for better visual ization and also hepatic and renal cysts. Ultrasound of the gallbladder shows limited exam. Nonvisu alization of the gallbladder and the common bile duct seems to be 4 mm. No intrahepatic dilatation. No pericholecystic fluid. Assessment: This is a 73-year-old patient with nausea, vomiting, admitted, initially a working diagn osis of pancreatitis. Lipase normal. They found to have hyperbilirubinemia of unknown origin. MRIs have not done because of the device he has on his esophagus does not allow him to have MRIs, so his floor supervisor is Dr. Crook. So ERCP may be an alternative if Dr. Corok wants to do it. Dr. April zamora is conducting Dr. Crook to see if he is available. If he is not, then he might need to transfe r for ERCP. YANIRA/DARA Voice ID: [id number] Report ID: [id number]
[2023-10-22 06:47] LABS: Absolute Lymphocytes (CBC) 0.9 K/uL (0.7-4.9); Absolute Monocytes 1.1 K/uL (0.1-1.3); Absolute Neutrophil 4.4 K/uL (1.8-8.0); Basophils % 0.3 % (0-1.3); Eosinophils % 12.9 % (0-4.4); Hematocrit 47.4 % (39.6-49.0); Hemoglobin 15.2 g/dL (13.6-17.9); Lymphocytes % 12.6 % (15.3-44.8); MCH 27.5 pg (27.0-35.0); MCHC 32.2 g/dL (32.0-36.0); MCV 85.4 fL (80-100); MPV 9.1 fL (7.6-11.3); Monocytes % 14.9 % (3.3-12.3); Neutrophils % 59.3 % (41.7-73.7); Nucleated Red Blood Cells % 0.1 % (0-0); Platelets 167 thou/uL (152-406); RBC Red Blood Cell Count 5.55 M/uL (4.33-5.43)
[2023-10-22 07:06] LABS: Albumin 2.5 g/dL (3.4-5.0); Albumin/Globulin Ratio 0.8 (1.1-1.8); Anion Gap 9.4 mEq/L (5.0-15.0); Bilirubin Direct 4.9 mg/dL (0-0.2); Bilirubin Total 5.9 mg/dL (0.2-1.0); Globulin 3.3 g/dL (2.3-3.5); Magnesium 2.4 mg/dL (1.6-2.4); Potassium 3.4 mEq/L (3.5-5.1); Protein, Total 5.8 g/dL (6.4-8.2)
[2023-10-22 08:27] LABS: Hepatitis B Core IgM Nonreactive (Nonreactive); Hepatitis B surface AG Interp. Nonreactive (Nonreactive); Hepatitis C Virus Ab Reactive (Nonreactive)
[2023-10-22 08:28] LABS: HBsAG Nonreactive Report Report
--- NOTE | 2023-10-22 09:02 | P.PN ---
Date of Service: 10/22/23 Subjective: minimal to no abdominal pain. hungry transfer accepted to [facility] pending bed availability denies history of hep c. Reports prior history IV drug use in 1980s. Denies ever sharing needles. no blood transfusions no significant changes overnight afebrile ROS: 10 point ROS as noted above, otherwise negative Physical Exam: GEN: Alert, oriented, NAD HEENT: Normal conjunctiva, sclera anicteric CV: Regular rate and rhythm, no edema Pulm: Nonlabored respirations on room air, clear bilaterally ABD: Soft, mildy tender in RUQ, nondistended Neuro: Normal speech, normal affect vitals reviewed Problem List: Intractable nausea and vomiting, resolved Elevated LFTs hyperbilirubinemia Zabala's esophagus hx of gastric lap band Recent ~70lb weight loss in last year Moderate protein calorie malnutrition Hypertension NIDDM2 Depression Intractable nausea and vomiting, resolved Zabala's esophagus hx of LINX device placement Recent ~70lb weight loss in last year Moderate protein calorie malnutrition Reports nausea/vomiting with diffuse abdominal discomfort, generalized weakness. Reports ~70lb weight loss in last year Denies any history of cancer. Follows Dr. Crook as outpatient last seen ~1 year ago. Last routine blood work done ~2-3 months ago had esophageal sphincter augmentation with LINX device and hiatal herniorrhaphy on 07/15/2016 CT abdomen (10/19): small pancreatic cystic lesions, largest 1.3cm. Not well characterized although probably stable since 2021 CT. Incidental hepatic and renal cysts, likely stable unable to get MRI to further eval given LINX device; discussed with radiology Dr. Crook, GI consulted, however he is out of town / unavailable no other GI available dc IVF continue IV Protonix BID PRN analgesics / antiemetics Elevated LFTs hyperbilirubinemia abdominal u/s (10/19): limited exam due to non-visualization of gallbladder. CBD: 4mm T. bili worse 5.3 -> 5.9; AST/ALT improving slightly(10/21) Dbili 4.9 no obvious obstructive signs seen on initial imaging. Repeat abdominal u/s ordered to reeval very mild TTP in RUQ uncertain if obstructive possibly had an obstructing stone which has passed denies h/o cirrhosis, no obvious imaging findings, however does report h/o heavy ETOH use/Tobacco use, quit ~5-[address] Núñez, General surgery consulted recommended ERCP to further evaluate. However given that we do not have GI national expansion recruiter for ERCP, initiated transfer for tertiary level of care facility, [facility] accepted to [facility] pending bed availability given his clinical improvement and Tbili rise slowing down will advance diet to low fat, and repeat labs in AM if bili is same or improves, tolerates diet, and no new/worsening issues, would be stable for discharge home with close follow up with GI for ERCP/repeat labs Hypertension continue home losartan/hctz NIDDM2 Accu-checks, SSI Depression continue xanax VTE: Lovenox Code: Full Dispo: unable to get MRCP here due to LINX device, no GI available for ERCP transfer initiated to [facility] per patient preference - denied transfer initiated to [facility] - accepted pending bed (10/20) if improves, possibly dc home
[2023-10-22] MEDS: POTASSIUM 25 MEQ EFFERV TAB PO ONE (09:45)
--- NOTE | 2023-10-22 10:58 | RAD REPORT ---
EXAM DESCRIPTION: US - Abdomen Exam Limited - 10/22/2023 8:27 am CLINICAL HISTORY: Abdominal pain. COMPARISON: October 19, 2023 CT abdomen FINDINGS: The gallbladder is contracted which limits evaluation. An obvious gallstone is not seen. The biliary tree is normal caliber. IMPRESSION: Contracted gallbladder. MRCP may be helpful for further evaluation
[2023-10-22 20:56] VITALS: O2SAT 97
[2023-10-23 02:07] VITALS: BP 128/65; TEMP 97.6
[2023-10-23 05:01] LABS: Hematocrit 46.9 % (39.6-49.0); Hemoglobin 15.5 g/dL (13.6-17.9); MCHC 33.1 g/dL (32.0-36.0); MCV 84.8 fL (80-100); MPV 9.2 fL (7.6-11.3); Platelets 184 thou/uL (152-406); RBC Red Blood Cell Count 5.54 M/uL (4.33-5.43)
[2023-10-23 05:29] LABS: Albumin 2.7 g/dL (3.4-5.0); Albumin/Globulin Ratio 0.8 (1.1-1.8); Anion Gap 9.6 mEq/L (5.0-15.0); Bilirubin Direct 5.6 mg/dL (0-0.2); Bilirubin Indirect, Calculated 1.3 mg/dL (0.2-0.8); Bilirubin Total 6.9 mg/dL (0.2-1.0); Globulin 3.6 g/dL (2.3-3.5); Magnesium 2.5 mg/dL (1.6-2.4); Potassium 3.6 mEq/L (3.5-5.1); Protein, Total 6.3 g/dL (6.4-8.2)
--- NOTE | 2023-10-23 07:08 | P.DS ---
Admission Date: 10/21/23 Discharge Date: 10/23/23 Disposition: TRANSFER TO [facility] Discharge Condition: FAIR Reason for Admission: Nausea and vomtiting Consultations: General surgery - Dr. úNñez Brief History of Present Illness: 73yo M, PMH: diabetes, hypertension, hyperlipidemia, history of Zabala's disease and history of pancreatitis Patient was brought to ER with intractable nausea and vomiting associated with generalized weakness and was brought to ER. Patient also states that he had lost 70 pounds in the last 1 year. No history of cancers. Patient of Dr. Martin. Patient denies any chest pain or shortness of breath. Complains of generalized weakness. Diffuse abdominal discomfort. Associated with nausea and vomiting. Denies any dysuria, no hematemesis or melena. 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 Patient was assessed in the ER and was admitted for intractable nausea vomiting and elevated LFTs. Hospital Course: Problem List: Intractable nausea and vomiting, resolved Elevated LFTs hyperbilirubinemia Zabala's esophagus hep c IgG positive hx of gastric lap band Recent ~70lb weight loss in last year Moderate protein calorie malnutrition Hypertension NIDDM2 Depression Patient presented with intractable nausea/vomiting, diffuse abdominal discomfort. LFTs were noted to be elevated on admission (T. bili 3.5, AST 285, ALT 414). Lipase was normal throughout hospitalization. CT abdomen noted small pancreatic cystic lesions - largest 1.3cm stable since 2021 CT, incidental hepatic and renal cysts, likely stable per radiology. Abdominal ultrasound was a limited study due to non-visualization of gallbladder. Patient has seen Dr. Crook in the past and unfortunately was not available for consult and going out of town. No other GI was available. General surgery was consulted. Discussed with Dr. Núñez, given patients worsening hyperbilirubinemia of unknown etiology, agreed patient should undergo further evaluation by MRCP vs ERCP. Patient reported having a "metal ring" around his esophagus/stomach and told he can't undergo MRI, which was confirmed to be LINX device placed in [place] several years ago. Discussed with our radiologist who sited sources recommended <0.7 to <1.0 sandra MRI, which we do not have available here. This combined with unavailable GI for ERCP lead to initiating transfer to tertiary care facility. Patient was accepted on 10/20 evening and bed available 10/22 to [facility]. Patient was maintained on CLD in anticipation for transfer, and did tolerate heart healthy / low fat diet on 10/21 evening. Clinically his nausea/vomiting resolved and only had mild tenderness to deep palpation in RUQ/Epigastrium. Despite improving clinically, his Tbili continued to rise, while ALT/AST improved. Unclear etiology, possible partial obstruction, passed stone, or liver disease. Discussed with patient that it is uncertain exactly what testing he will require/undergo at [facility], but at the very least he will be evaluated by GI who will be able to recommend and estate planning counselor him on what next appropriate cata ting/steps are. On further discussion, patient reported prior history of heavy alcohol use, tobacco use, and remote history of IV drug use. No prior diagnosis of cirrhosis or hepatitis. 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 HCV RNA PCR was sent off 10/22/23 and result pending at time of discharge/transfer. Unable to get records from recent [facility] ER/urgent care visits in last few months. He has been off/on his home medications over the last several months, which include losartan-HCTZ which was initially continued on admission and dc'd 10/21 given rare possibility of contributing to his abnormal labs, and blood pressure was within normal limits / mildly elevated. Physical Exam: GEN: Alert, oriented, NAD HEENT: Normal conjunctiva, sclera anicteric CV: Regular rate and rhythm, no edema Pulm: Nonlabored respirations on room air, clear bilaterally ABD: Soft, mildy tender in RUQ, nondistended Neuro: Normal speech, normal affect Vital Signs/Physical Exam: Temp Pulse Resp BP Pulse Ox 97.6 F 54 18 128/65 97 10/23/23 00:00 10/23/23 00:00 10/23/23 00:00 10/23/23 00:00 10/23/23 00:00 Laboratory Data at Discharge: WBC 8.50 thou/uL (4.3-10.9) 10/23/23 03:06 Hgb 15.5 g/dL (13.6-17.9) 10/23/23 03:06 Hct 46.9 % (39.6-49.0) 10/23/23 03:06 Plt Count 184 thou/uL (152-406) 10/23/23 03:06 PT 12.2 SECONDS (9.5-12.5) 10/19/23 17:40 INR 1.11 10/19/23 17:40 APTT 29.7 SECONDS (24.3-36.9) 10/19/23 17:40 Sodium 138 mEq/L (136-145) 10/23/23 03:06 Potassium 3.6 mEq/L (3.5-5.1) 10/23/23 03:06 BUN 13 mg/dL (7-18) 10/23/23 03:06 Creatinine 0.83 mg/dL (0.70-1.30) 10/23/23 03:06 Glucose 107 mg/dL (74-106) H 10/23/23 03:06 Phosphorus 3.3 mg/dL (2.5-4.9) 10/20/23 06:45 Magnesium 2.5 mg/dL (1.6-2.4) H 10/23/23 03:06 Total Bilirubin 6.9 mg/dL (0.2-1.0) H 10/23/23 03:06 AST 91 U/L (15-37) H 10/23/23 03:06 ALT 229 U/L (16-61) H 10/23/23 03:06 Alkaline Phosphatase 321 U/L (45-117) H 10/23/23 03:06 Lipase 25 U/L (13-75) 10/21/23 06:48 Home Medications: ALPRAZolam [Xanax*] 1.5 mg PO BEDTIME 10/20/23 Aspirin Chewable [Aspirin Chewable*] 81 mg PO DAILY 10/20/23 Biotin 10,000 mcg PO DAILY 10/20/23 Cannabis Gummies 2 gum PO BEDTIME 10/20/23 Empagliflozin [Jardiance] 25 mg PO DAILY 10/20/23 Glimepiride 4 mg PO BID 10/20/23 Lipase/Protease/Amylase [Beto Dr 36,000 Unit Capsule] 2 cap PO TIDWM 10/20/23 Losartan/Hydrochlorothiazide [Losartan-Hctz 100-25 mg Tab] 1 tab PO DAILY 10/20/23 Omeprazole [Prilosec] 40 mg PO TID 10/20/23 Tamsulosin [Flomax*] 0.4 mg PO DAILY 10/20/23 Zinc Gluconate [Zinc] 50 mg PO DAILY 10/20/23 Physician Discharge Instructions: Patient presented with intractable nausea/vomiting, diffuse abdominal discomfort. LFTs were noted to be elevated on admission (T. bili 3.5, AST 285, ALT 414). Lipase was normal throughout hospitalization. CT abdomen noted small pancreatic cystic lesions - largest 1.3cm stable since 2021 CT, incidental hepatic and renal cysts, likely stable per radiology. Abdominal ultrasound was a limited study due to non-visualization of gallbladder. Patient has seen Dr. Crook in the past and unfortunately was not available for consult and going out of town. No other GI was available. General surgery was consulted. Discussed with Dr. Núñez, given patients worsening hyperbilirubinemia of unknown etiology, agreed patient should undergo futher evaluation by MRCP vs ERCP. Patient reported having a "metal ring" around his esophagus/stomach and told he can't undergo MRI, which was confirmed to be LINX device placed in [place] several years ago. Discussed with our radiologist who sited sources recommended <0.7 to <1.0 sandra MRI, which we do not have available here. This combined with unavailable GI for ERCP lead to initiating transfer to tertiary care facility. Patient was accepted on 10/20 evening and bed available 10/22 to [facility]. Patient was maintained on CLD in anticipation for transfer, and did tolerate heart healthy / low fat diet on 10/21 evening. Clinically his nausea/vomiting resolved and only had mild tenderness to deep palpation in RUQ/Epigastrium. Despite improving clinically, his Tbili continued to rise, while ALT/AST improved. Unclear etiology, possible partial obstruction, passed stone, or liver disease. Discussed with patient that it is uncertain exactly what testing he will require/undergo at [facility], but at the very least he will be evaluated by GI who will be able to recommend and estate planning counselor him on what next appropriate testing/steps are. On further discussion, patient reported prior history of heavy alcohol use, tobacco use, and remote history of IV drug use. No prior diagnosis of cirrhosis or hepatitis. 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 HCV RNA PCR was sent off 10/22/23 and result pending at time of discharge/transfer. Unable to get records from recent [facility] ER/urgent care visits in last few months. He has been off/on his home medications over the last several months, which include losartan-HCTZ which was initially continued on admission and dc'd 10/21 given rare possibility of contributing to his abnormal labs, and blood pressure was within normal limits / mildly elevated. Followup: Sly Hadley MD [Primary Care Provider] - Time spent managing pt's care (in minutes): 45
[2023-10-24 19:09] LABS: Hepatitis C Virus RNA (PCR)log 7.51 log IU/mL
== END 2023-10-23 07:50 | disposition short-term general hospital (02) | DRG 442 ==
LOC: ER 17:20 → 2ND 10-20 00:16 → OBSVTOIN 10-21 12:39
PROVIDERS: ADMIT Family Medicine; ATTEND Hospitalist
DX: E80.6 Other disorders of bilirubin metabolism (principal); E44.0 Moderate protein-calorie malnutrition; K86.2 Cyst of pancreas; E11.9 Type 2 diabetes mellitus without complications; I10 Essential (primary) hypertension; E87.6 Hypokalemia; K76.89 Other specified diseases of liver; F32.A Depression, unspecified; N28.1 Cyst of kidney, acquired; E78.5 Hyperlipidemia, unspecified; K22.70 Barrett's esophagus without dysplasia; B19.20 Unspecified viral hepatitis C without hepatic coma; R79.89 Other specified abnormal findings of blood chemistry; Z88.0 Allergy status to penicillin; Z88.5 Allergy status to narcotic agent; Z63.4 Disappearance and death of family member; Z98.84 Bariatric surgery status; Z79.82 Long term (current) use of aspirin; Z11.52 Encounter for screening for COVID-19; Z68.20 Body mass index [BMI] 20.0-20.9, adult; Z79.84 Long term (current) use of oral hypoglycemic drugs; Z79.899 Other long term (current) drug therapy; Z87.891 Personal history of nicotine dependence
CPT/HCPCS: 36415; 71045; 74177; 76705; 80048; 80053; 80074; 80076; 81001; 82248; 82947; 83605; 83690; 83735; 84100; 84484; 85025; 85027; 85610; 85730; 86308; 87040; 87070; 87081; 87522; 87804; 87811; 93005; 94640; 94760; 99285; C9113; G0378; J1650; J2405; J2765; J3010; J3480; J7030; J7613; J7644; Q9967

== ENCOUNTER 2024-05-07 18:13 | Inpatient (IN) | payer OTHER ==
[2024-05-07 19:09] LABS: Absolute Eosinophils 0.3 K/uL (0-0.5); Absolute Lymphocytes (CBC) 1.9 K/uL (0.7-4.9); Absolute Monocytes 0.8 K/uL (0.1-1.3); Absolute Neutrophil 7.9 K/uL (1.8-8.0); Basophils % 0.3 % (0-1.3); Eosinophils % 2.6 % (0-4.4); Hematocrit 37.7 % (39.6-49.0); Hemoglobin 13.1 g/dL (13.6-17.9); Lymphocytes % 17.4 % (15.3-44.8); MCH 33.6 pg (27.0-35.0); MCHC 34.7 g/dL (32.0-36.0); MCV 96.7 fL (80-100); Monocytes % 7.5 % (3.3-12.3); Neutrophils % 72.2 % (41.7-73.7); Platelets 190 thou/uL (152-406); Red Cell Distribution Width 13.3 % (12.1-15.2)
[2024-05-07 19:22] LABS: Sqamous Epithelial None Seen /HPF (None Seen); Urine Bacteria None Seen /HPF (<20); Urine Bilirubin NEGATIVE (Negative); Urine Blood Negative (Negative); Urine Clarity Clear (Clear); Urine Color Light-Yellow (Yellow); Urine Culture Reflex Order NOT NEEDED; Urine Glucose 4+ (Over) (Negative); Urine Ketones NEGATIVE (Negative); Urine Microscopic Reflex YN ORDER UMIC; Urine Mucus Slight /HPF (None Seen); Urine Nitrite NEGATIVE (Negative); Urine Protein NEGATIVE (Negative); Urine RBC <5 /HPF (None Seen); Urine Urobilinogen Normal (Normal); Urine WBC <5 /HPF (<5); Urine pH 5.5 (5.0-7.0)
[2024-05-07 19:28] LABS: Albumin 3.8 g/dL (3.4-5.0); Bilirubin Total 0.3 mg/dL (0.2-1.0); Protein, Total 7.8 g/dL (6.4-8.2)
[2024-05-07 19:29] LABS: Troponin High Sensitivity 105.2 pg/mL (<58.9)
[2024-05-07] MEDS ORDERED: ONDANSETRON 4 MG/2 ML VIAL ONE (20:06)
[2024-05-07] MEDS ORDERED: HYDROMORPHONE HCL 1 MG/ML INJ ONE ×2 (20:06→21:46)
--- NOTE | 2024-05-07 20:47 | RAD REPORT ---
EXAMINATION: CT ABDOMEN AND PELVIS WITH CONTRAST CLINICAL INDICATION: Abdominal pain TECHNIQUE: CT abdomen and pelvis was performed, after the administration of 100 cc Isovue-300.. Sagit sanket and coronal reconstructions were obtained. One or more of the following dose reduction techniques were used: Automated exposure control, adjustment of the mA and kV according to patient si ze, and iterative reconstruction. Unless otherwise specified, incidental findings do not require dedicated imaging follow-up. [id number]. Oral contrast was not given which limits evaluation of bowel and appendix. COMPARISON: .October 2023 FINDINGS: Several small hepatic cysts. Spleen and adrenals unremarkable. Multiple, bilateral renal cysts. Largest left kidney is 0.4 cm. Several cystic pancreatic masses. Largest 1.2 cm. Unchanged from prior exam. Post surgical changes involving the stomach. Atherosclerotic disease. Small left inguinal hernia contains fat. Several mildly dilated loops of fluid-filled small bowel. No evidence of diverticulitis. : IMPRESSION: Several small pancreatic cystic masses may represent intraductal papillary mucinous neoplasm. Follow- up MRI in one year recommended Several mildly dilated loops of small bowel probably an enteritis or ileus. A partial/intermittent sm all bowel obstruction is considered less likely. If the patient's symptoms persist, a follow-up abdominal plain film series would be recommended..
--- NOTE | 2024-05-07 21:40 | ER ---
Nurse's Notes [facility] Name: Donal Valentine Age: 73 yrs Sex: Male : 1950 Arrival Date: 05/07/2024 Time: 18:13 Bed 16 Private MD: Cynthia Andino H Diagnosis: Acute paralytic ileus, history of hepatitis C, bilateral renal cysts, pancreatic cysts, elevated troponin I, NSTEMI Presentation: 05/07 18:36 Chief complaint: Patient states: RLQ/Rt groin pain that started about 1 week ago. me1 Reports some pain to right testicle within the last week but not at this time. Denies fevers. Coronavirus screen: Vaccine status: Patient reports receiving the 2nd dose of the covid vaccine. Ebola Screen: No symptoms or risks identified at this time. Initial Sepsis Screen: Does the patient meet any 2 criteria? No. Patient's initial sepsis screen is negative. Does the patient have a suspected source of infection? No. Patient's initial sepsis screen is negative. Risk Assessment: Do you want to hurt yourself or someone else? Patient reports no desire to harm self or others. Onset of symptoms was April 30, 2024. 18:36 Method Of Arrival: Wheelchair [facility] 18:36 Acuity: MINOR 3 me1 Triage Assessment: 18:37 General: Appears uncomfortable, well groomed, well developed, well nourished, Behavior me1 is calm, cooperative, appropriate for age, Reports RLQ, R groin and Right testicle pain over the past week. Pain: Complains of pain in right lower quadrant Pain does not radiate. Pain currently is 7 out of 10 on a pain scale. Quality of pain is described as sharp, Pain began about a week ago. EENT: No signs and/or symptoms were reported regarding the EENT system. Neuro: Level of Consciousness is awake, alert, obeys commands, Oriented to person, place, time, situation, Appropriate for age. Cardiovascular: Patient's skin is warm and dry. Respiratory: Airway is patent Respiratory effort is even, unlabored, Respiratory pattern is regular, symmetrical. GI:. GI: Reports lower abdominal pain. : No signs and/or symptoms were reported regarding the genitourinary system. Derm: Skin is intact, is healthy with good turgor, Skin is pink, warm \T\ dry. Musculoskeletal: No signs and/or symptoms reported regarding the musculoskeletal system. Historical: - Allergies: 18:37 Codeine; me1 18:37 PENICILLINS; me1 18:37 Vicodin; me1 - PMHx: 18:37 Zabala's Disease; Diabetes - NIDDM; Hypertension; Pancreatitis; hepatitis c (Unknown); me1 - Immunization history:: Adult Immunizations up to date. - Infectious Disease History:: Denies. - Social history:: Smoking status: Patient/guardian denies using tobacco, but has a distant history of tobacco abuse. Screenin:19 [facility] ED Fall Risk Assessment (Adult) History of falling in the last 3 months, rs5 including since admission No falls in past 3 months (0 pts) Confusion or Disorientation No (0 pts) Intoxicated or Sedated No (0 pts) Impaired Gait No (0 pts) Mobility Assist Device Used No (0 pt) Altered Elimination No (0 pt) Score/Fall Risk Level 0 - 2 = Low Risk Oriented to surroundings, Hourly rounding (assess needs \T\ fall precautionary measures) done. Abuse screen: Denies threats or abuse. Denies injuries from another. Nutritional screening: No deficits noted. Tuberculosis screening: No symptoms or risk factors identified. Assessment: 19:17 General: Appears in no apparent distress. uncomfortable, Behavior is cooperative. Pain: rs5 Complains of pain in abdomen and right lower quadrant Pain currently is 10 out of 10 on a pain scale. Neuro: Level of Consciousness is awake, alert, obeys commands, Oriented to person, place, time, situation. Cardiovascular: Patient's skin is warm and dry. Respiratory: Airway is patent Respiratory effort is unlabored. GI: Reports lower abdominal pain. : No signs and/or symptoms were reported regarding the genitourinary system. 19:30 Reassessment: lab called to report troponin of 105.2, provider notified. kj2 20:12 Reassessment: Patient appears in no apparent distress at this time. Patient and/or kj2 family updated on plan of care and expected duration. Pain level reassessed. Patient is alert, oriented x 3, equal unlabored respirations, skin warm/dry/pink. 21:09 Reassessment: Patient appears in no apparent distress at this time. Patient and/or kj2 family updated on plan of care and expected duration. Pain level reassessed. Patient is alert, oriented x 3, equal unlabored respirations, skin warm/dry/pink. 22:08 Reassessment: Patient appears in no apparent distress at this time. Patient and/or kj2 family updated on plan of care and expected duration. Pain level reassessed. Patient is alert, oriented x 3, equal unlabored respirations, skin warm/dry/pink. 22:34 Reassessment: Patient appears in no apparent distress at this time. Patient and/or kj2 family updated on plan of care and expected duration. Pain level reassessed. Patient is alert, oriented x 3, equal unlabored respirations, skin warm/dry/pink. 23:05 Reassessment: Patient appears in no apparent distress at this time. Patient and/or kj2 family updated on plan of care and expected duration. Pain level reassessed. Patient is alert, oriented x 3, equal unlabored respirations, skin warm/dry/pink. 23:57 Reassessment: Patient appears in no apparent distress at this time. Patient and/or kj2 family updated on plan of care and expected duration. Pain level reassessed. Patient is alert, oriented x 3, equal unlabored respirations, skin warm/dry/pink. Vital Signs: 18:36 BP 157 / 97; Pulse 80; Resp 16; Temp 98.4; Pulse Ox 98% on R/A; Weight 78.02 kg; Height me1 6 ft. 0 in. ; Pain 7/10; 19:20 BP 140 / 77; Pulse 80; Resp 20; Pulse Ox 98% on R/A; kj2 21:09 BP 142 / 76; Pulse 82; Resp 20; kj2 22:34 BP 126 / 88; Pulse 76; Resp 18; Pulse Ox 97% on R/A; kj2 23:08 BP 122 / 82; Pulse 70; Resp 18; Temp 98; Pulse Ox 97% on R/A; kj2 18:36 Body Mass Index 23.33 (78.02 kg, 182.88 cm) me1 18:36 Pain Scale: Adult ks1 ED Course: 18:18 Patient arrived in ED. gm2 18:19 Cynthia Andino DO is Private Physician. gm2 18:22 Karen Carter MD is Attending Physician. sp3 18:37 Triage completed. me1 18:37 Arm band placed on Patient placed in an exam room. me1 18:41 Charles Navarro RN is Primary Nurse. rs5 19:00 Inserted saline lock: 20 gauge in left antecubital area, using aseptic technique. kj2 ,using aseptic technique. IV inserted by TAMIKA Soto Blood collected. Flushed with 10 mL NS. 19:10 Report received from Charles. kj2 19:20 Patient has correct armband on for positive identification. Bed in low position. Call rs5 light in reach. Adult w/ patient. Provided Education on: call light. 19:20 EKG done, by critical care technician. af3 20:06 Attending Physician role handed off by Karen Carter MD sp4 20:06 Ivan Ramos MD is Attending Physician. sp4 20:18 CT Abd/Pelvis - IV Contrast Only In Process Unspecified. EDMS 21:38 Neal Gambino MD is Hospitalizing Provider. sp4 21:53 Inserted saline lock: 20 gauge in right antecubital area, using aseptic technique. hw Blood collected. Flushed with 10 mL NS. 21:53 Initial lab(s) drawn, by ks, sent to lab. hw 22:31 No provider procedures requiring assistance completed. kj2 23:57 Patient admitted, IV remains in place. kj2 Administered Medications: 20:08 Drug: Ondansetron IVP 4 mg IVP once; over 2 minutes Route: IVP; Site: left antecubital; kj2 21:27 Follow up: Response: No adverse reaction kj2 20:11 Drug: HYDROmorphone IVP 1 mg IVP once Route: IVP; Site: left antecubital; kj2 21:27 Follow up: Response: No adverse reaction kj2 21:55 Drug: NS 0.9% IV 1000 ml IV at 125 ml/hr once; to be given as a bolus over 60 minutes kj2 Route: IV; Rate: 125 ml/hr; Site: right antecubital; 23:04 Follow up: IV Status: Infusion continued upon admission; IV Intake: 125ml kj2 22:00 Drug: HYDROmorphone IVP 1 mg IVP once Route: IVP; Site: right antecubital; kj2 23:04 Follow up: Response: No adverse reaction; Pain is decreased kj2 22:00 Drug: Heparin (RI-Bolus No thrombolytic) - HEParin IVP 60 units/kg IVP once; Max 5000 kj2 units {Co-Signature: [email or web address] (Patti Medina RN).} Route: IVP; Site: left antecubital; 23:58 Follow up: Response: No adverse reaction kj2 22:00 Drug: Heparin (RI Drip) 12 units/kg/hr - ([place] [address] units, D5W IV 500 ml) IV at kj2 calculated rate Per protocol; Max initial rate 1000 units/hr {Co-Signature: [email or web address] (Patti Medina RN).} Route: IV; Rate: 900 units/hr; Site: left antecubital; 23:03 Follow up: Response: No adverse reaction kj2 22:04 Drug: Diazepam IVP 5 mg IVP once Route: IVP; Site: right antecubital; kj2 23:05 Follow up: Response: No adverse reaction kj2 22:07 Drug: metoCLOPramide IVP 10 mg IVP once; over 1 to 2 minutes Route: IVP; Site: right kj2 antecubital; 23:04 Follow up: Response: No adverse reaction kj2 22:26 Drug: Aspirin PO Chewable Tablet 324 mg PO once; 81 mg tablets x 4 Route: PO; kj2 23:03 Follow up: Response: No adverse reaction kj2 Medication: 19:20 VIS not applicable for this client. rs5 Intake: 23:04 IV: 125ml; Total: 125ml. kj2 Outcome: 21:39 Decision to Hospitalize by Provider. sp4 23:57 Admitted to Med/surg accompanied by tech, via wheelchair, room 228, kj2 23:57 Condition: stable 23:57 Instructed on the need for admit, 23:59 Patient left the ED. kj2 Signatures: Dispatcher [employer] Karen Fay MD MD sp3 Charles Navarro RN RN rs5 Ivan Ramos MD MD sp4 Maine Godoy RN RN me1 Felipa Washington gm2 Hayde Baird RN RN kj2 Macrina Barry 3 Marlene Rapp Patti Medina RN ha1 Corrections: (The following items were deleted from the chart) 19: 19:17 Pain: Complains of pain in abdomen and right lower quadrant Pain currently is 10 kj2 out of 10 on a pain scale. rs5 19:22 19:20 BP 140 / 77; Pulse 80bpm; Resp 20bpm; Pulse Ox 98% RA; rs5 kj2 19:23 19:17 : No signs and/or symptoms were reported regarding the genitourinary system. [id number]
--- NOTE | 2024-05-07 21:40 | EDPHYS ---
Physician Documentation [facility] Name: Donal Valentine Age: 73 yrs Sex: Male : 1950 Arrival Date: 05/07/2024 Time: 18:13 Bed 16 Private MD: Cynthia Andino H ED Physician Ivan Ramos HPI: 05/07 19:08 This 73 yrs old Male presents to ER via Wheelchair with complaints of LOWER ABD PAIN. sp3 19:08 73-year-old male with a history of Zabala's esophagus, diabetes, hypertension, sp3 pancreatitis, hepatitis C, NSTEMI now presents to the ED with chief complaint right lower quadrant pain extending into the his right inguinal area. Patient states he lifted a heavy object yesterday morning and felt a new swelling in that area and now has continued pain. He denies any vomiting, diarrhea but does state that he has not had a bowel movement in several days. He denies fever, headache, chest pain, shortness of breath, upper abdominal pain, back pain, dysuria, gross hematuria, rash, bleeding or any other signs or symptoms on ROS at this time.. Historical: - Allergies: 18:37 Codeine; me1 18:37 PENICILLINS; me1 18:37 Vicodin; me1 - PMHx: 18:37 Zabala's Disease; Diabetes - NIDDM; Hypertension; Pancreatitis; hepatitis c (Unknown); me1 - Immunization history:: Adult Immunizations up to date. - Infectious Disease History:: Denies. - Social history:: Smoking status: Patient/guardian denies using tobacco, but has a distant history of tobacco abuse. ROS: 19:12 Constitutional: Negative for fever, chills, and weight loss, Eyes: Negative for injury, sp3 pain, redness, and discharge, ENT: Negative for injury, pain, and discharge, Neck: Negative for injury, pain, and swelling, Cardiovascular: Negative for chest pain, palpitations, and edema, Respiratory: Negative for shortness of breath, cough, wheezing, and pleuritic chest pain, Back: Negative for injury and pain, MS/Extremity: Negative for injury and deformity, Skin: Negative for injury, rash, and discoloration, Neuro: Negative for headache, weakness, numbness, tingling, and seizure, Psych: Negative for depression, anxiety, suicide ideation, homicidal ideation, and hallucinations, Allergy/Immunology: Negative for hives, rash, and allergies, Endocrine: Negative for neck swelling, polydipsia, polyuria, polyphagia, and marked weight changes, 19:12 All other systems are negative, Exam: 19:12 Constitutional: This is a well developed, well nourished patient who is awake, alert, sp3 and in no acute distress. Head/Face: Normocephalic, atraumatic. Eyes: Pupils equal round and reactive to light, extra-ocular motions intact. Lids and lashes normal. Conjunctiva and sclera are non-icteric and not injected. Cornea within normal limits. Periorbital areas with no swelling, redness, or edema. ENT: Nares patent. No nasal discharge, no septal abnormalities noted. External auditory canals are clear. Oropharynx with no redness, swelling, or masses, exudates, or evidence of obstruction, uvula midline. Mucous membranes moist. Neck: Trachea midline, no thyromegaly or masses palpated, and no cervical lymphadenopathy. Supple, full range of motion without nuchal rigidity, or vertebral point tenderness. No Meningismus. Chest/axilla: Normal chest wall appearance and motion. Nontender with no deformity. No lesions are appreciated. Cardiovascular: Regular rate and rhythm with a normal S1 and S2. No gallops, murmurs, or rubs. Normal PMI, no JVD. No pulse deficits. Respiratory: Lungs have equal breath sounds bilaterally, clear to auscultation and percussion. No rales, rhonchi or wheezes noted. No increased work of breathing, no retractions or nasal flaring. Back: No spinal tenderness. No costovertebral tenderness. Full range of motion. Skin: Warm, dry with normal turgor. Normal color with no rashes, no lesions, and no evidence of cellulitis. 19:12 Abdomen/GI: Pain to the right lower quadrant to palpation. Right inguinal canal also swollen with probable hernia. No testicular pain. male exam normal other than right inguinal canal swelling., 19:54 ECG was reviewed by the Attending Physician. EKG demonstrates normal sinus rhythm at 71 sp3 bpm with QTc 493, right bundle branch block and nonspecific diffuse ST/T changes without evidence of acute ischemia. Vital Signs: 18:36 BP 157 / 97; Pulse 80; Resp 16; Temp 98.4; Pulse Ox 98% on R/A; Weight 78.02 kg; Height me1 6 ft. 0 in. ; Pain 7/10; 19:20 BP 140 / 77; Pulse 80; Resp 20; Pulse Ox 98% on R/A; kj2 21:09 BP 142 / 76; Pulse 82; Resp 20; kj2 22:34 BP 126 / 88; Pulse 76; Resp 18; Pulse Ox 97% on R/A; kj2 23:08 BP 122 / 82; Pulse 70; Resp 18; Temp 98; Pulse Ox 97% on R/A; kj2 18:36 Body Mass Index 23.33 (78.02 kg, 182.88 cm) me1 18:36 Pain Scale: Adult me1 MDM: 18:33 Medical Screening Exam initiated sp3 19:13 Data reviewed: vital signs, nurses notes. ED course: 73-year-old male with PMH above sp3 now with right inguinal pain and right lower quadrant pain. Differential diagnosis includes inguinal hernia plus minus strangulation, appendicitis, other bowel pathology, among others. Workup will include CT scan of the abdomen pelvis with IV contrast, general labs, EKG, UA. Disposition pending workup and patient course. Patient will be signed out to nighttime physician for reevaluation and final disposition.. 21:37 ED course: EXAMINATION: CTABDOMEN AND PELVIS WITH CONTRAST CLINICAL INDICATION: sp4 Abdominal pain TECHNIQUE: CT abdomen and pelvis was performed, after the administration of 100 cc Isovue-300.. Sagittal and coronal reconstructions were obtained. One or more of the following dose reduction techniques were used: Automated exposure control, adjustment of the mA and kV according to patient size, and iterative reconstruction. Unless otherwise specified, incidental findings do not require dedicated imaging follow-up. [id number]. Oral contrast was not given which limits evaluation of bowel and appendix. COMPARISON: .October 2023 FINDINGS: Several small hepatic cysts. Spleen and adrenals unremarkable. Multiple, bilateral renal cysts. Largest left kidney is 0.4 cm. Several cystic pancreatic masses. Largest 1.2 cm. Unchanged from prior exam. Post surgical changes involving the stomach. Atherosclerotic disease. Small left inguinal hernia contains fat. Several mildly dilated loops of fluid-filled small bowel. No evidence of diverticulitis. : IMPRESSION: Several small pancreatic cystic masses may represent intraductal papillary mucinous neoplasm. Follow-up MRI in one year recommended Several mildly dilated loops of small bowel probably an enteritis or ileus. A partial/intermittent small bowel obstruction is considered less likely. If the patient's symptoms persist, a follow-up abdominal plain film series would be recommended... 21:41 Differential diagnosis: nonspecific abdominal pain, appendicitis, UTI, urinary sp4 retention, prostatitis, urethritis. ED course: Patient found to have signs of ileus on his CAT scan. Patient continues to have moderate lower abdominal pain especially in the right groin. By exam there is no sign of incarcerated hernia. Patient also has elevated troponin of 105. Dr. Gonzalez with general surgery was consulted. Additional consult with placed with Dr. Guardado with cardiology. 05/07 18:35 Order name: CBC with Diff; Complete Time: 19:33 sp3 05/07 18:35 Order name: CMP; Complete Time: 19:33 sp3 05/07 18:35 Order name: Lipase; Complete Time: 19:33 sp3 05/07 18:35 Order name: Urinalysis w/ reflexes; Complete Time: 19:33 sp3 05/07 18:35 Order name: Lactate w/ 2H reflex if indic.; Complete Time: 19:33 sp3 05/07 18:35 Order name: Troponin High Sensitivity; Complete Time: 19:33 sp3 05/07 21:27 Order name: Troponin High Sensitivity; Complete Time: 22:50 sp4 05/07 22:00 Order name: Ptt, Activated; Complete Time: 23:40 ha1 05/07 22:09 Order name: Urinalysis w/ reflexes EDMS 05/07 22:09 Order name: CBC with Automated Diff EDMS 05/07 22:09 Order name: CBC with Automated Diff EDMS 05/07 22:09 Order name: Comprehensive Metabolic Panel EDMS 05/07 22:09 Order name: Comprehensive Metabolic Panel EDMS 05/07 22:09 Order name: Magnesium EDMS 05/07 22:09 Order name: Magnesium EDMS 05/07 22:09 Order name: Phosphorus EDMS 05/07 22:09 Order name: Phosphorus EDMS 05/07 22:09 Order name: Troponin High Sensitivity EDMS 05/07 22:09 Order name: Troponin High Sensitivity EDMS 05/07 22:09 Order name: Troponin High Sensitivity EDMS 05/07 22:09 Order name: Troponin High Sensitivity EDMS 05/07 18:35 Order name: CT Abd/Pelvis - IV Contrast Only; Complete Time: 21:03 sp3 05/07 18:35 Order name: IV Saline Lock; Complete Time: 19:05 sp3 05/07 18:35 Order name: Labs collected and sent; Complete Time: 19:05 sp3 05/07 18:35 Order name: EKG - Nurse/Tech; Complete Time: 19:17 sp3 Administered Medications: 20:08 Drug: Ondansetron IVP 4 mg IVP once; over 2 minutes Route: IVP; Site: left antecubital; kj2 21:27 Follow up: Response: No adverse reaction kj2 20:11 Drug: HYDROmorphone IVP 1 mg IVP once Route: IVP; Site: left antecubital; kj2 21:27 Follow up: Response: No adverse reaction kj2 21:55 Drug: NS 0.9% IV 1000 ml IV at 125 ml/hr once; to be given as a bolus over 60 minutes kj2 Route: IV; Rate: 125 ml/hr; Site: right antecubital; 23:04 Follow up: IV Status: Infusion continued upon admission; IV Intake: 125ml kj2 22:00 Drug: HYDROmorphone IVP 1 mg IVP once Route: IVP; Site: right antecubital; kj2 23:04 Follow up: Response: No adverse reaction; Pain is decreased kj2 22:00 Drug: Heparin (RI-Bolus No thrombolytic) - HEParin IVP 60 units/kg IVP once; Max 5000 kj2 units {Co-Signature: jonathan (Patti Medina RN).} Route: IVP; Site: left antecubital; 23:58 Follow up: Response: No adverse reaction kj2 22:00 Drug: Heparin (RI Drip) 12 units/kg/hr - ([place] [address] units, D5W IV 500 ml) IV at kj2 calculated rate Per protocol; Max initial rate 1000 units/hr {Co-Signature: jonathan (Patti Medina RN).} Route: IV; Rate: 900 units/hr; Site: left antecubital; 23:03 Follow up: Response: No adverse reaction kj2 22:04 Drug: Diazepam IVP 5 mg IVP once Route: IVP; Site: right antecubital; kj2 23:05 Follow up: Response: No adverse reaction kj2 22:07 Drug: metoCLOPramide IVP 10 mg IVP once; over 1 to 2 minutes Route: IVP; Site: right kj2 antecubital; 23:04 Follow up: Response: No adverse reaction kj2 22:26 Drug: Aspirin PO Chewable Tablet 324 mg PO once; 81 mg tablets x 4 Route: PO; kj2 23:03 Follow up: Response: No adverse reaction kj2 Disposition Summary: 05/07/24 21:39 Hospitalization Ordered Notes: Hospitalization Status: Inpatient Admission sp4 Provider: Neal Gambino sp4 Location: Telemetry/MedSurg (Inpatient) sp4 Condition: Stable sp4 Problem: new sp4 Symptoms: have improved sp4 Bed/Room Type: Standard sp4 Room Assignment: 228(05/07/24 22:30) kmf Diagnosis - Acute paralytic ileus, history of hepatitis C, bilateral renal cysts, pancreatic sp4 cysts, elevated troponin I, NSTEMI Forms: - Medication Reconciliation Form sp4 - SBAR form sp4 - Leadership Thank You Letter sp4 Signatures: Dispatcher [employer] EDMS Karen Carter MD MD sp3 Ivan Ramso MD MD sp4 Maine Godoy RN RN me1 Calli Rossi f Hayde Baird RN RN kj2 Patti Medina RN ha1 Corrections: (The following items were deleted from the chart) 18:35 18:35 Abdomen Pelvis W Con+CT.RAD.BRZ ordered. EDMS EDMS 22:30 21:39 sp4 kmf
[2024-05-07] MEDS ORDERED: DIAZEPAM 10 MG/2 ML INJ SYRINGE ONE (21:45)
[2024-05-07] MEDS ORDERED: HEPARIN 5000 UNIT/ML 1 ML VIAL ONE (21:47)
[2024-05-07] MEDS ORDERED: NA CHLORIDE 0.9% 1,000 ML ONE (21:47)
[2024-05-07] MEDS ORDERED: METOCLOPRAMIDE 10 MG/2mL INJ ONE (21:47)
[2024-05-07] MEDS ORDERED: HEPARIN/D5W 25,000 UNIT/500 ML BAG IV ONE (21:48)
[2024-05-07] MEDS ORDERED: ONDANSETRON 4 MG/2 ML VIAL IV PRN (22:03)
[2024-05-07] MEDS ORDERED: ACETAMINOPHEN 325 MG TABLET PO PRN (22:03)
--- NOTE | 2024-05-07 22:09 | P.HP ---
Certification for Inpatient Patient admitted to: Inpatient With expected LOS: >2 Midnights Practitioner: I am a practitioner with admitting privileges, knowledge of patient current condition, hospital course, and medical plan of care. Services: Services provided to patient in accordance with Admission requirements found in Title 42 Section 412.3 of the Code of Federal Regulations Patient History Date of Service: 05/08/24 Reason for admission: Abdominal Pain History of Present Illness: 73-year-old male with a history of Zabala's esophagus, diabetes, hypertension,pancreatitis, hepatitis C, CAD came in with complaint right lower quadrant pain extending into the his right inguinal area. Patient states he lifted a heavy object yesterday morning and felt a new swelling in that area and now has continued pain. He denies any vomiting, diarrhea but does state that he has not had a bowel movement in several days. He denies fever, headache, chest pain, shortness of breath, dysuria . The patient was assessed in the ER and had a CT done which was consistent with several small pancreatic cystic masses possible papillary mucinous neoplasm and several mildly dilated loops of small bowel probably enteritis or ileus. Partial intermittent small bowel obstruction possible. Patient also found to have elevated troponin. Patient is being admitted for further management . Allergies codeine [Codeine] Allergy (Intermediate, Verified 10/20/23 02:20) Hives/Rash Penicillins Allergy (Intermediate, Verified 10/20/23 02:20) Hives/Rash acetaminophen [From Vicodin] Allergy (Verified 10/20/23 02:20) Hives hydrocodone [From Vicodin] Allergy (Verified 10/20/23 02:20) Hives Home medications list reviewed: Yes Home Medications: Biotin 10,000 mcg PO DAILY 10/20/23 Empagliflozin [Jardiance] 25 mg PO DAILY 10/20/23 Glimepiride 4 mg PO BID 10/20/23 Lipase/Protease/Amylase [Beto Luna 36,000 Unit Capsule] 2 cap PO TIDWM 10/20/23 Losartan/Hydrochlorothiazide [Losartan-Hctz 100-25 mg Tab] 1 tab PO DAILY 10/20/23 Omeprazole [Prilosec] 40 mg PO DAILY 10/20/23 Tamsulosin [Flomax*] 0.4 mg PO DAILY 10/20/23 Zinc Gluconate [Zinc] 50 mg PO DAILY 05/20/24 - Past Medical/Surgical History Diabetic: Yes Past Medical History: Reviewed- Non-Contributory -: HTN -: DM -: Sinus problems -: 2 herniated disk -: chronic pancreatitis -: anxiety -: varicose vein Past Surgical History: Reviewed- Non-Contributory -: foot surgery -: tumor removal from back -: colon polyp removal - Family History Father -: Heart disease, Cancer Mother -: Cancer - Social History Smoking Status: Never smoker Alcohol use: No CD- Drugs: No Caffeine use: Yes Review of Systems 10-point ROS is otherwise unremarkable Physical Examination - Vital Signs Temperature: 98 F Blood Pressure: 146/70 Pulse: 78 Respirations: 18 Pulse Ox (%): 94 - Physical Exam General: Alert, In no apparent distress, Oriented x3 HEENT: Atraumatic, Normocephalic Neck: Supple Respiratory: Clear to auscultation bilaterally, Normal air movement Cardiovascular: Regular rate/rhythm, Normal S1 S2 Capillary refill: <2 Seconds Gastrointestinal: W/out hepatosplenomegaly, Tenderness Musculoskeletal: No clubbing, No swelling Integumentary: No rashes Lymphatics: No axilla or inguinal lymphadenopathy - Studies Laboratory Data (last 24 hrs) 05/07/24 05/07/24 18:58 18:58 WBC 11.00 H Hgb 13.1 L Hct 37.7 L Plt Count 190 Sodium 139 Potassium 4.0 BUN 26 H Creatinine 0.83 Glucose 157 H Total Bilirubin 0.3 AST 18 ALT 39 Alkaline Phosphatase 38 L Lipase 44 Assessment and Plan - Plan Partial small bowel obstruction versus ileus Pain right lower quadrant Possible hernia Pain control Surgical consult Monitor closely under telemetry Will keep with clear liquids for now NSTEMI Will trend cardiac enzymes Will monitor telemetry Started on aspirin and statin EKG did not show any acute changes suggestive of ischemia Patient denies any chest pain Will get an echocardiogram Cardiology consult Hypertension Antihypertensives titrated Continue home medications and titrate as needed Hyperlipidemia Continue statin Diabetes Insulin sliding scale Accu-Chek before every meal and at bedtime Multiple pancreatic cysts Possible papillary mucinous neoplasm Needs MRI as an outpatient. GI/DVT prophylaxis Advanced directive full code Discharge Plan: Home Plan to discharge in: 48 Hours - Advance Directives Does patient have a Living Will: No Does patient have a Durable POA for Healthcare: Yes - Code Status/Comfort Care Code Status: Full Code Time Spent Managing Pts Care (In Minutes): 48
[2024-05-07] MEDS ORDERED: ASPIRIN 81 MG CHEWABLE TABLET ONE (22:18)
[2024-05-07] MEDS: NA CHLORIDE 0.9% 1,000 ML IV SCH (23:00)
[2024-05-08] MEDS ORDERED: HYDROCODONE/APAP 5/325 MG TAB PO PRN (00:29)
[2024-05-08] MEDS ORDERED: MORPHINE 2 MG/ML SYR IV PRN (00:29)
[2024-05-08] MEDS ORDERED: HEPARIN/D5W 25,000 UNIT/500 ML BAG IV SCH (01:00)
[2024-05-08] MEDS: HYDROMORPHONE HCL 1 MG/ML INJ IV PRN (01:47)
[2024-05-08 02:44] LABS: Urine Bilirubin NEGATIVE (Negative); Urine Blood Negative (Negative); Urine Clarity Clear (Clear); Urine Color Light-Yellow (Yellow); Urine Glucose 4+ (Over) (Negative); Urine Ketones NEGATIVE (Negative); Urine Microscopic Reflex YN NO UMIC; Urine Nitrite NEGATIVE (Negative); Urine Protein NEGATIVE (Negative); Urine Urobilinogen Normal (Normal); Urine pH 5.5 (5.0-7.0)
[2024-05-08 02:45] LABS: Specific Gravity > 1.030 (1.005-1.030)
[2024-05-08] MEDS ORDERED: MELATONIN 5 MG TABLET PO PRN (03:09)
[2024-05-08] MEDS ORDERED: LACTULOSE 20 GM/30 ML UCUP PO PRN (03:09)
[2024-05-08] MEDS ORDERED: POLYETHYL GLY 3350 17 GM/DOSE PO PRN (03:09)
[2024-05-08] MEDS: ZOLPIDEM TARTRATE 5 MG TABLET PO PRN (03:19)
[2024-05-08 07:00] LABS: Absolute Eosinophils 0.2 K/uL (0-0.5); Absolute Lymphocytes (CBC) 2.2 K/uL (0.7-4.9); Absolute Monocytes 0.6 K/uL (0.1-1.3); Absolute Neutrophil 3.3 K/uL (1.8-8.0); Basophils % 0.4 % (0-1.3); Eosinophils % 3.6 % (0-4.4); Hematocrit 33.2 % (39.6-49.0); Hemoglobin 11.5 g/dL (13.6-17.9); Lymphocytes % 34.9 % (15.3-44.8); MCH 33.4 pg (27.0-35.0); MCHC 34.7 g/dL (32.0-36.0); MCV 96.3 fL (80-100); MPV 7.9 fL (7.6-11.3); Monocytes % 9.9 % (3.3-12.3); Neutrophils % 51.2 % (41.7-73.7); Platelets 146 thou/uL (152-406); RBC Red Blood Cell Count 3.45 M/uL (4.33-5.43)
[2024-05-08 07:21] LABS: Albumin 3.3 g/dL (3.4-5.0); Albumin/Globulin Ratio 1.1 (1.1-1.8); Anion Gap 7.4 mEq/L (5.0-15.0); Bilirubin Total 0.4 mg/dL (0.2-1.0); Magnesium 2.1 mg/dL (1.6-2.4); Phosphorus 3.2 mg/dL (2.5-4.9); Potassium 3.4 mEq/L (3.5-5.1); Protein, Total 6.3 g/dL (6.4-8.2)
--- NOTE | 2024-05-08 08:30 | RAD REPORT ---
EXAM: AP view(s) of the abdomen Abdomen Single View HISTORY: Rule out partial small bowel obstruction COMPARISON: None FINDINGS: Nonobstructive bowel gas pattern.. Moderate stool in ascending and transverse colon. No suspicious calcifications are seen. No acute osseous abnormality. Other: Surgical changes in the epigastric. IMPRESSION: Nonobstructive bowel gas pattern.
[2024-05-08] MEDS ORDERED: ENOXAPARIN 40 MG/0.4 ML SQ SCH (09:00)
[2024-05-08] MEDS ORDERED: LORAZEPAM 1 MG TABLET PO PRN (09:01)
[2024-05-08] MEDS: ASPIRIN EC 81 MG TAB PO SCH (09:37)
[2024-05-08] MEDS: PANTOPRAZOLE 40 MG INJ IVP SCH (09:37)
--- NOTE | 2024-05-08 11:09 | P.PN ---
Subjective Date of Service: 05/08/24 Chief Complaint: Abdominal Pain Subjective: Improving Patient states that he is doing fine except asking for Xanax for anxiety which he takes at home. His right at lower quadrant abdominal pain has improved, moderate intensity, bulging open lifting heavy material, no nausea and vomiting abdominal pain after oral diet, denied any chest pain shortness of breath or palpitation or dizziness Review of Systems Other: Consitutional; fever(-), chills (-), rigor(-), night sweat(-), unintentional weight loss(-) HEENT; diplopia (-), rhinorrhea (-), epistaxis (-), otorrhea (-), otalgia (-) Respiratory; shortness of breath (-), wheezing (-), cough (-), sputum (-), pleuritic chest pain (-) Cardiovascular; chest pain (-), peripheral edema (-), paroxysmal nocturnal dyspnea (-), orthopnea (-) Gastrointestinal; nausea (-), vomiting (-), abdominal pain (-), diarrhea (-), constipation (-), melena (-), hematochezia (-) Urinary; urinary frequency (-), dysuria (-), urgency (-), flank pain (-), gross hematuria (-), incontinence (-) Skin; rash (-), pruritus (-) 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 General: Not acutely ill looking, in no apparent distress,. HEENT: Normocephalic, atraumatic, nonicteric sclera, nonanemic conjunctive. Neck: Supple, without JVD or goiter or thyroid mass. Respiratory: Normal breathing effort, clear to auscultation bilaterally, no crackles no wheezing or rhonchi. Cardiovascular: Regular rate and rhythm, S1, S2 normal, no murmur no gallop. Gastrointestinal: Normal bowel sounds, nondistended, nontender, No ascites, , No masses, no hepatosplenomegaly. Extremities l: No clubbing, No peripheral edema, full range of motion, no deformity, no muscle atrophy. Integumentary: No rashes, petechia, suspected lesions. Lymphatics: No axilla or cervical lymphadenopathy. Neurology; alert awake oriented x3, no focal neurologic deficit, normal affection . mood and behavior. - Studies Laboratory Data (last 24 hrs) 05/07/24 05/07/24 05/07/24 21:48 18:58 18:58 WBC 11.00 H Hgb 13.1 L Hct 37.7 L Plt Count 190 APTT 30.1 Sodium 139 Potassium 4.0 BUN 26 H Creatinine 0.83 Glucose 157 H Total Bilirubin 0.3 AST 18 ALT 39 Alkaline Phosphatase 38 L Lipase 44 Assessment And Plan - Plan 73-year-old male with a history of Zabala's esophagus, diabetes, hypertension, chronic pancreatitis, hepatitis C, CAD came in complaining right lower quadrant pain extending into the his right inguinal area . Patient states he lifted a heavy object yesterday morning and felt a new swelling in that area and now has continued pain. . The patient was assessed in the ER and had a CT done which was consistent with several small pancreatic cystic masses possible papillary mucinous neoplasm and several mildly dilated loops of small bowel probably enteritis or ileus. Partial intermittent small bowel obstruction possible. Patient also found to have elevated troponin. Patient is being admitted for further management . #1 right lower quadrant pain Currently resolved, clinically suspected uncomplicated inguinal hernia, no sign of bowel obstruction, KUB this morning ordered and reviewed, nonobstructive bowel pattern. CT of abdomen and pelvis on admission personally reviewed, multiple small pancreatic cysts, benign multiple renal cyst of kidney, mild dilated small bowel I will continue oral diet as tolerated, pain control with Dilaudid as needed, awaiting general surgery evaluation #2 elevated troponin without chest pain troponin I is mildly elevated and slowly trending down, EKG personally reviewed normal sinus rhythm, right bundle branch block, normal renal function and liver function test, I will check CPK, continue aspirin, losartan, statin heparin infusion , cardiology has been called. I will obtain l lipid profile tomorrow. #3 history of type 2 diabetes Random blood sugar 157, I will hold sulfonylurea and SGLT2 inhibitor in case of need for surgery, I will keep him on insulin sliding scale Hemoglobin A1c 7.6 on 2019, I will obtain a new hemoglobin A1c tomorrow. #4 history of hypertension Her blood pressure is well-controlled on losartan DVT prophylaxis patient is on heparin for
[2024-05-08] MEDS: ALPRAZOLAM 1 MG TABLET PO PRN (11:37)
[2024-05-08] MEDS: HOME MED 1 EA UNK (Lipase/Protease/Amylase [Creon Dr 36,000 Unit Capsule] Capsule.Dr) PO SCH (12:00)
[2024-05-08] MEDS ORDERED: LIPASE/PROTEASE/AMYLASE CAP PO SCH (17:00)
[2024-05-08] MEDS: LIPASE/PROTEASE/AMYLASE CAP PO SCH (17:29)
--- NOTE | 2024-05-08 18:04 | P.PN ---
Date of Service: 05/08/24 patient seen on rounds this afternoon. Previously seen by Dr. Escoto earlier today - please refer to her note for further details. Patient requested different attending. Patient reports no chest pain/pressure recently. no prior cardiac history. does report some family members with heart disease. Denies ever undergoing stress testing / cardiac cath in past trop downtrending - likely demand ischemia discussed with Dr. Araiza, ok to stop heparin drip abdominal pain improving, feels hernia has reduced Dr. Gonzalez saw patient, recommends hernia repair - possibly inpt vs outpatient depending on course, and cardiac clearance continue current management repeat labs in AM f/u with cardio recommendations tomorrow Problem List: RLQ abd pain / inguinal hernia NSTEMI - suspect type 2 HCV recently finished treatment (Dx'd 2023) h/o pancreatic cysts, h/o chronic pancreatitis h/o Zabala's esophagus h/o gastric lap band / LINX device BPH Hypertension NIDDM2 Depression Chronic low back pain 2/2 T11 compression fracture and spondylosis
[2024-05-08] MEDS: FENTANYL CITR 100 MCG/2 ML IV ONE (19:45)
[2024-05-08] MEDS: ATORVASTATIN 40 MG TAB PO SCH (19:46)
[2024-05-08] MEDS: KETOROLAC 30 MG/ML INJ IV PRN (19:46)
[2024-05-09 00:45] VITALS: BMI 22.8
[2024-05-09 06:08] LABS: Absolute Eosinophils 0.3 K/uL (0-0.5); Absolute Monocytes 0.5 K/uL (0.1-1.3); Absolute Neutrophil 2.3 K/uL (1.8-8.0); Basophils % 0.4 % (0-1.3); Eosinophils % 5.1 % (0-4.4); Hemoglobin 10.9 g/dL (13.6-17.9); Lymphocytes % 39.4 % (15.3-44.8); MCH 33.1 pg (27.0-35.0); MCHC 34.2 g/dL (32.0-36.0); MCV 96.9 fL (80-100); MPV 8.2 fL (7.6-11.3); Monocytes % 10.3 % (3.3-12.3); Neutrophils % 44.8 % (41.7-73.7); Platelets 129 thou/uL (152-406); Red Cell Distribution Width 12.9 % (12.1-15.2)
[2024-05-09 07:10] LABS: Albumin 2.9 g/dL (3.4-5.0); Albumin/Globulin Ratio 0.9 (1.1-1.8); Anion Gap 7.4 mEq/L (5.0-15.0); Bilirubin Total 0.5 mg/dL (0.2-1.0); Globulin 3.2 g/dL (2.3-3.5); Magnesium 2.2 mg/dL (1.6-2.4); Potassium 3.4 mEq/L (3.5-5.1); Protein, Total 6.1 g/dL (6.4-8.2)
[2024-05-09] MEDS ORDERED: GLUCAGON 1 MG/VIAL IM PRN (07:56)
[2024-05-09] MEDS ORDERED: D10W 125 ML IV PRN (07:56)
[2024-05-09] MEDS ORDERED: HOME MED 1 EA UNK (Losartan/Hydrochlorothiazide [Losartan-Hctz 100-25 Mg Tab] 1 EACH Table PO SCH (09:00)
[2024-05-09] MEDS: LOSARTAN POTASSIUM 50 MG TABLET PO SCH (09:00)
[2024-05-09] MEDS ORDERED: HOME MED 1 EA UNK (Omeprazole [Prilosec] 40 MG Capsule.Dr) PO SCH (09:00)
[2024-05-09] MEDS: POTASSIUM CL SA 10 MEQ TAB PO ONE (09:52)
[2024-05-09] MEDS: TAMSULOSIN 0.4 MG SR CAP PO SCH (09:52)
[2024-05-09] MEDS: hydroCHLOROthiazide 25 MG TAB PO SCH (09:53)
--- NOTE | 2024-05-09 10:38 | P.PN ---
Date of Service: 05/09/24 Subjective: had R groin pain - -severe yesterday better today, but still feels it in background no chest pain/pressure ROS: 10 point ROS as noted above, otherwise negative Physical Exam: GEN: Alert, oriented, NAD CV: Regular rate and rhythm, no edema Pulm: Nonlabored respirations on room air, clear bilaterally ABD: soft, nontender, nondistended Neuro: Normal speech, normal affect Problem List: RLQ abd pain / inguinal hernia NSTEMI - suspect type 2 HCV recently finished treatment (Dx'd 2023) h/o pancreatic cysts, h/o chronic pancreatitis h/o Zabala's esophagus h/o gastric lap band / LINX device BPH Hypertension NIDDM2 Depression Chronic low back pain 2/2 T11 compression fracture and spondylosis RLQ abd pain / inguinal hernia on admission, presents with RLQ pain. Reportedly lifted heavy object the other day and has been dealing with swelling, pain in area since then. +constipation for several days. No nausea/vomiting/diarrhea. Denies fever/chills CT abdomen/pevlis (05/07): Several mildly dilated loops of fluid-filled small bowel. Small left inguinal hernia contains fat. Several small pancreatic cystic masses may represent intraductal papillary mucinous neoplasm. abdominal pain improving, feels hernia has reduced Dr. Gonzalez, general surgery is following. Recommending hernia repair - possibly inpt vs outpatient depending on course, and cardiac clearance Plan for stress test tomorrow. pain control NSTEMI - suspect type 2 troponin's elevated but trended flat. Suspect elevated troponins secondary to demand ischemia. Denies chest pain/pressure recently. no prior cardiac history. Denies ever undergoing stress testing / cardiac cath in past Cardiology consulted - recommended nuclear stress test. Tentative plan for stress test tomorrow Monitor on telemetry continue asa 81mg, statin HCV recently finished treatment (Dx'd 2023) h/o pancreatic cysts, h/o chronic pancreatitis h/o Zabala's esophagus h/o gastric lap band / LINX device continue PPI, lactulose, creon BPH. resume home flomax Hypertension. resume home losartan, HCTZ, NIDDM2. accu-cheks, SSI Depression. resume home xanax. PRN ambien Chronic low back pain 2/2 T11 compression fracture and spondylosis. continue home meds. Code: Full Dispo: Home Pending stress test in am; surgical recs Time Spent Managing Pts Care (In Minutes): 55
[2024-05-09] MEDS: INSULIN REGULAR (HUMAN) 100 UNIT/ML SQ SCH (11:30)
--- NOTE | 2024-05-09 14:46 | CON ---
Date of Consultation: 05/08/2024 Brief History Of Present Illness: The patient is a 73-year-old male who has a history of Zabala's e sophagus, diabetes, hypertension, chronic pancreatitis, hepatitis C, and coronary artery disease, who came to the hospital with complaints of right inguinal pain. It began suddenly after he was lifting a heavy object and associated with significant pain, tenderness, and swelling. He denied any other obstructive complaints such as nausea, vomiting, or decreased bowel movements. He had a bowel moveme nt after being in the hospital. He had been passing gas, but prior to his arrival, he had several da ys without having a bowel movement. He denied any other sick contacts. No recent travel. No new fo od exposures. After being brought into the hospital, he feels that the right inguinal pain has compl etely resolved and essentially the lump/swelling has completely resolved as well, and he is currently asymptomatic from that standpoint. Past Medical History: Significant for Zabala's esophagus, diabetes, hypertension, pancreatitis, hep atitis C, coronary artery disease. Past medical history also includes sinus problems, herniated disc s, anxiety, and varicose veins. Past Surgical History: Includes left foot surgery due to stepping on broken glass as a young man, ba ck cyst removal, colon polyp removal, and a Linx esophageal sphincter procedure. Allergies: TO CODEINE, PENICILLIN, VICODIN, ACETAMINOPHEN. Home Medications: Includes biotin, Jardiance, glimepiride, Creon, losartan, Prilosec, Flomax, zinc g luconate. Family History: Significant for cancer in his father and his mother. Social History: He denies smoking, alcohol, or recreational drug use. Review of Systems: Ten-point review of systems other than HPI, denies. Physical Examination: Vital Signs: At the time of my examination, blood pressure 121/60, pulse 68, respiratory rate 16, te mperature 97.5, SpO2 97% on room air. General: He is awake, alert, and oriented. Psychiatric: Appropriate. Conversive. HEENT: Normocephalic. Sclerae anicteric. Mucous membranes are moist. Oropharynx is clear. Neck: Supple without JVD. Chest: Normal expansion and excursion. Cardiovascular: Regular rate and rhythm. Pulmonary: Clear to auscultation bilaterally. Abdomen: Soft. Focused examination of the abdomen: He has a small reducible umbilical hernia. A s mall reducible right inguinal hernia and a small reducible left inguinal hernia. They are nontender at the time of my examination. Extremities: No clubbing, cyanosis, or edema. Skin: Warm and dry. Laboratory Data: Revealed a white blood cell count of 6.4, hemoglobin is 11.5, hematocrit of 33.2, p latelet count is 146. His PTT is 47.6, currently on heparin. Sodium 141, potassium 3.4, chloride 11 0, carbon dioxide is 27, BUN 18, creatinine 0.6. Glucose was 88, 157, on admission. Lactic acid 0.9 , phosphorus was 3.2, magnesium 2.1, total bilirubin 0.4, AST 15, ALT 28, alkaline phosphatase is 30, CK is 140. His troponin was elevated at 105, on admission and 99.9 on followup and 98.2, currently during the examination. Urinalysis was essentially negative. He had imaging performed, which includ ed a CT of the abdomen and pelvis, officially read as multiple bilateral renal cysts. The largest is on the left kidney measuring 0.4 cm. Several cystic pancreatic mass as large as 1.2, unchanged from prior exam. Postsurgical changes involving the stomach. Small left inguinal hernia contains fat. Several mildly dilated loops of fluid-filled small bowel. No evidence of diverticulitis. The small pancreatic cyst may represent intraductal papillary mucinous neoplasm. MRI in 1 year recommended. T he mildly dilated loops of small bowel probably enteritis or ileus or partial/intermittent small emery l obstruction is considered less likely. Assessment And Plan: This is a 73-year-old male who comes in with signs and symptoms of a possible i nguinal hernia on the right. He has 3 hernias palpable by examination on the right inguinal, left in guinal, and umbilical. None are tender or symptomatic, at this time. 1.The patient has elevation of his cardiac troponins/enzymes. As such, I have recommended cardiac e valuation prior to consideration for any surgical intervention as this is a nonemergent procedure, at this current moment. 2.Await cardiac evaluation and we will discuss surgical options for the hernias as described after m edically optimized and cleared from a cardiovascular standpoint. I have explained the risks, benefit s, and alternatives of the above stated plan. The patient displayed understanding of the above state d plan. Agreed to proceed as indicated. Thank you for this interesting consult. PHOEBE Voice ID: [id number] Report ID: [id number]
[2024-05-09] MEDS ORDERED: LIPASE/PROTEASE/AMYLASE CAP PO SCH (17:00)
[2024-05-09] MEDS: SODIUM CHLORIDE 0.9% 10ML INJ IV PRN (20:09)
[2024-05-10 00:30] VITALS: O2SAT 98
[2024-05-10 05:45] LABS: Hemoglobin 11.2 g/dL (13.6-17.9); MCH 33.6 pg (27.0-35.0); MCV 95.9 fL (80-100); MPV 8.2 fL (7.6-11.3); Platelets 147 thou/uL (152-406); RBC Red Blood Cell Count 3.34 M/uL (4.33-5.43); Red Cell Distribution Width 12.7 % (12.1-15.2)
[2024-05-10 06:04] LABS: Anion Gap 5.8 mEq/L (5.0-15.0); Magnesium 2.2 mg/dL (1.6-2.4); Potassium 3.8 mEq/L (3.5-5.1)
--- NOTE | 2024-05-10 08:58 | P.PN ---
Date of Service: 05/10/24 Subjective: denies chest pain/pressure in sinus rhythm minimal groin pain today afebrile ROS: 10 point ROS as noted above, otherwise negative Physical Exam: GEN: Alert, oriented, NAD CV: Regular rate and rhythm, no edema Pulm: Nonlabored respirations on room air, clear bilaterally ABD: soft, nontender, nondistended Neuro: Normal speech, normal affect Problem List: RLQ abd pain / inguinal hernia NSTEMI - suspect type 2 HCV recently finished treatment (Dx'd 2023) h/o pancreatic cysts, h/o chronic pancreatitis h/o Zabala's esophagus h/o gastric lap band / LINX device BPH Hypertension NIDDM2 Depression Chronic low back pain 2/2 T11 compression fracture and spondylosis RLQ abd pain / inguinal hernia on admission, presents with RLQ pain. Reportedly lifted heavy object the other day and has been dealing with swelling, pain in area since then. +constipation for several days. No nausea/vomiting/diarrhea. Denies fever/chills CT abdomen/pevlis (05/07): Several mildly dilated loops of fluid-filled small b owel. Small left inguinal hernia contains fat. Several small pancreatic cystic masses may represent intraductal papillary mucinous neoplasm. abdominal pain improving, feels hernia has reduced Dr. Gonzalez, general surgery is following. Recommending hernia repair - possibly inpt vs outpatient depending on course, and cardiac clearance pain improved, if no further severe pain, plan for outpatient surgery stress test today pain control NSTEMI - suspect type 2 troponin's elevated but trended flat. Suspect elevated troponins secondary to demand ischemia. Denies chest pain/pressure recently. no prior cardiac history. Denies ever undergoing stress testing / cardiac cath in past Cardiology consulted - recommended nuclear stress test. Tentative plan for stress test today Monitor on telemetry continue asa 81mg, statin HCV recently finished treatment (Dx'd 2023) h/o pancreatic cysts, h/o chronic pancreatitis h/o Zabala's esophagus h/o gastric lap band / LINX device continue PPI, lactulose, creon BPH. resume home flomax Hypertension. resume home losartan, HCTZ, NIDDM2. accu-cheks, SSI Depression. resume home xanax. PRN ambien Chronic low back pain 2/2 T11 compression fracture and spondylosis. continue home meds. Code: Full Dispo: Home Pending stress test; surgical recs Time Spent Managing Pts Care (In Minutes): 45
[2024-05-10] MEDS: POTASSIUM CL SA 10 MEQ TAB PO SCH (09:20)
[2024-05-10] MEDS ORDERED: REGADENOSON 0.4 MG/5 ML SYR IV ONE (11:15)
--- NOTE | 2024-05-10 12:55 | RAD REPORT ---
EXAM: Nuclear medicine cardiac perfusion examination with ejection fraction HISTORY: Chest pain TECHNIQUE: Rest images: 9.9 mCi technetium 99m sestamibi Stress images: 28.9 mCi of technetium 99m sestamibi; Lexiscan COMPARISON: None FINDINGS: Tomographic images: No reversible perfusion defects. Fixed defect involving the apex and inferior wal l, could in part be related to a remote infarct, although splanchnic uptake both on rest and stress images somewhat exacerbates the imaging findings. Gated images: Hypokinesia at the apex and inferior wall. Normal ejection fraction of 55%. EDV: 112 mL ESV: 51 mL TID: 1.0 IMPRESSION: No scintigraphic evidence of myocardial ischemia. Fixed defect involving the apex and inferior wall, exacerbated by splanchnic uptake, but likely relat es to remote infarct. Left ventricular ejection fraction:55%. Hypokinesia at the apex and inferior wall.
--- NOTE | 2024-05-10 14:26 | TREADPHA ---
DX: NSTEMI Date of Study: 05/10/24 Ht: 6' 0 " Wt: 168 lb 12.8 oz Consulting Physician: BRIANNA MEDICATIONS: XANAX, LOSARTAN, JARDICE HISTORY: 73 YEAR OLD MALE WITH COMPLAINTS OF CHEST PAIN. HISTORY OF HYPERTENSION, DIABETES MELLITUS, ANXIETY, FORMER SOKER - 3 MONTHS AGO. NON DRINKER PHYSICIAL EXAMINATION: RESTING B.P.: 139/78 RESTING H.R.: 61 RESTING EKG: PROTOCOL: LEXISCAN EXERCISE TIME: 3:30 B.P. AT PEAK STRESS: 136/66 IMPRESSION: LEXISCAN INJECTED FOLLOWED BY CARDIOLITE PER PROTOCOL, SEE NUCLEAR MEDICINE REPORT. NO SUPRA VENTRICULAR TACHYCARDIA, VENTRICULAR TACHYCARDIA, PREMATURE ATRIAL COMPLXES, PREMATURE VENTRICULAR COMPLEXES. PATIENT REPORTS NO CHEST PAIN.
--- NOTE | 2024-05-10 16:46 | P.CNS ---
Date of Consult: 05/10/24 Chief Complaint: Abdominal Pain History of Present Illness: Patient presented with abdominal pain, prior history of hernia, report having lot of stress in his life, loosing weight, denies chest pain, no palpitations, no SOB, no syncope. Allergies codeine [Codeine] Allergy (Intermediate, Verified 10/20/23 02:20) Hives/Rash Penicillins Allergy (Intermediate, Verified 10/20/23 02:20) Hives/Rash acetaminophen [From Vicodin] Allergy (Verified 10/20/23 02:20) Hives hydrocodone [From Vicodin] Allergy (Verified 10/20/23 02:20) Hives Home medications list reviewed: Yes Home Medications: Biotin 10,000 mcg PO DAILY 10/20/23 Empagliflozin [Jardiance] 25 mg PO DAILY 10/20/23 Glimepiride 4 mg PO BID 10/20/23 Lipase/Protease/Amylase [Beto Dr 36,000 Unit Capsule] 2 cap PO TIDWM 10/20/23 Losartan/Hydrochlorothiazide [Losartan-Hctz 100-25 mg Tab] 1 tab PO DAILY 10/20/23 Omeprazole [Prilosec] 40 mg PO DAILY 10/20/23 Tamsulosin [Flomax*] 0.4 mg PO DAILY 10/20/23 Zinc Gluconate [Zinc] 50 mg PO DAILY 10/20/23 - Past Medical/Surgical History Diabetic: Yes -: HTN -: DM -: Sinus problems -: 2 herniated disk -: chronic pancreatitis -: anxiety -: varicose vein -: foot surgery -: tumor removal from back -: colon polyp removal - Family History Father Medical History: Heart disease, Cancer Mother Medical History: Cancer - Social History Smoking Status: Former smoker Alcohol use: No CD- Drugs: No Caffeine use: Yes Place of Residence: Home Review of Systems 10-point ROS is otherwise unremarkable Physical Examination Temp Pulse Resp BP Pulse Ox 98.2 F 69 20 138/79 97 05/10/24 16:00 05/10/24 16:00 05/10/24 16:00 05/10/24 16:00 05/10/24 16:00 General: Alert, In no apparent distress HEENT: Atraumatic, PERRLA, Mucous membr. moist/pink, EOMI, Sclerae nonicteric Neck: Supple, 2+ carotid pulse no bruit, No LAD, Without JVD or thyroid abnormality Respiratory: Clear to auscultation bilaterally, Normal air movement Cardiovascular: Regular rate/rhythm, Normal S1 S2 Gastrointestinal: Normal bowel sounds, No tenderness Musculoskeletal: No tenderness Integumentary: No rashes Neurological: Normal gait, Normal speech, Normal tone, Normal affect Lymphatics: No axilla or inguinal lymphadenopathy - Problems (1) Chest discomfort Current Visit: No Status: Active Plan: Patient cardiac enzymes were mildly elevated, stress test done and shows inferior/apical perfusion defect, most likely gut attenuation artifact, no need for further cardiac work up at this time. (2) HTN (hypertension) Current Visit: No Status: Chronic Plan: continue current medications and monitor. Qualifiers: Hypertension type: primary hypertension Qualified Code(s): I10 - Essential (primary) hypertension
[2024-05-11 12:46] VITALS: BP 161/82; TEMP 97.8
--- NOTE | 2024-05-11 13:21 | P.DS ---
Admission Date: 05/07/24 Discharge Date: 05/11/24 Disposition: ROUTINE DISCHARGE Discharge Condition: FAIR Reason for Admission: Abdominal Pain Hospital Course: Diagnosis RLQ abd pain / inguinal hernia NSTEMI - suspect type 2 HCV recently finished treatment (Dx'd 2023) h/o pancreatic cysts, h/o chronic pancreatitis h/o Zabala's esophagus h/o gastric lap band / LINX device BPH Hypertension NIDDM2 Depression Chronic low back pain 2/2 T11 compression fracture and spondylosis Patient presented with worsening right inguinal pain, swelling after reportedly lifting heavy object prior to admission secondary to inguinal hernia. CT abdomen noted everal mildly dilated loops of fluid-filled small bowel. Small left inguinal hernia contains fat. Several small pancreatic cystic masses may represent intraductal papillary mucinous neoplasm. On admission, Troponin's were noted to be mildly elevated on admission but trended flat. Suspect elevated troponins secondary to demand ischemia. Patient denied having and chest pain, no prior cardiac history. Cardiology consulted and recommend nuclear stress test to further evaluate which was negative for stress induced ischemia. In regards to hernia, Patient was evaluated by Dr. Gonzalez, general surgeon who recommended outpatient follow-up for inguinal hernia repair. Patient has been, afebrile without leukoctosis, tolerating diet, and was deemed stable for discharge. CT abdomen pelvis report intraductal papillary mucinous neoplasm. This needs to be followed by a gastroenterology. Patient may need an endoscopic ultrasound biopsy in a tertiary center for definitive diagnosis. Patient advised to follow-up with his primary care physician Dr. Andino who can help arrange for the referral. Patient advised to follow-up with general surgery Dr. Gonzalez for arrangement for outpatient inguinal hernia repair. Vital Signs/Physical Exam: Temp Pulse Resp BP Pulse Ox 97.8 F 90 20 161/82 H 96 05/11/24 12:00 05/11/24 12:00 05/11/24 12:00 05/11/24 12:00 05/11/24 12:00 General: Alert, In no apparent distress, Oriented x3 HEENT: Mucous membr. moist/pink Neck: JVD not distended Respiratory: Clear to auscultation bilaterally, Normal air movement Cardiovascular: Regular rate/rhythm, Normal S1 S2 Gastrointestinal: Soft and benign, Non-distended Musculoskeletal: No swelling Integumentary: No rashes Neurological: Normal speech, Normal strength at 5/5 x4 extr Other Physical/Emotional Findings: - Physical Exam. General: Not acutely ill looking, in no apparent distress,. HEENT: Normocephalic, atraumatic, nonicteric sclera, nonanemic conjunctive. Neck: Supple, without JVD or goiter or thyroid mass. Respiratory: Normal breathing effort, clear to auscultation bilaterally, no crackles no wheezing or rhonchi. Cardiovascular: Regular rate and rhythm, S1, S2 normal, no murmur no gallop. Gastrointestinal: Normal bowel sounds, nondistended, nontender, No ascites, , No masses, no hepatosplenomegaly. Extremities l: No clubbing, No peripheral edema, full range of motion, no deformity, no muscle atrophy. Integumentary: No rashes, petechia, suspected l esions. Lymphatics: No axilla or cervical lymphadenopathy. Neurology; alert awake oriented x3, no focal neurologic deficit, normal affection . mood and behavior. Laboratory Data at Discharge: WBC 5.50 thou/uL (4.3-10.9) 05/10/24 05:20 Hgb 11.2 g/dL (13.6-17.9) L 05/10/24 05:20 Hct 32.0 % (39.6-49.0) L 05/10/24 05:20 Plt Count 147 thou/uL (152-406) L 05/10/24 05:20 APTT Cancelled 05/08/24 18:52 Sodium 142 mEq/L (136-145) 05/10/24 05:20 Potassium 3.8 mEq/L (3.5-5.1) 05/10/24 05:20 BUN 16 mg/dL (7-18) 05/10/24 05:20 Creatinine 0.64 mg/dL (0.70-1.30) L 05/10/24 05:20 Glucose 116 mg/dL (74-106) H 05/10/24 05:20 Phosphorus 3.2 mg/dL (2.5-4.9) 05/08/24 06:46 Magnesium 2.2 mg/dL (1.6-2.4) 05/10/24 05:20 Total Bilirubin 0.5 mg/dL (0.2-1.0) 05/09/24 05:35 AST 18 U/L (15-37) 05/09/24 05:35 ALT 33 U/L (16-61) 05/09/24 05:35 Alkaline Phosphatase 29 U/L (45-117) L 05/09/24 05:35 Triglycerides 95 mg/dL (<150) 05/09/24 05:35 Cholesterol 121 mg/dL (<200) 05/09/24 05:35 HDL Cholesterol 54 mg/dL (40-60) 05/09/24 05:35 Cholesterol/HDL Ratio 2.24 05/09/24 05:35 Lipase 44 U/L (13-75) 05/07/24 18:58 Home Medications: Biotin 10,000 mcg PO DAILY 10/20/23 Empagliflozin [Jardiance] 25 mg PO DAILY 10/20/23 Glimepiride 4 mg PO BID 10/20/23 Lipase/Protease/Amylase [Creon Dr 36,000 Unit Capsule] 2 cap PO TIDWM 10/20/23 Losartan/Hydrochlorothiazide [Losartan-Hctz 100-25 mg Tab] 1 tab PO DAILY 10/20/23 Omeprazole [Prilosec] 40 mg PO DAILY 10/20/23 Tamsulosin [Flomax*] 0.4 mg PO DAILY 10/20/23 Zinc Gluconate [Zinc] 50 mg PO DAILY 10/20/23 Aspirin [Aspirin EC 81 MG] 81 mg PO DAILY #30 tab 05/11/24 Atorvastatin Calcium [Lipitor] 40 mg PO BEDTIME #30 tab 05/11/24 Hydrocodone 5/APAP 325 [Mooers 5/325*] 1 tab PO Q4H PRN #20 tab 05/11/24 Zolpidem Tartrate [Ambien] 10 mg PO BEDTIME PRN PRN #30 tab 05/11/24 New Medications: Zolpidem Tartrate [Ambien] 10 mg PO BEDTIME PRN PRN #30 tab PRN Reason: Insomnia Aspirin [Aspirin EC 81 MG] 81 mg PO DAILY #30 tab Atorvastatin Calcium [Lipitor] 40 mg PO BEDTIME #30 tab Hydrocodone 5/APAP 325 [Mooers 5/325*] 1 tab PO Q4H PRN #20 tab PRN Reason: Pain Scale 5-7 (Moderate) Physician Discharge Instructions: Physician discharge instructions: Patient presented with worsening right inguinal pain, swelling after reportedly lifting heavy object prior to admission secondary to inguinal hernia. CT abdomen noted everal mildly dilated loops of fluid-filled small bowel. Small left inguinal hernia contains fat. Several small pancreatic cystic masses may represent intraductal papillary mucinous neoplasm. On admission, Troponin's were noted to be mildly elevated on admission but trended flat. Suspect elevated troponins secondary to demand ischemia. Patient denied having and chest pain, no prior cardiac history. Cardiology consulted and recommend nuclear stress test to further evaluate which was negative for stress induced ischemia. In regards to hernia, Patient was evaluated by Dr. Gonzalez, general surgeon who recommended outpatient follow-up for inguinal hernia repair. Patient has been, afebrile without leukoctosis, tolerating diet, and was deemed stable for discharge. CT abdomen pelvis report intraductal papillary mucinous neoplasm. This needs to be followed by a gastroenterology. You may need an endoscopic ultrasound biopsy in a tertiary center for definitive diagnosis. Your primary care physician Dr. Andino can help arrange for the referral. You will need to follow-up with general surgery Dr. Gonzalez for arrangement for outpatient inguinal hernia repair. Medications: follow up: PCP 3-5 days Please call to schedule / confirm appointments Resource list requested by patient: Psychiatrists - [facility] [address], [place] [address] [facility] [address], [place] [address] Appointments: [facility] - Dr. Santy Vázquez MD [address], [place] [address] Carloz Williamson MD [address], [place] [id number] [facility] [place] [address], [place] [address] Appointments: [facility] [address], [place] [id number] [facility] [address] [place] [address] Erma Still M.D., P.A. [facility] [address], [place] [address] Hours: Open ? Closes 6?PM [facility] [address] [facility] [address], [place] [address] Products and Services: [email or web address] [address], [place] [address] Followup: Sina STYLES,Cynthia Lincoln DO [Primary Care Provider] - 1 Week Sid Gonzalez MD [ACTIVE - CAN ADMIT] - 1 Week Time spent managing pt's care (in minutes): 36
--- NOTE | 2024-05-14 16:15 | EKG ---
Test Date: 2024-05-07 Test Time: 19:14:43 Ux Manager: AF MEASUREMENT RESULTS: Intervals: Rate: 71 NY: 174 QRSD: 162 QT: 454 QTc: 493 Lamar: P: 41 NY: 174 QRS: -60 T: 41 INTERPRETIVE STATEMENTS: Normal sinus rhythm Right bundle branch block Left anterior fascicular block Bifascicular block Voltage criteria for left ventricular hypertrophy Abnormal ECG Compared to ECG 10/19/2023 17:39:06 Right bundle-branch block now present Left anterior fascicular block now present Bifascicular block now present Left-axis deviation no longer present Early repolarization no longer present Electronically Signed On 05-14-24 16:07:03 CHILD CARE PROVIDER by Neymar Guardado
== END 2024-05-11 14:51 | disposition home or self-care (01) | DRG 393 ==
LOC: ER 18:13 → 2ND 22:03
PROVIDERS: ADMIT Family Medicine; ATTEND Internal Medicine
DX: K40.90 Unilateral inguinal hernia, without obstruction or gangrene, not specified as recurrent (principal); I21.A1 Myocardial infarction type 2; K56.0 Paralytic ileus; K86.2 Cyst of pancreas; I10 Essential (primary) hypertension; N28.1 Cyst of kidney, acquired; E78.5 Hyperlipidemia, unspecified; K59.00 Constipation, unspecified; F32.A Depression, unspecified; M47.894 Other spondylosis, thoracic region; I45.10 Unspecified right bundle-branch block; E11.9 Type 2 diabetes mellitus without complications; N40.0 Benign prostatic hyperplasia without lower urinary tract symptoms; M48.54XD Collapsed vertebra, not elsewhere classified, thoracic region, subsequent encounter for fracture with routine healing; I25.2 Old myocardial infarction; I25.10 Atherosclerotic heart disease of native coronary artery without angina pectoris; Z88.5 Allergy status to narcotic agent; Z88.0 Allergy status to penicillin; Z87.891 Personal history of nicotine dependence; Z79.899 Other long term (current) drug therapy
CPT/HCPCS: 36415; 74018; 74177; 78452; 80048; 80053; 80061; 81001; 81003; 82550; 82947; 83036; 83605; 83690; 83735; 84100; 84484; 85025; 85027; 85730; 93005; 93017; 94760; 99285; A4216; A9500; J1171; J1644; J2405; J2470; J2765; J2785; J3010; J3360; J7030; Q9967

== ENCOUNTER 2024-07-22 12:57 | Emergency (ER) | payer OTHER ==
[2024-07-22] MEDS ORDERED: ASPIRIN 81 MG CHEWABLE TABLET ONE (13:33)
[2024-07-22 13:45] LABS: Absolute Basophils 0.1 K/uL (0-0.5); Absolute Eosinophils 0.2 K/uL (0-0.5); Absolute Lymphocytes (CBC) 1.8 K/uL (0.7-4.9); Absolute Monocytes 0.7 K/uL (0.1-1.3); Absolute Neutrophil 3.7 K/uL (1.8-8.0); Basophils % 0.9 % (0-1.3); Eosinophils % 3.4 % (0-4.4); Hematocrit 39.4 % (39.6-49.0); Hemoglobin 13.7 g/dL (13.6-17.9); MCH 32.7 pg (27.0-35.0); MCHC 34.7 g/dL (32.0-36.0); MCV 94.1 fL (80-100); MPV 8.4 fL (7.6-11.3); Neutrophils % 57.7 % (41.7-73.7); Nucleated Red Blood Cells % 0.1 % (0-0); Platelets 183 thou/uL (152-406); RBC Red Blood Cell Count 4.18 M/uL (4.33-5.43); Red Cell Distribution Width 12.7 % (12.1-15.2)
--- NOTE | 2024-07-22 14:10 | RAD REPORT ---
EXAMINATION: ONE VIEW CHEST XR CLINICAL INDICATION: CHEST PAIN TECHNIQUE: Frontal chest projection is submitted. Examination is limited by patient positioning and t echnique. COMPARISON: 10/19/2023 FINDINGS: The lungs show fibroemphysematous changes. No focal infiltrate. The heart is upper limit of normal in size. No displaced fractures identified. IMPRESSION: No acute intrathoracic abnormalities.
[2024-07-22 14:46] LABS: ALT/SGPT 47 U/L (16-61); AST/SGOT 19 U/L (15-37); Albumin 3.6 g/dL (3.4-5.0); Albumin/Globulin Ratio 0.9 (1.1-1.8); Alkaline Phosphatase 40 U/L (45-117); Anion Gap 5.8 mEq/L (5.0-15.0); BUN Blood Urea Nitrogen 20 mg/dL (7-18); Bicarbonate 33 mEq/L (21-32); Bilirubin Total 0.5 mg/dL (0.2-1.0); Globulin 4.1 g/dL (2.3-3.5); Glomerular Filtration Rate 72 ml/min (=/>90); Glucose Level 97 mg/dL (74-106); Potassium 3.8 mEq/L (3.5-5.1); Protein, Total 7.7 g/dL (6.4-8.2); Sodium Level 139 mEq/L (136-145)
[2024-07-22 14:47] LABS: Bilirubin Direct < 0.2 mg/dL (0-0.2); Bilirubin Indirect, Calculated 0.3 mg/dL (0.2-0.8)
[2024-07-22 14:49] LABS: Troponin High Sensitivity 73.6 pg/mL (<58.9)
[2024-07-22] MEDS ORDERED: LORazepam 2 MG/ML VIAL ONE (15:26)
--- NOTE | 2024-07-22 16:30 | ER ---
Nurse's Notes [facility] Name: Donal Valentine Age: 73 yrs Sex: Male : 1950 Arrival Date: 07/22/2024 Time: 12:57 Bed 2 Private MD: Diagnosis: Chest pain, unspecified Presentation: 07/22 13:15 Chief complaint: Patient states: he started having intermittent chest pain in the night ap3 which he rates a 2/10 on the pain scale. patient reports an increase of stress in his life since his . Coronavirus screen: At this time, the client does not indicate any symptoms associated with coronavirus-19. Ebola Screen: No symptoms or risks identified at this time. Initial Sepsis Screen: Does the patient meet any 2 criteria? No. Patient's initial sepsis screen is negative. Does the patient have a suspected source of infection? No. Patient's initial sepsis screen is negative. Risk Assessment: Do you want to hurt yourself or someone else? Patient reports no desire to harm self or others. Onset of symptoms was July 22, 2024. 13:15 Method Of Arrival: Ambulatory ap3 13:15 Acuity: MINOR 2 ap3 Triage Assessment: 13:17 General: Appears comfortable, Behavior is cooperative, appropriate for age. Pain: ap3 Complains of pain in chest Pain currently is 2 out of 10 on a pain scale. Pain began this morning Is intermittent. Neuro: Level of Consciousness is awake, alert, obeys commands, Oriented to person, place, time, situation, Appropriate for age Gait is steady, Speech is normal. Cardiovascular: Reports chest pain. Respiratory: Airway is patent Respiratory effort is even, unlabored, Respiratory pattern is regular, symmetrical. 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 Flu vaccine is not up to date. - Infectious Disease History:: Denies. - Social history:: Smoking status: Patient denies any tobacco usage or history of. - Family history:: not pertinent. Screenin:18 Abuse screen: Denies threats or abuse. Nutritional screening: No deficits noted. ap3 Tuberculosis screening: No symptoms or risk factors identified. 16:58 [facility] ED Fall Risk Assessment (Adult) History of falling in the last 3 months, bp including since admission No falls in past 3 months (0 pts) Confusion or Disorientation No (0 pts) Intoxicated or Sedated No (0 pts) Impaired Gait No (0 pts) Mobility Assist Device Used No (0 pt) Altered Elimination No (0 pt) Score/Fall Risk Level 0 - 2 = Low Risk Oriented to surroundings. Assessment: 13:30 General: Appears in no apparent distress. comfortable, Behavior is cooperative, bp appropriate for age, anxious. Pain: Pain does not radiate. 16:59 Reassessment: Patient appears in no apparent distress at this time. Patient is alert, bp oriented x 3, equal unlabored respirations, skin warm/dry/pink. Vital Signs: 13:15 BP 161 / 90; Pulse 76; Resp 19; Temp 98.4(O); Pulse Ox 100% on R/A; Weight 80.5 kg; ap3 Height 6 ft. 0 in. ; Pain 2/10; 16:59 BP 125 / 80; Pulse 72; Resp 16; Temp 98; Pulse Ox 99% ; bp 13:15 Body Mass Index 24.07 (80.50 kg, 182.88 cm) ap3 13:15 Pain Scale: Adult ap3 ED Course: 12:58 Patient arrived in ED. mr 13:02 Leandro Thacker MD is Attending Physician. rt 13:02 Arm band placed on Patient placed in an exam room, on a stretcher. ll1 13:10 Randy Lopez, RN is Primary Nurse. bp 13:15 Client placed on continuous cardiac and pulse oximetry monitoring. NIBP monitoring ap3 applied. hall monitor on. Pulse ox on. NIBP on. 13:15 EKG done, by ED staff, reviewed by Leandro Thacker MD. ap3 13:17 Triage completed. ap3 13:18 Patient has correct armband on for positive identification. Bed in low position. Call ap3 light in reach. Side rails up X 1. 13:18 Patient maintains SpO2 saturation greater than 95% on room air. ap3 13:45 Inserted saline lock: 20 gauge in right forearm, using aseptic technique. Blood ap3 collected. Flushed with 10 mL NS. 14:04 XRAY Chest (1 view) In Process Unspecified. EDMS 14:23 IV discontinued, intact, bleeding controlled, No redness/swelling at site. Pressure me1 dressing applied. 14:23 Lab(s) recollected, by me, sent to lab. Inserted saline lock: 22 gauge in left me1 antecubital area, using aseptic technique. 16:29 Coleman Araiza MD is Referral Physician. rt 16:58 Provided Education on: none. bp 16:58 No provider procedures requiring assistance completed. bp Administered Medications: 13:38 Drug: Aspirin PO Chewable Tablet 243 mg PO once; 81 mg tablets x 3 Route: PO; bp 14:07 Follow up: Response: No adverse reaction bp 15:29 Drug: Ativan IVP 1 mg IVP once Route: IVP; Site: left antecubital; bp 17:00 Follow up: Response: No adverse reaction bp Outcome: 16:29 Discharge ordered by MD. rt 16:42 Discharged to home ambulatory, ap3 16:42 Condition: good 16:42 Discharge instructions given to patient, Instructed on discharge instructions, follow up and referral plans. Demonstrated understanding of instructions, follow-up care, 17:00 Patient left the ED. bp Signatures: Dispatcher [employer] EDMS Yuliana Taylor, Reg Reg mr Randy Lopez, RN RN bp Ruth Cash RN RN ap3 Jermaine Schaefer, RN RN ll1 Leandro Thacker MD MD rt Maine Godoy RN RN me1
--- NOTE | 2024-07-22 16:30 | EDPHYS ---
Physician Documentation [facility] Name: Donal Valentine Age: 73 yrs Sex: Male : 1950 Arrival Date: 07/22/2024 Time: 12:57 Bed 2 Private MD: ED Physician Leandro Thacker HPI: 07/22 14:01 This 73 yrs old Male presents to ER via Ambulatory with complaints of Chest Pain. rt 14:01 Patient presents to the ED with intermittent chest pain starting since last night, rt states that these episodes are only very brief. Denies other associated symptoms. Symptoms are moderate in severity, no other aggravating alleviating factors. Pain is substernal, nonradiating.. 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 Flu vaccine is not up to date. - Infectious Disease History:: Denies. - Social history:: Smoking status: Patient denies any tobacco usage or history of. - Family history:: not pertinent. ROS: 14:01 Constitutional: Negative for fever, chills, and weight loss, Respiratory: Negative for rt shortness of breath, cough, wheezing, and pleuritic chest pain, Abdomen/GI: Negative for abdominal pain, nausea, vomiting, diarrhea, and constipation, MS/Extremity: Negative for injury and deformity, Skin: Negative for injury, rash, and discoloration, Neuro: Negative for headache, weakness, numbness, tingling, and seizure, 14:01 Cardiovascular: Positive for chest pain, Negative for edema, Exam: 14:01 Constitutional: This is a well developed, well nourished patient who is awake, alert, rt and in no acute distress. Head/Face: Normocephalic, atraumatic. Chest/axilla: Normal chest wall appearance and motion. Nontender with no deformity. No lesions are appreciated. Cardiovascular: Regular rate and rhythm with a normal S1 and S2. No gallops, murmurs, or rubs. Normal PMI, no JVD. No pulse deficits. Respiratory: Lungs have equal breath sounds bilaterally, clear to auscultation and percussion. No rales, rhonchi or wheezes noted. No increased work of breathing, no retractions or nasal flaring. Abdomen/GI: Soft, non-tender, with normal bowel sounds. No distension or tympany. No guarding or rebound. No evidence of tenderness throughout. Skin: Warm, dry with normal turgor. Normal color with no rashes, no lesions, and no evidence of cellulitis. MS/ Extremity: Pulses equal, no cyanosis. Neurovascular intact. Full, normal range of motion. Neuro: Awake and alert, GCS 15, oriented to person, place, time, and situation. Cranial nerves II-XII grossly intact. Motor strength 5/5 in all extremities. Sensory grossly intact. Cerebellar exam normal. Normal gait. 14:01 ECG was reviewed by the Attending Physician. Vital Signs: 13:15 BP 161 / 90; Pulse 76; Resp 19; Temp 98.4(O); Pulse Ox 100% on R/A; Weight 80.5 kg; ap3 Height 6 ft. 0 in. ; Pain 2/10; 16:59 BP 125 / 80; Pulse 72; Resp 16; Temp 98; Pulse Ox 99% ; bp 13:15 Body Mass Index 24.07 (80.50 kg, 182.88 cm) ap3 13:15 Pain Scale: Adult ap3 MDM: 13:15 Medical Screening Exam initiated rt 17:14 Differential diagnosis: ACS, pneumonia, pneumothorax, dysrhythmia. The patient was rt given aspirin in the Emergency Department. Data reviewed: vital signs, nurses notes, lab test result(s), EKG, radiologic studies. Consideration of Admission/Observation Escalation of care including admission/observation considered. I recommended the patient be admitted to the hospital, he states that he does not wish to be admitted under any circumstances, repeat troponin is essentially unchanged, patient was instructed to follow-up as an outpatient, understands risks of leaving clued missed cardiac event. Has decision-making capacity. He understands that he may return at any time if he has worsening symptoms or if he changes his mind regarding admission.. I considered the following discharge prescriptions or medication management in the emergency department Medications were administered in the Emergency Department. See MAR. Independent interpretation of the following test(s) in the Emergency Department X-Ray: My interpretation is No infiltrate seen on interpretation of x-ray images. Test considered but Not performed: CT: Low suspicion for pulmonary embolism, PE RC negative, CT angiogram not indicated. Care significantly affected by the following chronic conditions: Diabetes, Hypertension. Counseling: I had a detailed discussion with the patient and/or guardian regarding the historical points, exam findings, and any diagnostic results supporting the discharge/admit diagnosis, lab results, radiology results, the need for further work-up and treatment in the hospital. Response to treatment: the patient's symptoms have markedly improved after treatment. Refusal of service: The patient/guardian displays adequate decision making capability and despite a detailed discussion of alternatives, benefits, risks, and consequences refuses: Admission to the hospital for further work-up and treatment. 07/22 13:21 Order name: Basic Metabolic Panel; Complete Time: 14:53 rt 07/22 13:21 Order name: CBC with Diff; Complete Time: 14:11 rt 07/22 13:21 Order name: LFT's; Complete Time: 14:53 rt 07/22 13:21 Order name: Troponin HS; Complete Time: 14:53 rt 07/22 15:15 Order name: Troponin High Sensitivity; Complete Time: 16:24 rt 07/22 13:21 Order name: XRAY Chest (1 view); Complete Time: 14:11 rt 07/22 13:21 Order name: Cardiac monitoring; Complete Time: 13:24 rt 07/22 13:21 Order name: EKG - Nurse/Tech; Complete Time: 13:24 rt 07/22 13:21 Order name: IV Saline Lock; Complete Time: 13:30 rt 07/22 13:21 Order name: Labs collected and sent; Complete Time: 13:30 rt 07/22 13:21 Order name: O2 Per Protocol; Complete Time: 13:24 rt 07/22 13:21 Order name: O2 Sat Monitoring; Complete Time: 13:23 rt 07/22 13:47 Order name: Labs - recollect needed: green top; Complete Time: 14:23 bc6 EC:01 Rate is 69 beats/min. Rhythm is regular, Normal Sinus Rhythm with No ectopy, rt Bifascicular block noted, similar in appearance to EKG dated 05/07/2024. Left axis deviation noted. WA interval is normal. QRS interval is normal. QT interval is normal. No Q waves. Administered Medications: 13:38 Drug: Aspirin PO Chewable Tablet 243 mg PO once; 81 mg tablets x 3 Route: PO; bp 14:07 Follow up: Response: No adverse reaction bp 15:29 Drug: Ativan IVP 1 mg IVP once Route: IVP; Site: left antecubital; bp 17:00 Follow up: Response: No adverse reaction bp Disposition Summary: 07/22/24 16:29 Discharge Ordered Notes: Location: Home rt Problem: new rt Symptoms: have improved rt Condition: Stable rt Diagnosis - Chest pain, unspecified rt Followup: rt - With: Coleman Araiza MD - When: 2 - 3 days - Reason: Discharge Instructions: - Discharge Summary Sheet rt - Nonspecific Chest Pain, Adult rt Forms: - Medication Reconciliation Form rt - Antibiotic Education rt - Prescription Opioid Use rt - Patient Portal Instructions rt - Leadership Thank You Letter rt Signatures: Dispatcher [employer] EDRandy Martines, RN RN bp Ruth Cash RN RN ap3 Leandro Thacker MD MD rt Gwendolyn Rowe 6 Corrections: (The following items were deleted from the chart) 13:22 13:22 Chest Single View+RAD.RAD.BRZ ordered. EDMS EDMS
[2024-07-23 17:16] VITALS: BP 125/80; TEMP 98; O2SAT 99
--- NOTE | 2024-07-26 12:16 | EKG ---
Test Date: 2024-07-22 Test Time: 13:13:12 Car Shifter: ALP MEASUREMENT RESULTS: Intervals: Rate: 69 AR: 180 QRSD: 160 QT: 472 QTc: 505 [place]: P: 38 AR: 180 QRS: -56 T: 40 INTERPRETIVE STATEMENTS: Normal sinus rhythm Right bundle branch block Left anterior fascicular block Bifascicular block Voltage criteria for left ventricular hypertrophy Cannot rule out Septal infarct, age undetermined Abnormal ECG Compared to ECG 05/07/2024 19:14:43 Myocardial infarct finding now present Bifascicular block still present Electronically Signed On 07-26-24 12:12:38 CONTROL TOWER RADIO OPERATOR by Neymar Guardado
== END 2024-07-22 17:00 | disposition home or self-care (01) ==
LOC: ER 12:57
DX: R07.9 Chest pain, unspecified (principal); I10 Essential (primary) hypertension; E11.9 Type 2 diabetes mellitus without complications; Z86.19 Personal history of other infectious and parasitic diseases; Z88.0 Allergy status to penicillin; Z88.5 Allergy status to narcotic agent
CPT/HCPCS: 36415; 71045; 80048; 80076; 84484; 85025; 93005; 96374; 99285

== ENCOUNTER 2024-08-02 07:41 | Day surgery (SDC) | payer OTHER ==
[2024-08-02] MEDS: NA CHLORIDE 0.9% 1,000 ML ONE (08:21)
[2024-08-02] MEDS ORDERED: ONDANSETRON 4 MG/2 ML VIAL ONE (08:35)
[2024-08-02] MEDS ORDERED: ROCURONIUM 50 MG/5 ML VIAL IV ONE (08:35)
[2024-08-02] MEDS ORDERED: NEOSTIGMINE 1 MG/ML -10 ML VIAL ONE (08:35)
[2024-08-02] MEDS ORDERED: LIDOCAINE 2% MPF 5 ML VIAL ONE (08:35)
[2024-08-02] MEDS ORDERED: GLYCOPYRROLATE 0.2 MG/ML SYR ONE (08:35)
[2024-08-02] MEDS ORDERED: propofoL 200 MG/20 ML VIAL IV ONE (08:35)
[2024-08-02] MEDS ORDERED: FENTANYL CITR 100 MCG/2 ML ONE (08:35)
[2024-08-02] MEDS ORDERED: MIDAZOLAM HCL 2 MG/2 ML INJ ONE (08:35)
[2024-08-02] MEDS: CIPROFLOXACIN 400mg IV 400 MG/200 ML BAG IV ONE (09:00)
[2024-08-02] MEDS ORDERED: EPHEDRINE SULF 50 MG/ML VIAL ONE (09:21)
[2024-08-02] MEDS ORDERED: Mastisol Adhesive Liq ONE (09:52)
--- NOTE | 2024-08-02 10:11 | P.BOP ---
Preoperative diagnosis: reducible tender right inguinal hernia Postoperative diagnosis: same Primary procedure: Laparoscopic repair of reducible tender right inguinal hernia with mesh Estimated blood loss: <10cc Specimen: none Findings: RIH Anesthesia: General Complications: None Implants: 3D mesh Transferred to: Recovery Room Condition: Good
[2024-08-02] MEDS: HYDROMORPHONE HCL 2 MG/ML inj ONE (10:16)
[2024-08-02] MEDS ORDERED: TAMSULOSIN 0.4 MG SR CAP ONE (11:26)
[2024-08-02] MEDS: TRAMADOL 37.5mg/APAP 325mg PER TAB ONE (11:34)
[2024-08-02] MEDS: TAMSULOSIN 0.4 MG SR CAP PO ONE (11:34)
[2024-08-02 13:10] VITALS: BP 139/76; TEMP 97.8; O2SAT 97
--- NOTE | 2024-08-04 22:41 | OP ---
Surgeon: Lenny Núñez MD Preoperative Diagnosis: Reducible tender right inguinal hernia. Postoperative Diagnosis: Reducible tender right inguinal hernia. Procedure: Laparoscopic repair of reducible tender right inguinal hernia with mesh. Estimated Blood Loss: Less than 10 cc. Specimen: None. Findings: Right inguinal hernia. Anesthesia: General plus local. Complications: None. Implant: 3D mesh. Indications: This is a case of a male, who comes to us with the reducible right inguinal hernia, ten maisha. He wants that repaired. The benefits, alternatives, and risks of laparoscopic, possible open r epair with mesh was fully explained, which include, but not limited to infection, bleeding, damage to adjacent structures, anesthesia complication, recurrence, [place], and even . He also understands t his may not relieve any symptoms. He might need more than one surgical intervention. He understood, signed a consent. The area of concern was marked by me and the patient in holding room. Description Of Procedure: The patient was brought to the operating room, placed in supine position. Anesthesia was induced without complication. Abdomen and inguinal region were prepped and draped in a sterile fashion. A time-out was called. Local anesthetic was applied in the infraumbilical regio n. Incision was carried down until we found the anterior rectus sheath. The muscle was retracted la terally to expose the posterior rectus sheath. The extraperitoneal space was gently developed with t help of blunt dissection. A balloon tipped trocar was placed in that area, directed towards the p ubic symphysis. A laparoscope was then placed in the trocar and balloon was inflated under direct vi sualization. Once we created the space, the balloon was deflated. We insufflated the area. Then, u nder direct visualization with the area insufflated with the camera in place, we selected an area whe re we can put a 5 mm trocar, that was just above the pubic symphysis and another one alf between the first and the second one. The preperitoneal space was further developed by exposing the inferior epigastric vessels and keeping them anterior. Eulalio ligament was dissected laterally to the juncti on with the iliac veins and dissection continued inferiorly to the iliopubic tract avoiding damage to the femoral branch of the genitofemoral nerve and the lateral femoral cutaneous nerve. The cord str uctures were carefully skeletonized. The hernia was identified and reduced by gentle traction into t he peritoneal cavity. At that moment, I introduced into the area through the trocar site, a 3D mesh that fit that area properly to cover direct and indirect spaces. The mesh was secured in place, late ral and superior to the iliopubic tract and inferior and medial to the Eulalio ligament with the help of SorbaFix. After ensuring adequate hemostasis, the air was allowed to escape while the mesh was he ld gently in place under direct visualization. The trocars were removed. The anterior rectus sheath was closed with #1 Vicryl and then the subcutaneous was closed with 3-0 chromic and subcuticular nancy sure with 3-0 chromic and Steri-Strips on top. Sponge count and instrument count were correct. At t he end of the case, testicles were in the scrotum. The patient was sent to recovery in stable condit ion. YANIRA/DARA Voice ID: [id number] Report ID: [id number]
== END 2024-08-02 12:08 | disposition home or self-care (01) ==
LOC: OR 07:41
PROVIDERS: ATTEND Surgery
PROC: 0YU54JZ Supplement Right Inguinal Region with Synthetic Substitute, Percutaneous Endoscopic Approach (ICD-10-PCS; principal; 2024-08-02 09:15)
DX: K40.90 Unilateral inguinal hernia, without obstruction or gangrene, not specified as recurrent (principal)
CPT/HCPCS: 82947 ×2; 49650; J2704; J2710; J2003; J2250; J1171; J3010; J2405; J0744; J7030; C1781; A4314

== ENCOUNTER 2024-08-02 21:31 | Emergency (ER) | payer OTHER ==
[2024-08-02] MEDS ORDERED: PROMETHAZINE INJ 25 MG/ML AMP ONE (22:02)
[2024-08-02] MEDS ORDERED: ONDANSETRON 4 MG/2 ML VIAL ONE (22:02)
[2024-08-02 22:17] LABS: Absolute Monocytes 0.6 K/uL (0.1-1.3); Absolute Neutrophil 7.8 K/uL (1.8-8.0); Basophils % 0.2 % (0-1.3); Eosinophils % 0.3 % (0-4.4); Hematocrit 34.8 % (39.6-49.0); Hemoglobin 12.3 g/dL (13.6-17.9); Lymphocytes % 10.7 % (15.3-44.8); MCHC 35.5 g/dL (32.0-36.0); MCV 93.1 fL (80-100); MPV 8.5 fL (7.6-11.3); Monocytes % 6.1 % (3.3-12.3); Neutrophils % 82.7 % (41.7-73.7); Nucleated Red Blood Cells % 0.1 % (0-0); Platelets 160 thou/uL (152-406); RBC Red Blood Cell Count 3.74 M/uL (4.33-5.43); Red Cell Distribution Width 12.5 % (12.1-15.2)
[2024-08-02 22:25] LABS: Specific Gravity 1.023 (1.005-1.030); Sqamous Epithelial <5 /HPF (None Seen); Urine Bacteria None Seen /HPF (<20); Urine Bilirubin NEGATIVE (Negative); Urine Blood Negative (Negative); Urine Clarity Clear (Clear); Urine Color Light-Yellow (Yellow); Urine Culture Reflex Order NOT NEEDED; Urine Glucose 3+ (Negative); Urine Ketones NEGATIVE (Negative); Urine Micro Reflex YN NO BILL MICROSCOPIC; Urine Mucus Slight /HPF (None Seen); Urine Nitrite NEGATIVE (Negative); Urine Protein TRACE (Negative); Urine RBC <5 /HPF (None Seen); Urine Urobilinogen Normal (Normal); Urine WBC <5 /HPF (<5); Urine pH 5.5 (5.0-7.0)
[2024-08-02 22:33] LABS: Albumin 3.6 g/dL (3.4-5.0); Anion Gap 8.6 mEq/L (5.0-15.0); Bilirubin Total 0.7 mg/dL (0.2-1.0); Globulin 3.7 g/dL (2.3-3.5); Potassium 3.6 mEq/L (3.5-5.1); Protein, Total 7.3 g/dL (6.4-8.2)
--- NOTE | 2024-08-02 22:44 | EDPHYS ---
Physician Documentation [facility] Name: Donal Valentine Age: 73 yrs Sex: Male : 1950 Arrival Date: 08/02/2024 Time: 21:31 Bed 5 Private MD: ED Physician Karen Carter HPI: 08/02 21:38 This 73 yrs old Male presents to ER via Unassigned with complaints of post operative sp3 vomiting and constipation. 21:38 73-year-old male with history of hypertension who had a right inguinal hernia repair by sp3 Dr. Núñez this morning presents via EMS for chief complaint vomiting despite taking ondansetron ODT and constipation. Patient does state that he is able to pass gas but has not had a bowel movement. Mild cramping noted. No significant pain or bleeding at the operative site. Denies any blood or mucus in his emesis. Review system negative for headache, neck pain, chest pain, shortness of breath, back pain, significant syncope, significant bleeding, rash, or any other signs or symptoms on ROS at this time.. 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 - Infectious Disease History:: Denies. - Social history:: Smoking status: Patient denies any tobacco usage or history of. Patient uses street drugs, marijuana. ROS: 21:39 Constitutional: Negative for fever, chills, and weight loss, Eyes: Negative for injury, sp3 pain, redness, and discharge, ENT: Negative for injury, pain, and discharge, Neck: Negative for injury, pain, and swelling, Cardiovascular: Negative for chest pain, palpitations, and edema, Respiratory: Negative for shortness of breath, cough, wheezing, and pleuritic chest pain, Back: Negative for injury and pain, MS/Extremity: Negative for injury and deformity, Skin: Negative for injury, rash, and discoloration, Neuro: Negative for headache, weakness, numbness, tingling, and seizure, Psych: Negative for depression, anxiety, suicide ideation, homicidal ideation, and hallucinations, Allergy/Immunology: Negative for hives, rash, and allergies, 21:39 All other systems are negative, Exam: 21:40 Constitutional: This is a well developed, well nourished patient who is awake, alert, sp3 and in no acute distress. Head/Face: Normocephalic, atraumatic. Eyes: Pupils equal round and reactive to light, extra-ocular motions intact. Lids and lashes normal. Conjunctiva and sclera are non-icteric and not injected. Cornea within normal limits. Periorbital areas with no swelling, redness, or edema. Neck: Trachea midline, no thyromegaly or masses palpated, and no cervical lymphadenopathy. Supple, full range of motion without nuchal rigidity, or vertebral point tenderness. No Meningismus. Chest/axilla: Normal chest wall appearance and motion. Nontender with no deformity. No lesions are appreciated. Cardiovascular: Regular rate and rhythm with a normal S1 and S2. No gallops, murmurs, or rubs. Normal PMI, no JVD. No pulse deficits. Respiratory: Lungs have equal breath sounds bilaterally, clear to auscultation and percussion. No rales, rhonchi or wheezes noted. No increased work of breathing, no retractions or nasal flaring. Back: No spinal tenderness. No costovertebral tenderness. Full range of motion. Skin: Warm, dry with normal turgor. Normal color with no rashes, no lesions, and no evidence of cellulitis. MS/ Extremity: Pulses equal, no cyanosis. Neurovascular intact. Full, normal range of motion. Neuro: Awake and alert, GCS 15, oriented to person, place, time, and situation. Cranial nerves II-XII grossly intact. Motor strength 5/5 in all extremities. Sensory grossly intact. Cerebellar exam normal. Normal gait. Psych: Awake, alert, with orientation to person, place and time. Behavior, mood, and affect are within normal limits. 21:40 Abdomen/GI: Soft abdomen without tympany or distention. Mild pain to palpation around the incision site and lower abdomen consistent with being postoperative. No peritoneal signs noted. No active emesis currently., Vital Signs: 21:44 BP 157 / 100; Pulse 97; Resp 18; Temp 98.1; Pulse Ox 95% ; Weight 83 kg; Height 6 ft. 0 bm8 in. ; Pain 3/10; 22:07 BP 125 / 81; Pulse 92; Resp 18; Temp 98.1; Pulse Ox 94% ; Pain 2/10; bm8 22:49 BP 126 / 87; Pulse 92; Resp 18; Temp 98.1; Pulse Ox 97% ; Pain 0/10; bm8 21:44 Body Mass Index 24.82 (83.00 kg, 182.88 cm) bm8 21:44 Pain Scale: Adult bm8 22:07 Pain Scale: Adult bm8 22:49 Pain Scale: Adult bm8 Coni Coma Score: 22:07 Eye Response: spontaneous(4). Motor Response: obeys commands(6). Verbal Response: bm8 oriented(5). Total: 15. 22:50 Eye Response: spontaneous(4). Motor Response: obeys commands(6). Verbal Response: bm8 oriented(5). Total: 15. MDM: 21:34 Medical Screening Exam initiated sp3 21:40 Data reviewed: vital signs, nurses notes, old medical records, lab test result(s), sp3 radiologic studies. ED course: 73-year-old male postop day 1 from inguinal hernia repair on the right side by Dr. Núñez. Differential diagnosis includes anesthesia induced emesis, pain medicine induced constipation and nausea, or other intra-abdominal process. Given clinical exam would not believe CT is indicated however we will obtain 1 view x-ray. I believe most likely culprit is postanesthesia complications. Will check general labs and administer IV ondansetron and IV Phenergan followed by p.o. challenge. Vital signs are normal. Disposition probable discharge if patient is improved.. 22:43 ED course: Patient not tolerating p.o. We will safely discharge home. sp3 08/02 21:37 Order name: CBC with Diff; Complete Time: 22:27 sp3 08/02 21:37 Order name: CMP; Complete Time: 22:36 sp3 08/02 21:37 Order name: Lipase; Complete Time: 22:36 sp3 08/02 21:37 Order name: UAM; Complete Time: 22:27 sp3 08/02 21:37 Order name: IV Saline Lock; Complete Time: 22:05 sp3 08/02 21:37 Order name: Labs collected and sent; Complete Time: 22:05 sp3 08/02 21:37 Order name: PO challenge; Complete Time: 22:10 sp3 Administered Medications: 22:05 Drug: Ondansetron IVP 4 mg IVP once; over 2 minutes Route: IVP; Site: right forearm; bm8 22:50 Follow up: Response: No adverse reaction bm8 22:05 Drug: Promethazine IVP 12.5 mg IVP once Route: IVP; Site: right forearm; bm8 22:50 Follow up: Response: No adverse reaction bm8 Disposition Summary: 08/02/24 22:43 Discharge Ordered Notes: Location: Home sp3 Condition: Stable sp3 Diagnosis - Postanesthesia vomiting sp3 Followup: sp3 - With: Private Physician - When: Upon discharge from the Emergency Department - Reason: Continuance of care Discharge Instructions: - Discharge Summary Sheet sp3 - Vomiting, Adult sp3 Forms: - Medication Reconciliation Form sp3 - Antibiotic Education sp3 - Prescription Opioid Use sp3 - Patient Portal Instructions sp3 - Leadership Thank You Letter sp3 Prescriptions: - ondansetron 4 mg Oral Tablet,disintegrating - take 1 tablet ORAL route every 8 hours; 20 tablet; Refills: 0, Product sp3 Selection Permitted - promethazine 25 mg Oral Tablet - take 1 tablet ORAL route every 6 hours As needed; 20 tablet; Refills: 0, sp3 Product Selection Permitted Signatures: Dispatcher [employer] EDKaren Hess MD MD sp3 Ori Ríos, RN RN bm8 Corrections: (The following items were deleted from the chart) 22:14 21:38 Abdomen 1 View+RAD.RAD.BRZ ordered. EDMS EDMS
--- NOTE | 2024-08-02 22:44 | ER ---
Nurse's Notes [facility] Name: Donal Valentine Age: 73 yrs Sex: Male : 1950 Arrival Date: 08/02/2024 Time: 21:31 Bed 5 Private MD: Diagnosis: Postanesthesia vomiting Presentation: 08/02 21:44 Chief complaint: Patient states: I had hernia sx this morning and have been unable to bm8 urinate, hold any thing down and just feel nauseous. Coronavirus screen: Vaccine status: Patient reports receiving the 2nd dose of the covid vaccine. At this time, the client does not indicate any symptoms associated with coronavirus-19. Ebola Screen: Patient negative for fever greater than or equal to 101.5 degrees Fahrenheit, and additional compatible Ebola Virus Disease symptoms Patient denies exposure to infectious person. Patient denies travel to an Ebola-affected area in the 21 days before illness onset. No symptoms or risks identified at this time. Initial Sepsis Screen: Does the patient meet any 2 criteria? No. Patient's initial sepsis screen is negative. Does the patient have a suspected source of infection? No. Patient's initial sepsis screen is negative. Risk Assessment: Do you want to hurt yourself or someone else? Patient reports no desire to harm self or others. Onset of symptoms was August 02, 2024 at 08:00. 21:44 Method Of Arrival: EMS: [facility] bm8 21:44 Acuity: MINOR 3 bm8 Triage Assessment: 21:46 General: Appears in no apparent distress. uncomfortable, Behavior is calm, cooperative, bm8 appropriate for age. Pain: Complains of pain in back and pelvis Pain currently is 3 out of 10 on a pain scale. Quality of pain is described as aching, crampy. EENT: No deficits noted. No signs and/or symptoms were reported regarding the EENT system. Neuro: No deficits noted. Level of Consciousness is awake, alert, obeys commands, Oriented to person, place, time, situation, Appropriate for age. Cardiovascular: Denies chest pain, Heart tones S1 S2 present Capillary refill < 3 seconds in bilateral fingers Patient's skin is warm and dry. Respiratory: Airway is patent Respiratory effort is even, unlabored, Respiratory pattern is regular, symmetrical, Breath sounds are clear bilaterally. GI: Abdomen is round distended, Bowel sounds present X 4 quads. Abdomen is tender to palpation in suprapubic area, right lower quadrant and left lower quadrant Reports lower abdominal pain, nausea, Pain is 3 out of 10 on a pain scale. vomiting. : Reports inability to void, since this morning. Derm: No signs and/or symptoms reported regarding the dermatologic system. Musculoskeletal: Circulation, motion, and sensation intact. Capillary refill < 3 seconds, in bilateral fingers. Reports pain in back. 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 - Infectious Disease History:: Denies. - Social history:: Smoking status: Patient denies any tobacco usage or history of. Patient uses street drugs, marijuana. Screenin:07 [facility] ED Fall Risk Assessment (Adult) History of falling in the last 3 months, bm8 including since admission No falls in past 3 months (0 pts) Confusion or Disorientation No (0 pts) Intoxicated or Sedated No (0 pts) Impaired Gait No (0 pts) Mobility Assist Device Used No (0 pt) Altered Elimination No (0 pt) Score/Fall Risk Level 0 - 2 = Low Risk Oriented to surroundings, Maintained a safe environment, Educated pt \T\ family on fall prevention, incl call for assistance when getting out of bed, Assessed \T\ reinforced patient's understanding of fall precautions, Hourly rounding (assess needs \T\ fall precautionary measures) done, Used ambulatory aids as needed (educated on \T\ assisted with), Used gait belt as appropriate. Abuse screen: Denies threats or abuse. Nutritional screening: No deficits noted. Tuberculosis screening: No symptoms or risk factors identified. Assessment: 22:07 Reassessment: Patient appears in no apparent distress at this time. Patient and/or bm8 family updated on plan of care and expected duration. Pain level reassessed. Patient is alert, oriented x 3, equal unlabored respirations, skin warm/dry/pink. Neuro: No deficits noted. Level of Consciousness is awake, alert, obeys commands, Oriented to person, place, time, situation, Appropriate for age. 22:50 Reassessment: Patient appears in no apparent distress at this time. No changes from bm8 previously documented assessment. Patient is alert, oriented x 3, equal unlabored respirations, skin warm/dry/pink. Patient denies pain at this time. Patient states feeling better. Patient states symptoms have improved. Vital Signs: 21:44 BP 157 / 100; Pulse 97; Resp 18; Temp 98.1; Pulse Ox 95% ; Weight 83 kg; Height 6 ft. 0 bm8 in. ; Pain 3/10; 22:07 BP 125 / 81; Pulse 92; Resp 18; Temp 98.1; Pulse Ox 94% ; Pain 2/10; bm8 22:49 BP 126 / 87; Pulse 92; Resp 18; Temp 98.1; Pulse Ox 97% ; Pain 0/10; bm8 21:44 Body Mass Index 24.82 (83.00 kg, 182.88 cm) bm8 21:44 Pain Scale: Adult bm8 22:07 Pain Scale: Adult bm8 22:49 Pain Scale: Adult bm8 Coni Coma Score: 22:07 Eye Response: spontaneous(4). Motor Response: obeys commands(6). Verbal Response: bm8 oriented(5). Total: 15. 22:50 Eye Response: spontaneous(4). Motor Response: obeys commands(6). Verbal Response: bm8 oriented(5). Total: 15. ED Course: 21:32 Patient arrived in ED. jj6 21:33 Karen Carter MD is Attending Physician. sp3 21:44 Ori Ríos RN is Primary Nurse. bm8 21:46 Triage completed. bm8 21:49 Arm band placed on right wrist. bm8 22:07 Patient has correct armband on for positive identification. Placed in gown. Bed in low bm8 position. Call light in reach. Side rails up X 1. Client placed on continuous cardiac and pulse oximetry monitoring. NIBP monitoring applied. Pulse ox on. NIBP on. Door closed. Noise minimized. Warm blanket given. Pillow given. Verbal reassurance given. Head of bed elevated. 22:07 No provider procedures requiring assistance completed. Initial lab(s) drawn, by , bmOskar sent to lab. Urine collected: clean catch specimen, clear. Inserted saline lock: 18 gauge in right forearm, using aseptic technique. Blood collected. Flushed with 10 mL NS. Patient maintains SpO2 saturation greater than 95% on room air. 22:50 Provided Education on: post er care. bm8 22:50 IV discontinued, intact, bleeding controlled, No redness/swelling at site. Pressure bm8 dressing applied. Administered Medications: 22:05 Drug: Ondansetron IVP 4 mg IVP once; over 2 minutes Route: IVP; Site: right forearm; bm8 22:50 Follow up: Response: No adverse reaction bm8 22:05 Drug: Promethazine IVP 12.5 mg IVP once Route: IVP; Site: right forearm; bm8 22:50 Follow up: Response: No adverse reaction bm8 Medication: 22:07 VIS not applicable for this client. bm8 Outcome: 22:43 Discharge ordered by . sp3 22:50 Discharged to home ambulatory, bm8 22:50 Condition: stable 22:50 Discharge instructions given to patient, Instructed on discharge instructions, follow up and referral plans. Demonstrated understanding of instructions, follow-up care, medications, Prescriptions given X 22:51 Prescriptions given X 2, bm8 23:07 Patient left the ED. bm8 Signatures: Karen Carter MD MD sp3 Kellie Chandler Brad, RN RN bm8
[2024-08-02 23:19] VITALS: TEMP 98.1
[2024-08-02 23:22] VITALS: BP 126/87; O2SAT 97
== END 2024-08-02 23:07 | disposition home or self-care (01) ==
LOC: ER 21:31
DX: K91.89 Other postprocedural complications and disorders of digestive system (principal); Z98.890 Other specified postprocedural states; E11.9 Type 2 diabetes mellitus without complications; I10 Essential (primary) hypertension; Z79.82 Long term (current) use of aspirin
CPT/HCPCS: 85025; 81001; 36415; 83690; 80053; 96375; 96374; 99284; J2550; J2405